=== PATIENT | female | born 1930 | race Caucasian/White ===

== ENCOUNTER 2017-02-20 14:30 | Inpatient (IN) | payer MEDICARE, MEDICAID ==
--- NOTE | 2017-02-12 12:36 | RAD ---
INDICATION: Hypertension COMPARISON: None TECHNIQUE: PA and lateral dual-energy views were obtained. FINDINGS: Bones/Soft Tissues: There are no acute bony findings. There are surgical clips in both axillary regions Cardiomediastinal: The cardiomediastinal silhouette is normal. Lungs: There are no infiltrates. Pleura: There are no pleural effusions. Other: None IMPRESSION: NO ACTIVE DISEASE.
--- NOTE | 2017-02-15 11:00 | HP ---
AMENDED REPORT NOW INCLUDES COSIGNER DESIGNATION - ESIGNED BEFORE ADJUSTMENT HISTORY AND PHYSICAL: DATE OF ADMISSION: DATE OF OFFICE VISIT: 02/12/17 DATE OF SURGERY: 02/20/17 SURGEON: Aleyda Roberson MD * (DICTATED BY TERESA CISNEROS) PROCEDURE: Left total knee arthroplasty. CHIEF COMPLAINT: Left knee pain. HISTORY OF PRESENT ILLNESS: Ms. Joseph is an 86-year-old female with complaints of left knee pain secondary to end-stage osteoarthritis. She has failed conservative management and has elected to proceed with left knee arthroplasty, which is scheduled for 02/20/17. PAST MEDICAL HISTORY: Hypertension, gout, breast cancer. PAST SURGICAL HISTORY: Bilateral mastectomy, bilateral breast reconstructions, spinal stimulator placement, removal of spinal stimulator, cataract removal and tonsillectomy. CURRENT MEDICATIONS: 1. Atenolol/chlorthalidone 50-25 mg daily. 2. Simvastatin 10 mg q.h.s. 3. Allopurinol 100 mg daily. 4. Potassium chloride. 5. Lockwood 7.5 as needed. 6. Furosemide 20 mg daily. ALLERGIES: To LATEX. FAMILY HISTORY: Unknown. SOCIAL HISTORY: She is an 86-year-old female. She lives alone. She does not smoke or use drugs or alcohol. REVIEW OF SYSTEMS: A complete 14-point review of systems is reviewed with the patient, is positive for incontinence. She denies history of DVT, PE, or anesthesia problems. PHYSICAL EXAMINATION GENERAL: She is well developed, well nourished, in no acute distress. VITAL SIGNS: She stands 5 feet 2 inches tall, weighs 200 pounds. Her blood pressure is 168/90. Her heart rate is 110. HEENT: Normocephalic, atraumatic. NECK: Supple. PULMONARY: Lungs are clear to auscultation bilaterally. CARDIO: Regular rate and rhythm. Strong S1 and S2. ABDOMEN: Soft, nontender, nondistended. MUSCULOSKELETAL: Left lower extremity skin is intact. There are no open wounds or abrasions. There is some moderate joint effusion, tenderness over the medial and lateral joint line. No varus or valgus instability. 5 to 120 degrees active motion with a 10 degree valgus deformity, 2+ dorsalis pedis pulses and intact sensation. Her lower extremity muscle group strengths are intact at 5/5. NEUROLOGIC: Alert and oriented x3. Cranial nerves II through XII are intact. ASSESSMENT AND PLAN: Ms. Joseph is an 86-year-old female with complaints of left knee pain secondary to end-stage osteoarthritis. She has failed conservative management and has elected to proceed a left total knee arthroplasty, which is scheduled for 02/20/[address] Roberson discussed the risks and benefits of the surgery at today's visit and all of her questions were answered. Coumadin was sent to her pharmacy for postoperative DVT prophylaxis. Pain medication will be sent at the time of discharge. She will follow up with Dr. Roberson 2 weeks after the surgery. TERESA CISNEROS [id number]/[facility] #: [id number] MTDD
[~2017-02-20 14:30] MED LIST: Buffered Lidocaine 0.9% SYRIN* 5 ML/SYR SYRINGE INTRADERM ONE; Famotidine IV* 10 MG/ML 2 ML (20 mg) IV ONE; Metoclopramide TAB* 10 MG PO ONE
--- NOTE | 2017-03-05 12:33 | HP ---
HISTORY AND PHYSICAL: DATE OF SURGERY: 03/15/17 DATE OF OFFICE VISIT: 03/05/17 SURGEON: Aleyda Roberson MD * (DICTATED BY TERESA CISNEROS) PROCEDURE: Left total knee arthroplasty. CHIEF COMPLAINT: Left knee pain. HISTORY OF PRESENT ILLNESS: Ms. Joseph is an 86-year-old female with complaints of left knee pain secondary to end-stage osteoarthritis. She failed conservative management and elected to proceed with a left total knee arthroplasty, which is scheduled for 03/15/[address] Roberson. PAST MEDICAL HISTORY: Hypertension, gout, and history of breast cancer. PAST SURGICAL HISTORY: Bilateral mastectomies, tonsillectomy, cataract removal , lumbar fusion, spinal stimulator placement and removal of spinal stimulator. CURRENT MEDICATIONS: 1. Furosemide 20 mg daily. 2. Brethren 7.5/325 as needed. 3. Potassium chloride. 4. Allopurinol 100 mg daily. 5. Simvastatin 10 mg at q.h.s. 6. Atenolol/chlorthalidone 50/25 mg daily. ALLERGIES: LATEX. FAMILY HISTORY: Denies. SOCIAL HISTORY: She is an 86-year-old female, she lives alone. She does not smoke, use drugs or alcohol. REVIEW OF SYSTEMS: A complete 14-point review of systems was reviewed with the patient and was all negative or noncontributory. PHYSICAL EXAMINATION GENERAL: Well developed, well nourished, in no acute distress. VITAL SIGNS: She stands 5 feet 2 inches tall, weighs 200 pounds, her blood pressure is 128/72, her heart rate is 80. HEENT: Normocephalic and atraumatic. NECK: Supple. No palpable lymph nodes. PULMONARY: Lungs are clear to auscultation bilaterally. CARDIO: Regular rate and rhythm. Strong S1 and S2. ABDOMEN: Soft, nontender, and nondistended. MUSCULOSKELETAL: Left lower extremity, the skin is intact. There is no open wounds or abrasions. There is a moderate joint effusion. There is a valgus deformity, 2+ dorsalis pedis pulses. Her lower extremity muscle group strengths are intact at 5/5 and she has intact sensation. 5 to 120 degrees of flexion. ASSESSMENT AND PLAN: Ms. Joseph is an 86-year-old female with complaints of left knee pain secondary to end-stage osteoarthritis. She has failed conservative management and elected to proceed with a left total knee arthroplasty. The surgery is scheduled for 03/15/[address] Roberson discussed the risks and benefits of the surgery at today's visit and all of her questions were answered. She will follow with Dr. Roberson 2 weeks after the surgery. TERESA CISNEROS [id number]/[facility] #: [id number] KAREN
[2017-03-14] MEDS ORDERED: Buffered Lidocaine 0.9% SYRIN* 5 ML/SYR SYRINGE INTRADERM ONE (14:11)
[2017-03-15] MEDS ORDERED: Famotidine IV* 10 MG/ML 2 ML (20 mg) IV ONE (06:00)
[2017-03-15] MEDS ORDERED: Metoclopramide TAB* 10 MG PO ONE (06:00)
[2017-03-15] MEDS ORDERED: Metoclopramide TAB* 10 MG ONE (07:04)
[2017-03-15] MEDS ORDERED: ceFAZolin 2 GM PREMIX (*) 2 GM/50 ML BAG IVPB ONE (07:04)
[2017-03-15] MEDS ORDERED: Famotidine IV* 10 MG/ML 2 ML (20 mg) ONE (07:04)
[2017-03-15] MEDS ORDERED: Buffered Lidocaine 0.9% SYRIN* 5 ML/SYR SYRINGE ONE (07:05)
[2017-03-15] MEDS ORDERED: Dexamethasone IV* 4 MG/ML 1 ML (4 MG) ONE (08:05)
[2017-03-15] MEDS ORDERED: Propofol* 10 MG/ML 20 ML BTL IV PUSH ONE (08:05)
[2017-03-15] MEDS ORDERED: Ketorolac INJ* 30 MG/ML 1 ML VIAL ONE (08:05)
[2017-03-15] MEDS ORDERED: fentaNYL* 50 MCG/ML 2 ML VIAL (100 MCG VIAL) ONE ×2 (08:05→13:18)
[2017-03-15] MEDS ORDERED: ROPIVACAINE 5 MG/ML 30 ML BTL (0.5%) ONE (08:05)
[2017-03-15] MEDS ORDERED: Ondansetron INJ* 2 MG/ML VIAL ONE (08:05)
[2017-03-15] MEDS ORDERED: Lidocaine 2% PF * 5 ML VIAL ONE (08:05)
[2017-03-15] MEDS ORDERED: KETAMINE HCL* 50 MG/ML 10 ML VIAL ONE (08:05)
[2017-03-15] MEDS ORDERED: Midazolam* 1 MG/ML 10 ML VIAL (10 MG) ONE (08:06)
[2017-03-15 09:02] LABS: Hematocrit 32 % (35-47); Hemoglobin 10.9 g/dl (12.0-16.0); Mean Corpuscular HGB Conc 34 g/dl (31-36); Mean Corpuscular Hemoglobin 31 pg (27-31); Mean Corpuscular Volume 93 fL (80-97); Mean Platelet Volume 8 um3 (7.4-10.4); Red Blood Count 3.49 10^6/ul (4.0-5.4); Red Cell Distribution Width 15 % (10.5-15); White Blood Count 13.5 10^3/ul (3.5-10.8)
[2017-03-15] MEDS ORDERED: Cisatracurium* 2 MG/ML MDV 5 ML ONE (09:25)
[2017-03-15] MEDS ORDERED: fentaNYL* 50 MCG/ML 5 ML VIAL (250 MCG VIAL) ONE (09:26)
[2017-03-15] MEDS ORDERED: Phenylephrine IV* 40 MCG/ML 10 ML SYRINGE ONE (09:39)
[2017-03-15] MEDS ORDERED: EPHEDrine (Pressors)* 50 MG/ML VIAL ONE (09:41)
[2017-03-15] MEDS ORDERED: Edrophonium Chloride* 10 MG/ML 15 ML VIAL ONE (10:21)
[2017-03-15] MEDS ORDERED: Bupivacaine 0.5% SDV PF* 30 ML VIAL ONE (10:21)
[2017-03-15] MEDS ORDERED: Ondansetron INJ* 2 MG/ML VIAL IV PRN ×2 (11:09→12:10)
[2017-03-15] MEDS ORDERED: fentaNYL* 50 MCG/ML 2 ML VIAL (100 MCG VIAL) IV PRN (11:09)
[2017-03-15] MEDS ORDERED: Morphine INJ* 2 MG/ML 1 ML CARPUJECT IV PRN (12:10)
[2017-03-15] MEDS ORDERED: oxyCODONE/Acetamin 5/325 MG* TAB PO PRN (12:10)
[2017-03-15] MEDS ORDERED: Acetaminophen TAB* 325 MG PO PRN (12:10)
[2017-03-15] MEDS ORDERED: Bisacodyl SUPP* 10 MG SUPP PR PRN (12:10)
[2017-03-15] MEDS ORDERED: diPHENhydraMINE IV* 50 MG/ML 1 ml VIAL (BENADRYL) IV PRN (12:10)
[2017-03-15] MEDS ORDERED: oxyCODONE/Acetamin 5/325 MG* TAB ONE (12:46)
[2017-03-15] MEDS: oxyCODONE/Acetamin 5/325 MG* TAB PO PRN ×2 (12:47→17:14)
[2017-03-15] MEDS ORDERED: Morphine INJ* 4 MG/ML 1 ML CARPUJECT ONE (12:50)
--- NOTE | 2017-03-15 13:01 | RAD ---
INDICATION: Left total knee replacement COMPARISON: January 12, 2017 TECHNIQUE: Portable AP and crosstable lateral were obtained. FINDINGS: There is left knee arthroplasty. Both femoral and tibial components appear well seated. There is a cooling jacket in place. IMPRESSION: POSTOPERATIVE LEFT TOTAL KNEE REPLACEMENT.
[2017-03-15] MEDS ORDERED: Morphine INJ* 2 MG/ML 1 ML SYRINGE (TWO MG - NEW SYRINGE VERSION) IV PRN (14:17)
--- NOTE | 2017-03-15 16:49 | CONS ---
[facility] MEDICINE CONSULTATION REPORT: DATE OF CONSULTATION: 03/15/17 ATTENDING PHYSICIAN: Dr. Roberson. CONSULTING PHYSICIAN: Jenni Trammell MD REASON FOR CONSULT: History of Hypertension. HISTORY OF PRESENT ILLNESS: Ms. Joseph is an 86-year-old female with complaints of left knee pain secondary to end-stage osteoarthritis. She failed outpatient conservative management and elected to proceed with a left total knee arthroplasty with Dr. Roberson. We were asked to consult due to her past medical history of hypertension in the postoperative period. Ms. Joseph is currently complaining of left leg pain and is being medicated as per her orders. She has no other complaints. She denies shortness of breath. She denies any chest pain. She denies dizziness. Denies nausea, vomiting. She is alert and oriented at the time of interview. PAST MEDICAL HISTORY: 1. Hypertension. 2. Gout. 3. Osteoarthritis. 4. Osteoporosis. 5. She has a history of bilateral breast cancer. 6. High cholesterol. PAST SURGICAL HISTORY: Bilateral mastectomy, left was done in 2011, right in 2014. She had a right hip replacement in June 2013. She has had a dorsal column stimulator placed in January 2009. She had back surgery in 2004 and C- section. CURRENT MEDICATIONS: 1. Furosemide 20 mg. 2. Gap 7.5/325 p.r.n. 3. Potassium. 4. Allopurinol 100 mg. 5. Simvastatin 10 mg. 6. Atenolol/chlorthalidone 50/25 mg daily. ALLERGIES: She does have allergy to LATEX. SOCIAL HISTORY: The patient does live alone. She denies smoking. Denies drug use. Denies alcohol use. Surrogate decision maker is Hugo Castro, phone number is . REVIEW OF SYSTEMS: General: She has no fever, no chills, no unintended weight loss. Cardiac: No chest pain. Respiratory: She has no cough or congestion. No shortness of breath. GI: No nausea, no vomiting, no diarrhea, no abdominal pain. : No gross hematuria or dysuria. Neuro: No focal weakness or sensory loss. Eyes: No visual complaints. ENT: No dysphagia. Musculoskeletal: No arthralgias or myalgias. Skin: There are no rashes or lesions. Psych: No depression or anxiety. PHYSICAL EXAMINATION: GENERAL: Ms. Joseph is sitting on the stretcher. She has pain to her left leg and left hip. VITAL SIGNS: As follows: Temperature is 96.6, heart rate is 64, respirations 13 easy and even, oxygen saturation is 99% on 2 L nasal canula, blood pressure 116/45. LUNGS: Sounds are clear to auscultation bilaterally. There is no accessory muscle use. HEART: S1, S2. There are no murmurs, rubs, gallops. She is in a regular rhythm. ABDOMEN: Soft and nontender. Bowel sounds are positive x4. EXTREMITIES: There is no cyanosis. Pedal pulses are +2 bilaterally. NEURO: She is alert and oriented. She does move all extremities. Extraocular eye movements are intact. SKIN: Intact. LABORATORY DATA/DIAGNOSTIC STUDIES: Preoperatively, these labs are from : WBC's are 13.5, RBC's are 3.49, hemoglobin is 10.9, hematocrit is 32, neutrophils are 77.3, lymphocytes are 13.4, platelet count is 305,000. The next set of labs are from 02/12/17; sodium 137, potassium 4.1, chloride 102, bicarb is 27, BUN is 19, creatinine is 0.90, glucose is 96, calcium is 10.8. IMPRESSION AND PLAN: Ms. Joseph is an 86-year-old female with past medical history significant for hypertension, gout, and osteoarthritis who presented to the hospital today for a scheduled left total knee replacement. In the immediate postop period, she has no complaints other than left hip and left leg pain. Hospital Medicine was called to consult regarding her history of hypertension. Our recommendations are as follows: 1. Status post left total knee; management per Ortho. 2. Hypertension. We will discontinue atenolol and chlorthalidone 50/25 mg daily. We will reorder atenolol 50 mg p.o. daily to start in the morning with parameters to hold if heart rate is less than 60. We will hold Lasix. 3. Gout. We will continue allopurinol. 4. History of bilateral breast cancer with bilateral mastectomies, not a current issue. 5. Postop bradycardia. We will obtain a 12-lead EKG. We will order a BNP, mag , and TSH. We will place her on telemetry. 6. Activity; as per Ortho. 7. FEN. We will place her on a regular diet. 8. Code status is a full code. TIME SPENT: Approximately 60 minutes was spent in consultation of this patient , more than half the time was spent at the patient's bedside reviewing medical history with the patient and family and performing physical exam and also reviewing my plan of care. DEBRA MORAN, ASSISTANT COMMISSIONER [id number]/[facility] #: [id number] KAREN
[2017-03-15] MEDS ORDERED: Warfarin TAB(*) 6 MG PO ONE (17:00)
[2017-03-15 18:12] LABS: BUN/Creatinine Ratio 29.1 (8-20); Calcium 8.1 mg/dL (8.6-10.3); EGFR Non-African American 69.2 (>60); Magnesium 1.5 mg/dL (1.9-2.7); Potassium 4.4 mmol/L (3.5-5.0)
[2017-03-15] MEDS: ceFAZolin 1 GM VIAL(*) 1 GM in D5W 50 ML BAG* 50 ML IVPB SCH (18:18)
[2017-03-15] MEDS: oxyCODONE TAB* 5 MG TAB PO PRN (20:23)
[2017-03-15] MEDS: Docusate CAP* 100 MG PO SCH (20:24)
[2017-03-15] MEDS ORDERED: Potassium Chlor TAB* 20 MEQ TAB.ER PO SCH (21:00)
[2017-03-15] MEDS ORDERED: Magnesium Sulfate 2 GM IV* 2 GM/50 ML BAG IVPB ONE (21:28)
[2017-03-16] MEDS: ceFAZolin 1 GM VIAL(*) 1 GM in D5W 50 ML BAG* 50 ML IVPB SCH ×2 (02:05→10:04)
[2017-03-16] MEDS: oxyCODONE TAB* 5 MG TAB PO PRN ×3 (02:08→18:27)
--- NOTE | 2017-03-16 03:11 | OP ---
DATE OF OPERATION: 03/15/17 - ROOM #336 DATE OF : 31. ATTENDING SURGEON: Aleyda Roberson MD. PIG MACHINE OPERATOR HELPER: TERESA Martinez. Mr. Morris did help throughout the procedure with preparation of the leg, wound retraction, manipulation of the knee, and wound closure. ANESTHESIOLOGIST: Dr. Mo. ANESTHESIA: General. PRE-OP DIAGNOSIS: Severe end-stage degenerative osteoarthritis of the left knee joint. POST-OP DIAGNOSIS: Severe end-stage degenerative osteoarthritis of the left knee joint. OPERATIVE PROCEDURE: Left total knee arthroplasty. TOURNIQUET TIME: 42 minutes. COMPLICATIONS: None. SPECIMENS: Bone and cartilage from the left knee joint sent to Pathology. ESTIMATED BLOOD LOSS: 200 cc. HARDWARE USED: This is cemented [employer] total knee hardware. Two packages of Simplex bone cement were used. For the femur, a size 5 left narrow Legion posterior stabilized femoral component, for the tibia size 3 left tibial baseplate Maura II. For the insert, a 9 mm posterior stabilized articular insert, size 3-4 and for the patella a 32-mm 3-peg all poly patella, thickness of 7.5. BRIEF HISTORY/INDICATIONS: Ms. Joseph is an 86-year-old female with years of increasingly severe left knee pain. Radiographs showed [id number] arthritis. She failed conservative treatment with anti-inflammatories, pain medication, and intraarticular injections and physical therapy. She elected to undergo left total knee arthroplasty due to continued pain and decreased quality of life. Informed consent was obtained from the patient. She understood the risks of surgery, included but were not limited to bleeding, infection, damage to nearby structures, continued pain, need for further surgery, intraoperative fracture, nerve palsy, hardware failure or loosening, knee stiffness, loss of motion, stroke, heart attack, blood clot, and . She wished to proceed. INTRAOPERATIVE FINDINGS: Intraoperatively, the patient was noted to have severe end-stage arthritis in a tricompartmental fashion. She had a displaceable lateral meniscus tear, which was essentially a bucket-handle tear. She had significant osteopenia noted. DESCRIPTION OF PROCEDURE: Ms. Joseph was identified in the preanesthesia unit. Her right lower extremity was marked as the correct operative side. Informed consent was signed and placed in the chart. The patient was taken to the operating room and placed under general anesthesia without difficulty. A Gutierrez catheter was placed. Tourniquet was placed on the left thigh. Left lower extremity was prepped and draped in the usual sterile fashion. Preop time-out was made to correctly identify the patient's side and site. Appropriate perioperative antibiotics were given within 1 hour of incision. Tourniquet was inflated. Total tourniquet time for this procedure was 42 minutes. A 12-cm midline incision was made with a 10-blade. A new 10-blade was used to make a standard medial parapatellar arthrotomy. Patella was subluxed laterally. Electrocautery was used to subperiosteally elevate soft tissue off the superomedial tibia. The knee was flexed up. The anterior horn of the lateral meniscus and ACL were sharply released. A drill was used to enter the distal femur. Intra-medullary distal femoral cutting guide was pinned on the distal femur. 9 mm of distal femoral bone was carefully removed with an oscillating saw. External rotation guide was pinned on the distal femur. The distal femur was sized to a size 5. A size 5 multi-cutting jig was pinned on the distal femur. The oscillating saw was used to make the appropriate four chamfer cuts. The PCL was completely released. The tibia was subluxed anteriorly. Extramedullary tibial cutting guide was pinned on the proximal tibia. Oscillating saw was used to make the proximal tibial cut perpendicular to the mechanical axis of the tibia. The knee was brought out into full extension. A spacer block had excellent fit. The knee was in full extension with good medial and lateral ligamentous balancing. Flexion and extension gaps were well balanced. The knee was flexed up. The lamina retail coverage merchandiser lead was placed both medially and laterally. Any remaining meniscus was carefully removed using electrocautery. Curved osteotome was used to remove any posterior osteophytes. Tibial tray and drop pascale once again to confirm the satisfactory tibial cut. A size 5 narrow left femoral trial was chosen and impacted on to the distal femur. The trial had good fit. The box for the posterior stabilized implant was prepared using a reamer and box cut osteotome. Size 3 tibial tray trial and a 9-mm insert trial were placed and the knee was taken through a range of motion. The knee had full extension to 130 degrees of flexion. There was satisfactory patellofemoral tracking. The patella was everted. 7-mm of patellar bone and cartilage was carefully removed using an oscillating saw. The patella was sized to a size 32. Three peg holes were drilled through the size 32 guide. A 32 7.5 thickness patellar trial was chosen and the knee was taken through a range of motion. Patellofemoral tracking was satisfactory. All trials were carefully removed. The tibia was subluxed anteriorly and sized to a size 3. Proximal tibia was prepared using a size 3 keel punch. All bony cut surfaces were copiously irrigated with sterile saline and dried. Final implants were cemented into place starting with the tibia, followed by the femur , and last the patella. A 9-mm insert trial was placed and the knee was taken out into full extension. Tourniquet was turned down at 42 minutes. The cement was allowed to fully cure. The knee was copiously irrigated with sterile saline. Electrocautery was used to obtain meticulous hemostasis. Once the cement had fully cured, the insert trial was carefully removed. Any extra cement was removed from around the hardware and capsule. Final insert chosen was a 9-mm posterior stabilized articular insert size 3-4. This was locked into position on the tibial tray. Stability of the insert was checked and rechecked and noted to be stable. The knee was copiously irrigated with sterile saline. The extensor mechanism was closed using an interrupted #1 Vicryls. The rest of the incision was closed in a layered fashion using 0 and 2-0 Vicryls. Skin was closed using running 3-0 nylon suture. Sterile Xeroform, 4x4s, and Webril were used to cover the incision. Justin wrap and cold pack were placed over this. The patient's anesthesia was reversed without difficulty. She was taken to the PACU in stable condition. Intended weightbearing is weightbearing as tolerated. Intended DVT prophylaxis will be Coumadin with a Lovenox bridge. [id number]/[facility] #: [id number] KAREN
[2017-03-16 06:03] LABS: Hematocrit 25 % (35-47); Hemoglobin 8.3 g/dl (12.0-16.0)
[2017-03-16] MEDS: oxyCODONE/Acetamin 5/325 MG* TAB PO PRN ×3 (06:15→23:35)
[2017-03-16 06:17] LABS: BUN/Creatinine Ratio 26.3 (8-20); Calcium 8.1 mg/dL (8.6-10.3); EGFR African American 71.9 (>60); EGFR Non-African American 55.9 (>60); Potassium 4.4 mmol/L (3.5-5.0)
[2017-03-16] MEDS: Vitamin THERAPEUTIC TAB PO SCH (08:26)
[2017-03-16] MEDS: Allopurinol TAB* 100 MG PO SCH (08:26)
[2017-03-16] MEDS: Magnesium Hydroxide LIQ* 30 ML UDC PO PRN ×2 (08:27→19:47)
[2017-03-16] MEDS: Docusate CAP* 100 MG PO SCH ×2 (08:27→19:47)
[2017-03-16] MEDS: Atorvastatin* 10 MG TAB PO SCH (08:27)
[2017-03-16] MEDS: Enoxaparin(*) 30 MG/0.3 ML SYR SUBCUT SCH (08:28)
[2017-03-16] MEDS ORDERED: ATENOLOL PO SCH (09:00)
[2017-03-16] MEDS ORDERED: Atenolol TAB* 50 MG PO SCH (09:00)
[2017-03-16] MEDS ORDERED: CHLORTHALIDONE PO SCH (09:00)
--- NOTE | 2017-03-16 11:45 | PN ---
Progress Note - Progress Note Date of Service: 03/16/17 SOAP: Subjective: 86 y/o female s/p L TKA by DR. Roberson 03/15/2017. Patient c/o calf, thigh pain. VSS, afebrile overnight. family members bedside. Objective: General- Well appearing, NAD, AO MSK- dressing intact, no drainage noted, no odor. no drain. + DF/PF b/l, PT 2 + b/l, negative homans. Vital Signs Temp 98.0 F 03/16/17 07:34 Pulse 63 03/16/17 07:34 Resp 16 03/16/17 10:48 BP 122/38 03/16/17 07:34 Pulse Ox 99 03/16/17 07:34 Intake & Output 03/15/17 03/16/17 03/16/17 18:59 06:59 18:59 Intake Total 3290 1541 120 Output Total 550 425 50 Balance 2740 1116 70 Weight 90.718 kg Intake: IV Fluids 3050 1091 ABX - CEFAZOLIN 61 LR 3000 980 Magnesium sulfate 50 NS 50ML, Cefazolin 2G 50 Oral 240 450 120 Output: Urine 50 Gutierrez 550 425 Other: Estimated Blood Loss MINIMAL Comment Assessment: 86 y/o female s/p L TKA by DR. Roberson 03/15/2017. Plan: - Continue PT/ OT - added flexeril for muscle spasms, if no resolution, possive DVT study - Coumadin, lovenox for DVT pro- 6mg coumadin tonight, continue lovenox - PMRU consult placed. Active Medications Generic Name Dose Route Start Last Admin Trade Name Freq PRN Reason Stop Dose Admin Acetaminophen 650 mg 03/15/17 12:10 Tylenol Tab* PO Q4H PRN PAIN OR TEMPERATURE Allopurinol 100 mg 03/16/17 09:00 03/16/17 08:26 Zyloprim Tab* PO 100 mg QAM JOSS Administration Atenolol 50 mg 03/16/17 09:00 03/16/17 08:27 Tenormin Tab* PO 50 mg DAILY JOSS Administration Atorvastatin Calcium 5 mg 03/16/17 09:00 03/16/17 08:27 Lipitor* PO 5 mg QAM JOSS Administration Bisacodyl 10 mg 03/15/17 12:10 Dulcolax Supp* KS DAILY PRN constipation Cyclobenzaprine HCl 10 mg 03/16/17 11:43 Flexeril Tab* PO TID PRN muscle spasms Diphenhydramine HCl 25 mg 03/15/17 12:10 Benadryl Iv* IV Q6H PRN itching Docusate Sodium 100 mg 03/15/17 21:00 03/16/17 08:27 Colace Cap* PO 100 mg BID JOSS Administration Enoxaparin Sodium 30 mg 03/16/17 08:00 03/16/17 08:28 Lovenox(*) SUBCUT 30 mg Q24H JOSS Administration Lactated Ringer's 1,000 mls @ 75 mls/hr 03/15/17 13:00 03/16/17 05:03 Lactated Ringers 1000 Ml Bag* IV 75 mls/hr PER RATE JOSS Administration Magnesium Hydroxide 30 ml 03/15/17 12:10 03/16/17 08:27 Milk Of Magnesia Liq* PO 30 ml Q6H PRN Administration constipation Morphine Sulfate 2 mg 03/15/17 14:17 Morphine Inj (Syringe)* IV Q2H PRN PAIN - UNCONTROLLED Multivitamins 1 tab 03/16/17 09:00 03/16/17 08:26 Theragran Tab* PO 1 tab DAILY JOSS Administration Ondansetron HCl 4 mg 03/15/17 12:10 Zofran Inj* IV Q6H PRN nausea Oxycodone HCl 10 mg 03/15/17 12:10 03/16/17 08:27 Roxycodone Tab* PO 10 mg Q4H PRN Administration PAIN - SEVERE Oxycodone/Acetaminophen 1 tab 03/15/17 12:10 Percocet 5/325 Tab* PO Q4H PRN PAIN - MODERATE Oxycodone/Acetaminophen 2 tab 03/15/17 12:10 03/16/17 06:15 Percocet 5/325 Tab* PO 2 tab Q4H PRN Administration PAIN - MODERATE TO SEVERE Warfarin Sodium 6 mg 03/16/17 17:00 Coumadin Tab(*) PO 03/16/17 17:01 ONCE@1700 [facility] Protocol
[2017-03-16] MEDS ORDERED: Magnesium Sulfate 2 GM IV* 2 GM/50 ML BAG IVPB ONE (13:41)
[2017-03-16] MEDS: Cyclobenzaprine TAB* 10 MG PO PRN (14:38)
[2017-03-16] MEDS ORDERED: Warfarin TAB(*) 6 MG PO SCH (17:00)
--- NOTE | 2017-03-16 17:47 | PN ---
Subjective Date of Service: 03/16/17 Interval History: Ms. Joseph is having some muscle spasms at the time of my examination but has just been given flexeril. She denies other complaint. Objective Active Medications: Acetaminophen (Tylenol Tab*) 650 mg PO Q4H PRN Allopurinol (Zyloprim Tab*) 100 mg PO QAM JOSS Atorvastatin Calcium (Lipitor*) 5 mg PO QAM JOSS Bisacodyl (Dulcolax Supp*) 10 mg MN DAILY PRN Cyclobenzaprine HCl (Flexeril Tab*) 10 mg PO TID PRN Diphenhydramine HCl (Benadryl Iv*) 25 mg IV Q6H PRN Docusate Sodium (Colace Cap*) 100 mg PO BID JOSS Enoxaparin Sodium (Lovenox(*)) 30 mg SUBCUT Q24H JOSS Lactated Ringer's (Lactated Ringers 1000 Ml Bag*) 1,000 mls @ 75 mls/hr IV PER RATE JOSS Magnesium Hydroxide (Milk Of Magnesia Liq*) 30 ml PO Q6H PRN Morphine Sulfate (Morphine Inj (Syringe)*) 2 mg IV Q2H PRN Multivitamins (Theragran Tab*) 1 tab PO DAILY JOSS Ondansetron HCl (Zofran Inj*) 4 mg IV Q6H PRN Oxycodone HCl (Roxycodone Tab*) 10 mg PO Q4H PRN Oxycodone/Acetaminophen (Percocet 5/325 Tab*) 1 tab PO Q4H PRN Oxycodone/Acetaminophen (Percocet 5/325 Tab*) 2 tab PO Q4H PRN Vital Signs: Temp Pulse Resp BP Pulse Ox 98.4 F 77 16 139/42 97 03/16/17 15:27 03/16/17 15:27 03/16/17 17:37 03/16/17 15:27 03/16/17 15:27 Oxygen Devices in Use Now: None Appearance: Female sitting up in chair in NAD Eyes: No Scleral Icterus Ears/Nose/Mouth/Throat: Mucous Membranes Moist Neck: Trachea Midline Respiratory: Symmetrical Chest Expansion and Respiratory Effort, Clear to Auscultation Cardiovascular: NL Sounds; No Murmurs; No JVD, No Edema Abdominal: NL Sounds; No Tenderness; No Distention Lymphatic: No Cervical Adenopathy Extremities: No Edema Skin: No Rash or Ulcers Neurological: Alert and Oriented x 3, NL Muscle Strength and Tone Nutrition: Taking PO's Result Diagrams: 03/16/17 05:34 03/16/17 05:34 Assess/Plan/Problems-Billing Assessment: Ms. Joseph is an 86 yo F with a PMH of hypertension who was admitted on 03/15/17 for left total knee arthroplasty. - Patient Problems (1) S/P knee replacement Comment: - Management per ortho. - Pain meds prn. - Hgb 8.2, will transfuse for Hgb < 8 or if she becomes symptomatic. (2) Vasovagal episode Comment: - Patient unresponive for 5-10 seconds during episode of nausea with vomiting. - IV fluid bolus given, atenolol held, anti-emetics provided. (3) Hypertension Comment: - SBP 120-140. - Hold atenolol given vasovagal until patient re-assessed in AM. - Hold chlorthalidone. (4) DVT prophylaxis Comment: - Warfarin with lovenox. (5) Full code status Status and Disposition: Disposition per ortho.
[2017-03-17 05:29] LABS: Hematocrit 22 % (35-47); Hemoglobin 7.4 g/dl (12.0-16.0)
[2017-03-17] MEDS: oxyCODONE/Acetamin 5/325 MG* TAB PO PRN ×3 (07:24→19:52)
[2017-03-17] MEDS: Enoxaparin(*) 30 MG/0.3 ML SYR SUBCUT SCH (08:26)
[2017-03-17] MEDS: Vitamin THERAPEUTIC TAB PO SCH (08:28)
[2017-03-17] MEDS: Atorvastatin* 10 MG TAB PO SCH (08:28)
[2017-03-17] MEDS: Docusate CAP* 100 MG PO SCH ×2 (08:28→19:52)
[2017-03-17] MEDS: Allopurinol TAB* 100 MG PO SCH (08:28)
[2017-03-17] MEDS ORDERED: Furosemide TAB* 20 MG PO SCH (09:00)
--- NOTE | 2017-03-17 09:53 | PN ---
Progress Note - Progress Note Date of Service: 03/17/17 SOAP: Subjective: 86 y/o female s/p L TKA by DR. Roberson 03/15/2017. Patient was seen this am while sitting in chair. Patient c/o of knee pain. VSS, afebrile overnight. Objective: General- Well appearing, NAD, AO MSK- dressing changed today. Incision is c/d/i, no drainage noted from incision. Mild amount of blood on dressing. no odor. + DF/PF b/l, PT 2+ b/l, negative homans. Vital Signs Temp 98.5 F 03/17/17 07:24 Pulse 85 03/17/17 07:24 Resp 20 03/17/17 08:00 BP 133/41 03/17/17 07:24 Pulse Ox 94 03/17/17 08:00 Intake & Output 03/16/17 03/17/17 03/17/17 18:59 06:59 18:59 Intake Total 1362 1514 225 Output Total 300 200 Balance 1062 1314 225 Intake: IV Fluids 637 1341 LR 637 1341 IVPB 55 53 ABX - CEFAZOLIN 55 Magnesium sulfate 53 Oral 670 120 225 Output: Urine 300 200 Other: Estimated Void Medium Large # Bowel Movements 1 Estimated Stool Amount Large # Voids 1 1 Assessment: 86 y/o female s/p L TKA by DR. Roberson 03/15/2017. Plan: - Continue PT/ OT - RBC transfusion ordered for H&H of 7.4 and 22 - Coumadin, lovenox for DVT pro- 6mg coumadin tonight, continue lovenox - Awaiting PMRU consult
--- NOTE | 2017-03-17 14:08 | PN ---
Subjective Date of Service: 03/17/17 Interval History: Ms. Joseph states that she is tired today but denies other complaint including chest pain, SOB, nausea, or abdominal pain. Objective Active Medications: Acetaminophen (Tylenol Tab*) 650 mg PO Q4H PRN Allopurinol (Zyloprim Tab*) 100 mg PO QAM JOSS Atorvastatin Calcium (Lipitor*) 5 mg PO QAM JOSS Bisacodyl (Dulcolax Supp*) 10 mg IA DAILY PRN Cyclobenzaprine HCl (Flexeril Tab*) 10 mg PO TID PRN Diphenhydramine HCl (Benadryl Iv*) 25 mg IV Q6H PRN Docusate Sodium (Colace Cap*) 100 mg PO BID JOSS Enoxaparin Sodium (Lovenox(*)) 30 mg SUBCUT Q24H JOSS Lactated Ringer's (Lactated Ringers 1000 Ml Bag*) 1,000 mls @ 75 mls/hr IV PER RATE JOSS Magnesium Hydroxide (Milk Of Magnesia Liq*) 30 ml PO Q6H PRN Morphine Sulfate (Morphine Inj (Syringe)*) 2 mg IV Q2H PRN Multivitamins (Theragran Tab*) 1 tab PO DAILY JOSS Ondansetron HCl (Zofran Inj*) 4 mg IV Q6H PRN Oxycodone HCl (Roxycodone Tab*) 10 mg PO Q4H PRN Oxycodone/Acetaminophen (Percocet 5/325 Tab*) 1 tab PO Q4H PRN Oxycodone/Acetaminophen (Percocet 5/325 Tab*) 2 tab PO Q4H PRN Vital Signs: Temp Pulse Resp BP Pulse Ox 98.5 F 96 18 155/53 97 03/17/17 13:13 03/17/17 13:13 03/17/17 13:21 03/17/17 13:13 03/17/17 13:13 Oxygen Devices in Use Now: None Appearance: Female sitting up in chair in NAD Eyes: No Scleral Icterus Ears/Nose/Mouth/Throat: Mucous Membranes Moist Neck: Trachea Midline Respiratory: Symmetrical Chest Expansion and Respiratory Effort, Clear to Auscultation Cardiovascular: NL Sounds; No Murmurs; No JVD, - - +1 edema, L > R Abdominal: NL Sounds; No Tenderness; No Distention Lymphatic: No Cervical Adenopathy Skin: No Rash or Ulcers Neurological: Alert and Oriented x 3, NL Muscle Strength and Tone Nutrition: Taking PO's Result Diagrams: 03/17/17 05:11 03/16/17 05:34 Assess/Plan/Problems-Billing Assessment: Ms. Joseph is an 86 yo F with a PMH of hypertension who was admitted on 03/15/17 for left total knee arthroplasty. - Patient Problems (1) S/P knee replacement Comment: - Management per ortho. - Pain meds prn. - Hgb 7.4, ortho has ordered one unit PRBC. (2) Vasovagal episode Comment: - Patient unresponive for 5-10 seconds during episode of nausea with vomiting. - IV fluid bolus given, atenolol held, anti-emetics provided. (3) Hypertension Comment: - SBP 120-140. - Resume atenolol, hold chlorthalidone for now. (4) DVT prophylaxis Comment: - Warfarin with lovenox. (5) Full code status Status and Disposition: Disposition per ortho.
[2017-03-17] MEDS ORDERED: Warfarin TAB(*) 6 MG PO ONE (17:00)
[2017-03-18] MEDS: oxyCODONE/Acetamin 5/325 MG* TAB PO PRN ×2 (00:08→06:09)
[2017-03-18 05:14] LABS: Comments Flag Yes; Hematocrit 22 % (35-47); Hemoglobin 7.9 g/dl (12.0-16.0)
[2017-03-18] MEDS: Cyclobenzaprine TAB* 10 MG PO PRN (06:09)
[2017-03-18] MEDS: Enoxaparin(*) 30 MG/0.3 ML SYR SUBCUT SCH (08:24)
[2017-03-18] MEDS: Docusate CAP* 100 MG PO SCH (08:25)
[2017-03-18] MEDS: Atorvastatin* 10 MG TAB PO SCH (08:25)
[2017-03-18] MEDS: Vitamin THERAPEUTIC TAB PO SCH (08:26)
[2017-03-18] MEDS: Allopurinol TAB* 100 MG PO SCH (08:26)
--- NOTE | 2017-03-18 08:52 | PN ---
Progress Note - Progress Note Date of Service: 03/18/17 SOAP: Subjective: 86 y/o female s/p L TKA by DR. Roberson 03/15/2017. Patient was seen this am while sitting in chair. Patient c/o of knee pain. She states that she is dizzy. VSS, afebrile overnight. Objective: General- Well appearing, NAD, she is falling alseep while I am speaking to her. MSK- dressing is c/d/i. no odor. + DF/PF b/l, PT 2+ b/l, negative homans. Vital Signs Temp 98.1 F 03/18/17 07:17 Pulse 88 03/18/17 07:17 Resp 20 03/18/17 08:24 BP 152/60 03/18/17 07:17 Pulse Ox 99 03/18/17 08:00 Intake & Output 03/17/17 03/18/17 03/18/17 18:59 06:59 18:59 Intake Total 1122 900 360 Output Total 100 150 Balance 1022 750 360 Intake: IV Fluids 447 LR 447 Oral 675 900 360 Output: Urine 100 150 Other: Estimated Void Large Large # Bowel Movements 1 Estimated Stool Amount Large # Voids 1 1 Assessment: 86 y/o female s/p L TKA by DR. Roberson 03/15/2017. Plan: - Continue PT/ OT - RBC transfusion ordered for H&H of 7.9 and 22 - Coumadin, lovenox for DVT pro- 6mg coumadin tonight, continue lovenox - Awaiting PMRU consult, she will be assessed today.
[2017-03-18 13:00] VITALS: BP 157/59
[2017-03-18] MEDS ORDERED: Warfarin TAB(*) 6 MG PO SCH (17:00)
--- NOTE | 2017-03-19 05:23 | DS ---
DISCHARGE SUMMARY: DATE OF ADMISSION: 03/15/17 DATE OF DISCHARGE: 03/18/17 PROVIDER: Dr. Aleyda Roberson * (DICTATED BY TERESA SORIANO) ADMITTING DIAGNOSIS: Left total knee arthroplasty. CONSULTATIONS: PT, OT, and Hospitalist Medicine. HISTORY OF PRESENT ILLNESS: Ms. Joseph is an 86-year-old female with complaints of left knee pain secondary to endstage osteoarthritis. She has failed conservative management and elected to proceed with left knee arthroplasty, which was performed on 03/15/17 HOSPITAL COURSE: The patient was admitted to [facility] on 03/15/17 and underwent a left total knee arthroplasty with no complications. The patient recovered briefly in the postanesthesia care unit and was transferred to the short- stay surgical unit in stable condition. On postop day #1, the patient's H and H was 8.3 and 25. INR was 0.94 after 6 mg of Coumadin the night before. Dressing was clean, dry, and intact, and left lower extremity was neurovascularly intact. She could demonstrate dorsiflexion and plantarflexion with good strength. The patient was able to get out of bed with physical therapy. Pain was controlled with Percocet orally. On postop day 2, the urinary catheter was discontinued and the patient was able to void without difficulty. Incision was found to be benign with minimal drainage. No erythema or warmth. The patient's H and H was 7.4 and 22 which warranted the transfusion of blood for being under 8 for hemoglobin. INR was 1.14 after 6 mg of Coumadin the night before. Pain was controlled with again oral Percocet. The patient was able to ambulate with the use of a rolling walker assistance. On postoperative day #3, the H and H was 7.9 and 22, which again warranted another unit of blood to be transfused for the same reason. INR was 1.44 after 6 mg of Coumadin the night before. The patient's pain was well controlled and she was found to be medically stable, transferred to the [facility]. Throughout the hospital course, vital signs remained stable and the patient was afebrile. DISCHARGE CONDITION: Good. DISCHARGE MEDICATIONS: 1. Percocet. 2. Colace. 3. Warfarin. Home medications: 1. Atenolol/chlorthalidone 50/25 mg daily. 2. Simvastatin 10 mg q.h.s. 3. Allopurinol 100 mg daily. 4. Potassium chloride. 5. Randolph 7.5 mg as needed. 6. Furosemide 20 mg daily. DISCHARGE INSTRUCTIONS: 1. Weightbearing as tolerated. 2. Wound care: Okay to shower. No bathing, swimming, submerging wound. Use gentle soap, pat dry. Cover with gauze, Justin wrap tape. Call orthopedic office for increased drainage, redness, increased pain or fever. Go to ER with shortness of breath or chest pain. 3. Diet: Regular diet. Increase fluids and fiber to prevent constipation. Continue to use stool softeners. Call office if no bowel motion within 48 hours. 4. Continue physical therapy and occupational therapy. Exercise as shown. 5. Pain control with Percocet as needed. 6. Antibiotics required prior to any dental work. 7. Follow up with Dr. Aleyda Roberson in 10 to 14 days. Call for an appointment. TERESA SORIANO [id number]/[facility] #: [id number] KAREN
== END 2017-03-18 13:45 | DRG 470 ==
LOC: AA 03-15 06:59 → SSU 03-15 14:05
PROVIDERS: ADMIT Orthopaedic Surgery Adult Reconstructive Orthopaedic Surgery; ATTEND Orthopaedic Surgery Adult Reconstructive Orthopaedic Surgery
PROC: 0SRD0J9 Replacement of Left Knee Joint with Synthetic Substitute, Cemented, Open Approach (ICD-10-PCS; 2017-03-15)
PROC: 30233N1 Transfusion of Nonautologous Red Blood Cells into Peripheral Vein, Percutaneous Approach (ICD-10-PCS; principal; 2017-03-18)
DX: M17.12 Unilateral primary osteoarthritis, left knee (principal); R00.1 Bradycardia, unspecified; E78.00 Pure hypercholesterolemia, unspecified; I10 Essential (primary) hypertension; M10.9 Gout, unspecified; M62.838 Other muscle spasm; R55 Syncope and collapse; R11.2 Nausea with vomiting, unspecified; M81.0 Age-related osteoporosis without current pathological fracture; Z96.641 Presence of right artificial hip joint; I25.10 Atherosclerotic heart disease of native coronary artery without angina pectoris; F41.9 Anxiety disorder, unspecified; F32.9 Major depressive disorder, single episode, unspecified; M23.201 Derangement of unspecified lateral meniscus due to old tear or injury, left knee; M85.862 Other specified disorders of bone density and structure, left lower leg; Z79.01 Long term (current) use of anticoagulants; Z85.3 Personal history of malignant neoplasm of breast; Z90.13 Acquired absence of bilateral breasts and nipples; Z98.49 Cataract extraction status, unspecified eye; Z98.1 Arthrodesis status; Z91.040 Latex allergy status
CPT/HCPCS: 36415; 71010; 80048; 83735; 84443; 85014; 85018; 85025; 85610; 86850; 86900; 86901; 86922; 93005; 94760; A9270-GY; C1776; J0690; J1100; J1650; J1885; J2250; J2270; J2405; J2704; J2795; J3010; J3475; P9040

== ENCOUNTER 2017-03-18 11:46 | Inpatient (IN) | payer MEDICARE, MEDICAID ==
[2017-03-18] MEDS ORDERED: Senna TAB PO PRN (14:41)
[2017-03-18] MEDS ORDERED: Acetaminophen TAB* 325 MG PO PRN (14:41)
[2017-03-18] MEDS ORDERED: Magnesium Hydroxide LIQ* 30 ML UDC PO PRN (14:41)
[2017-03-18] MEDS ORDERED: Bisacodyl SUPP* 10 MG SUPP PR PRN (14:41)
[2017-03-18] MEDS ORDERED: oxyCODONE/Acetamin 5/325 MG* TAB PO PRN (14:48)
[2017-03-18] MEDS ORDERED: Warfarin TAB(*) 5 MG PO SCH (17:00)
[2017-03-18] MEDS: oxyCODONE/Acetamin 5/325 MG* TAB PO PRN ×2 (17:25→21:24)
[2017-03-18] MEDS: Docusate CAP* 100 MG PO SCH (20:27)
--- NOTE | 2017-03-18 22:15 | HP ---
INPATIENT HISTORY AND PHYSICAL: DATE OF ADMISSION: 03/18/17 REASON FOR ADMISSION: Left total knee replacement. HISTORY OF PRESENT ILLNESS: Andreia Joseph is an 86-year-old female. She has a medical history significant for hypertension as well as bilateral breast cancer. She has had mastectomies on both sides. She had a left mastectomy in 2011 and a right one in 2014. She has also had a right total hip replacement. The patient had ongoing difficulties with left knee pain. She had failed conservative treatment. She had seen Dr. Aleyda Roberson. X-rays were taken, which showed severe end-stage osteoarthritis. She was admitted to [facility] on 03/15/17. She underwent a left total knee replacement on that day. Postoperatively, her course was notable for anemia. She had been transfused 1 unit of packed cells on 03/17/17 and was transfused 2nd unit today. She is felt to have physical therapy and occupational therapy needs. She is now being admitted for inpatient rehab, so she might return to independent living. PAST MEDICAL HISTORY: Significant for the aforementioned breast cancer. In addition, she has had a history of back surgery and has had a spinal cord stimulator placed. She has had as mentioned also the right total hip replacement, has history of high cholesterol, and gout as well as hypertension. CURRENT MEDICATIONS: Include: 1. Allopurinol. 2. Lipitor instead of her usual simvastatin. 3. She is on Percocet for pain control. 4. Coumadin for DVT prophylaxis. 5. She also was on Lovenox as well. ALLERGIES: The patient has allergy to NAPROSYN and TRAMADOL as well as LATEX. SOCIAL HISTORY: She lives in [place] [facility] by herself. She is a nonsmoker, nondrinker. She has 6 children, most of whom live in the area. She has a network of family and friends who will assist her when she goes home. REVIEW OF SYSTEMS: The patient reports no current shortness of breath or chest pain. PHYSICAL EXAMINATION VITAL SIGNS: The patient's temperature is 99.7, blood pressure is 151/44, pulse is 100, and respirations 18. HEENT: Her extraocular movements are intact. Tongue is midline. NECK: Supple with no lymphadenopathy. LUNGS: Sounded clear to auscultation bilaterally. HEART: Sounds are regular, S1 and S2 are audible. ABDOMEN: Soft and nontender. EXTREMITIES: Her left knee has a wound, which is clean and dry. Peripheral pulses are intact. NEUROLOGIC: She is awake, alert, and oriented. Muscle strength in the left lower extremity, which is 3/5 secondary to pain. FUNCTIONAL EXAM: She transfers with minimal amount of assistance. ASSESSMENT: Left total knee replacement. PLAN: Integrate her into a comprehensive and therapeutic rehab program on the following goals: 1. Physical Therapy will work with the patient. They are going to work on functional transfer training, ambulation training with a walker. 2. Occupational Therapy will see the patient, work on her activities of daily living including toileting and toilet transfers. 3. Coumadin for DVT prophylaxis. 4. Adequate analgesia. 5. Her bowels will be regulated. 6. child and family services specialist will be closely involved to make sure that any services and equipment that the patient requires are in place prior to discharge. 7. Advance directives: The patient is a full code. Her son is her healthcare proxy. 8. We are going to restart her blood pressure medications starting with atenolol. 9. Home with appropriate services. ESTIMATED LENGTH OF STAY: Seven days. [id number]/[facility] #: [id number] KAREN
[2017-03-19] MEDS: oxyCODONE/Acetamin 5/325 MG* TAB PO PRN ×4 (03:05→17:11)
[2017-03-19 08:03] LABS: Hematocrit 28 % (35-47); Hemoglobin 9.2 g/dl (12.0-16.0); Mean Corpuscular HGB Conc 33 g/dl (31-36); Mean Corpuscular Hemoglobin 30 pg (27-31); Mean Corpuscular Volume 89 fL (80-97); Mean Platelet Volume 8 um3 (7.4-10.4); Red Blood Count 3.09 10^6/ul (4.0-5.4); Red Cell Distribution Width 16 % (10.5-15); White Blood Count 12.2 10^3/ul (3.5-10.8)
[2017-03-19 08:15] LABS: Albumin 2.8 g/dL (3.2-5.2); Calcium 8.4 mg/dL (8.6-10.3); EGFR African American 102.3 (>60); EGFR Non-African American 79.5 (>60); Globulin 2.9 g/dL (2-4); Total Bilirubin 0.5 mg/dL (0.2-1.0); Total Protein 5.7 g/dL (6.4-8.9)
[2017-03-19 08:22] LABS: Potassium 2.2 mmol/L (3.5-5.0)
[2017-03-19] MEDS: Docusate CAP* 100 MG PO SCH ×2 (08:51→19:48)
[2017-03-19] MEDS: Atorvastatin* 10 MG TAB PO SCH (08:51)
[2017-03-19] MEDS: Allopurinol TAB* 100 MG PO SCH (08:52)
[2017-03-19] MEDS: Atenolol TAB* 25 MG PO SCH (08:52)
[2017-03-19] MEDS: Chlorthalidone TAB* 50 MG PO SCH (08:52)
[2017-03-19] MEDS: Enoxaparin(*) 30 MG/0.3 ML SYR SUBCUT SCH (08:53)
[2017-03-19] MEDS ORDERED: Potassium Chlor TAB* 20 MEQ TAB.ER PO ONE ×2 (11:16→15:00)
[2017-03-19] MEDS ORDERED: Warfarin TAB(*) 7.5 MG PO SCH (17:00)
[2017-03-19 17:51] LABS: BUN/Creatinine Ratio 18.1 (8-20); Calcium 8.7 mg/dL (8.6-10.3); EGFR Non-African American 65.3 (>60); Potassium 3.7 mmol/L (3.5-5.0)
--- NOTE | 2017-03-19 18:09 | PN ---
Progress Note - Progress Note Date of Service: 03/19/17 Note: Andreia visited. Her potassium on routine blood draw was very low this morning. K= 2.2. Stat replacement ordered. Repeat K=3.7 this pm. She was asymptomatic. Therapy notes read and reviewed. INR still subtherapeutic. Will increase coumadin and continue lovenox. Current Medications Acetaminophen (Tylenol Tab*) 650 mg PO Q6H PRN PRN Reason: FEVER/PAIN Allopurinol (Zyloprim Tab*) 100 mg PO DAILY [facility] Last Admin: 03/19/17 08:52 Dose: 100 mg Atenolol (Tenormin Tab*) 25 mg PO DAILY [facility] Last Admin: 03/19/17 08:52 Dose: 25 mg Atorvastatin Calcium (Lipitor*) 5 mg PO DAILY [facility] Last Admin: 03/19/17 08:51 Dose: 5 mg Bisacodyl (Dulcolax Supp*) 10 mg MO DAILY PRN PRN Reason: CONSTIPATION Chlorthalidone (Hygroton Tab*) 25 mg PO DAILY [facility] Last Admin: 03/19/17 08:52 Dose: 25 mg Cyclobenzaprine HCl (Flexeril Tab*) 10 mg PO BID PRN PRN Reason: SPASMS Docusate Sodium (Colace Cap*) 100 mg PO BID [facility] Last Admin: 03/19/17 08:51 Dose: 100 mg Enoxaparin Sodium (Lovenox(*)) 30 mg SUBCUT Q24H [facility] Last Admin: 03/19/17 08:53 Dose: 30 mg Magnesium Hydroxide (Milk Of Magnesia Liq*) 30 ml PO Q6H PRN PRN Reason: CONSTIPATION Oxycodone/Acetaminophen (Percocet 5/325 Tab*) 1 tab PO Q4H PRN PRN Reason: PAIN - MODERATE TO SEVERE Last Admin: 03/19/17 17:11 Dose: 1 tab Oxycodone/Acetaminophen (Percocet 5/325 Tab*) 2 tab PO Q4H PRN PRN Reason: PAIN - SEVERE Potassium Chloride (Klor Con Er Tab*) 20 meq PO DAILY [facility] Senna (Senokot Tab*) 2 tab PO BEDTIME PRN PRN Reason: CONSTIPATION Warfarin Sodium (Coumadin Tab(*)) 7.5 mg PO DAILY@1700 [facility] PRN Reason: Protocol Last Admin: 03/19/17 17:11 Dose: 7.5 mg Laboratory Results - last 24 hr 03/19/17 03/19/17 03/19/17 07:33 07:33 07:33 WBC 12.2 H RBC 3.09 L Hgb 9.2 L Hct 28 L MCV 89 MCH 30 MCHC 33 RDW 16 H Plt Count 258 MPV 8 Neut % (Auto) 72.6 Lymph % (Auto) 14.8 L Dale % (Auto) 11.1 H Eos % (Auto) 1.2 Baso % (Auto) 0.3 Absolute Neuts (auto) 8.9 H Absolute Lymphs (auto) 1.8 Absolute Monos (auto) 1.4 H Absolute Eos (auto) 0.1 Absolute Basos (auto) 0 Absolute Nucleated RBC 0.01 Nucleated RBC % 0 INR (Anticoag Therapy) 1.51 H Sodium 136 Potassium 2.2 L* Chloride 101 Carbon Dioxide 30 Anion Gap 5 BUN 14 Creatinine 0.70 Est GFR ( Amer) 102.3 Est GFR (Non-Af Amer) 79.5 BUN/Creatinine Ratio 20.0 Glucose 111 H Calcium 8.4 L Total Bilirubin 0.50 AST 18 ALT 7 Alkaline Phosphatase 51 Total Protein 5.7 L Albumin 2.8 L Globulin 2.9 Albumin/Globulin Ratio 1.0 03/19/17 17:10 WBC RBC Hgb Hct MCV MCH MCHC RDW Plt Count MPV Neut % (Auto) Lymph % (Auto) Dale % (Auto) Eos % (Auto) Baso % (Auto) Absolute Neuts (auto) Absolute Lymphs (auto) Absolute Monos (auto) Absolute Eos (auto) Absolute Basos (auto) Absolute Nucleated RBC Nucleated RBC % INR (Anticoag Therapy) Sodium 134 Potassium 3.7 D Chloride 97 L Carbon Dioxide 30 Anion Gap 7 BUN 15 Creatinine 0.83 Est GFR ( Amer) 84.0 Est GFR (Non-Af Amer) 65.3 BUN/Creatinine Ratio 18.1 Glucose 95 Calcium 8.7 Total Bilirubin AST ALT Alkaline Phosphatase Total Protein Albumin Globulin Albumin/Globulin Ratio Vital Signs Temp Pulse Resp BP Pulse Ox 98.7 F 83 18 156/67 95 03/19/17 15:42 03/19/17 15:42 03/19/17 17:12 03/19/17 15:42 03/19/17 16:06 EXAM: LUNGS: Clear bilat HEART: reg rhythm ABDOMEN: Soft, +BS EXTREMITIES: LLE wound clean ASSESSMENT/PLAN: 1. Left TKA: PT/OT 2. Hypertension: Atenolol/chlorthalidone. 3. Hypokalemia: Potassium replenishment. Check BMP, Mg++ in am. 4. DVT Prophylaxis: Coumadin. Lovenox. 5. Advanced directives: Full code 6. Constipation: MOM as needed
[2017-03-19] MEDS ORDERED: Potassium Chlor TAB* 20 MEQ TAB.ER PO SCH (21:00)
[2017-03-20] MEDS: oxyCODONE/Acetamin 5/325 MG* TAB PO PRN ×4 (01:58→20:07)
[2017-03-20] MEDS: Chlorthalidone TAB* 50 MG PO SCH (07:56)
[2017-03-20] MEDS: Docusate CAP* 100 MG PO SCH ×2 (07:57→21:13)
[2017-03-20] MEDS: Atorvastatin* 10 MG TAB PO SCH (07:57)
[2017-03-20] MEDS: Atenolol TAB* 25 MG PO SCH (07:57)
[2017-03-20] MEDS: Allopurinol TAB* 100 MG PO SCH (07:58)
[2017-03-20] MEDS ORDERED: Potassium Chlor TAB* 20 MEQ TAB.ER PO SCH (09:00)
[2017-03-20] MEDS: Cyclobenzaprine TAB* 10 MG PO PRN ×2 (09:57→17:25)
[2017-03-20] MEDS: Enoxaparin(*) 30 MG/0.3 ML SYR SUBCUT SCH (09:58)
[2017-03-20 11:22] LABS: Calcium 8.8 mg/dL (8.6-10.3); EGFR African American 94.5 (>60); EGFR Non-African American 73.4 (>60); Magnesium 1.6 mg/dL (1.9-2.7); Potassium 4.3 mmol/L (3.5-5.0)
[2017-03-20] MEDS ORDERED: Warfarin TAB(*) 6 MG PO SCH (12:33)
--- NOTE | 2017-03-20 12:35 | PMRUTEAM ---
PMRU: Goals Current Status: Nursing: Current Status Skin Deviations [Left Knee] Incision Skin Deviations [Bilateral Arm Bruise ] Skin Deviations [Left Thigh] Abrasion Skin Deviations [Right Wrist] Other Skin Deviation Description [ drsg in place Left Knee] Skin Deviation Description [ multiple bruises Bilateral Arm] Skin Deviation Description [ 2 red spots with pin prick in center Left Thigh] Skin Deviation Description [ IV 22 gauge Right Wrist] Bladder Current Status incontinent, staff member changes briefs Bowel Current Status continent, Last BM 03/19/17, taking routine bowel meds Nutrition Current Status poor Medication Current Status supervision, needs reminders Physical Therapy: Current Status Bed Mobility Assistance Supervision,Contact Guard Assist,Min Assist Transfer Moblility Assistance Supervision Transfer/Bed Mobility Rolling Walker Recommended Devices Ambulation Assistance Supervision,Contact Guard Assist Ambulation Assistive Devices Rolling Walker Number of Feet Patient 50 Ambulated Ambulation Comment Modified short step antalgic reciprocal type gait. Needs more clearance Stairs Assistance Not Tested Stairs Recommended Devices Two Rails Number of Stairs 3 Occupational Therapy: Current Status Upper Body Dressing Min Assist Lower Body Dressing Total Assist Bathing Mod Assist Toileting Mod Assist Toilet Transfer Contact Guard Assist Eating Supervision Rec Therapy: Current Status Summary of Assessment and RT assessment complete and pt. is aware of RT Clinical Impression services. Pt. was engaged and cooperative in conversation about her hobbies and interests. Pt. states she enjoys her life and was open to continued leisure visits. Treatment Goals Pt. will engage in leisure activities while on the unit. Treatment Plan Provide RT services and encourage involvement. Social Work: Current Status Discharge Plan return home with home care svs and family support Potential for Family Training pt's son is involved and supportive Anticipated Discharge Home Destination Discharge With VNS and family support Nutrition: Current Status Monitoring po intake had been rather good, although down to only 10-15% for past two meals; regular diet appropriate. She had been somewhat confused and was hypokalemic (2.2), so KCl started daily (serum K now up to 3.7 - 03/19). Had been educated re: Coumadin/vit K interaction while on [facility] (03/16). Last BM 03/19. Initial goals as outlined below. Goals: Physical Therapy: Initial Goals Bed Mobility Assistance Independent Transfer Mobility Assistance Independent Transfer/Bed Mobility Rolling Walker Recommended Devices Ambulation Independent Ambulation Recommended Devices Rolling Walker Ambulation Distance 150 Stairs Assistance Independent Stair Recommended Devices Two Rails Number of Stairs 3 Physical Therapy: Updated Goals Bed Mobility Assistance Independent Transfer Mobility Assistance Independent Transfer/Bed Mobility Rolling Walker Recommended Devices Ambulation Assistance Independent Ambulation Assistive Devices Rolling Walker Ambulation Distance (ft) 150 Stairs Assistance Independent Stairs Recommended Devices Two Rails Number of Stairs 3 Occupational Therapy: Initial Goals Goals to be Completed in (Days 7-10 ) Upper Body Bathing Routine Independent Lower Body Bathing Routine Modified Independent with Upper Body Dressing Routine Independent Lower Body Dressing Routine Modified Independent with Toilet Hygeine and Clothing Modified Independent with Management Routine Toilet Transfer Routine Modified Independent with Step-In Shower Transfer Supervision/Set Up Routine Functional Transfers for ADL Modified Independent with Grooming Routine Independent Feeding Routine Independent Nursing: Goals Bladder Goal adequate output, independent with care Bowel Goal regularity, continent, independent Nutrition Goal 100% of all meals Medication Goal independent Nutrition: Goals Intervention Goals 1. adequate po intake to support post-op healing and maintain lean body mass without add'l wt gain 2. maintenance of electrolytes wnl; K 3. regulation of post-op bowel pattern; no c/o constipation (or diarrhea) 4. any questions re: Coumadin/vit K diet guidelines will be addressed prior to d/c Social Work: Goals Discharge Plan return home with home care svs and family support Potential for Family Training pt's son is involved and supportive Anticipated Discharge Home Destination Discharge With VNS and family support Care Plan: Care Plan ADL's - Improve/Maintain Start: 03/18/17 16:24 Freq: DAILY Status: Active Target: Protocol: Activity Type Activity Date Activity User E-Sign Co-Sign Detail Recorded Client Recorded Date Recorded By Document 03/19/17 15:45 [id number] 03/19/17 15:46 [id number] 03/19/17 15:45 PMRU Outcome: ADL's/ADL Transfers Orders/Interventions Occupational Therapy Evaluation & Treatment Communication Tool in Patient Room Device Yes Address Deficits Secondary To: Left TKA Patient to receive OT 5x/wk for 60-120 Therex min/day Self Care Management Group Therapy UE/LE ADL's with Assist Yes: Álvaro ADL Transfers with Assist Yes: Álvaro Toileting: Transfers,Clothing Management Yes: Álvaro ,Hygeine w/Assist Light Kitchen/Laundry w/Assist light meal prep mod I Progression Toward Outcome/Goals Progressing Outcome/Goals Met Pt participated fair in OT treatment with encouragement/ cues for motivation. Will benefit from skilled OT to maximize independence and safety prior to d/c home with family support. Cardiovascular- Improve/Maintain Start: 03/18/17 16:24 Freq: DAILY Status: Active Target: Protocol: Activity Type Activity Date Activity User E-Sign Co-Sign Detail Recorded Client Recorded Date Recorded By Document 03/20/17 11:28 [id number] 03/20/17 11:28 [id number] 03/20/17 11:28 PMRU Outcome: Cardiovascular Vital Signs q Shift for 48hrs Then BID Yes Daily Weight Ordered No Current Cardiovascular Outcome/Goal Maintain/ Achieve Baseline HR, BP , Perfusion Maintain/ Achieve Hemodynamic Stability Free of Abnormal Cardiac Symptoms Progression Toward Outcome/Goal Progressing Communication-Improve/Maintain Start: 03/18/17 16:24 Freq: DAILY Status: Active Target: Protocol: Activity Type Activity Date Activity User E-Sign Co-Sign Detail Recorded Client Recorded Date Recorded By Document 03/20/17 11:28 [id number] 03/20/17 11:28 [id number] 03/20/17 11:28 PMRU Outcome: Communication/Cognitive Status Outcome/Goals Use Comm Tools/ Devices Makes Needs Known Effectively Progression Toward Outcomes/Goals Progressing Discharge Planning - Improve/Maintain Start: 03/18/17 16:24 Freq: DAILY Status: Active Target: Protocol: Activity Type Activity Date Activity User E-Sign Co-Sign Detail Recorded Client Recorded Date Recorded By Document 03/20/17 11:28 [id number] 03/20/17 11:28 [id number] 03/20/17 11:28 PMRU Outcome: Discharge Planning Identify Patient Needs yes Update Patient Family No Outcome/Goals Demonstrates Understanding of Discharge Plan Progression Toward Outcome/Goals Progressing /GI-Improve/Maintain Start: 03/18/17 16:24 Freq: DAILY Status: Active Target: Protocol: Activity Type Activity Date Activity User E-Sign Co-Sign Detail Recorded Client Recorded Date Recorded By Document 03/20/17 11:28 [id number] 03/20/17 11:28 [id number] 03/20/17 11:28 PMRU Outcome: Genitourinary/ Gastrointestinal Genitourinary- Outcome/Goals Maintain/ Achieve Adequate Urinary Output Remain Free of Hospital- Acquired UTI Gastrointestinal-Outcome/Goals Prevent Constipation Progression Toward Outcome/Goals - Progressing Progression Toward Outcome/Goals - GI Progressing Mobility- Improve/Maintain Start: 03/18/17 16:24 Freq: DAILY Status: Active Target: Protocol: Activity Type Activity Date Activity User E-Sign Co-Sign Detail Recorded Client Recorded Date Recorded By Document 03/19/17 11:52 [id number] 03/19/17 11:52 [id number] 03/19/17 11:52 PMRU Outcome: Mobility Physical Therapy Evaluation and Yes Treatment Activity OOB with Assistance Yes WBAT Yes Device Yes Assistance Yes Patient to be seen 5x/wk for 60-120 min/ Therex day for: Mobility Training Gait Training Balance Other Therapy Comment ROM Outcome/Goals Maintain/ Achieve Baseline Mobility Status Improve Mobility Status Demonstrates Proper Use of Assistive Devices Free from Complications of Immobility Bed Mobility Yes: Independent Transfers Yes: Modified independent with RW Gait x ft Yes: Modified independent 150 ' with RW Up/Down Stairs Yes: Independent 3 steps 2 rails With HEP Yes: Independent Pain/Comfort- Improve/Maintain Start: 03/18/17 16:24 Freq: DAILY Status: Active Target: Protocol: Activity Type Activity Date Activity User E-Sign Co-Sign Detail Recorded Client Recorded Date Recorded By Document 03/20/17 11:28 [id number] 03/20/17 11:28 [id number] 03/20/17 11:28 PMRU Outcome: Pain/Comfort Outcome/Goals Demonstrates Knowledge and Use of Available Comfort Measures Achieves Acceptable Comfort/Pain Level as Determined by Patient/Condit Maintain Comfort Level Allowing Patient to Fully Participate in Rehab Progression Toward Outcome/Goals Progressing Safety- Improve/Maintain Start: 03/18/17 16:24 Freq: DAILY Status: Active Target: Protocol: Activity Type Activity Date Activity User E-Sign Co-Sign Detail Recorded Client Recorded Date Recorded By Document 03/20/17 11:28 [id number] 03/20/17 11:28 [id number] 03/20/17 11:28 PMRU Outcome: Safety Outcome/Goals Remain Free of Injury or Harm Cooperates with Safety Measures for Least Restrictive Environment Prevent Falls/ Injury Progression Toward Outcome/Goals Progressing Outcome/Goals Met Comment PA in place Skin- Improve/Maintain Start: 03/18/17 16:24 Freq: DAILY Status: Active Target: Protocol: Activity Type Activity Date Activity User E-Sign Co-Sign Detail Recorded Client Recorded Date Recorded By Document 03/20/17 11:28 [id number] 03/20/17 11:28 [id number] 03/20/17 11:28 PMRU Outcome: Skin Skin Risk Level Medium Skin Orders Dressing Change Outcome/Goals Maintain/ Improve Skin Intergrity Surgical Incisions Healing Progression Toward Outcome/Goals Progressing Medicine Note: Length of Stay: 9 days Anticipated Discharge Destination: Home Tentative Discharge Date: 03/29/17 Discharged to: home
--- NOTE | 2017-03-20 16:31 | PN ---
Progress Note - Progress Note Date of Service: 03/20/17 Note: Andreia visited. She was discussed in interdisciplinary team rounds. She is doing ok. Her potassium was 2.2 yesterday. By last night it was 3.7 and this morning was 4.4. Will d/c supplements. INR therapeutic. Will d/c Lovenox Current Medications Acetaminophen (Tylenol Tab*) 650 mg PO Q6H PRN PRN Reason: FEVER/PAIN Last Admin: 03/20/17 14:34 Dose: 650 mg Allopurinol (Zyloprim Tab*) 100 mg PO DAILY [facility] Last Admin: 03/20/17 07:58 Dose: 100 mg Atenolol (Tenormin Tab*) 25 mg PO DAILY [facility] Last Admin: 03/20/17 07:57 Dose: 25 mg Atorvastatin Calcium (Lipitor*) 5 mg PO DAILY [facility] Last Admin: 03/20/17 07:57 Dose: 5 mg Bisacodyl (Dulcolax Supp*) 10 mg [place] DAILY PRN PRN Reason: CONSTIPATION Chlorthalidone (Hygroton Tab*) 25 mg PO DAILY [facility] Last Admin: 03/20/17 07:56 Dose: 25 mg Cyclobenzaprine HCl (Flexeril Tab*) 10 mg PO BID PRN PRN Reason: SPASMS Last Admin: 03/20/17 09:57 Dose: 10 mg Docusate Sodium (Colace Cap*) 100 mg PO BID [facility] Last Admin: 03/20/17 07:57 Dose: 100 mg Magnesium Hydroxide (Milk Of Magnesia Liq*) 30 ml PO Q6H PRN PRN Reason: CONSTIPATION Oxycodone/Acetaminophen (Percocet 5/325 Tab*) 1 tab PO Q4H PRN PRN Reason: PAIN - MODERATE TO SEVERE Last Admin: 03/20/17 12:28 Dose: 1 tab Oxycodone/Acetaminophen (Percocet 5/325 Tab*) 2 tab PO Q4H PRN PRN Reason: PAIN - SEVERE Senna (Senokot Tab*) 2 tab PO BEDTIME PRN PRN Reason: CONSTIPATION Warfarin Sodium (Coumadin Tab(*)) 6 mg PO DAILY@1700 [facility] PRN Reason: Protocol Laboratory Results - last 24 hr 03/19/17 03/20/17 03/20/17 17:10 10:55 10:55 INR (Anticoag Therapy) 1.99 H Sodium 134 138 Potassium 3.7 D 4.3 Chloride 97 L 101 Carbon Dioxide 30 28 Anion Gap 7 9 BUN 15 15 Creatinine 0.83 0.75 Est GFR ( Amer) 84.0 94.5 Est GFR (Non-Af Amer) 65.3 73.4 BUN/Creatinine Ratio 18.1 20.0 Glucose 95 100 Calcium 8.7 8.8 Magnesium 1.6 L Vital Signs Temp Pulse Resp BP Pulse Ox 99.3 F 100 18 155/56 94 03/20/17 05:39 03/20/17 05:39 03/20/17 14:35 03/20/17 05:39 03/20/17 08:00 EXAM: LUNGS: Clear bilat HEART: reg rhythm ABDOMEN: Soft, +BS EXTREMITIES: LLE wound clean ASSESSMENT/PLAN: 1. Left TKA: PT/OT 2. Hypertension: Atenolol/chlorthalidone. 3. Hypokalemia: Normalized. 4. DVT Prophylaxis: Coumadin. Lovenox. 5. Advanced directives: Full code 6. Constipation: MOM as needed
[2017-03-21] MEDS: oxyCODONE/Acetamin 5/325 MG* TAB PO PRN ×6 (00:12→23:11)
[2017-03-21] MEDS: Docusate CAP* 100 MG PO SCH ×2 (08:40→19:15)
[2017-03-21] MEDS: Atorvastatin* 10 MG TAB PO SCH (08:42)
[2017-03-21] MEDS: Cyclobenzaprine TAB* 10 MG PO PRN ×2 (08:43→17:12)
[2017-03-21] MEDS: Atenolol TAB* 25 MG PO SCH (08:43)
[2017-03-21] MEDS: Allopurinol TAB* 100 MG PO SCH (08:43)
[2017-03-21] MEDS: Chlorthalidone TAB* 50 MG PO SCH (08:43)
[2017-03-21] MEDS: Warfarin TAB(*) 7.5 MG PO SCH (18:07)
--- NOTE | 2017-03-21 19:09 | PN ---
Progress Note - Progress Note Date of Service: 03/21/17 Note: Andreia visited. Therapy notes read and reviewed. She had trouble with incontinence last night. INR not yet therapeutic. Will increase Coumadin. Current Medications Acetaminophen (Tylenol Tab*) 650 mg PO Q6H PRN PRN Reason: FEVER/PAIN Last Admin: 03/20/17 14:34 Dose: 650 mg Allopurinol (Zyloprim Tab*) 100 mg PO DAILY [facility] Last Admin: 03/21/17 08:43 Dose: 100 mg Atenolol (Tenormin Tab*) 25 mg PO DAILY [facility] Last Admin: 03/21/17 08:43 Dose: 25 mg Atorvastatin Calcium (Lipitor*) 5 mg PO DAILY [facility] Last Admin: 03/21/17 08:42 Dose: 5 mg Bisacodyl (Dulcolax Supp*) 10 mg [place] DAILY PRN PRN Reason: CONSTIPATION Chlorthalidone (Hygroton Tab*) 25 mg PO DAILY [facility] Last Admin: 03/21/17 08:43 Dose: 25 mg Cyclobenzaprine HCl (Flexeril Tab*) 10 mg PO BID PRN PRN Reason: SPASMS Last Admin: 03/21/17 17:12 Dose: 10 mg Docusate Sodium (Colace Cap*) 100 mg PO BID [facility] Last Admin: 03/21/17 08:40 Dose: Not Given Magnesium Hydroxide (Milk Of Magnesia Liq*) 30 ml PO Q6H PRN PRN Reason: CONSTIPATION Oxycodone/Acetaminophen (Percocet 5/325 Tab*) 1 tab PO Q4H PRN PRN Reason: PAIN - MODERATE TO SEVERE Last Admin: 03/21/17 14:19 Dose: 1 tab Oxycodone/Acetaminophen (Percocet 5/325 Tab*) 2 tab PO Q4H PRN PRN Reason: PAIN - SEVERE Senna (Senokot Tab*) 2 tab PO BEDTIME PRN PRN Reason: CONSTIPATION Warfarin Sodium (Coumadin Tab(*)) 7.5 mg PO DAILY@1700 [facility] PRN Reason: Protocol Last Admin: 03/21/17 18:07 Dose: 7.5 mg Laboratory Results - last 24 hr 03/21/17 07:06 INR (Anticoag Therapy) 1.89 H Vital Signs Temp Pulse Resp BP Pulse Ox 99.0 F 102 18 161/56 94 03/21/17 05:55 03/21/17 05:55 03/21/17 17:12 03/21/17 05:55 03/21/17 18:23 EXAM: LUNGS: Clear bilat HEART: reg rhythm ABDOMEN: Soft, +BS EXTREMITIES: LLE wound clean ASSESSMENT/PLAN: 1. Left TKA: PT/OT 2. Hypertension: Atenolol/chlorthalidone. Will resume Lasix 3. Hypokalemia: Normalized. 4. DVT Prophylaxis: Coumadin. Lovenox. 5. Advanced directives: Full code 6. Constipation: MOM as needed
[2017-03-22] MEDS: Cyclobenzaprine TAB* 10 MG PO PRN (01:58)
[2017-03-22] MEDS: oxyCODONE/Acetamin 5/325 MG* TAB PO PRN ×2 (05:04→07:44)
[2017-03-22] MEDS: Docusate CAP* 100 MG PO SCH ×2 (07:43→21:08)
[2017-03-22] MEDS: Atorvastatin* 10 MG TAB PO SCH (07:43)
[2017-03-22] MEDS: Furosemide TAB* 20 MG PO SCH (07:44)
[2017-03-22] MEDS: Allopurinol TAB* 100 MG PO SCH (07:44)
[2017-03-22] MEDS: Atenolol TAB* 25 MG PO SCH (07:44)
[2017-03-22] MEDS: Chlorthalidone TAB* 50 MG PO SCH (07:44)
[2017-03-22] MEDS: HYDROcodone/ACETAMIN 5-325 MG* 1 TAB PO PRN ×2 (10:26→17:14)
[2017-03-22] MEDS: Warfarin TAB(*) 7.5 MG PO SCH (17:11)
--- NOTE | 2017-03-22 19:40 | PN ---
Progress Note - Progress Note Date of Service: 03/22/17 Note: Andreia visited. Therapy notes read and reviewed. She is moving slightly better. Sometimes incontinent of urine which is a old problem. Current Medications Acetaminophen (Tylenol Tab*) 650 mg PO Q6H PRN PRN Reason: FEVER/PAIN Last Admin: 03/20/17 14:34 Dose: 650 mg Hydrocodone Bitart/Acetaminophen ([place] 5-325 Tab*) 2 tab PO Q4H PRN PRN Reason: PAIN - SEVERE Last Admin: 03/22/17 17:14 Dose: 2 tab Hydrocodone Bitart/Acetaminophen ([place] 5-325 Tab*) 1 tab PO Q4H PRN PRN Reason: PAIN - MODERATE TO SEVERE Allopurinol (Zyloprim Tab*) 100 mg PO DAILY [facility] Last Admin: 03/22/17 07:44 Dose: 100 mg Atenolol (Tenormin Tab*) 25 mg PO DAILY [facility] Last Admin: 03/22/17 07:44 Dose: 25 mg Atorvastatin Calcium (Lipitor*) 5 mg PO DAILY [facility] Last Admin: 03/22/17 07:43 Dose: 5 mg Bisacodyl (Dulcolax Supp*) 10 mg [place] DAILY PRN PRN Reason: CONSTIPATION Chlorthalidone (Hygroton Tab*) 25 mg PO DAILY [facility] Last Admin: 03/22/17 07:44 Dose: 25 mg Cyclobenzaprine HCl (Flexeril Tab*) 10 mg PO BID PRN PRN Reason: SPASMS Last Admin: 03/22/17 01:58 Dose: 10 mg Docusate Sodium (Colace Cap*) 100 mg PO BID [facility] Last Admin: 03/22/17 07:43 Dose: 100 mg Furosemide (Lasix Tab*) 20 mg PO Q48H [facility] Last Admin: 03/22/17 07:44 Dose: 20 mg Magnesium Hydroxide (Milk Of Magnesia Liq*) 30 ml PO Q6H PRN PRN Reason: CONSTIPATION Senna (Senokot Tab*) 2 tab PO BEDTIME PRN PRN Reason: CONSTIPATION Warfarin Sodium (Coumadin Tab(*)) 7.5 mg PO DAILY@1700 [facility] PRN Reason: Protocol Last Admin: 03/22/17 17:11 Dose: 7.5 mg Vital Signs Temp Pulse Resp BP Pulse Ox 98.3 F 73 18 139/47 98 03/22/17 15:45 03/22/17 15:45 03/22/17 18:33 03/22/17 15:45 03/22/17 17:14 EXAM: LUNGS: Clear bilat HEART: reg rhythm ABDOMEN: Soft, +BS EXTREMITIES: LLE wound clean ASSESSMENT/PLAN: 1. Left TKA: PT/OT 2. Hypertension: Atenolol/chlorthalidone. Resumed Lasix 3. Hypokalemia: Normalized. 4. DVT Prophylaxis: Coumadin. Lovenox. Check INR in am 5. Advanced directives: Full code 6. Constipation: MOM as needed
[2017-03-23] MEDS: HYDROcodone/ACETAMIN 5-325 MG* 1 TAB PO PRN ×4 (00:07→19:44)
[2017-03-23] MEDS: Docusate CAP* 100 MG PO SCH ×2 (08:14→19:44)
[2017-03-23] MEDS: Chlorthalidone TAB* 50 MG PO SCH (08:14)
[2017-03-23] MEDS: Atenolol TAB* 25 MG PO SCH (08:14)
[2017-03-23] MEDS: Atorvastatin* 10 MG TAB PO SCH (08:14)
[2017-03-23] MEDS: Allopurinol TAB* 100 MG PO SCH (08:14)
--- NOTE | 2017-03-23 16:56 | PN ---
Progress Note - Progress Note Date of Service: 03/23/17 Note: Andreia visited. She is in good spirits. INR again therapeutic. Lowered Coumadin to 6. Therapy notes read and reviewed. Current Medications Acetaminophen (Tylenol Tab*) 650 mg PO Q6H PRN PRN Reason: FEVER/PAIN Last Admin: 03/20/17 14:34 Dose: 650 mg Hydrocodone Bitart/Acetaminophen ([place] 5-325 Tab*) 2 tab PO Q4H PRN PRN Reason: PAIN - SEVERE Last Admin: 03/23/17 00:07 Dose: 2 tab Hydrocodone Bitart/Acetaminophen ([place] 5-325 Tab*) 1 tab PO Q4H PRN PRN Reason: PAIN - MODERATE TO SEVERE Last Admin: 03/23/17 12:40 Dose: 1 tab Allopurinol (Zyloprim Tab*) 100 mg PO DAILY [facility] Last Admin: 03/23/17 08:14 Dose: 100 mg Atenolol (Tenormin Tab*) 25 mg PO DAILY [facility] Last Admin: 03/23/17 08:14 Dose: 25 mg Atorvastatin Calcium (Lipitor*) 5 mg PO DAILY [facility] Last Admin: 03/23/17 08:14 Dose: 5 mg Bisacodyl (Dulcolax Supp*) 10 mg [place] DAILY PRN PRN Reason: CONSTIPATION Chlorthalidone (Hygroton Tab*) 25 mg PO DAILY [facility] Last Admin: 03/23/17 08:14 Dose: 25 mg Cyclobenzaprine HCl (Flexeril Tab*) 10 mg PO BID PRN PRN Reason: SPASMS Last Admin: 03/22/17 01:58 Dose: 10 mg Docusate Sodium (Colace Cap*) 100 mg PO BID [facility] Last Admin: 03/23/17 08:14 Dose: 100 mg Furosemide (Lasix Tab*) 20 mg PO Q48H [facility] Last Admin: 03/22/17 07:44 Dose: 20 mg Magnesium Hydroxide (Milk Of Magnesia Liq*) 30 ml PO Q6H PRN PRN Reason: CONSTIPATION Senna (Senokot Tab*) 2 tab PO BEDTIME PRN PRN Reason: CONSTIPATION Warfarin Sodium (Coumadin Tab(*)) 6 mg PO DAILY@1700 [facility] PRN Reason: Protocol Laboratory Results - last 24 hr 03/23/17 06:41 INR (Anticoag Therapy) 2.69 H Vital Signs Temp Pulse Resp BP Pulse Ox 98.3 F 92 18 147/64 95 03/23/17 06:27 03/23/17 06:27 03/23/17 14:37 03/23/17 06:27 03/23/17 16:18 EXAM: LUNGS: Clear bilat HEART: reg rhythm ABDOMEN: Soft, +BS EXTREMITIES: LLE wound clean ASSESSMENT/PLAN: 1. Left TKA: PT/OT 2. Hypertension: Atenolol/chlorthalidone. Resumed Lasix 3. Hypokalemia: Normalized. 4. DVT Prophylaxis: Coumadin. 5. Advanced directives: Full code 6. Constipation: MOM as needed
[2017-03-23] MEDS: Warfarin TAB(*) 6 MG PO SCH (17:15)
[2017-03-24] MEDS: HYDROcodone/ACETAMIN 5-325 MG* 1 TAB PO PRN ×4 (00:32→22:01)
[2017-03-24] MEDS: Chlorthalidone TAB* 50 MG PO SCH (08:20)
[2017-03-24] MEDS: Furosemide TAB* 20 MG PO SCH (08:21)
[2017-03-24] MEDS: Allopurinol TAB* 100 MG PO SCH (08:21)
[2017-03-24] MEDS: Docusate CAP* 100 MG PO SCH ×2 (08:21→19:32)
[2017-03-24] MEDS: Atorvastatin* 10 MG TAB PO SCH (08:21)
[2017-03-24] MEDS: Atenolol TAB* 25 MG PO SCH (08:21)
--- NOTE | 2017-03-24 14:02 | PN ---
Progress Note - Progress Note Date of Service: 03/24/17 Note: Andreia visited. She will likely go to [place] on Sunday with her granddaughter. Therapy notes reviewed. Current Medications Acetaminophen (Tylenol Tab*) 650 mg PO Q6H PRN PRN Reason: FEVER/PAIN Last Admin: 03/20/17 14:34 Dose: 650 mg Hydrocodone Bitart/Acetaminophen ([place] 5-325 Tab*) 2 tab PO Q4H PRN PRN Reason: PAIN - SEVERE Last Admin: 03/24/17 00:32 Dose: 2 tab Hydrocodone Bitart/Acetaminophen ([place] 5-325 Tab*) 1 tab PO Q4H PRN PRN Reason: PAIN - MODERATE TO SEVERE Last Admin: 03/24/17 08:21 Dose: 1 tab Allopurinol (Zyloprim Tab*) 100 mg PO DAILY [facility] Last Admin: 03/24/17 08:21 Dose: 100 mg Atenolol (Tenormin Tab*) 25 mg PO DAILY [facility] Last Admin: 03/24/17 08:21 Dose: 25 mg Atorvastatin Calcium (Lipitor*) 5 mg PO DAILY [facility] Last Admin: 03/24/17 08:21 Dose: 5 mg Bisacodyl (Dulcolax Supp*) 10 mg [place] DAILY PRN PRN Reason: CONSTIPATION Chlorthalidone (Hygroton Tab*) 25 mg PO DAILY [facility] Last Admin: 03/24/17 08:20 Dose: 25 mg Cyclobenzaprine HCl (Flexeril Tab*) 10 mg PO BID PRN PRN Reason: SPASMS Last Admin: 03/22/17 01:58 Dose: 10 mg Docusate Sodium (Colace Cap*) 100 mg PO BID [facility] Last Admin: 03/24/17 08:21 Dose: 100 mg Furosemide (Lasix Tab*) 20 mg PO Q48H [facility] Last Admin: 03/24/17 08:21 Dose: 20 mg Magnesium Hydroxide (Milk Of Magnesia Liq*) 30 ml PO Q6H PRN PRN Reason: CONSTIPATION Senna (Senokot Tab*) 2 tab PO BEDTIME PRN PRN Reason: CONSTIPATION Last Admin: 03/23/17 19:45 Dose: 2 tab Warfarin Sodium (Coumadin Tab(*)) 6 mg PO DAILY@1700 [facility] PRN Reason: Protocol Last Admin: 12/15/17 17:15 Dose: 6 mg Vital Signs Temp Pulse Resp BP Pulse Ox 98.0 F 72 18 146/53 96 03/24/17 06:39 03/24/17 06:39 03/24/17 10:21 03/24/17 06:39 03/24/17 08:00 EXAM: LUNGS: Clear bilat HEART: reg rhythm ABDOMEN: Soft, +BS EXTREMITIES: LLE wound clean ASSESSMENT/PLAN: 1. Left TKA: PT/OT 2. Hypertension: Atenolol/chlorthalidone. Resumed Lasix 3. Hypokalemia: Normalized. 4. DVT Prophylaxis: Coumadin. 5. Advanced directives: Full code 6. Constipation: MOM as needed
[2017-03-24] MEDS: Warfarin TAB(*) 6 MG PO SCH (17:14)
[2017-03-25] MEDS: HYDROcodone/ACETAMIN 5-325 MG* 1 TAB PO PRN ×5 (01:58→23:04)
[2017-03-25 07:28] LABS: BUN/Creatinine Ratio 24.1 (8-20); Calcium 9.1 mg/dL (8.6-10.3); EGFR Non-African American 69.2 (>60); Potassium 3.3 mmol/L (3.5-5.0)
[2017-03-25] MEDS: Chlorthalidone TAB* 50 MG PO SCH (08:19)
[2017-03-25] MEDS: Atorvastatin* 10 MG TAB PO SCH (08:19)
[2017-03-25] MEDS: Atenolol TAB* 25 MG PO SCH (08:19)
[2017-03-25] MEDS: Allopurinol TAB* 100 MG PO SCH (08:19)
[2017-03-25] MEDS: Docusate CAP* 100 MG PO SCH ×2 (08:20→21:06)
--- NOTE | 2017-03-25 16:36 | PN ---
Progress Note - Progress Note Date of Service: 03/25/17 Note: Andreia visited. She has no complaints. Her pain is well controlled. No bowel incontinence today. Current Medications Acetaminophen (Tylenol Tab*) 650 mg PO Q6H PRN PRN Reason: FEVER/PAIN Last Admin: 03/20/17 14:34 Dose: 650 mg Hydrocodone Bitart/Acetaminophen ([place] 5-325 Tab*) 2 tab PO Q4H PRN PRN Reason: PAIN - SEVERE Last Admin: 03/25/17 12:30 Dose: 2 tab Hydrocodone Bitart/Acetaminophen (Ducor 5-325 Tab*) 1 tab PO Q4H PRN PRN Reason: PAIN - MODERATE TO SEVERE Last Admin: 03/25/17 01:58 Dose: 1 tab Allopurinol (Zyloprim Tab*) 100 mg PO DAILY [facility] Last Admin: 03/25/17 08:19 Dose: 100 mg Atenolol (Tenormin Tab*) 25 mg PO DAILY [facility] Last Admin: 03/25/17 08:19 Dose: 25 mg Atorvastatin Calcium (Lipitor*) 5 mg PO DAILY [facility] Last Admin: 03/25/17 08:19 Dose: 5 mg Bisacodyl (Dulcolax Supp*) 10 mg [place] DAILY PRN PRN Reason: CONSTIPATION Chlorthalidone (Hygroton Tab*) 25 mg PO DAILY [facility] Last Admin: 03/25/17 08:19 Dose: 25 mg Cyclobenzaprine HCl (Flexeril Tab*) 10 mg PO BID PRN PRN Reason: SPASMS Last Admin: 03/22/17 01:58 Dose: 10 mg Docusate Sodium (Colace Cap*) 100 mg PO BID [facility] Last Admin: 03/25/17 08:20 Dose: Not Given Furosemide (Lasix Tab*) 20 mg PO Q48H [facility] Last Admin: 03/24/17 08:21 Dose: 20 mg Magnesium Hydroxide (Milk Of Magnesia Liq*) 30 ml PO Q6H PRN PRN Reason: CONSTIPATION Senna (Senokot Tab*) 2 tab PO BEDTIME PRN PRN Reason: CONSTIPATION Last Admin: 03/23/17 19:45 Dose: 2 tab Warfarin Sodium (Coumadin Tab(*)) 6 mg PO DAILY@1700 JOSS PRN Reason: Protocol Last Admin: 03/24/17 17:14 Dose: 6 mg Laboratory Results - last 24 hr 03/25/17 06:51 Sodium 135 Potassium 3.3 L Chloride 99 L Carbon Dioxide 29 Anion Gap 7 BUN 19 Creatinine 0.79 Est GFR ( Amer) 89.0 Est GFR (Non-Af Amer) 69.2 BUN/Creatinine Ratio 24.1 H Glucose 106 H Calcium 9.1 Vital Signs Temp Pulse Resp BP Pulse Ox 98.4 F 66 16 145/46 100 03/25/17 16:28 03/25/17 16:28 03/25/17 16:28 03/25/17 16:28 03/25/17 16:28 EXAM: LUNGS: Clear bilat HEART: reg rhythm ABDOMEN: Soft, +BS EXTREMITIES: LLE wound clean ASSESSMENT/PLAN: 1. Left TKA: PT/OT 2. Hypertension: Atenolol/chlorthalidone. Resumed Lasix 3. Hypokalemia: Again falling. Will add Potassium. 4. DVT Prophylaxis: Coumadin. Check INR 5. Advanced directives: Full code 6. Constipation: MOM as needed 7. Disposition: Likely to [place] tomorrow
[2017-03-25] MEDS: Warfarin TAB(*) 6 MG PO SCH (16:59)
[2017-03-26] MEDS: HYDROcodone/ACETAMIN 5-325 MG* 1 TAB PO PRN ×3 (03:30→12:52)
[2017-03-26 06:12] LABS: Hematocrit 28 % (35-47); Hemoglobin 9.5 g/dl (12.0-16.0); Mean Corpuscular HGB Conc 34 g/dl (31-36); Mean Corpuscular Hemoglobin 31 pg (27-31); Mean Corpuscular Volume 92 fL (80-97); Mean Platelet Volume 7 um3 (7.4-10.4); Red Blood Count 3.05 10^6/ul (4.0-5.4); Red Cell Distribution Width 15 % (10.5-15)
[2017-03-26 06:29] LABS: BUN/Creatinine Ratio 25.3 (8-20); Calcium 8.7 mg/dL (8.6-10.3); EGFR Non-African American 69.2 (>60); Globulin 3.5 g/dL (2-4); Potassium 3.4 mmol/L (3.5-5.0); Total Bilirubin 0.6 mg/dL (0.2-1.0); Total Protein 6.5 g/dL (6.4-8.9)
[2017-03-26] MEDS: Atorvastatin* 10 MG TAB PO SCH (09:07)
[2017-03-26] MEDS: Allopurinol TAB* 100 MG PO SCH (09:07)
[2017-03-26] MEDS: Docusate CAP* 100 MG PO SCH ×2 (09:07→21:38)
[2017-03-26] MEDS: Atenolol TAB* 25 MG PO SCH (09:07)
[2017-03-26] MEDS: Furosemide TAB* 20 MG PO SCH (09:08)
[2017-03-26] MEDS: Chlorthalidone TAB* 50 MG PO SCH (09:08)
--- NOTE | 2017-03-26 16:35 | PN ---
Progress Note - Progress Note Date of Service: 03/26/17 Note: Andreia visited. Therapy notes read and reviewed. She is slowly making progress. K = 3.4 Will check potassium Sunday Current Medications Acetaminophen (Tylenol Tab*) 650 mg PO Q6H PRN PRN Reason: FEVER/PAIN Last Admin: 03/20/17 14:34 Dose: 650 mg Hydrocodone Bitart/Acetaminophen ([place] 5-325 Tab*) 2 tab PO Q4H PRN PRN Reason: PAIN - SEVERE Last Admin: 03/26/17 12:52 Dose: 2 tab Hydrocodone Bitart/Acetaminophen ([place] 5-325 Tab*) 1 tab PO Q4H PRN PRN Reason: PAIN - MODERATE TO SEVERE Last Admin: 03/25/17 01:58 Dose: 1 tab Allopurinol (Zyloprim Tab*) 100 mg PO DAILY [facility] Last Admin: 03/26/17 09:07 Dose: 100 mg Atenolol (Tenormin Tab*) 25 mg PO DAILY [facility] Last Admin: 03/26/17 09:07 Dose: 25 mg Atorvastatin Calcium (Lipitor*) 5 mg PO DAILY [facility] Last Admin: 03/26/17 09:07 Dose: 5 mg Bisacodyl (Dulcolax Supp*) 10 mg [place] DAILY PRN PRN Reason: CONSTIPATION Chlorthalidone (Hygroton Tab*) 25 mg PO DAILY [facility] Last Admin: 03/26/17 09:08 Dose: 25 mg Cyclobenzaprine HCl (Flexeril Tab*) 10 mg PO BID PRN PRN Reason: SPASMS Last Admin: 03/22/17 01:58 Dose: 10 mg Docusate Sodium (Colace Cap*) 100 mg PO BID [facility] Last Admin: 03/26/17 09:07 Dose: 100 mg Furosemide (Lasix Tab*) 20 mg PO Q48H [facility] Last Admin: 03/26/17 09:08 Dose: 20 mg Magnesium Hydroxide (Milk Of Magnesia Liq*) 30 ml PO Q6H PRN PRN Reason: CONSTIPATION Senna (Senokot Tab*) 2 tab PO BEDTIME PRN PRN Reason: CONSTIPATION Last Admin: 03/23/17 19:45 Dose: 2 tab Laboratory Results - last 24 hr 03/26/17 03/26/17 03/26/17 05:57 05:57 05:57 WBC 10.0 RBC 3.05 L Hgb 9.5 L Hct 28 L MCV 92 MCH 31 MCHC 34 RDW 15 Plt Count 402 MPV 7 L Neut % (Auto) 68.6 Lymph % (Auto) 17.7 L Alfalfa % (Auto) 10.1 H Eos % (Auto) 2.9 Baso % (Auto) 0.7 Absolute Neuts (auto) 6.8 Absolute Lymphs (auto) 1.8 Absolute Monos (auto) 1.0 H Absolute Eos (auto) 0.3 Absolute Basos (auto) 0.1 Absolute Nucleated RBC 0 Nucleated RBC % 0 INR (Anticoag Therapy) 3.90 H Sodium 134 Potassium 3.4 L Chloride 99 L Carbon Dioxide 29 Anion Gap 6 BUN 20 Creatinine 0.79 Est GFR ( Amer) 89.0 Est GFR (Non-Af Amer) 69.2 BUN/Creatinine Ratio 25.3 H Glucose 100 Calcium 8.7 Total Bilirubin 0.60 AST 14 ALT 8 Alkaline Phosphatase 60 Total Protein 6.5 Albumin 3.0 L Globulin 3.5 Albumin/Globulin Ratio 0.9 L Vital Signs Temp Pulse Resp BP Pulse Ox 97.8 F 66 18 123/34 98 03/26/17 16:32 03/26/17 16:32 03/26/17 16:33 03/26/17 16:32 03/26/17 16:32 EXAM: LUNGS: Clear bilat HEART: reg rhythm ABDOMEN: Soft, +BS EXTREMITIES: LLE wound clean ASSESSMENT/PLAN: 1. Left TKA: PT/OT 2. Hypertension: Atenolol/chlorthalidone. Resumed Lasix 3. Hypokalemia: Again low. Will continue Potassium. 4. DVT Prophylaxis: Hold Coumadin tonight. Check INR 5. Advanced directives: Full code 6. Constipation: MOM as needed 7. Disposition: Likely to [place]
[2017-03-27] MEDS: HYDROcodone/ACETAMIN 5-325 MG* 1 TAB PO PRN ×2 (00:16→07:19)
[2017-03-27 05:02] VITALS: BP 143/52
[2017-03-27] MEDS: Atorvastatin* 10 MG TAB PO SCH (10:14)
[2017-03-27] MEDS: Docusate CAP* 100 MG PO SCH (10:14)
[2017-03-27] MEDS: Chlorthalidone TAB* 50 MG PO SCH (10:14)
[2017-03-27] MEDS: Allopurinol TAB* 100 MG PO SCH (10:15)
[2017-03-27] MEDS: Atenolol TAB* 25 MG PO SCH (10:15)
[2017-03-27] MEDS ORDERED: Warfarin TAB(*) 2 MG PO SCH (17:00)
== END 2017-03-27 14:00 | disposition home or self-care (01) | DRG 561 ==
LOC: PMRU 13:45 → UNDOADMIN 13:58
PROVIDERS: ADMIT Physical Medicine & Rehabilitation; ATTEND Physical Medicine & Rehabilitation
PROC: F07Z5ZZ Bed Mobility Treatment (ICD-10-PCS; principal; 2017-03-18)
PROC: F07Z9ZZ Gait Training/Functional Ambulation Treatment (ICD-10-PCS; 2017-03-18)
PROC: F07Z8ZZ Transfer Training Treatment (ICD-10-PCS; 2017-03-18)
PROC: F08Z0ZZ Bathing/Showering Techniques Treatment (ICD-10-PCS; 2017-03-18)
PROC: F08Z1ZZ Dressing Techniques Treatment (ICD-10-PCS; 2017-03-18)
PROC: F08Z3ZZ Feeding/Eating Treatment (ICD-10-PCS; 2017-03-18)
DX: Z47.1 Aftercare following joint replacement surgery (principal); E87.6 Hypokalemia; I10 Essential (primary) hypertension; Z96.652 Presence of left artificial knee joint; Z96.641 Presence of right artificial hip joint; Z90.13 Acquired absence of bilateral breasts and nipples; Z85.3 Personal history of malignant neoplasm of breast; Z79.01 Long term (current) use of anticoagulants; Z79.899 Other long term (current) drug therapy; Z88.8 Allergy status to other drugs, medicaments and biological substances; Z91.040 Latex allergy status; K59.00 Constipation, unspecified
CPT/HCPCS: 36415; 80048; 80053; 83735; 85025; 85610; A9270-GY; J1650

== ENCOUNTER 2017-04-01 15:44 | Emergency (ER) | payer MEDICARE, MEDICAID ==
[2017-04-01] MEDS ORDERED: NS 0.9% 1000 ML* 1,000 ML IV ONE (16:08)
[2017-04-01 16:19] LABS: Hematocrit 30 % (35-47); Hemoglobin 10.1 g/dl (12.0-16.0); Mean Corpuscular HGB Conc 34 g/dl (31-36); Mean Corpuscular Hemoglobin 31 pg (27-31); Mean Corpuscular Volume 92 fL (80-97); Mean Platelet Volume 7 um3 (7.4-10.4); Red Cell Distribution Width 16 % (10.5-15); White Blood Count 9.5 10^3/ul (3.5-10.8)
[2017-04-01 16:30] LABS: Albumin 3.7 g/dL (3.2-5.2); BUN/Creatinine Ratio 38.7 (8-20); Calcium 9.2 mg/dL (8.6-10.3); EGFR African American 60.1 (>60); EGFR Non-African American 46.7 (>60); Globulin 4.2 g/dL (2-4); Potassium 4.9 mmol/L (3.5-5.0); Total Bilirubin 0.5 mg/dL (0.2-1.0); Total Protein 7.9 g/dL (6.4-8.9)
--- OUTSIDE RECORDS SUMMARY | 2017-04-01 16:37 | XMS REPORT ---
:1930 External Reference #:[id number] Author Organization [employer] Address [address] [address] Phone [phone] Care Team Providers Name Role Phone Rosalba Delvalle MD Primary Care Physician Unavailable Payers Type Date Identification Numbers Payment Provider Subscriber Commercial Policy Number: [id number] [employer]/Todays Options Josef Joseph PayID: [id number] [address] [address] Attn: [place] [address] Medigap Part B Effective: 1996 Policy Number: Medicare Josef Joseph [id number] Expires: 2017 PayID: [id number] [address] [place] [address] Medigap Part B Expires: 2017 Policy Number: [id number] Medicaid Josef Joseph PayID: [id number] [address] [place] [address] Problems Date Description Provider Status Onset: 05/01/2013 Electrocardiogram abnormal Jonh Bauer M.D., [facility], Active [facility] Onset: 05/01/2013 Essential hypertension Jonh Bauer M.D., [facility], Active [facility] Onset: 05/08/2013 Preoperative cardiovascular Jonh Bauer M.D., [facility], Active examination [facility] Onset: 03/30/2017 Arthroplasty of knee Aleyda Da, M.D. Active Onset: 01/12/2017 Acquired genu valgum Alyeda Roberson M.D. Active Onset: 03/22/2015 Localized, primary osteoarthritis Aleyda Roberson M.D. Active Family History Date Family Member(s) Problem(s) Comments General Cancer Social History Type Date Description Comments Lives With Alone Occupation Retired ETOH Use Denies alcohol use Smoking Patient has never smoked Exercise Type/Frequency Exercises rarely Allergies, Adverse Reactions, Alerts Date Description Reaction Status Severity Comments 03/28/2013 Latex active Medications Medication Date Status Form Strength Qnty SIG Indications Ordering Provider Warfarin Active Tablets 2mg 90tabs take 1-3 Aleyda Sodium 017 tabs by Da, mouth at M.D. 5pm nightly Atenolol/Chlor Active Tablets 50-25mg 1 po qd Unknown thalidone 000 Simvastatin Active Tablets 10mg 90tabs 1 po qhs Unknown 000 Allopurinol Active Tablets 100mg 30tabs 1 po qd Unknown 000 Potassium Active Unknown Chloride 000 Hydrocodone-Ac Active Tablets 7.5-325mg 60tabs take 1-2 Aleyda etaminophen 000 capsule/ta Da, blet by M.D. mouth twice daily as needed for acute pain Furosemide Active Tablets 20mg 1 by mouth Unknown 000 every day Ampicillin Hx Capsules 500mg 20caps take 1 tab Aleyda 017 - by mouth 4 Da, times a M.D. 017 day for 5 days Bactrim DS Hx Tablets 800-160mg 6tabs take 1 by Aleyda 017 - mouth Da, twice a M.D. 017 day for 3 days Hydrocodone-Ac Hx Tablets 5-325mg 60tabs 1-2 tabs Aleyda etaminophen 015 - by mouth Da, four times M.D. 017 a day as needed pain Bactrim DS Hx Tablets 800-160mg 14tabs 1 po bid Deacon 014 - for 7 days Pillo, M.D. 017 Hydrocodone/Ac Hx Tablets 5-325mg 80tabs one tab po Deacon etaminophen 014 - q6 prn Pillo, M.D. 014 Bactrim DS Hx Tablets 800-160mg 14tabs 1 po bid Deacon 014 - for 7 days Pillo, M.D. 014 Percocet Hx Tablets 5-325mg 90tabs 1-2 tabs Deacon 014 - po q4-6 Pillo, prn pain M.D. 014 Coumadin Hx Tablets 2.5mg 90tabs take 1-3 Deacon 014 - as Pillo, directed M.D. 014 at 5pm daily Hydrocodone/Ac Hx Tablets 5-325mg 80tabs one tab po Deacon etaminophen 013 - q6 prn Pillo, M.D. 014 Sulfamethoxazo Hx bid Unknown le-TMP DS 000 - 017 Vitamin D3 00/0 Hx 1000Iu 1 daily Unknown 000 - 017 Warfarin 0 Hx Tablets 2.5mg 50tabs take 1-3 Deacon Sodium 000 - tablets as Pillo, directed M.DChucky 017 At 5 PM Ibuprofen 0 Hx Tablets 200mg as needed Unknown 000 - 017 Medications Administered in Office Medication Date Status Form Strength Qnty SIG Indications Ordering Provider Depomedrol Administered Injection Aleyda 40MG 015 Teresa Roberson Depomedrol Administered Injection Dirk Tang, 40MG 010 M.DChucky Vital Signs Date Vital Result Comment 03/30/2017 Height 62 inches 5'2" Weight 202.00 lb per pt Heart Rate 90 /min reg BP Systolic Sitting 120 mmHg Lue, lg cuff BP Diastolic Sitting 84 mmHg Lue, lg cuff Respiratory Rate 16 /min Body Temperature 98.9 F tympanic Pain Level 9 left knee BMI (Body Mass Index) 36.9 kg/m2 03/05/2017 Height 62 inches 5'2" Weight 202.00 lb Heart Rate 80 /min BP Systolic 128 mmHg BP Diastolic 72 mmHg Respiratory Rate 18 /min Body Temperature 97.9 F Pain Level 7 BMI (Body Mass Index) 36.9 kg/m2 02/12/2017 Height 62 inches 5'2" Weight 202.00 lb Heart Rate 110 /min BP Systolic 168 mmHg BP Diastolic 90 mmHg BMI (Body Mass Index) 36.9 kg/m2 01/12/2017 Height 62 inches 5'2" Weight 202.00 lb Heart Rate 67 /min BP Systolic 129 mmHg BP Diastolic 64 mmHg BMI (Body Mass Index) 36.9 kg/m2 04/26/2015 Height 64 inches 5'4" Weight 200.00 lb Pain Level 5 BMI (Body Mass Index) 34.3 kg/m2 03/22/2015 Height 64 inches 5'4" Weight 200.00 lb Heart Rate 71 /min BP Systolic 104 mmHg BP Diastolic 62 mmHg BMI (Body Mass Index) 34.3 kg/m2 11/04/2014 Height 64 inches 5'4" Weight 200.00 lb Heart Rate 106 /min BP Systolic 144 mmHg BP Diastolic 88 mmHg Pain Level 5 BMI (Body Mass Index) 34.3 kg/m2 10/05/2014 Height 64 inches 5'4" Weight 200.00 lb Pain Level 5 BMI (Body Mass Index) 34.3 kg/m2 09/07/2014 Height 64 inches 5'4" Weight 200.00 lb Heart Rate 82 /min BP Systolic 117 mmHg BP Diastolic 66 mmHg Pain Level 6 BMI (Body Mass Index) 34.3 kg/m2 08/01/2013 Height 64 inches 5'4" Heart Rate 57 /min BP Systolic 116 mmHg BP Diastolic 54 mmHg 06/11/2013 Height 64 inches 5'4" Weight 217.00 lb Heart Rate 72 /min BP Systolic 117 mmHg BP Diastolic 77 mmHg BMI (Body Mass Index) 37.2 kg/m2 05/08/2013 Height 62.75 inches 5'2.75" Weight 217.00 lb Heart Rate 55344 /min BP Systolic Sitting 114 mmHg right arm, large cuff BP Diastolic Sitting 74 mmHg right arm, large cuff BP Systolic Standing 112 mmHg right arm, large cuff BP Diastolic Standing 76 mmHg right arm, large cuff Respiratory Rate 16 /min BMI (Body Mass Index) 38.7 kg/m2 05/01/2013 Height 62.5 inches 5'2.50" Weight 217.00 lb noshoes Heart Rate 8894 /min BP Systolic Sitting 112 mmHg Ra lg cuff BP Diastolic Sitting 68 mmHg Ra lg cuff BP Systolic Standing 106 mmHg BP Diastolic Standing 68 mmHg Respiratory Rate 18 /min BMI (Body Mass Index) 39.1 kg/m2 03/28/2013 Height 64 inches 5'4" Weight 200.00 lb Heart Rate 65 /min BP Systolic 140 mmHg BP Diastolic 79 mmHg BMI (Body Mass Index) 34.3 kg/m2 Results Test Date Test Result H/L Range Note Urinalysis Profile 03/05/2017 Urine Color Yellow 1 Urine Appearance Cloudy 1 Urine Specific [place] 1.035 High 1.010-1.030 1 Urine pH 5.0 5-9 1 Urine Urobilinogen Negative Negative 1 Urine Ketones Negative Negative 1 Urine Protein Negative Negative 1 Urine Leukocytes 3+ Negative 1 Urine Blood Negative Negative 1 Urine Nitrite Positive Negative 1 Urine Bilirubin Negative Negative 1 Urine Glucose Negative Negative 1 Urine White Blood Cell 3+(>20/hpf) Absent 1 Urine Red Blood Cell 1+(3-5/hpf) Absent 1 Urine Bacteria 3+ Absent 1 Urine Squamous Epithelial Cell Present Absent 1 Type & Screen 03/05/2017 Patient Blood Type O Positive 1 Antibody Screen NEGATIVE 1 Urine Culture And Sensitivities 03/05/2017 Urine Culture SEE RESULT BELOW 1, 2 Urinalysis Profile 02/19/2017 Urine Color Deborah 3 Urine Appearance Cloudy 3 Urine Specific [place] 1.040 High 1.010-1.030 3 Urine pH 5.0 5-9 3 Urine Urobilinogen Negative Negative 3 Urine Ketones Negative Negative 3 Urine Protein Negative Negative 3 Urine Leukocytes 3+ Negative 3 Urine Blood Negative Negative 3 Urine Nitrite Negative Negative 3 Urine Bilirubin Negative Negative 3 Urine Glucose Negative Negative 3 Urine White Blood Cell 3+(>20/hpf) Absent 3 Urine Red Blood Cell Absent Absent 3 Urine Bacteria 2+ Absent 3 Urine Squamous Epithelial Cell Present Absent 3 Urine Culture And 02/19/2017 Urine Culture SEE RESULT BELOW 3, 4 Sensitivities CBC No Diff 02/12/2017 White Blood Count 9.5 10^3/uL 3.5-10.8 Red Blood Count 3.65 10^6/uL Low 4.0-5.4 Hemoglobin 11.4 g/dL Low 12.0-16.0 Hematocrit 35 % 35-47 Mean Corpuscular Volume 94 fL 80-97 Mean Corpuscular Hemoglobin 31 pg 27-31 Mean Corpuscular HGB Conc 33 g/dL 31-36 Red Cell Distribution Width 15 % 10.5-15 Platelet Count 279 10^3/uL 150-450 Mean Platelet Volume 8 um3 7.4-10.4 Comp Metabolic Panel 02/12/2017 Sodium 137 mmol/L 133-145 Potassium 4.1 mmol/L 3.5-5.0 Chloride 102 mmol/L 101-111 Co2 Carbon Dioxide 27 mmol/L 22-32 Anion Gap 8 mmol/L 2-11 Glucose 96 mg/dL 70-100 Blood Urea Nitrogen 19 mg/dL 6-24 Creatinine 0.90 mg/dL 0.51-0.95 BUN/Creatinine Ratio 21.1 High 8-20 Calcium 10.8 mg/dL High 8.6-10.3 Total Protein 6.8 g/dL 6.4-8.9 Albumin 3.6 g/dL 3.2-5.2 Globulin 3.2 g/dL 2-4 Albumin/Globulin Ratio 1.1 1-3 Total Bilirubin 0.50 mg/dL 0.2-1.0 Alkaline Phosphatase 44 U/L 34-104 Alt 8 U/L 7-52 Ast 15 U/L 13-39 Egfr Non- 59.5 >60 Egfr 76.5 >60 5 Inr/Protime 02/12/2017 Inr 0.94 0.89-1.11 Laboratory test finding 02/12/2017 Partial Thrombo Time 30.3 seconds 26.0 -36.3 PTT Type & Screen 02/12/2017 Patient Blood Type O Positive Antibody Screen NEGATIVE Laboratory test finding 07/17/2013 Inr 3.58 High 0.85-1.06 Basic Metabolic Panel 06/11/2013 Sodium 140 mmol/L 133-145 Potassium 3.5 mmol/L Low 3.7-5.6 Chloride 102 mmol/L 101-111 Co2 Carbon Dioxide 30 mmol/L 22-32 Anion Gap 8 mmol/L 2-11 Glucose 101 mg/dL High 70-100 Blood Urea Nitrogen 17 mg/dL 6-24 Creatinine 0.89 mg/dL 0.51-0.95 BUN/Creatinine Ratio 19.1 8-20 Calcium 9.2 mg/dL 8.6-10.3 Egfr Non- 60.9 >60 Egfr 78.3 >60 6 Type & Screen 06/11/2013 Patient Blood Type O Positive Antibody Screen NEGATIVE CBC No Diff 06/11/2013 White Blood Count 10.4 10^3/uL 4.8-10.8 Red Blood Count 4.16 10^6/uL 4.0-5.4 Hemoglobin 12.2 g/dL 12.0-16.0 Hematocrit 37 % 35-47 Mean Corpuscular Volume 88 fL 80-97 Mean Corpuscular Hemoglobin 29 pg 27-31 Mean Corpuscular HGB Conc 33 g/dL 31-36 Red Cell Distribution Width 15 % 10.5-15 Platelet Count 303 10^3/uL 150-450 Mean Platelet Volume 9 um3 7.4-10.4 Urine Culture And 06/11/2013 Urine Culture (SEE NOTE) 7 Sensitivities Urine Microscopic 06/11/2013 Urine WBC 3+ (>30 /hpf) None Seen Urine RBC 1+ (<3 /hpf) None Seen Urine Epithelial Cells 3+ Squamous /hpf None Seen Bacteria Urine 3+ None Seen Crystals Urine Amorphous /lpf None Seen Urinalysis 06/11/2013 Urine Color Yellow Urine Appearance Clear Urine Specific [place] 1.026 1.010-1.030 Urine Esterase 2+ Negative Urine Nitrate Positive Negative Urine Urobilinogen Negative E.U./dL Negative Urine Protein Trace mg/dL Negative Urine pH 6.0 5-9 Urine Blood Negative Negative Urine Ketones Negative mg/dL Negative Urine Bilirubin Negative Negative Urine Glucose Negative mg/dL Negative Urine Culture And 04/15/2013 Urine Culture (SEE NOTE) 8 Sensitivities Urine Microscopic 04/15/2013 Urine WBC 2+ (>10-30 /hpf) None Seen 9 Urine RBC 1+ (<3 /hpf) None Seen Urine Mucus Present /lpf Absent Urine Epithelial Cells 2+ Squamous /hpf None Seen Bacteria Urine 3+ None Seen Urinalysis 04/15/2013 Urine Color Yellow Urine Appearance Clear Urine Specific [place] 1.025 1.010-1.030 Urine Esterase 2+ Negative Urine Nitrate Positive Negative Urine Urobilinogen Negative E.U./dL Negative Urine Protein Trace mg/dL Negative Urine pH 6.0 5-9 Urine Blood Trace Negative Urine Ketones Negative mg/dL Negative Urine Bilirubin Negative Negative Urine Glucose Negative mg/dL Negative Type & Screen 04/15/2013 Patient Blood Type O Positive Antibody Screen NEGATIVE Basic Metabolic Panel 04/15/2013 Sodium 136 mmol/L 133-145 Potassium 3.5 mmol/L 3.5-5.0 Chloride 99 mmol/L Low 101-111 Co2 Carbon Dioxide 27.0 mmol/L 22-32 Anion Gap 10.0 mmol/L 2-11 Glucose 96 mg/dL 70-100 Blood Urea Nitrogen 18 mg/dL 6-24 Creatinine 0.90 mg/dL 0.50-1.40 BUN/Creatinine Ratio 20.0 8-20 Calcium 9.0 mg/dL 8.1-9.9 Egfr Non- 60.1 >60 Egfr 77.3 >60 10 CBC No Diff 04/15/2013 White Blood Count 10.8 10^3/uL 4.8-10.8 Red Blood Count 4.18 10^6/uL 4.0-5.4 Hemoglobin 11.8 g/dL Low 12.0-16.0 Hematocrit 38 % 35-47 Mean Corpuscular Volume 90 fL 80-97 Mean Corpuscular Hemoglobin 28 pg 27-31 Mean Corpuscular HGB Conc 31 g/dL 31-36 Red Cell Distribution Width 14 % 10.5-15 Platelet Count 317 10^3/uL 150-450 Mean Platelet Volume 9 um3 7.4-10.4 1 UNILATERAL PRIMARY OSTEOARTHRITIS, LEFT KNEE, PAIN 2 SEE RESULT BELOW Name: JOSEF JOSEPH : [address]: Aleyda Roberson MD Acct: [id number] Unit: [id number] AGE: 86 Location: PAT Re03/05/17 SEX: F Status: REG REF SPEC: [id number] DESIREE: 03/05/17 [facility] [address]: Aleyda Roberson MD REQ: [id number] RECD: 03/05/17 STATUS: JUVE BARRON DR: Rosalba Delvalle MD _ SOURCE: URINE SPDESC: ORDERED: Urine Culture QUERIES: Urine Source: Random Procedure Result Reported Site Urine Culture Final 03/07/17- 0806 ML Organism 1 ESCHERICHIA COLI [place] Count >100,000 (Many) CFU/ML Organism 2 PSEUDOMONAS AERUGINOSA [place] Count 50-75,000 (Many) CFU/ML 1. ESCHERICHIA COLI [facility].I.C. RX --------- ------ Ampicillin <=2 S Cefazolin <=4 S Cefepime <=1 S Ceftriaxone <=1 S Ciprofloxacin <=0.25 S Gentamicin <=1 S Levofloxacin <=0.12 S Meropenem <=0.25 S Nitrofurantoin <=16 S Tetracycline <=1 S Pipercillin/Tazobactam <=4 S Trimethoprim/Sulfamethoxazole <=20 S Amoxicillin/Clavulanic Acid <=2 S Aztreonam <=1 S CONTINUED ON NEXT PAGE * ML=Testing performed at Main Lab DEPARTMENT OF PATHOLOGY, [address] [place] [address] Dominik Herrera M.D. Director [facility] # [id number] Patient: JOSEF JOSEPH [id number] (Continued) Specimen: [id number] Collected: 03/05/17 Received: 03/05/17 (Continued) Procedure Result Reported Site Urine Culture Final (continued) 03/07/17805 2. PSEUDOMONAS AERUGINOSA M.I.C. RX --------- ------ Ampicillin >=32 R Cefazolin >=64 R Cefepime <=1 S Ceftriaxone R Ciprofloxacin <=0.25 S Gentamicin <=1 S Levofloxacin 0.5 S Meropenem 1 S Nitrofurantoin >=512 R Tetracycline >=16 R Pipercillin/Tazobactam 8 S Trimethoprim/Sulfamethoxazole 80 R Amoxicillin/Clavulanic Acid >=32 R Contact the Microbiology Department for any additional antibiotic reporting. * ML - MAIN LAB ([facility]) . END OF REPORT * ML=Testing performed at Main Lab DEPARTMENT OF PATHOLOGY, [address] [place] [address] Dominik Herrera M.D. Director [facility] # [id number] 3 02/20 4 SEE RESULT BELOW Name: JOSEF JOSEPH : [address]: Aleyda Roberson MD Acct: [id number] Unit: [id number] AGE: 86 Location: LAB Re02/19/17 SEX: F Status: REG REF SPEC: [id number] DESIREE: 02/19/17-13[address] [facility] [address]: Aleyda Roberson MD REQ: [id number] RECD: 02/19/17 STATUS: JUVE BARRON DR: Rosalba Delvalle MD _ SOURCE: URINE SPDESC: ORDERED: Urine Culture COMMENTS: MIRIAN 02/20 QUERIES: Urine Source: Clean Catch Procedure Result Reported Site Urine Culture Final 02/21/17- 0721 ML Organism 1 ESCHERICHIA COLI [place] Count >100,000 (Many) CFU/ML Organism 2 NORMAL TAE [place] Count 10-25,000 (Moderate) CFU/ML 1. ESCHERICHIA COLI [facility].I.C. RX --------- ------ Ampicillin 8 S Cefazolin <=4 S Cefepime <=1 S Ceftriaxone <=1 S Ciprofloxacin <=0.25 S Gentamicin <=1 S Levofloxacin <=0.12 S Meropenem <=0.25 S Nitrofurantoin <=16 S Tetracycline <=1 S Pipercillin/Tazobactam <=4 S Trimethoprim/Sulfamethoxazole <=20 S Amoxicillin/Clavulanic Acid 4 S Aztreonam <=1 S Contact the Microbiology Department for any additional antibiotic reporting. * ML - MAIN LAB ([facility]) . END OF REPORT * ML=Testing performed at Main Lab DEPARTMENT OF PATHOLOGY, [address] [place] [address] Dominik Herrera M.D. Director [facility] # [id number] 5 Because ethnic data is not always readily available, this report includes an eGFR for both -Americans and non- Americans. The National Kidney Disease Education Program (NKDEP) does not endorse the use of the MDRD equation for patients that are not between the ages of 18 and 70, are , have extremes of body size, muscle mass, or nutritional status, or are non- or non-. According to the National Kidney Foundation, irrespective of diagnosis, the stage of the disease is based on the level of kidney function: Stage Description GFR(mL/min/1.73 m(2)) 1 Kidney damage with normal or decreased GFR 90 2 Kidney damage with mild decrease in GFR 60-89 3 Moderate decrease in GFR 30-59 4 Severe decrease in GFR 15-29 5 Kidney failure <15 (or dialysis) 6 Because ethnic data is not always readily available, this report includes an eGFR for both -Americans and non- Americans. The National Kidney Disease Education Program (NKDEP) does not endorse the use of the MDRD equation for patients that are not between the ages of 18 and 70, are , have extremes of body size, muscle mass, or nutritional status, or are non- or non-. According to the National Kidney Foundation, irrespective of diagnosis, the stage of the disease is based on the level of kidney function: Stage Description GFR(mL/min/1.73 m(2)) 1 Kidney damage with normal or decreased GFR 90 2 Kidney damage with mild decrease in GFR 60-89 3 Moderate decrease in GFR 30-59 4 Severe decrease in GFR 15-29 5 Kidney failure <15 (or dialysis) 7 RUN DATE: 06/13/13 [facility] LAB LIVE PAGE 1 RUN TIME: [address] [place], [place] [address] Specimen Inquiry Name: JOSEF JOSEPH : [address]: Deacon Ferro MD Acct: [id number] Unit: [id number] AGE: 82 Location: [facility] Re06/11/13 SEX: F Status: REG REF SPEC: [id number] DESIREE: 06/11/13-1240 [facility] [address]: Deacon Ferro MD REQ: [id number] RECD: 06/11/13-131 STATUS: JUVE BARRON DR: Rosalba Delvalle MD _ SOURCE: URINE SPDESC: ORDERED: Urine Culture Procedure Result Verified Site Urine Culture Final 06/13/13- 1019 ML Organism 1 ESCHERICHIA COLI [place] Count >100,000 (Many) CFU/ML 1. ESCHERICHIA COLI [facility].I[facility] RX --------- ------ Ampicillin 4 S Cefazolin <=4 S Cefepime <=1 S Ceftriaxone <=1 S Ciprofloxacin <=0.25 S Gentamicin <=1 S Imipenem <=0.25 S Levofloxacin <=0.12 S Meropenem <=0.25 S Nitrofurantoin <=16 S Tetracycline <=1 S Pipercillin/Tazobactam <=4 S Trimethoprim/Sulfamethoxazole <=20 S Amoxicillin/Clavulanic Acid <=2 S Aztreonam <=1 S Contact the Microbiology Department for any additional antibiotic reporting. END OF REPORT * ML=Testing performed at Main Lab DEPARTMENT OF PATHOLOGY, [address] [place] [address] Dominik Herrera M.D. Director [facility] Permit #[id number] RUN DATE: 04/17/13 [facility] LAB LIVE PAGE 1 RUN TIME: [address] [place] [address] Specimen Inquiry Name: JOSEF JOSEPH Silvia : [address]: Deacon Ferro MD Acct: [id number] Unit: [id number] AGE: 82 Location: PAT Re04/15/13 SEX: F Status: REG REF SPEC: [id number] DESIREE: 04/15/13-1236 [facility] [address]: Deacon Ferro MD REQ: [id number] RECD: 04/15/13-1249 STATUS: COMP _ SOURCE: URINE SPDESC: ORDERED: Urine Culture Procedure Result Verified Site Urine Culture Final 04/17/13- 0812 ML Organism 1 ESCHERICHIA COLI [place] Count >100,000 (Many) CFU/ML 1. ESCHERICHIA COLI [facility].I.C. RX --------- ------ Ampicillin 8 S Cefazolin <=4 S Cefepime <=1 S Ceftriaxone <=1 S Ciprofloxacin <=0.25 S Gentamicin <=1 S Imipenem <=0.25 S Levofloxacin <=0.12 S Meropenem <=0.25 S Nitrofurantoin <=16 S Tetracycline <=1 S Pipercillin/Tazobactam <=4 S Trimethoprim/Sulfamethoxazole <=20 S Amoxicillin/Clavulanic Acid 4 S Aztreonam <=1 S Contact the Microbiology Department for any additional antibiotic reporting. END OF REPORT * ML=Testing performed at Main Lab DEPARTMENT OF PATHOLOGY, [address] [place] [address] Dominik Herrera M.D. Director [facility] Permit #[id number] 2+ (>10-30 /hpf) 10 Because ethnic data is not always readily available, this report includes an eGFR for both -Americans and non- Americans. The National Kidney Disease Education Program (NKDEP) does not endorse the use of the MDRD equation for patients that are not between the ages of 18 and 70, are , have extremes of body size, muscle mass, or nutritional status, or are non- or non-. According to the National Kidney Foundation, irrespective of diagnosis, the stage of the disease is based on the level of kidney function: Stage Description GFR(mL/min/1.73 m(2)) 1 Kidney damage with normal or decreased GFR 90 2 Kidney damage with mild decrease in GFR 60-89 3 Moderate decrease in GFR 30-59 4 Severe decrease in GFR 15-29 5 Kidney failure <15 (or dialysis) Procedures Date CPT Code Description Status 03/15/2017 24489 TKR Total Knee Replacement Completed 03/15/2017 93848 TKR Total Knee Replacement Completed 03/22/201593559 Inject/Drain Joint/Bursa Major Completed 09/11/2014 Bone Mineral Density Test Completed 04/10/2014 53540 Mastectomy Simple Complete Completed 08/01/2013 42022 Rad Exam; Hip Unilat Completed 08/01/2013 99195 Rad Exam; Hip Unilat Completed 08/01/2013 53053 Rad Exam; Hip Unilat Completed 08/01/2013 70072 Rad Exam; Hip Unilat Completed 08/01/2013 25326 Rad Exam; Hip Unilat Completed 06/26/2013 28868 THR Total Hip Replacement Completed 06/26/2013 61549 THR Total Hip Replacement Completed 05/05/2013 38439 ECHO Transthorasic Realtime 2D W Doppler & Color Completed Flow Hosp 05/05/2013 24509 Treadmill Interp/Report Only Completed 05/05/2013 13483 Stress Test Supervsn W/Out I/R Completed 05/01/2013 88272 EKG Tracing & Interpretation Completed 04/15/2013 15241 EKG, Interpretation Only Completed 04/04/2010 89537 Rad Exam; Hip Unilat Comp Completed 04/04/2010 69966 Rad Exam; Pelvis Completed 04/04/2010 41931 Inject/Drain Joint/Bursa Major Completed Encounters Type Date Location Provider CPT E/M Dx Office Visit 01/12/2017 [facility] M.D. 97766 M17.12 1:30p [facility] M25.562 M25.462 M21.062 Office Visit 04/26/2015 1:45p [facility] M.D. 28510 M17.12 [facility] M25.562 Office Visit 03/22/2015 10:30a [facility] M.D. 45135 M17.12 [facility] M25.562 M25.462 M25.531 Office Visit 11/04/2014 3:45p [facility] M.D. 92229 719.43 [facility] Office Visit 10/05/2014 9:50a [facility] M.D. 08971 719.43 [facility] Office Visit 09/07/2014 8:00a [facility] M.D. 64908 813.42 [facility] 813.42 Office Visit 06/28/2013 2:27p [facility], 25335 780.62 [facility] Teresa V43.64 Office Visit 05/08/2013 2:45p [facility]h Bauer M.D., 13375 V72.81 [facility], FSCAI 401.9 794.31 Office Visit 05/01/2013 11:15a [facility]h Bauer M.D., 93424 794.31 [facility], FSCAI 401.9 Office Visit 03/28/2013 1:00p [facility] Deacon Ferro, 38745 715.98 [facility]ade Moore Office Visit 04/04/2010 2:15p [facility] Clyde Beckwith M.D. 40777 716.95 [facility] 726.5 Plan of Care Future Appointment(s):04/23/2017 3:15 pm - A[facility]da Roberson M.D. at [facility]03/30/2017 - Aleyda Roberson M.D.M25.562 Pain in left kneeNew Therapy:Physical TherapyFollow up:Follow up: 3 swqigL87.1 Aftercare following joint replacement [id number] Presence of left artificial knee joint
--- OUTSIDE RECORDS SUMMARY | 2017-04-01 16:38 | XMS REPORT ---
:1930 External Reference #:[id number] Author Organization [facility] [employer] Address [address] [address] Phone [phone] Care Team Providers Name Role Phone Rosalba Delvalle MD Primary Care Physician Unavailable Payers Type Date Identification Numbers Payment Provider Subscriber Commercial Policy Number: [id number] [employer]/Todays Options Josef Joseph PayID: [id number] [address] [address] Attn: [place] [address] Medigap Part B Effective: 1996 Policy Number: Medicare Josef Joseph [id number] Expires: 2017 PayID: [id number] [address] [place] [address] Medigap Part B Expires: 2017 Policy Number: [id number] Medicaid Josef Joseph PayID: [id number] [address] [place] [address] Problems Date Description Provider Status Onset: 05/01/2013 Electrocardiogram abnormal Jonh Bauer M.D., [facility], Active [facility] Onset: 05/01/2013 Essential hypertension Jonh Bauer M.D., [facility], Active [facility] Onset: 05/08/2013 Preoperative cardiovascular Jonh Bauer M.D., [facility], Active examination [facility] Onset: 01/12/2017 Acquired genu valgum Aleyda Da, M.D. Active Onset: 03/22/2015 Localized, primary osteoarthritis [...] Unknown Chloride 000 Hydrocodone-Ac Active Tablets 7.5-325mg take one Unknown etaminophen 000 capsule/ta blet by mouth twice daily as needed for acute pain Furosemide Active Tablets 20mg 1 by mouth Unknown 000 every day Bactrim DS Hx Tablets 800-160mg 6tabs take [...] - q6 prn Pillo, M.D. 014 Sulfamethoxazo 0 Hx bid Unknown le-TMP DS 000 - 017 Vitamin D3 Hx 1000Iu 1 daily Unknown 000 - 017 Warfarin Hx Tablets 2.5mg 50tabs take 1-3 Deacon Sodium 000 - tablets as Pillo, directed M.D. 017 At 5 PM Ibuprofen 0 Hx Tablets 200mg as needed Unknown 000 - 017 Medications Administered in Office Medication Date Status Form Strength Qnty SIG Indications Ordering Provider Depomedrol Administered Injection Aleyda 40MG 015 Teresa Roberson Depomedrol Administered Injection Dirk Tang, 40MG 010 M.D. Vital Signs Date Vital Result Comment 03/05/2017 Height 62 inches 5'2" Weight 202.00 [...] inches 5'2.75" Weight 217.00 lb Heart Rate 54836 /min BP Systolic Sitting 114 mmHg right [...] Test Result H/L Range Note Urinalysis Profile 02/19/2017 Urine Color Deborah 1 Urine Appearance Cloudy 1 Urine Specific [place] 1.040 High 1.010-1.030 1 Urine pH 5.0 5-9 1 Urine Urobilinogen Negative Negative 1 Urine Ketones Negative Negative 1 Urine Protein Negative Negative 1 Urine Leukocytes 3+ Negative 1 Urine Blood Negative Negative 1 Urine Nitrite Negative Negative 1 Urine Bilirubin Negative Negative 1 Urine Glucose Negative Negative 1 Urine White Blood Cell 3+(>20/hpf) Absent 1 Urine Red Blood Cell Absent Absent 1 Urine Bacteria 2+ Absent 1 Urine Squamous Epithelial Cell Present Absent 1 Urine Culture And 02/19/2017 Urine Culture SEE RESULT BELOW 1, 2 Sensitivities CBC No Diff 02/12/2017 White Blood [...] Egfr Non- 59.5 >60 Egfr 76.5 >60 3 Inr/Protime 02/12/2017 Inr 0.94 0.89-1.11 Laboratory test [...] Egfr Non- 60.9 >60 Egfr 78.3 >60 4 Type & Screen 06/11/2013 Patient Blood Type [...] Culture And 06/11/2013 Urine Culture (SEE NOTE) 5 Sensitivities Urine Microscopic 06/11/2013 Urine WBC 3+ (>30 /hpf) None Seen Urine RBC 1+ (<3 /hpf) None Seen Urine Epithelial Cells 3+ Squamous /hpf None Seen Bacteria Urine 3+ None Seen Crystals Urine Amorphous /lpf None Seen Urinalysis 06/11/2013 Urine Color Yellow Urine Appearance Clear Urine Specific [place] 1.026 1.010-1.030 Urine Esterase 2+ Negative Urine Nitrate Positive Negative Urine Urobilinogen Negative E.U./dL Negative Urine Protein Trace mg/dL Negative Urine pH 6.0 5-9 Urine Blood Negative Negative Urine Ketones Negative mg/dL Negative Urine Bilirubin Negative Negative Urine Glucose Negative mg/dL Negative Urine Culture And 04/15/2013 Urine Culture (SEE NOTE) 6 Sensitivities Urine Microscopic 04/15/2013 Urine WBC 2+ (>10-30 /hpf) None Seen 7 Urine RBC 1+ (<3 /hpf) None Seen Urine Mucus Present /lpf Absent Urine Epithelial Cells 2+ Squamous /hpf None Seen Bacteria Urine 3+ None Seen Urinalysis 04/15/2013 Urine Color Yellow Urine Appearance Clear Urine Specific [place] 1.025 1.010-1.030 Urine Esterase 2+ Negative Urine [...] Egfr Non- 60.1 >60 Egfr 77.3 >60 8 CBC No Diff 04/15/2013 White Blood Count 10.8 10^3/uL 4.8-10.8 Red Blood Count 4.18 10^6/uL 4.0-5.4 Hemoglobin 11.8 g/dL Low 12.0-16.0 Hematocrit 38 % 35-47 Mean Corpuscular Volume 90 fL 80-97 Mean Corpuscular Hemoglobin 28 pg 27-31 Mean Corpuscular HGB Conc 31 g/dL 31-36 Red Cell Distribution Width 14 % 10.5-15 Platelet Count 317 10^3/uL 150-450 Mean Platelet Volume 9 um3 7.4-10.4 1 AA 02/20 2 SEE RESULT BELOW Name: JOSEF JOSEPH : [address]: Aleyda Roberson MD Acct: [id number] Unit: [id number] AGE: 86 Location: LAB Re02/19/17 SEX: F Status: REG REF SPEC: [id number] DESIREE: 02/19/17-[facility] DR: Aleyda Roberson MD REQ: [id number] RECD: 02/19/17 STATUS: JUVE BARRON DR: Rosalba Delvalle MD _ SOURCE: URINE SPDESC: ORDERED: Urine Culture COMMENTS: MIRIAN 02/20 QUERIES: Urine Source: Clean Catch Procedure Result Reported Site Urine Culture Final 02/21/17- 21 ML Organism 1 ESCHERICHIA COLI [place] Count >100,000 (Many) CFU/ML Organism 2 NORMAL TAE [place] Count 10-25,000 (Moderate) CFU/ML 1. ESCHERICHIA COLI [...] antibiotic reporting. * ML - MAIN LAB ([facility]) . END OF REPORT * ML=Testing performed at Main Lab DEPARTMENT OF PATHOLOGY, [address] [place] [address] Dominik Herrera M.D. Director [facility] # [id number] 3 Because ethnic data is not always readily [...] 15-29 5 Kidney failure <15 (or dialysis) 4 Because ethnic data is not always readily [...] 15-29 5 Kidney failure <15 (or dialysis) 5 RUN DATE: 06/13/13 [facility] LAB LIVE PAGE 1 RUN TIME: [address], [place] [address] Specimen Inquiry Name: JOSEF JOSEPH : [address]: Deacon Ferro MD Acct: [id number] Unit: [id number] AGE: 82 Location: [facility] Re06/11/13 SEX: F Status: REG REF SPEC: [id number] DESIREE: 06/11/13-[address] [facility] [address]: Deacon Ferro MD REQ: [id number] RECD: 06/11/13 STATUS: JUVE BARRON DR: Rosalba Delvalle MD _ SOURCE: URINE SPDESC: ORDERED: Urine Culture Procedure Result Verified Site Urine Culture Final 06/13/13- 1019 ML Organism 1 ESCHERICHIA COLI [place] Count >100,000 (Many) CFU/ML 1. ESCHERICHIA COLI [...] performed at Main Lab DEPARTMENT OF PATHOLOGY, [facility] [employer] [place], [place] [address] Dominik Herrera M.D. Director [facility] Permit #[id number] RUN DATE: 04/17/13 [facility] LAB LIVE PAGE 1 RUN TIME: 811 [facility] [employer] [place], [place] [address] Specimen Inquiry Name: JOSEF JOSEPH : [address]: Deacon Ferro MD Acct: [id number] Unit: [id number] AGE: 82 Location: [facility] Re04/15/13 SEX: F Status: REG REF SPEC: [id number] DESIREE: 04/15/13-[address]: Deacon Ferro MD REQ: [id number] RECD: 04/15/130 STATUS: COMP _ SOURCE: URINE SPDESC: ORDERED: Urine Culture Procedure Result Verified Site Urine Culture Final 04/17/13- 811 ML Organism 1 ESCHERICHIA COLI [place] Count >100,000 (Many) CFU/ML 1. ESCHERICHIA COLI [...] performed at Main Lab DEPARTMENT OF PATHOLOGY, [address] [place] [address] Dominik Herrera M.D. Director [facility] Permit #[id number] 7 2+ (>10-30 /hpf) 8 Because ethnic data is not always readily [...] dialysis) Procedures Date CPT Code Description Status 03/22/201589502 Inject/Drain Joint/Bursa Major Completed 09/11/2014 Bone Mineral Density Test Completed 04/10/2014 10699 Mastectomy Simple Complete Completed 08/01/2013 66619 Rad Exam; Hip Unilat Completed 08/01/2013 86514 Rad Exam; Hip Unilat Completed 08/01/2013 32134 Rad Exam; Hip Unilat Completed 08/01/2013 86994 Rad Exam; Hip Unilat Completed 08/01/2013 85542 Rad Exam; Hip Unilat Completed 06/26/2013 12688 THR Total Hip Replacement Completed 06/26/2013 87460 THR Total Hip Replacement Completed 05/05/2013 82086 ECHO Transthorasic Realtime 2D W Doppler & Color Completed Flow Hosp 05/05/2013 74084 Treadmill Interp/Report Only Completed 05/05/2013 79981 Stress Test Supervsn W/Out I/R Completed 05/01/2013 82825 EKG Tracing & Interpretation Completed 04/15/2013 08907 EKG, Interpretation Only Completed 04/04/2010 63832 Rad Exam; Hip Unilat Comp Completed 04/04/2010 09086 Rad Exam; Pelvis Completed 04/04/2010 39866 Inject/Drain Joint/Bursa Major Completed Encounters Type Date Location Provider CPT E/M Dx Office Visit 01/12/2017 [facility] M.D. 13017 M17.12 1:30p [facility] M25.562 M25.462 M21.062 Office Visit 04/26/2015 1:45p [facility] M.D. 29961 M17.12 [facility] M25.562 Office Visit 03/22/2015 10:30a [facility] M.D. 80137 M17.12 [facility] M25.562 M25.462 M25.531 Office Visit 11/04/2014 3:45p [facility] M.D. 96703 719.43 [facility] Office Visit 10/05/2014 9:50a [facility] Roberson M.D. 23550 719.43 [facility] Office Visit 09/07/2014 8:00a [facility]erson M.D. 30331 813.42 [facility] 813.42 Office Visit 06/28/2013 2:27p [facility], [address] 780.62 [facility] Teresa V43.64 Office Visit 05/08/2013 2:45p [facility] Jonh Bauer M.D., 00131 V72.81 [facility], [facility] 401.9 794.31 Office Visit 05/01/2013 11:15a [facility] Jonh Bauer M.D., 17796 794.31 [facility], [facility] 401.9 Office Visit 03/28/2013 1:00p [facility] Deacon Ferro, 69659 715.98 [facility]ucky Moore Office Visit 04/04/2010 2:15p [facility] Clyde Beckwith M.D. 13194 716.95 [facility] 726.5 Plan of Care Future Appointment(s):03/28/2017 11:30 am - Aleyda Roberson M.D. at [facility]03/15/2017 2:30 pm - TERESA Long at [facility].03/15/2017 2:30 pm - TERESA Mi at [facility].03/15/2017 2:30 pm - Aleyda Roberson M.D. at [facility]03/05/2017 - Aleyda Roberson M.D.M25.562 Pain in left kneeFollow up:Follow up: 2 weeks after lnyfoepF64.12 Unilateral primary osteoarthritis, left kneeM25.462 Effusion, left kneeM21.062 Valgus deformity, not elsewhere classified, left knee
[2017-04-01] MEDS ORDERED: Pantoprazole IV* 40 MG IV ONE (18:05)
[2017-04-01] MEDS ORDERED: Phytonadione INJ (Adult)* 10 MG in NS 0.9% 50 ML* 50 ML IV ONE (18:13)
[2017-04-01] MEDS ORDERED: Pantoprazole IV* 80 MG in NS 0.9% 100 ML* 100 ML IVPB SCH (18:30)
[2017-04-01] MEDS ORDERED: HYDROcodone/ACETAMIN 5-325 MG* 1 TAB PO ONE (20:36)
--- NOTE | 2017-04-01 20:40 | ED ---
Sarbjit Fishman Tecjoon, scribed for Russell Briseno MD on 04/01/17 at 1650 . GI/ HPI - HPI Summary HPI Summary: This patient is a 86 year old female BIBA to [facility] with a chief complaint of black, tarry stools since 2 hours ago. Patient states that yesterdays bowel movement was normal, but todays was black, tarry, and like liquid. Symptoms aggravated by nothing. Symptoms alleviated by nothing. Patient additionally reports vomiting. Patient denies abd pain, chest pain, nausea. Pt denies hx of stomach ulcer. Pt additionally c/o of left calf redness and erythema since her knee replacement on 03/22. - History of Current Complaint Chief Complaint: EDGIBleed Time Seen by Provider: 04/01/17 15:45 Stated Complaint: GI BLEED Hx Obtained From: Patient Onset/Duration: Started Hours Ago - 2 Timing: Intermittent - whenever she undergoes a bowel movement Pain Intensity: 0 Associated Signs and Symptoms: Positive: Negative - abd pain, chest pain, nausea , Vomiting, Melena Aggravating Factor(s): Nothing Alleviating Factor(s): Nothing - Allergy/Home Medications Allergies/Adverse Reactions: Allergies Allergy/AdvReac Type Severity Reaction Status Date / Time Latex Allergy Severe Hives Verified 04/01/17 17:05 Naproxen Allergy Severe Hives Verified 04/01/17 17:05 Tramadol Allergy Severe Hives Verified 04/01/17 17:05 tape Allergy Mild SEVERE Uncoded 04/01/17 17:05 HIVES PMH/Surg Hx/FS Hx/Imm Hx Previously Healthy: No Endocrine/Hematology History: Denies: Hx Diabetes, Hx Sickle Cell Disease, Hx Anemia Cardiovascular History: Reports: Hx Hypercholesterolemia, Hx Hypertension, 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 Denies: Hx Congestive Heart Failure Respiratory History: Reports: Other Respiratory Problems/Disorders - SOB with excertion Denies: Hx Asthma GI History: Reports: Other GI Disorders - constipation Denies: Hx Jaundice History: Reports: Other Problems/Disorders - incontinence Musculoskeletal History: Reports: Hx Arthritis - ALL OVER, Hx Back Problems, Other Musculoskeletal History - 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 Denies: Hx Osteoporosis Sensory History: Reports: Hx Cataracts, Hx Contacts or Glasses, Hx Hearing Aid, Hx Hearing Problem Denies: Hx Glaucoma Opthamlomology History: Reports: Hx Cataracts, Hx Contacts or Glasses Denies: Hx Glaucoma Neurological History: Denies: Other Neuro Impairments/Disorders Psychiatric History: Denies: Hx Anxiety - Cancer History Cancer Type, Location and Year: breast bilat Hx Chemotherapy: No Hx Radiation Therapy: No - Surgical History Surgery Procedure, Year, and Place: BLADDER REPAIRbilateral mastectomy3 BACK SURGERIES IN THE S;HYSTERECTOMY;CATARACT QMZMFRSFU36/10/13 removal of dorsal column stimulator leads and generator--[facility]07/27/13 TOTAL RT HIP REPLACEMENT Hx Anesthesia Reactions: No - Immunization History Date of Tetanus Vaccine: PT STATES UNSURE Date of Influenza Vaccine: NONE Infectious Disease History: No Infectious Disease History: Reports: Hx Shingles Denies: Hx Clostridium Difficile, Hx Hepatitis, Hx Human Immunodeficiency Virus (HIV), Hx of Known/Suspected MRSA, Hx Tuberculosis, Hx Known/Suspected VRE , Hx Known/Suspected VRSA, History Other Infectious Disease, Traveled Outside the [place] in Last 30 Days - Family History Known Family History: Negative: Hypertension, Diabetes - Social History Alcohol Use: None Hx Substance Use: No Substance Use Type: Reports: None Hx Tobacco Use: No Smoking Status (MU): Never Smoked Tobacco Have You Smoked in the Last Year: No Review of Systems Negative: Fever Negative: Chest Pain Gastrointestinal: Other - melena Positive: Vomiting, Diarrhea. Negative: Abdominal Pain, Nausea All Other Systems Reviewed And Are Negative: Yes Physical Exam - Summary Physical Exam Summary: General: well-appearing, no pain distress Skin: warm, color reflects adequate perfusion, dry Head: normal Eyes: EOMI, [place] ENT: normal Neck: supple, nontender Respiratory: CTA, breath sounds present Cardiovascular: RRR Abdomen: soft, nontender Bowel: present Rectal: shows dark stools Musculoskeletal: normal, strength/ROM intact Neurological: normal, sensory/motor intact, A&O x3 Psychological: affect/mood appropriate Vital Signs On Initial Exam: Initial Vitals Temp Pulse Resp BP Pulse Ox 98.3 F 66 16 147/55 97 04/01/17 15:45 04/01/17 15:45 04/01/17 15:45 04/01/17 15:45 04/01/17 15:45 - [place] Coma Scale Coma Scale Total: 15 Diagnostics - Vital Signs Vital Signs Temp Pulse Resp BP Pulse Ox 04/01/17 15:45 98.3 F 66 16 147/55 97 - Laboratory Lab Results: Lab Results 04/01/17 Range/Units 15:58 WBC 9.5 (3.5-10.8) 10^3/ul RBC 3.30 L (4.0-5.4) 10^6/ul Hgb 10.1 L (12.0-16.0) g/dl Hct 30 L (35-47) % MCV 92 (80-97) fL MCH 31 (27-31) pg MCHC 34 (31-36) g/dl RDW 16 H (10.5-15) % Plt Count 513 H D (150-450) 10^3/ul MPV 7 L (7.4-10.4) um3 Neut % (Auto) 73.2 (38-83) % Lymph % (Auto) 15.7 L (25-47) % [place] % (Auto) 9.6 H (1-9) % Eos % (Auto) 0.6 (0-6) % Baso % (Auto) 0.9 (0-2) % Absolute Neuts (auto) 7.0 (1.5-7.7) 10^3/ul Absolute Lymphs (auto) 1.5 (1.0-4.8) 10^3/ul Absolute Monos (auto) 0.9 H (0-0.8) 10^3/ul Absolute Eos (auto) 0.1 (0-0.6) 10^3/ul Absolute Basos (auto) 0.1 (0-0.2) 10^3/ul Absolute Nucleated RBC 0 10^3/ul Nucleated RBC % 0 Result Diagrams: 04/01/17 15:58 04/01/17 15:58 Lab Statement: Any lab studies that have been ordered have been reviewed, and results considered in the medical decision making process. - EKG 162 Cardiac Rate: NL EKG Rhythm: Sinus Rhythm - [address] Segment: Normal Ectopy: None EKG Interpretation: Prolonged ME Interval (249) GIGU Course/Dx - Course Course Of Treatment: This patient is a 86 year old female BIBA to [facility] with a chief complaint of black, tarry stools since 2 hours ago. Patient states that yesterdays bowel movement was normal, but todays was black, tarry, and like liquid. An EKG, taken 1624, reveals NSR (62 BPM), Normal ST, No Ectopy. Prolonged ME Interval of 249. Bloodwork Obtained. Urinalysis Obtained. Medication reviewed. Allergies noted,. In the ED course the patient was given Protonix, Vitamin K1 (IV) AND FFP. THERE IS NO GI COVERAGE AT [facility]. FAMILY WISHES PATIENT TO GO TO [facility]. ACCEPTED IN TRANSFER BY [facility], DR EMANUEL ECHOLS. STABLE AT TRANSFER. - Diagnoses Provider Diagnoses: GI bleed, Elevated INR - Critical Care Time Critical Care Time: 30-74 min Discharge - Discharge Plan Condition: Stable Disposition: TRANS HIGHER LVL OF CARE FAC Referrals: Rosalba Delvalle MD [Primary Care Provider] - The documentation as recorded by the Sarbjit garner Tecjoon accurately reflects the service I personally performed and the decisions made by me, Russell Briseno MD.
[2017-04-01 21:24] VITALS: BP 160/53
== END 2017-04-01 21:15 | disposition short-term general hospital (02) ==
LOC: ED 15:44
DX: K92.2 Gastrointestinal hemorrhage, unspecified (principal); R79.1 Abnormal coagulation profile; Z88.6 Allergy status to analgesic agent; Z88.5 Allergy status to narcotic agent
CPT/HCPCS: 36415; 80053; 82270; 85025; 85610; 85730; 86850; 86900; 86901; 86927; 93005; 96361; 96374; 99284; J3430; P9017

== ENCOUNTER 2017-11-29 12:55 | Emergency (ER) | payer MEDICARE, MEDICAID ==
--- NOTE | 2017-11-29 13:24 | ED ---
Abdominal Pain/Female - HPI Summary HPI Summary: This patient is an 87 year old F presenting to [facility] accompanied by her daughter , granddaughter, and great-grandchildren with a chief complaint of N/V/D since . She endorses pallor, melena, tenting, lethargy, fatigue, anorexia, insomnia (secondary to leg pain), rhinorrhea, and 5/10 bilateral lower leg pain. She denies having diarrhea for the past two days, and any emesis today, and states her pallor has gone, but she is still nauseous. PMHx internal bleeding of stomach wall 04/01/18, . She reports that her first sx was diarrhea, then dry heaving and vomiting ensued. Pt denies current abd pain, cough, and urinary sx. PMHx HTN, breast CA, UTI. She denies PMHx cholecystectomy , CHF. Pt endorses feeling better today than yesterday. - History of Current Complaint Chief Complaint: EDNauseaVomitDiarrh Stated Complaint: VOMITING/DIARRHEA/NAUSEA Time Seen by Provider: 11/29/17 13:13 Hx Obtained From: Patient, Family/Structures Mechanic Onset/Duration: Gradual Onset, Lasting Days, Still Present Timing: Constant Severity Initially: Moderate Severity Currently: Moderate Pain Intensity: 5 Pain Scale Used: 0-10 Numeric Radiates: No Aggravating Factor(s): Nothing Alleviating Factor(s): Nothing Associated Signs and Symptoms: Positive: Blood in Stool - melena, Decreased Appetite, Nausea, Vomiting, Diarrhea. Negative: Fever, Cough, Urinary Symptoms Allergies/Adverse Reactions: Allergies Allergy/AdvReac Type Severity Reaction Status Date / Time latex Allergy Severe Hives Verified 11/29/17 14:39 naproxen Allergy Severe Hives Verified 11/29/17 14:39 tramadol Allergy Severe Hives Verified 11/29/17 14:39 tape Allergy Mild SEVERE Uncoded 11/29/17 13:20 HIVES Home Medications: Home Medications Cholecalciferol TAB* [Vitamin D TAB*] 2,000 units PO DAILY 11/29/17 [History Confirmed 11/29/17] Cyanocobalamin INJ * [Vitamin B12 INJ *] 1,000 mcg IM MONTHLY 11/29/17 [History Confirmed 11/29/17] Hydrocodone/Acetaminophen [[place] 7.5-325 Tablet] 1 tab PO Q8HR PRN 11/29/17 [ History Confirmed 11/29/17] Melatonin (NF) 1 tab PO BEDTIME 11/29/17 [History Confirmed 11/29/17] Simvastatin TAB(NF) [Zocor(NF)] 10 mg PO DAILY 11/29/17 [History Confirmed 11/29] PMH/Surg Hx/FS Hx/Imm Hx Endocrine/Hematology History: Denies: Hx Diabetes, Hx Sickle Cell Disease, Hx Anemia Cardiovascular History: Reports: Hx Hypercholesterolemia, Hx Hypertension, 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 Denies: Hx Congestive Heart Failure Respiratory History: Reports: Other Respiratory Problems/Disorders - SOB with excertion Denies: Hx Asthma GI History: Reports: Other GI Disorders - constipation Denies: Hx Jaundice History: Reports: Other Problems/Disorders - incontinence Musculoskeletal History: Reports: Hx Arthritis - ALL OVER, Hx Back Problems, Other Musculoskeletal History - 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 Denies: Hx Osteoporosis Sensory History: Reports: Hx Cataracts, Hx Contacts or Glasses, Hx Hearing Aid, Hx Hearing Problem Denies: Hx Glaucoma Opthamlomology History: Reports: Hx Cataracts, Hx Contacts or Glasses Denies: Hx Glaucoma Neurological History: Denies: Other Neuro Impairments/Disorders Psychiatric History: Denies: Hx Anxiety, Hx Schizophrenia - Cancer History Cancer Type, Location and Year: breast bilat Hx Chemotherapy: No Hx Radiation Therapy: No - Surgical History Surgery Procedure, Year, and Place: BLADDER REPAIRbilateral mastectomy3 BACK SURGERIES IN THE S;HYSTERECTOMY;CATARACT [id number]/10/13 removal of dorsal column stimulator leads and generator--[facility]07/27/13 TOTAL RT HIP REPLACEMENT Hx Anesthesia Reactions: No - Immunization History Date of Tetanus Vaccine: PT STATES UNSURE Date of Influenza Vaccine: NONE Infectious Disease History: No Infectious Disease History: Reports: Hx Shingles Denies: Hx Clostridium Difficile, Hx Hepatitis, Hx Human Immunodeficiency Virus (HIV), Hx of Known/Suspected MRSA, Hx Tuberculosis, Hx Known/Suspected VRE , Hx Known/Suspected VRSA, History Other Infectious Disease, Traveled Outside the [place] in Last 30 Days - Family History Known Family History: Negative: Hypertension, Diabetes - Social History Occupation: Retired Alcohol Use: None Hx Substance Use: No Substance Use Type: Reports: None Hx Tobacco Use: No Smoking Status (MU): Never Smoked Tobacco Have You Smoked in the Last Year: No Review of Systems Positive: Fatigue. Negative: Fever Positive: Nasal Discharge - rhinorrhea Negative: Cough Positive: Abdominal Pain - resolved, Vomiting - resolved, Diarrhea - resolved, Nausea Positive: no symptoms reported Positive: Myalgia - bilateral lower legs Positive: Weakness All Other Systems Reviewed And Are Negative: Yes Physical Exam - Summary Physical Exam Summary: General: well-appearing, no pain distress Skin: warm, color reflects adequate perfusion, dry Head: normal Eyes: EOMI, [place] ENT: normal Neck: supple, non-tender Respiratory: CTA, breath sounds present Cardiovascular: RRR Abdomen: soft, mild mid-abd TTP Musculoskeletal: normal, strength/ROM intact Neurological: sensory/motor intact, A&O x3 Psychological: affect/mood appropriate Triage Information Reviewed: Yes Vital Signs On Initial Exam: Initial Vitals Temp Pulse Resp BP Pulse Ox 98.9 F 60 96 133/61 97 11/29/17 13:15 11/29/17 13:15 11/29/17 13:15 11/29/17 13:15 11/29/17 13:15 Vital Signs Reviewed: Yes Diagnostics - Vital Signs Vital Signs Temp Pulse Resp BP Pulse Ox 11/29/17 13:15 98.9 F 60 96 133/61 97 - Laboratory Result Diagrams: 11/29/17 13:53 11/29/17 13:53 Lab Statement: Any lab studies that have been ordered have been reviewed, and results considered in the medical decision making process. - CT A/P CT Interpretation: Positive (See Comments) CT Interpretation Completed By: Radiologist - 1. Diverticulosis with questionable findings associated with diverticulitis at the rectosigmoid colon. There is no definite wall thickening or pericolonic abscess formation. 2. Advanced calcified atherosclerosis involving the aorta and branch vessels including completely characterize without IV contrast. 3. Chronic, degenerative and postsurgical changes as described above. Dr. Briseno has reviewed this report. Re-Evaluation - Re-Evaluation First Eval Re-Evaluation Time: 15:32 Change: Unchanged Comment: Discussing CT results. Abdominal Pain Fem Course/Dx - Course Course Of Treatment: DISCUSSED RESULTS WITH THE PATIENT AND FAMILY. NO STOOL HEMOCCULT OR UA DONE; HGB STABLE, NO DYSURIA, NO STOOLS FOR 2 DAYS. PATIENT AND FAMILY FEEL COMFORTABLE WITH TREATMENT AT HOME. F/U PMD; RETURN TO ED IF WORSE. - Diagnoses Provider Diagnoses: Diverticulitis, Abdominal pain Discharge - Sign-Out/Discharge Documenting (check all that apply): Patient Departure - discharge - Discharge Plan Condition: Stable Disposition: HOME Prescriptions: Ciprofloxacin TAB* [Cipro 500 MG TAB*] 500 mg PO BID #13 tab metroNIDAZOLE [Flagyl 500 MG TAB] 500 mg PO TID #20 tab Patient Education Materials: Diverticulitis (ED), Abdominal Pain (ED) Referrals: Rosalba Delvalle MD [Primary Care Provider] - Additional Instructions: FOLLOW UP WITH YOUR DOCTOR. RETURN TO THE EMERGENCY DEPARTMENT FOR ANY WORSENING OF YOUR CONDITION; PAIN, FEVER, YOU FEEL ILL OR QUESTIONS OR CONCERNS. - Billing Disposition and Condition Condition: STABLE Disposition: Home - Attestation Statements Document Initiated by Koby: Yes Documenting Scribe: Harrison Lama Provider For Whom Koby is Documenting (Include Credential): Dr. Russell Briseno MD Scribe Attestation: Harrison Fishman scribed for Dr. Russell Briseno MD on 11/29/17 at 1803. Scribe Documentation Reviewed: Yes Provider Attestation: The documentation as recorded by the Harrison garner accurately reflects the service I personally performed and the decisions made by me, Dr. Russell Briseno MD
[2017-11-29 14:00] LABS: ABS Basophils 0 10^3/ul (0-0.2); ABS Eosinophils 0.1 10^3/ul (0-0.6); ABS Lymphocytes 1.6 10^3/ul (1.0-4.8); ABS Neutrophils 6.2 10^3/ul (1.5-7.7); ABS Nucleated RBC 0 10^3/ul; Eosinophil % 0.7 % (0-6); Hematocrit 34 % (35-47); Hemoglobin 11.5 g/dl (12.0-16.0); Mean Corpuscular HGB Conc 34 g/dl (31-36); Mean Corpuscular Hemoglobin 31 pg (27-31); Mean Corpuscular Volume 91 fL (80-97); Mean Platelet Volume 7.8 um3 (7.4-10.4); Nucleated Red Blood Cells % 0; Platelet Count 239 10^3/ul (150-450); Red Blood Count 3.77 10^6/ul (4.00-5.40); Red Cell Distribution Width 14 % (10.5-15); White Blood Count 8.9 10^3/ul (3.5-10.8)
[2017-11-29] MEDS ORDERED: NS 0.9% 1000 ML* 1,000 ML IV SCH (14:00)
[2017-11-29 14:11] LABS: INR 0.94 (0.77-1.02)
[2017-11-29] MEDS ORDERED: Ondansetron INJ* 2 MG/ML VIAL IV ONE (14:32)
[2017-11-29] MEDS ORDERED: Ondansetron INJ* 2 MG/ML VIAL ONE (14:34)
--- NOTE | 2017-11-29 15:27 | RAD ---
CLINICAL HISTORY: Diffuse abdominal pain. Relevant medical history includes "bladder repair", "back surgeries in the 90s", hysterectomy and right total hip placement. COMPARISON: Similar examination acquired August 05, 2013 TECHNIQUE: Noncontrast CT examination of the abdomen and pelvis from the lung bases through the initial tuberosities. FINDINGS: Unless otherwise specified comparisons below reference the August 05, 2013 CT examination. VISUALIZED LUNG BASES: The visualized lung bases are grossly clear. There is no pleural effusion. ABDOMEN AND PELVIS: Evaluation of the solid organs and vasculature is limited without intravenous contrast. In the right lobe of the liver there is a subcentimeter hypoattenuating focus that is too small to characterize further but appears to be stable when compared to the previous CT examination. The spleen, pancreas and adrenal glands are grossly normal in appearance. There is a mildly hyperattenuating stone measuring 1.7 cm in the dependent portion of the gallbladder. The kidneys are normal in appearance without focal mass, calcification or signs of hydronephrosis. Evaluation of the gastrointestinal tract is limited without oral contrast. The small and large bowel are not distended.The patient's normal appendix is identified in the right lower quadrant with gas and stool in the lumen measuring 6 mm in diameter (axial image 55). There are scattered colonic diverticula that become more concentrated at the rectosigmoid colon. There is trace pericolonic infiltration of the fat (for example axial image 70). There is no gross retroperitoneal or mesenteric lymphadenopathy. The pelvic viscera is normal in appearance. There is coarse atherosclerotic calcification of the infrarenal abdominal aorta without aneurysmal dilatation. There is coarse calcification at the origins of the celiac trunk and superior mesenteric artery and also the bilateral renal arteries. Postsurgical changes of the lower lumbar spine includes posterior transpedicular fixation from L1 to L5 status post same level laminectomy. Extending from the L2 vertebral body there are linear hyperattenuating foci that extend anteriorly abutting the left renal vein the left and the IVC on the right. It is unclear whether this is surgical material or calcification related to degenerative change. Either way it is unchanged from the previous CT examination. IMPRESSION: 1. Diverticulosis with questionable findings associated with diverticulitis at the rectosigmoid colon. There is no definite wall thickening or pericolonic abscess formation. 2. Advanced calcified atherosclerosis involving the aorta and branch vessels including completely characterize without IV contrast. 3. Chronic, degenerative and postsurgical changes as described above.
[2017-11-29] MEDS ORDERED: metroNIDAZOLE TAB* 250 MG PO ONE (15:44)
[2017-11-29] MEDS ORDERED: Ciprofloxacin TAB* 500 MG PO ONE (15:44)
[2017-11-29 16:20] VITALS: BP 133/74
== END 2017-11-29 16:18 | disposition home or self-care (01) ==
LOC: ED 12:55
DX: K57.32 Diverticulitis of large intestine without perforation or abscess without bleeding (principal); I70.0 Atherosclerosis of aorta; I10 Essential (primary) hypertension; Z85.3 Personal history of malignant neoplasm of breast; Z87.440 Personal history of urinary (tract) infections; Z88.5 Allergy status to narcotic agent; Z88.6 Allergy status to analgesic agent
CPT/HCPCS: 36415; 74176; 80053; 83605; 83690; 85025; 85610; 85730; 86140; 96374; 99283; A9270-GY; J2405

== ENCOUNTER 2018-03-29 17:38 | Observation (INO) | payer MEDICARE, MEDICAID ==
[2018-03-29 19:11] LABS: ABS Basophils 0 10^3/ul (0-0.2); ABS Eosinophils 0 10^3/ul (0-0.6); ABS Lymphocytes 0.8 10^3/ul (1.0-4.8); ABS Monocytes 0.7 10^3/ul (0-0.8); ABS Nucleated RBC 0 10^3/ul; Eosinophil % 0.6 %; Hematocrit 35 % (35-47); Mean Corpuscular HGB Conc 34 g/dl (31-36); Mean Corpuscular Hemoglobin 31 pg (27-31); Mean Corpuscular Volume 90 fL (80-97); Mean Platelet Volume 7.4 fL (7.4-10.4); Nucleated Red Blood Cells % 0; Platelet Count 262 10^3/ul (150-450); Red Blood Count 3.91 10^6/ul (4.00-5.40); Red Cell Distribution Width 14 % (10.5-15); White Blood Count 7.6 10^3/ul (3.5-10.8)
[2018-03-29 19:17] LABS: Activated Partial Thrombo Time 28.4 seconds (26.0-36.3); INR 0.99 (0.77-1.02)
[2018-03-29 19:26] LABS: Albumin 3.9 g/dL (3.2-5.2); Albumin/Globulin Ratio 1.1 (1-3); BUN/Creatinine Ratio 18.8 (8-20); C Reactive Protein 66.04 mg/L (<8.01); Calcium 8.9 mg/dL (8.6-10.3); Globulin 3.4 g/dL (2-4); Potassium 3.5 mmol/L (3.5-5.0); Total Bilirubin 0.4 mg/dL (0.2-1.0); Total Protein 7.3 g/dL (6.4-8.9)
[2018-03-29] MEDS ORDERED: methylPREDNISolone 125 MG* 2 ML VIAL IV ONE (20:07)
[2018-03-29] MEDS ORDERED: Albuterol/Ipratropium NEB.SOL* Albuterol 2.5 MG/Ipratropium 0.5 MG 3 ML INH ONE (20:07)
--- NOTE | 2018-03-29 20:12 | ED ---
Neurological HPI - HPI Summary HPI Summary: An 87 y/o female presents to [facility] with a chief complaint of weakness on . She rates her pain as a 9/10. Per daughter, the patient is usually walking around with a walker and playing Bingo but today she did not want to do any activities or move. The daughter reports that the patient has had a runny nose in the morning, some swelling of her legs, N/V at 16:00, fatigue and a severe RICHEY. The patient also reports high BP for one week. Per daughter the patient has been acting like her normal self before 03/29/18, except for having a cough on 03/28/18.The patient denies abd pain, sore-throat or a Hx of asthma. The patient takes hydrocodone. Her PCP is Dr. Rosalba Delvalle. - History of Current Complaint Chief Complaint: EDGeneral Stated Complaint: HIGH BLOOD PRESSURE/HEADACHE Time Seen by Provider: 03/29/18 19:57 Hx Obtained From: Patient Onset/Duration: Sudden Onset, Started hours ago, Still Present Timing: Constant Onset Severity: Severe Current Severity: Severe Pain Intensity: 9 Pain Scale Used: 0-10 Numeric Character: Weak, Other: - fatigue Aggravating: Nothing Alleviating: Nothing Associated Signs and Symptoms: Positive: Headache, Nausea/Vomiting - Allergy/Home Medications Allergies/Adverse Reactions: Allergies Allergy/AdvReac Type Severity Reaction Status Date / Time latex Allergy Severe Hives Verified 01/23/18 11:30 naproxen Allergy Severe Hives Verified 01/23/18 11:30 tramadol Allergy Severe Hives Verified 01/23/18 11:30 tape Allergy Mild SEVERE Uncoded 01/23/18 11:30 HIVES Home Medications: Home Medications Simvastatin TAB(NF) [Zocor 10 MG (NF)] 10 mg PO DAILY 03/29/18 [History Confirmed 03/29/18] PMH/Surg Hx/FS Hx/Imm Hx Endocrine/Hematology History: Denies: Hx Diabetes, Hx Sickle Cell Disease, Hx Anemia Cardiovascular History: Reports: Hx Hypercholesterolemia, Hx Hypertension, 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 Denies: Hx Congestive Heart Failure Respiratory History: Reports: Other Respiratory Problems/Disorders - SOB with excertion Denies: Hx Asthma GI History: Reports: Other GI Disorders - constipation Denies: Hx Jaundice History: Reports: Other Problems/Disorders - incontinence Musculoskeletal History: Reports: Hx Arthritis - ALL OVER, Hx Back Problems, Other Musculoskeletal History - 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 Denies: Hx Osteoporosis Sensory History: Reports: Hx Cataracts, Hx Contacts or Glasses, Hx Hearing Aid, Hx Hearing Problem Denies: Hx Glaucoma, Hx Deafness Opthamlomology History: Reports: Hx Cataracts, Hx Contacts or Glasses Denies: Hx Glaucoma Neurological History: Denies: Other Neuro Impairments/Disorders Psychiatric History: Denies: Hx Anxiety, Hx Schizophrenia - Cancer History Cancer Type, Location and Year: breast bilat Hx Chemotherapy: No Hx Radiation Therapy: No - Surgical History Surgery Procedure, Year, and Place: BLADDER REPAIRbilateral mastectomy3 BACK SURGERIES IN THE ;HYSTERECTOMY;CATARACT [id number]/10/13 removal of dorsal column stimulator leads and generator--[facility]07/27/13 TOTAL RT HIP REPLACEMENT Hx Anesthesia Reactions: No - Immunization History Date of Tetanus Vaccine: PT STATES UNSURE Date of Influenza Vaccine: NONE Infectious Disease History: No Infectious Disease History: Reports: Hx Shingles Denies: Hx Clostridium Difficile, Hx Hepatitis, Hx Human Immunodeficiency Virus (HIV), Hx of Known/Suspected MRSA, Hx Tuberculosis, Hx Known/Suspected VRE , Hx Known/Suspected VRSA, History Other Infectious Disease, Traveled Outside the [place] in Last 30 Days - Family History Known Family History: Negative: Hypertension, Diabetes - Social History Alcohol Use: None Hx Substance Use: No Substance Use Type: Reports: None Hx Tobacco Use: No Smoking Status (MU): Never Smoked Tobacco Have You Smoked in the Last Year: No Review of Systems Positive: Fatigue. Negative: Fever Positive: Nasal Discharge. Negative: Sore Throat Positive: Cough Positive: Vomiting, Nausea. Negative: Abdominal Pain Positive: Edema - legs Positive: Headache, Weakness All Other Systems Reviewed And Are Negative: Yes Physical Exam - Summary Physical Exam Summary: Appearance: Well appearing, no pain distress Skin: warm, dry, reflects adequate perfusion Head/face: normal Eyes: EOMI, [place] ENT: normal Neck: supple, non-tender Respiratory: Bilateral wheezing Cardiovascular: RRR, pulses symmetrical Abdomen: non-tender, soft Musculoskeletal: normal, strength/ROM intact Neuro: normal, sensory motor intact, A&Ox3 GCS:15 Triage Information Reviewed: Yes Vital Signs On Initial Exam: Initial Vitals Temp Pulse Resp BP Pulse Ox 99.5 F 98 18 170/88 93 03/29/18 17:44 03/29/18 17:44 03/29/18 17:44 03/29/18 17:44 03/29/18 17:44 Vital Signs Reviewed: Yes Diagnostics - Vital Signs Vital Signs Temp Pulse Resp BP Pulse Ox 03/29/18 19:57 115 95 03/29/18 17:44 99.5 F 98 18 170/88 93 - Laboratory Lab Results: Lab Results 03/29/18 03/29/18 03/29/18 Range/Units 18:58 18:58 18:58 WBC 7.6 (3.5-10.8) 10^3/ul RBC 3.91 L (4.00-5.40) 10^6/ul Hgb 12.0 (12.0-16.0) g/dl Hct 35 (35-47) % MCV 90 (80-97) fL MCH 31 (27-31) pg MCHC 34 (31-36) g/dl RDW 14 (10.5-15) % Plt Count 262 (150-450) 10^3/ul MPV 7.4 (7.4-10.4) fL Neut % (Auto) 79.2 % Lymph % (Auto) 10.0 % [place] % (Auto) 9.9 % Eos % (Auto) 0.6 % Baso % (Auto) 0.3 % Absolute Neuts (auto) 6.0 (1.5-7.7) 10^3/ul Absolute Lymphs (auto) 0.8 L (1.0-4.8) 10^3/ul Absolute Monos (auto) 0.7 (0-0.8) 10^3/ul Absolute Eos (auto) 0 (0-0.6) 10^3/ul Absolute Basos (auto) 0 (0-0.2) 10^3/ul Absolute Nucleated RBC 0 10^3/ul Nucleated RBC % 0 INR (Anticoag Therapy) 0.99 (0.77-1.02) APTT 28.4 (26.0-36.3) seconds Sodium 136 (135-145) mmol/L Potassium 3.5 (3.5-5.0) mmol/L Chloride 102 (101-111) mmol/L Carbon Dioxide 25 (22-32) mmol/L Anion Gap 9 (2-11) mmol/L BUN 15 (6-24) mg/dL Creatinine 0.80 (0.51-0.95) mg/dL Est GFR ( Amer) 82.3 (>60) Est GFR (Non-Af Amer) 68.0 (>60) BUN/Creatinine Ratio 18.8 (8-20) Glucose 109 H (70-100) mg/dL Lactic Acid (0.5-2.0) mmol/L Calcium 8.9 (8.6-10.3) mg/dL Total Bilirubin 0.40 (0.2-1.0) mg/dL AST 16 (13-39) U/L ALT 7 (7-52) U/L Alkaline Phosphatase 57 (34-104) U/L C-Reactive Protein 66.04 H (<8.01) mg/L Total Protein 7.3 (6.4-8.9) g/dL Albumin 3.9 (3.2-5.2) g/dL Globulin 3.4 (2-4) g/dL Albumin/Globulin Ratio 1.1 (1-3) 03/29/18 Range/Units 18:58 WBC (3.5-10.8) 10^3/ul RBC (4.00-5.40) 10^6/ul Hgb (12.0-16.0) g/dl Hct (35-47) % MCV (80-97) fL MCH (27-31) pg MCHC (31-36) g/dl RDW (10.5-15) % Plt Count (150-450) 10^3/ul MPV (7.4-10.4) fL Neut % (Auto) % Lymph % (Auto) % [place] % (Auto) % Eos % (Auto) % Baso % (Auto) % Absolute Neuts (auto) (1.5-7.7) 10^3/ul Absolute Lymphs (auto) (1.0-4.8) 10^3/ul Absolute Monos (auto) (0-0.8) 10^3/ul Absolute Eos (auto) (0-0.6) 10^3/ul Absolute Basos (auto) (0-0.2) 10^3/ul Absolute Nucleated RBC 10^3/ul Nucleated RBC % INR (Anticoag Therapy) (0.77-1.02) APTT (26.0-36.3) seconds Sodium (135-145) mmol/L Potassium (3.5-5.0) mmol/L Chloride (101-111) mmol/L Carbon Dioxide (22-32) mmol/L Anion Gap (2-11) mmol/L BUN (6-24) mg/dL Creatinine (0.51-0.95) mg/dL Est GFR ( Amer) (>60) Est GFR (Non-Af Amer) (>60) BUN/Creatinine Ratio (8-20) Glucose (70-100) mg/dL Lactic Acid 0.7 (0.5-2.0) mmol/L Calcium (8.6-10.3) mg/dL Total Bilirubin (0.2-1.0) mg/dL AST (13-39) U/L ALT (7-52) U/L Alkaline Phosphatase (34-104) U/L C-Reactive Protein (<8.01) mg/L Total Protein (6.4-8.9) g/dL Albumin (3.2-5.2) g/dL Globulin (2-4) g/dL Albumin/Globulin Ratio (1-3) Result Diagrams: 03/29/18 18:58 03/29/18 18:58 Lab Statement: Any lab studies that have been ordered have been reviewed, and results considered in the medical decision making process. - Radiology CXR Radiology Interpretation Completed By: ED Physician Summary of Radiographic Findings: No acute infiltrate. Pending official radiology report. - CT Brain CT Interpretation Completed By: Radiologist Summary of CT Findings: 1. There is slight worsening of age-related diffuse cerebral volume loss and. chronic microvascular ischemic disease. 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 2. No acute intracranial pathology. ED physician has reviewed this imaging report. - EKG 20:28 Cardiac Rate: Tachycardia - 104 bpm EKG Rhythm: Sinus Tachycardia Summary of EKG Findings: Sinus tachycardia at 104 bpm. No acute changes. Re-Evaluation - Re-Evaluation First Eval Re-Evaluation Time: 21:55 Change: Unchanged Comment: Patient still feels the same Course/Dx - Course Course Of Treatment: An 87 y/o female presents to [facility] with a chief complaint of weakness on 12/21/18. She rates her pain as a 9/10. Per daughter, the patient is usually walking around with a walker and playing Bingo but today she did not want to do any activities or move. The patient denies a Hx of asthma. The physical exam revealed bilateral wheezing. In the ED course the patient was given albuterol and Solu-medrol IV. Lab results were obtained. Her EKG revealed sinus tachycardia at 104 bpm. CXR impression: No acute infiltrate. Brain CT impression: 1. There is slight worsening of age-related diffuse cerebral volume loss and. chronic microvascular ischemic disease. 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 2. No acute intracranial pathology. After seeing the patient in the ED, Dr. Trammell, hospitalist, will accept the patient for admission. The patient is agreeable with this plan. Dx: dizziness, headache, UTI. - Differential Dx Differential Diagnoses Neuro: Positive: Headache, Intracranial Bleed, Viral Syndrome, Other - uti - Diagnoses Provider Diagnoses: Dizziness, Headache, UTI (urinary tract infection) - Physician Notifications Discussed Care Of Patient With: Jenni Trammell Time Discussed With Above Provider: 22:15 Instructed by Provider To: MD Will See In ED - At 22:50- Dr. Trammell, hospitalist, will accept the patient for admission. Discharge - Sign-Out/Discharge Documenting (check all that apply): Patient Departure - admit - Discharge Plan Condition: Fair Disposition: ADMITTED TO [facility] Referrals: Rosalba Delvalle MD [Primary Care Provider] - - Billing Disposition and Condition Condition: FAIR Disposition: Admitted to [facility] - Attestation Statements Document Initiated by Koby: Yes Documenting Scribe: Jonh Calvert Provider For Whom Koby is Documenting (Include Credential): Meek Temple MD Scribe Attestation: Jonh Fishman, scribed for Meek Temple MD on 03/29/18 at 3966. Scribe Documentation Reviewed: Yes Provider Attestation: The documentation as recorded by the Jonh garner accurately reflects the service I personally performed and the decisions made by me, Meek Temple MD Status of Scribe Document: Viewed
[2018-03-29] MEDS ORDERED: Albuterol/Ipratropium NEB.SOL* Albuterol 2.5 MG/Ipratropium 0.5 MG 3 ML ONE (20:41)
[2018-03-29] MEDS ORDERED: Acetaminophen TAB* 325 MG PO ONE (21:07)
[2018-03-29] MEDS ORDERED: cloNIDine TAB* 0.1 MG PO ONE (21:59)
[2018-03-29] MEDS ORDERED: Metoprolol Tartrate IV* 1 MG/ML 5 ML VIAL IV ONE (22:01)
[2018-03-29 22:27] LABS: Urine Appearance Cloudy; Urine Bacteria 1+ (Absent); Urine Bilirubin Negative (Negative); Urine Blood Negative (Negative); Urine Color Yellow; Urine Glucose Negative (Negative); Urine Ketones 1+ (Negative); Urine Nitrite Positive (Negative); Urine Protein 2+(100 mg/dL) (Negative); Urine Red Blood Cell Trace(0-2/hpf) (Absent); Urine Specific Gravity 1.023 (1.010-1.030); Urine Urobilinogen Negative (Negative); Urine White Blood Cell 3+(>20/hpf) (Absent)
[2018-03-29] MEDS ORDERED: Acetaminophen TAB* 325 MG PO PRN (22:38)
[2018-03-29] MEDS ORDERED: Atenolol TAB* 25 MG PO ONE (22:39)
[2018-03-29] MEDS ORDERED: hydrALAZINE IV* 20 MG/ML VIAL IV SLOW PU PRN (22:40)
[2018-03-29] MEDS ORDERED: PROCHLORPERAZINE INJ 5 MG/ML 2 ML VIAL IV PRN (22:41)
[2018-03-29] MEDS ORDERED: NS 0.9% 1000 ML* 1,000 ML IV SCH (22:45)
[2018-03-29] MEDS ORDERED: Levofloxacin 500 MG IVPREMIX(* 500 MG/100 ML BAG IVPB ONE (22:56)
--- NOTE | 2018-03-30 02:35 | HP ---
CC: Dr. Delvalle; Dr. Smallwood * HISTORY AND PHYSICAL: DATE OF ADMISSION: 03/29/18 PRIMARY CARE PROVIDER: Dr. Delvalle. CHIEF COMPLAINT: Feeling poorly, headache, high blood pressure. HISTORY OF PRESENT ILLNESS: Andreia Joseph is an 87-year-old female with history of hypertension; on no medications currently, as well as gout osteoarthritis, bilateral breast cancer, and chronic back pain who presented to the hospital after she felt very poorly at home. The patient complains of generalized pain, muscle aches, and frontal headache. She stated that she had been coughing today , but the cough had been nonproductive. She denies any fevers. She vomited once. Denies abdominal pain and denies current nausea. The patient lives in [facility], ambulates with a walker, and receives food from [employer]. The patient's daughter lives nearby and takes care of the patient during the daytime. Today, the patient complained of feeling very poorly. Apparently, a week ago, the patient was seen by Dr. Delvalle and it was noted that her systolic pressures were in the 170s. They were advised to continue to check the patient's blood pressure frequently and the patient's daughter stated that her blood pressure had been in the 170s and 180s for the past week. The patient was placed on observation with a diagnosis of hypertension, body aches. PAST MEDICAL HISTORY: 1. Hypertension. 2. Gout. 3. Osteoarthritis, status post right hip replacement. 4. History of dorsal column stimulator placement. 5. Hysterectomy. 6. Bladder repair. 7. Bilateral mastectomy in 2011. 8. History of remotely. MEDICATIONS: Current medications include: 1. [place] 7.5 mg/325 mg tablet 1 tablet b.i.d. p.r.n. 2. Simvastatin 10 mg daily. ALLERGIES: LATEX, NAPROXEN, and TRAMADOL; the patient is lethargic from TRAMADOL. FAMILY HISTORY: Reviewed and noncontributory. SOCIAL HISTORY: As mentioned above, the patient lives in [facility]. She ambulates with a rolling walker. She receives food from [employer]. Her granddaughter is named as the surrogate, Ivory Parks. The patient denies any tobacco, alcohol, or drug use. REVIEW OF SYSTEMS: Please see history of present illness. All the remaining 12 systems were reviewed with the patient and were, otherwise, negative. PHYSICAL EXAMINATION GENERAL: The patient is a pleasant 87-year-old female who appears tired, but in no acute distress. Alert, awake, and oriented x3. The patient is hard of hearing. VITAL SIGNS: Blood pressure of 176/123, heart rate of 105 and regular, respiratory rate 20, oxygen saturation 95% on room air, temperature of 99.5. HEENT: Head: Atraumatic, normocephalic. Eyes: Pupils equal and reactive to light and accommodation. Oropharynx clear. Mucosa moist. NECK: Supple. No JVD. No bruits bilaterally. RESPIRATORY: Clear to auscultation bilaterally. CARDIOVASCULAR: Regular rate and rhythm. Tachycardia. No murmur. ABDOMEN: Soft, nontender. Bowel sounds present in 4 quadrants. EXTREMITIES: There is +1 nonpitting pedal edema bilaterally. There is no clubbing or cyanosis. Pulses are +2 bilaterally. NEUROLOGIC: There is no neck stiffness noted. Motor strength is 5/5 bilaterally. Sensation is grossly intact. Cranial nerves II through XII grossly intact. Speech clear. SKIN: On evaluation of the skin, no ecchymotic areas or rashes noted. DIAGNOSTIC STUDIES/LABORATORY DATA: White blood cell count of 7.6, hemoglobin of 12, hematocrit of 35, and platelets of 262. Sodium of 136, potassium 3.5, chloride 102, carbon dioxide 25, BUN 15, creatinine 0.8. Liver function tests were unremarkable. Lactic acid of 0.7. C-reactive protein of 66.04. Urinalysis is pending at the time of dictation. The patient's EKG shows sinus tachycardia with prolonged MI interval, heart rate of 104 beats per minute. The patient's portable chest x-ray reviewed by myself prior to the radiologist' s report was grossly unremarkable. Brain CT, impression: "There is slight worsening of age-related diffuse cerebral volume loss and chronic microvascular ischemic disease. Stable chronic lacunar infarcts of the right basal ganglia and the caudate nucleus. No acute intracranial pathology." ASSESSMENT AND PLAN: 1. The patient is tachycardic and hypertensive. She vomited once and she also complains of body aches. I suspect that the patient may be trying to conquer a viral infection. Her flu was negative. At this point, the patient is going to be treated supportively with intravenous fluids. It is also possible that the patient has urinary tract infection; a urinalysis is currently pending at the time of dictation. Once again, the patient is going to be treated supportively with intravenous fluids. Please note that the patient apparently was wheezing in the emergency department and got a dose of Solu-Medrol. Currently, she does not have any respiratory symptoms and negative lung exam. 2. In regards to the patient's hypertension, the patient used to be on atenolol /hydrochlorothiazide, but she discontinued this medications sometime at the beginning of 2018. At this point, the patient is going to be placed on p.r.n. hydralazine and I will start her on a small dose of atenolol. 3. For DVT prophylaxis, the patient is going to be placed on heparin subcutaneously. 4. The patient's code status is full and her surrogate is her daughter and granddaughter. TIME SPENT: Approximately 62 minutes were spent on admission of this patient, more than half that time was spent [id number] with the patient during the interview and physical exam. [id number]/[facility] #: [id number] KAREN
[2018-03-30] MEDS ORDERED: cefTRIAXone(*) 1 GM in NS 0.9% 50 ML* 50 ML IVPB SCH (03:00)
[2018-03-30] MEDS: Heparin VIAL(*) 5000 UNITS/ML VIAL (FIVE THOUSAND) SUBCUT SCH ×2 (05:47→13:58)
[2018-03-30 07:07] LABS: ABS Basophils 0 10^3/ul (0-0.2); ABS Eosinophils 0 10^3/ul (0-0.6); ABS Lymphocytes 0.7 10^3/ul (1.0-4.8); ABS Monocytes 0.1 10^3/ul (0-0.8); ABS Neutrophils 4.5 10^3/ul (1.5-7.7); ABS Nucleated RBC 0 10^3/ul; Eosinophil % 0 %; Hematocrit 32 % (35-47); Hemoglobin 10.7 g/dl (12.0-16.0); Lymphocyte % 12.6 %; Mean Corpuscular HGB Conc 33 g/dl (31-36); Mean Corpuscular Hemoglobin 30 pg (27-31); Mean Corpuscular Volume 90 fL (80-97); Mean Platelet Volume 7.4 fL (7.4-10.4); Nucleated Red Blood Cells % 0.1; Platelet Count 253 10^3/ul (150-450); Red Blood Count 3.55 10^6/ul (4.00-5.40); Red Cell Distribution Width 13 % (10.5-15); White Blood Count 5.2 10^3/ul (3.5-10.8)
[2018-03-30 07:23] LABS: BUN/Creatinine Ratio 21.8 (8-20); Calcium 8.5 mg/dL (8.6-10.3); Potassium 3.6 mmol/L (3.5-5.0)
[2018-03-30] MEDS ORDERED: Atenolol TAB* 25 MG PO SCH (09:00)
--- NOTE | 2018-03-30 11:55 | PN ---
Subjective Date of Service: 03/30/18 Interval History: Patient seen and examined at bedside. Denies fever, chills, shortness of breath , chest discomfort, N/V/D, urinary symptoms (dysuria, urinary frequency or urgency). She has not been up and ambulating, and states that she still doesn't feel well. She states that she wants to go home today. She has tolerated a clear liquid diet for breakfast. Family History: Unchanged from Admission Social History: Unchanged from Admission Past Medical History: Unchanged from Admission Objective Active Medications: Acetaminophen (Tylenol Tab*) 650 mg PO Q4H PRN Reason: FEVER/PAIN Atenolol (Tenormin Tab*) 25 mg PO DAILY JOSS Heparin Sodium (Porcine) (Heparin Vial(*)) 5,000 units SUBCUT Q8HR JOSS Hydralazine HCl (Apresoline Iv*) 5 mg IV SLOW PU Q6H PRN Reason: BLOOD PRESSURE Sodium Chloride (Ns 0.9% 1000 Ml*) 1,000 mls @ 75 mls/hr IV PER RATE JOSS Ceftriaxone Sodium 1 gm/ (Sodium Chloride) 50 mls @ 200 mls/hr IVPB Q24H JOSS Prochlorperazine Edisylate (Compazine Inj*) 5 mg IV Q6H PRN Reason: NAUSEA/ VOMITING Vital Signs - 8 hr 03/30/18 03/30/18 08:00 08:26 Temperature 98.1 F Pulse Rate 73 Respiratory 18 18 Rate Blood Pressure 136/74 (mmHg) O2 Sat by Pulse 96 Oximetry Oxygen Devices in Use Now: None Appearance: NAD, laying in bed Ears/Nose/Mouth/Throat: Mucous Membranes Moist Respiratory: Symmetrical Chest Expansion and Respiratory Effort, Clear to Auscultation Cardiovascular: NL Sounds; No Murmurs; No JVD, RRR Abdominal: NL Sounds; No Tenderness; No Distention Extremities: - - Mild bilateral LE edema Skin: No Rash or Ulcers Neurological: Alert and Oriented x 3, NL Muscle Strength and Tone Lines/Tubes/Other Access: Clean, Dry and Intact Peripheral IV - site benign Nutrition: Taking PO's Result Diagrams: 03/30/18 06:56 03/30/18 06:56 Additional Lab and Data: . Microbiology and Other Data: Microbiology 03/29/18 19:59 Influenza Types A,B Antigen - Final Nasal Specimen received for Influenza A/B Molecular testing Assess/Plan/Problems-Billing Assessment: Ms. Joseph is an 87 yo female with PMH significant for HTN, gout, osteoarthritis who presented to the emergency room with complaints of muscle aches and a frontal headache. - Patient Problems (1) Viral syndrome Comment: - Afebrile, no leukocytosis, tachycardia has resolved - Influenza negative - Continue supportive care (2) Headache Code(s): R51 - HEADACHE SNOMED Code(s): 78283747 Comment: - Resolved (3) Hypertension Code(s): I10 - ESSENTIAL (PRIMARY) HYPERTENSION SNOMED Code(s): 49838317 Comment: - SBP 130-150's - Continue atenolol (4) Hyperlipidemia Code(s): E78.5 - HYPERLIPIDEMIA, UNSPECIFIED SNOMED Code(s): 92607914 Comment: - Continue statin (5) DVT prophylaxis Code(s): WYK6203 - SNOMED Code(s): 690093556 Comment: - SQ heparin (6) Full code status Code(s): Z78.9 - OTHER SPECIFIED HEALTH STATUS SNOMED Code(s): 857391643 Status and Disposition: OBV. Discharge to home when medically stable.
[2018-03-30 15:49] VITALS: BP 136/48
--- NOTE | 2018-03-31 22:22 | DS ---
CC: Dr. Rosalba Delvalle; Dr. Ivory Smallwood * DISCHARGE SUMMARY: DATE OF ADMISSION: 03/29/18 DATE OF DISCHARGE: 03/30/18 ATTENDING PHYSICIAN: Dr. Fer Kothari * (dictated by Luz Alexander NP) PRIMARY CARE PROVIDER: Dr. Rosalba Delvalle. PRIMARY DIAGNOSES: 1. Viral illness. 2. Possible urinary tract infection. 3. Hypertension. STUDIES WHILE IN THE HOSPITAL: 1. Chest x-ray on 03/29/18. Radiologist's impression: No active cardiopulmonary disease is noted. 2. Brain CT on 03/29/18. Radiologist's impression: There is slight worsening of age-related diffuse cerebral volume loss and chronic microvascular ischemic disease. Stable chronic lacunar infarcts of the right basal ganglia and caudate nucleus. No acute intracranial pathology noted. DISCHARGE MEDICATIONS: New medications: 1. Acetaminophen 650 mg oral every 4 hours as needed for fever or pain. 2. Atenolol 25 mg oral daily. Continued home medications: 1. [place] 7.5/325 mg 1 tablet oral twice daily. 2. Simvastatin 10 mg oral daily. HISTORY OF PRESENT ILLNESS/HOSPITAL COURSE: Ms. Joseph is an 87-year-old female with past medical history significant for hypertension not currently on medication, gout, osteoarthritis, bilateral breast cancer, chronic back pain, who presented to the hospital after feeling poorly at home. She complained of generalized pain, muscle aches, frontal headache, and she had been coughing throughout the day with a nonproductive cough. She denied any fever, had emesis once. Denied abdominal pain, urinary symptoms such as urgency, frequency, or dysuria. Due to her symptoms, she presented to the emergency room for further evaluation. While in the emergency room, she was noted to be hypertensive. Additionally, she had labs showing unremarkable liver function tests, lactic acid of 0.7, CRP of 66.04, white blood cell count 7.6. Chest x-ray showing no pneumonia. Brain CT showing a slight worsening of age- related diffuse cerebral volume loss and chronic microvascular ischemic disease and stable chronic lacunar infarcts of the right basal ganglia and caudate nucleus. The hospitalists were asked to evaluate the patient for admission. While in the hospital, her tachycardia resolved. Her blood pressures improved after being started on atenolol. She remained afebrile, continued to have no suprapubic tenderness, fevers, chills. She had no leukocytosis. After some IV hydration, she was feeling better, able to tolerate a sandwich. She is able to ambulate in the hallway. She was anxious for discharge home. Ms. Joseph is stable for discharge to home. Her vital signs are as follows: Temperature 97.9, heart rate 73, respiratory rate 16, O2 sat 97% on room air, blood pressure 156/48. DISCHARGE PLAN: She will be discharged to home. Activity as tolerated. She should be on a heart-healthy diet. In regards to her feeling unwell, this is suspected to be a viral illness. She has no leukocytosis, is afebrile. In terms of her hypertension, she has been started on atenolol 25 mg oral daily. She had a urinalysis that appeared to be dirty urine. At the time of discharge , her urine culture is pending. She has been asked to keep her appointment with Dr. Delvalle on 04/08/18, additionally drink plenty of fluids and stay hydrated. She has been asked to call Dr. Delvalle's office if she develops any urinary symptoms such as urgency, dysuria, or increased frequency. She has been resumed on her other usual home medications. She has been asked to return to the emergency room for any chest pain, shortness of breath. This is a summarized report of a complex medical history and hospital stay. For further details, please see the entire medical record. TIME SPENT: Time for this discharge was approximately 50 minutes, greater than half of that was spent with the patient discussing discharge plans and instructions. CONDITION ON DISCHARGE: Stable. ADDENDUM: The patient is noted on 03/31/18 to have her urine culture returned with E. Coli greater than 100,000 with sensitivities pending. It appears that she has had E. Coli UTIs many times. She has blood cultures with no growth. At this point, it is suspected that she is likely colonized with E. Coli. She is asymptomatic. She has asymptomatic bacteriuria and we will not treat her with antibiotics at this time. I recommend following up with the patient at her followup visit to ensure that she is not having urinary symptoms, at which point would consider antibiotics. Again, she was afebrile, had no leukocytosis , had no suprapubic tenderness or CVA tenderness or complaints of urinary symptoms at the time of discharge yesterday. LUZ BARRON, SCREW MACHINE SET UP OPERATOR [id number]/[facility] #: [id number] [facility] NURSING FACILITYFestus
== END 2018-03-30 17:05 | disposition home or self-care (01) ==
LOC: ED 17:38 → MED 23:53
PROVIDERS: ADMIT Internal Medicine; ATTEND Student in an Organized Health Care Education/Training Program
DX: B34.9 Viral infection, unspecified (principal); I10 Essential (primary) hypertension; M10.9 Gout, unspecified; M19.90 Unspecified osteoarthritis, unspecified site; Z96.641 Presence of right artificial hip joint; Z79.899 Other long term (current) drug therapy; Z91.040 Latex allergy status; Z91.09 Other allergy status, other than to drugs and biological substances
CPT/HCPCS: 36415; 70450; 71045; 80048; 80053; 81003; 81015; 83605; 85025; 85610; 85730; 86140; 87040; 87077; 87086; 87186; 93005; 96365; 96372; 96375; 99284; A9270-GY; G0378; J0696; J1644; J1956; J2930; J3490

== ENCOUNTER 2018-12-29 12:30 | Inpatient (IN) | payer MEDICARE, MEDICAID ==
[2018-12-29] MEDS ORDERED: HYDROcodone/ACETAMIN 5-325 MG* 1 TAB PO ONE (13:02)
[2018-12-29 13:15] LABS: ABS Lymphocytes 0.8 10^3/ul (1.0-4.8); ABS Monocytes 1.1 10^3/ul (0-0.8); Hematocrit 35 % (35-47); Hemoglobin 11.7 g/dL (12.0-16.0); Lymphocyte % 4.9 %; Mean Corpuscular HGB Conc 33 g/dL (31-36); Mean Corpuscular Hemoglobin 30 pg (27-31); Mean Corpuscular Volume 89 fL (80-97); Mean Platelet Volume 7.9 fL (7.4-10.4); Platelet Count 275 10^3/uL (150-450); Red Blood Count 3.96 10^6 /uL (3.70-4.87); Red Cell Distribution Width 14 % (10-15); White Blood Count 15.9 10^3/uL (3.5-10.8)
[2018-12-29 13:33] LABS: Albumin 3.9 g/dL (3.2-5.2); Albumin/Globulin Ratio 1.3 (1-3); BUN/Creatinine Ratio 20.9 (8-20); Calcium 9.4 mg/dL (8.6-10.3); EGFR African American 70.8 (>60); EGFR Non-African American 58.5 (>60); Globulin 3.1 g/dL (2-4); Magnesium 1.3 mg/dL (1.9-2.7); Potassium 3.8 mmol/L (3.5-5.0); Total Bilirubin 0.5 mg/dL (0.2-1.0)
[2018-12-29] MEDS ORDERED: Magnesium Sulfate 1 GM IV* 1 GM/100 ML BAG IV ONE (14:12)
--- NOTE | 2018-12-29 14:16 | ED ---
Syncope/Near Syncope - HPI Summary HPI Summary: This patient is a 88 year old M arriving via ambulance to [facility] with a chief complaint of weakness since 123. patient states that she went to the bathroom after she felt weak. Patient states that she then sat down on the bathroom floor and could not get up. The patient rates the pain 0/10 in severity. Symptoms aggravated by movement. Symptoms alleviated by nothing. Patient reports back pain. Patient denies head injury, syncope, abdominal pain. - History Of Current Complaint Chief Complaint: EDWeakness Time Seen by Provider: 12/29/18 12:46 Hx Obtained From: Patient, Other: - RN Onset/Duration: Sudden Onset, Still Present Timing: Constant Activity At Onset: Exertion Associated Head Trauma: No Aggravating Factor(s): Nothing Alleviating Factor(s): Nothing - Allergies/Home Medications Allergies/Adverse Reactions: Allergies Allergy/AdvReac Type Severity Reaction Status Date / Time latex Allergy Severe Hives Verified 12/03/18 13:53 naproxen Allergy Severe Hives Verified 12/03/18 13:53 tramadol Allergy Severe Hives Verified 12/03/18 13:53 tape Allergy Mild SEVERE Uncoded 12/03/18 13:53 HIVES PMH/Surg Hx/FS Hx/Imm Hx Endocrine/Hematology History: Denies: Hx Diabetes, Hx Sickle Cell Disease, Hx Anemia Cardiovascular History: Reports: Hx Hypercholesterolemia, Hx Hypertension, 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 Denies: Hx Congestive Heart Failure Respiratory History: Reports: Other Respiratory Problems/Disorders - SOB with excertion Denies: Hx Asthma, Hx Chronic Obstructive Pulmonary Disease (COPD) GI History: Reports: Other GI Disorders - constipation Denies: Hx Jaundice History: Reports: Other Problems/Disorders - incontinence Musculoskeletal History: Reports: Hx Arthritis - ALL OVER, Hx Back Problems, Other Musculoskeletal History - 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 Denies: Hx Osteoporosis Sensory History: Reports: Hx Cataracts, Hx Contacts or Glasses, Hx Hearing Problem - [place], but not using her hearing aides Denies: Hx Glaucoma, Hx Deafness, Hx Hearing Aid Opthamlomology History: Reports: Hx Cataracts, Hx Contacts or Glasses Denies: Hx Glaucoma Neurological History: Denies: Other Neuro Impairments/Disorders Psychiatric History: Denies: Hx Anxiety, Hx Schizophrenia - Cancer History Cancer Type, Location and Year: breast bilat Hx Chemotherapy: No Hx Radiation Therapy: No - Surgical History Surgery Procedure, Year, and Place: BLADDER REPAIR, bilateral mastectomy3 BACK SURGERIES IN THE ;HYSTERECTOMY;CATARACT [id number]/10/13 removal of dorsal column stimulator leads and generator--[facility]07/27/13 TOTAL RT HIP REPLACEMENT Hx Anesthesia Reactions: No - Immunization History Date of Tetanus Vaccine: PT STATES UNSURE Date of Influenza Vaccine: NONE Infectious Disease History: No Infectious Disease History: Reports: Hx Shingles Denies: Hx Clostridium Difficile, Hx Hepatitis, Hx Human Immunodeficiency Virus (HIV), Hx of Known/Suspected MRSA, Hx Tuberculosis, Hx Known/Suspected VRE , Hx Known/Suspected VRSA, History Other Infectious Disease, Traveled Outside the [place] in Last 30 Days - Family History Known Family History: Negative: Hypertension, Diabetes - Social History Alcohol Use: None Hx Substance Use: No Substance Use Type: Reports: None Hx Tobacco Use: No Smoking Status (MU): Never Smoked Tobacco Have You Smoked in the Last Year: No Review of Systems Negative: Fever Negative: Abdominal Pain Positive: Other - Back pain Positive: Weakness. Negative: Syncope All Other Systems Reviewed And Are Negative: Yes Physical Exam - Summary Physical Exam Summary: VITAL SIGNS: Reviewed. GENERAL: Patient is a well-developed and nourished FEMALE who is lying comfortable in the stretcher. Patient is not in any acute respiratory distress. HEAD AND FACE: No signs of trauma. No ecchymosis, hematomas or skull depressions. No sinus tenderness. EYES: PERRLA, EOMI x 2, No injected conjunctiva, no nystagmus. EARS: Hearing grossly intact. Ear canals and tympanic membranes are within normal limits. MOUTH: Oropharynx within normal limits. NECK: Supple, trachea is midline, no adenopathy, no JVD, no carotid bruit, no c- spine tenderness, neck with full ROM. CHEST: Symmetric, no tenderness at palpation. LUNGS: Clear to auscultation bilaterally. No wheezing or crackles. CVS: Regular rate and rhythm, S1 and S2 present, no murmurs or gallops appreciated. ABDOMEN: Soft, non-tender. No signs of distention. No rebound, no guarding, and no masses palpated. Bowel sounds are normal. EXTREMITIES: FROM in all major joints, no edema, no cyanosis or clubbing. NEURO: Alert and oriented x 3. No acute neurological deficits. Speech is normal and follows commands. SKIN: Dry and warm. Old bilateral bruising on arms. Triage Information Reviewed: Yes Vital Signs On Initial Exam: Initial Vitals Temp Pulse Resp BP Pulse Ox 98.1 F 91 16 147/64 95 12/29/18 12:32 12/29/18 12:32 12/29/18 12:32 12/29/18 12:32 12/29/18 12:32 Vital Signs Reviewed: Yes Diagnostics - Vital Signs Vital Signs Temp Pulse Resp BP Pulse Ox 12/29/18 14:02 103 10 97 12/29/18 13:00 95 13 96 12/29/18 12:47 94 21 97 12/29/18 12:45 96 12 172/89 97 12/29/18 12:32 98.1 F 91 16 147/64 95 - Laboratory Lab Results: Lab Results 12/29/18 12/29/18 Range/Units 13:04 13:04 WBC 15.9 H (3.5-10.8) 10^3/uL RBC 3.96 (3.70-4.87) 10^6 /uL Hgb 11.7 L (12.0-16.0) g/dL Hct 35 (35-47) % MCV 89 (80-97) fL MCH 30 (27-31) pg MCHC 33 (31-36) g/dL RDW 14 (10-15) % Plt Count 275 (150-450) 10^3/uL MPV 7.9 (7.4-10.4) fL Neut % (Auto) 88.0 % Lymph % (Auto) 4.9 % Cowley % (Auto) 7.0 % Eos % (Auto) 0.0 % Baso % (Auto) 0.1 % Absolute Neuts (auto) 14.0 H (1.5-7.7) 10^3/ul Absolute Lymphs (auto) 0.8 L (1.0-4.8) 10^3/ul Absolute Monos (auto) 1.1 H (0-0.8) 10^3/ul Absolute Eos (auto) 0.0 (0-0.6) 10^3/ul Absolute Basos (auto) 0.0 (0-0.2) 10^3/ul Absolute Nucleated RBC 0.0 10^3/ul Nucleated RBC % 0.0 Sodium 140 (135-145) mmol/L Potassium 3.8 (3.5-5.0) mmol/L Chloride 105 (101-111) mmol/L Carbon Dioxide 25 (22-32) mmol/L Anion Gap 10 (2-11) mmol/L BUN 19 (6-24) mg/dL Creatinine 0.91 (0.51-0.95) mg/dL Est GFR ( Amer) 70.8 (>60) Est GFR (Non-Af Amer) 58.5 (>60) BUN/Creatinine Ratio 20.9 H (8-20) Glucose 135 H (70-100) mg/dL Calcium 9.4 (8.6-10.3) mg/dL Magnesium 1.3 L (1.9-2.7) mg/dL Total Bilirubin 0.50 (0.2-1.0) mg/dL AST 26 (13-39) U/L ALT 11 (7-52) U/L Alkaline Phosphatase 56 (34-104) U/L Total Protein 7.0 (6.4-8.9) g/dL Albumin 3.9 (3.2-5.2) g/dL Globulin 3.1 (2-4) g/dL Albumin/Globulin Ratio 1.3 (1-3) Result Diagrams: 12/29/18 13:04 12/29/18 13:04 Lab Statement: Any lab studies that have been ordered have been reviewed, and results considered in the medical decision making process. - Radiology Lumbar Spine Xray Radiology Interpretation Completed By: Radiologist Summary of Radiographic Findings: Lumbar Spine Xray reveals, per radiologist, IMPRESSION: 1. General as osteopenia with no displaced fracture by radiograph. 2. Lumbar fusion. 3. Dense curvilinear surgical material seen adjacent to the L2 vertebral body is unchanged from 2014. It could be related to prior kyphoplasty. ED Physician has reviewed this report. - CT Brain CT CT Interpretation Completed By: Radiologist Summary of CT Findings: Brain CT Scan reveals, per radiologist, IMPRESSION:1. No acute intracranial abnormality. 2. 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 3. Mild chronic small vessel ischemic disease is likely. ED Physician has reviewed this report. Cervical Spine CT CT Interpretation Completed By: Radiologist Summary of CT Findings: Cervical Spine CT Scan reveals, per radiologist, IMPRESSION: 1. No fracture or traumatic malalignment of the osteopenic cervical spine. 2. Varying degrees of multilevel spondylosis results in at least mild spinal canal stenosis at C6-C7. There is no severe osseous encroachment on the neural foramina. 3. 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 If clinically concern, this could be evaluated by ultrasound on an elective basis. ED Physician has reviewed this report. - EKG 1255 Cardiac Rate: NL - 95 bpm EKG Rhythm: Sinus Rhythm EKG Comparison: No Significant Change - 12/03/18 Summary of EKG Findings: EKG reveals a sinus rhythm of [address] elevations. No prior changes compared to 12/03/18. Course/Dx Assessment/Plan: Patient is a 88-year-old female who presents to the emergency department with a chief complaint of having an accidental fall when she was going to the bathroom. Family members report that the patient is having this falls were further complaints in the usual and memory loss. Patient reports that she is being worked up as an outpatient. She has only complaint of back pain which is chronic for her. Blood work without any significant abnormality except for WBCs of 15.9, glucose 132, magnesium 1.3. For which the patient was given magnesium IV. Head CT impression: No acute intracranial abnormality. 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 Mild chronic small vessel ischemic disease. Urinalysis positive for UTI. In the ED course the patient was given Rocephin for the UTI. CT of the C-spine impression: No fracture or traumatic malalignment of the osteopenic cervical spine. Varying degrees of multilevel spondylosis results in at least mild spinal canal stenosis at C6-C7. There is no severe osseous encroachment on the neural foramina. 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 If clinically concern, this could be evaluated by ultrasound on an elective basis. X-ray of the lumbar spine impression: Generally osteopenia with nondisplaced fracture. I discussed my physical exam and findings with the patient and the patients granddaughter who reports that the patient can be taken care at home and she also reports that she will stay with her for 2 weeks at home. Therefore the patient will be discharged home with follow-up with PCP. Patient is hemodynamically stable alert oriented 3. Last urine culture was sensitive to Bactrim. Therefore the patient will be discharged home with a position for Bactrim. Before the patient was discharged home the granddaughter reported that she is unable to care for the patient at this time. Therefore, I discuss my physical exam and findings with Dr. Mayes will be admitted the patient to his services for further workup and management. - Diagnoses Provider Diagnoses: UTI (urinary tract infection) - Physician Notifications Discussed Care of Patient With: Kenzie Mayes - Hospitalist Time Discussed With Above Provider: 18:02 Instructed by Provider To: Other - Dr. Mayes accepts patient for admission. Discharge ED - Sign-Out/Discharge Documenting (check all that apply): Patient Departure - Admitted - Discharge Plan Condition: Stable Disposition: ADMITTED TO [facility] Prescriptions: Sulfamethox/Trimethoprim DS* [Bactrim DS 800/160 TAB*] 1 tab PO BID #20 tab Patient Education Materials: Urinary Tract Infection in Women (ED) Referrals: Sara Sadler DO [Primary Care Provider] - 3 Days Additional Instructions: FOLLOW UP WITH YOUR PRIMARY CARE PROVIDER WITHIN 3 DAYS FOR UNOTED TODAY. RETURN TO THE ED FOR ANY WORSENING OR NEW SYMPTOMS. - Attestation Statements Document Initiated by Scribe: Yes Documenting Scribe: Rossy Concepcion Provider For Whom Scribe is Documenting (Include Credential): Dr. Mehran Dexter MD Scribe Attestation: IRossy, scribed for Dr. Mehran Dexter MD on 12/29/18 at 1802. Status of Scribe Document: Ready
[2018-12-29 14:39] LABS: Urine Appearance Cloudy; Urine Bacteria 1+ (Absent); Urine Bilirubin Negative (Negative); Urine Blood 3+ (Negative); Urine Color Yellow; Urine Glucose Negative (Negative); Urine Ketones 1+ (Negative); Urine Nitrite Positive (Negative); Urine Protein 2+(100 mg/dL) (Negative); Urine Red Blood Cell 2+(6-10/hpf) (Absent); Urine Squamous Epithelial Cell Present (Absent); Urine Urobilinogen Negative (Negative); Urine White Blood Cell 2+(11-20/hpf) (Absent)
[2018-12-29] MEDS ORDERED: cefTRIAXone(*) 1 GM in NS 0.9% 50 ML* 50 ML IVPB ONE (14:59)
[2018-12-29] MEDS ORDERED: Ondansetron INJ* 2 MG/ML VIAL IV PRN (18:35)
[2018-12-29] MEDS ORDERED: Magnesium Sulf 4 GM/100 ML IV* 4,000 MG/100 ML BAG IVPB ONE (18:50)
[2018-12-29] MEDS ORDERED: Lactated Ringers 1000 ML Bag* 1,000 ML IV SCH (19:00)
[2018-12-29] MEDS: HYDROcodone/ACET. 7.5/325 LIQ* 15 ML UDC PO SCH (21:30)
[2018-12-29] MEDS: Carvedilol TAB* 6.25 MG PO SCH (22:25)
[2018-12-29] MEDS: Enoxaparin(*) 40 MG/0.4 ML SYR SUBCUT SCH (22:25)
--- NOTE | 2018-12-30 01:24 | HP ---
CC: Rosalba Delvalle MD * HISTORY AND PHYSICAL: DATE OF ADMISSION: 12/29/18 PRIMARY CARE DOCTOR: Rosalba Delvalle MD. MY ATTENDING PHYSICIAN WHILE IN HOSPITAL: Kenzie Mayes MD * (DICTATED BY TERESA RHODES) CHIEF COMPLAINT: Confusion, fall x1 day. HISTORY OF PRESENT ILLNESS: Ms. Joseph is an 88-year-old female with past medical history significant for mild cognitive impairment, hypertension, hyperlipidemia, and frequent urinary tract infections who presents to the emergency department after last night. She was sent down to [facility] by her daughter and granddaughter, who visit her frequently, and then when she came back up, she said she was going to bed and then when they came back in the morning, she was found on the floor in the bathroom having had diarrhea and possibly hit her head on the chair in her shower. The patient did not know where she was. The patient thought she was sleeping in her bed. The patient has been treated for 2 UTIs in the last 2 months. Since the last one, the patient got very weak and has not quite returned to her normal functional state. The patient was scheduled to start physical therapy in the next several weeks. The patient has been complaining of urinary frequency, but does not complain of any pain, if not in her back ever, according to her daughter. The patient in the emergency department was given antibiotics, magnesium, and pain control and was feeling somewhat better, but when she attempted to get to the commode, she needed 2 assists and then she had an episode of flushing after flushing and worsening disorientation after eating. The patient has had numerous UTIs over the past several years. The patient was treated initially with Bactrim in October and then nitrofurantoin in November for her urinary tract infection. It is unclear if the patient has had any recent imaging of her urinary tract. The patient has a history of ESBL E. coli in her urine as well as pseudomonas. The patient at this time denies fevers, chills, chest pain, or shortness of breath, but is very disoriented. Does not know why she is here and wants to go home and has no ideas about her medical care. The patient has not had any recent weight loss. The patient has not had any other recent changes in her medications or illnesses. Due to concern for altered mental status, inability to care for herself, and urinary tract infection, we were asked to evaluate the patient for admission to the hospital. PAST MEDICAL HISTORY: Hypertension, gout, osteoarthritis, hyperlipidemia, chronic back pain, B12 deficiency, and breast cancer x2; in remission. PAST SURGICAL HISTORY: Dorsal column stimulator implant, hysterectomy, bladder repair, hip replacement, knee replacement, C-sections, nephrectomy x2. MEDICATIONS: Per most recent discharge summary: 1. Vitamin D 500 units p.o. daily. 2. Atenolol 25 mg p.o. daily. 3. Simvastatin 10 mg p.o. daily. 4. Curtice 7.5/325 one tab p.o. b.i.d. 5. B12 injections monthly. ALLERGIES: LATEX, NAPROXEN, TRAMADOL, ADHESIVE TAPE. FAMILY HISTORY: The patient's mother of cancer and was very elderly. The patient's father of pneumonia; he was also very elderly. SOCIAL HISTORY: The patient has never smoked, drank, or used illicit drugs. The patient used to work as a seamstress. The patient was previously and has 5 children. The patient's surrogate decision maker will be her granddaughter, Ivory Parks. REVIEW OF SYSTEMS: A 10-point review of systems was reviewed with the patient and her family and is negative, except as above in the HPI. PHYSICAL EXAMINATION GENERAL: The patient is an 88-year-old female who appears stated age and is sitting comfortably in bed, in no acute distress. VITAL SIGNS: At the time of evaluation, temperature 98.1, pulse rate 98, respiratory rate 20, oxygen saturation 95% on room air, blood pressure 130/60. HEENT: Head: Normocephalic, atraumatic. Sclerae anicteric. No conjunctival injection. Nasal mucosa moist. Oral mucosa moist. No pharyngeal erythema, discharge, or exudate. NECK: Supple, nontender. No lymphadenopathy. No carotid bruit auscultated. No JVD. RESPIRATORY: Clear to auscultation bilaterally. No wheezes, rales, or rhonchi. Good air exchange bilaterally. CARDIAC: Regular rate and rhythm. No clicks, murmurs, gallops, or rubs. Pulses 2+ in the dorsalis pedis, posterior tibialis and radial areas. ABDOMEN: Soft, nontender, nondistended. Bowel sounds are present and normoactive in all 4 quadrants. No hepatosplenomegaly. No abdominal bruits auscultated. No hepatojugular reflex. GENITOURINARY: Bladder is palpable. Slight left-sided CVA tenderness. SKIN: Clean, dry, intact. No rashes. NEURO: Cranial nerves II through XII are intact. No focal deficits. Alert and oriented to self. DIAGNOSTIC STUDIES/LAB DATA: Laboratory Data: White blood cell count 15.9, hemoglobin 11.7, platelet count 275. Sodium 140, potassium 3.8, chloride 105, carbon dioxide 25, anion gap 10, BUN 19, creatinine 0.91, glucose 135, calcium 9.4, magnesium 1.3. Bilirubin 0.5, AST 26, ALT 11, alkaline phosphatase 56. Protein 7.0, albumin 3.9, globulin 3.1. Urine yellow, cloudy, 2+ protein, 1+ ketone, 3+ blood. Urine nitrites and leukocyte esterase positive, 2+ white blood cells, 2+ red blood cells, squamous epithelial cells and bacteria present. Studies: Electrocardiogram shows normal sinus rhythm, no ST-segment elevation or depression, type 1 AV block. No hypertrophy or enlargement. QTc of 542, rate of 95. Lumbar spine x-ray read as generalized osteopenia with no displaced fracture on radiograph. Lumbar fusion with dense curvilinear calcification from surgical procedure of stabilization at L2 to L5, unchanged from 2014, similar to previous kyphoplasty. Brain CT read as no acute intracranial abnormalities. 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 Mild small-vessel ischemic changes likely. Cervical spine CT read as no fracture or trauma. Malalignment of diffuse osteopenic cervical spine in varying degrees. Multilevel spondyloses result in at least mild spinal canal stenosis at C6-C7 and no severe osseous encroachment of the neural foramina. Enlarged goitrous thyroid calcifications partially imaged. If clinical concern, to be evaluated by ultrasound. ASSESSMENT AND PLAN: Impression: Mrs. Joseph is an 88-year-old female with past medical history significant for mild cognitive impairment, hypertension, B12 deficiency, and recurrent urinary tract infections who presents to the emergency department with a fall, altered mental status, and what appears to be another urinary tract infection. The patient will be admitted to the hospital for antibiotics, physical therapy, and supportive care. 1. Altered mental status, weakness, and urinary tract infection. The patient' s altered mental status and weakness is very likely due to her urinary tract infection; however, the patient appears to have hit her head and has very little recollection of her night. She could have some sort of concussion syndrome. The patient has no focal deficits, but is very weak. This has been an ongoing problem for her and was scheduled to get outpatient PT. The patient will get antibiotic consistent with ceftriaxone. The patient will have ceftriaxone because her most recent E. coli urinary tract infection was susceptible to this; however, the patient does have history of extended spectrum beta-lactamases urinary tract infection and pseudomonas in her urine. If she does not improve initially, the patient may be considered for broadening of her antibiotic coverage. The patient will work with physical therapy and occupational therapy inpatient. The patient lied on the floor all night. There is a concern for possible rhabdomyolysis. CK is currently pending and we will repeat it in the morning. The patient will have lactated Ringer's at 125 mL an hour x1 bag and her volume status will be reevaluated after that. The patient's blood pressure medications will be continued. The patient will have an ultrasound of her GI tract looking for abscess or possible infected stone leading to her third urinary tract infection in 3 months. 2. Hypertension. Continue the patient's atenolol. 3. Mild cognitive impairment. Supportive care. 4. Chronic back pain. Continue the patient's Curtice. 5. FEN. The patient will have a heart-healthy diet without caffeine and fluids as above. 6. Disposition. The patient will be admitted to the hospital for observation. 7. DVT prophylaxis. The patient will have Lovenox subcu. TIME SPENT: Approximately 60 minutes were spent on the admission of this patient, 30 of which were spent [id number] with the patient obtaining history and physical and discussing treatment plan. This plan was discussed with my attending, Dr. Kenzie Mayes, and she is in agreement. TERESA RHODES [id number]/CPS #: [id number]
[2018-12-30] MEDS: Acetaminophen TAB* 325 MG PO PRN (02:53)
[2018-12-30] MEDS: Atorvastatin* 10 MG TAB PO SCH (08:31)
[2018-12-30] MEDS: Carvedilol TAB* 6.25 MG PO SCH ×2 (08:31→21:54)
[2018-12-30] MEDS: Cholecalciferol TAB* 400 UNIT PO SCH (08:31)
[2018-12-30] MEDS: Atenolol TAB* 25 MG PO SCH (08:31)
[2018-12-30] MEDS: HYDROcodone/ACET. 7.5/325 LIQ* 15 ML UDC PO SCH ×2 (08:32→21:52)
--- NOTE | 2018-12-30 08:54 | PN ---
Subjective Date of Service: 12/30/18 Interval History: Pt chocked when drinking her liquid Lortab this AM, no coughing a lot, but denies SOB or pain. she remembers that he lives in [place], does not remember falling Denies previous problems with "choking" and was able to swallow water and apple sauce without problems during today's visit Objective Active Medications: Acetaminophen (Tylenol Tab*) 650 mg PO Q6H PRN PRN Reason: MILD PAIN or TEMP > 100.4 Last Admin: 12/30/18 02:53 Dose: 650 mg Hydrocodone Bitart/Acetaminophen (Nortab 7.5/325 Liq*) 15 ml PO BID [facility] Last Admin: 12/30/18 08:32 Dose: 15 ml Atenolol (Tenormin Tab*) 25 mg PO DAILY [facility] Last Admin: 12/30/18 08:31 Dose: 25 mg Atorvastatin Calcium (Lipitor*) 5 mg PO DAILY [facility] Last Admin: 12/30/18 08:31 Dose: 5 mg Carvedilol (Coreg Tab*) 6.25 mg PO BID [facility] Last Admin: 12/30/18 08:31 Dose: 6.25 mg Cholecalciferol (Vitamin D Tab*) 400 unit PO DAILY [facility] Last Admin: 12/30/18 08:31 Dose: 400 unit Enoxaparin Sodium (Lovenox(*)) 40 mg SUBCUT Q24H [facility] Last Admin: 12/29/18 22:25 Dose: 40 mg Ceftriaxone Sodium 1 gm/ (Sodium Chloride) 50 mls @ 100 mls/hr IVPB Q24H [facility] Ondansetron HCl (Zofran Inj*) 4 mg IV Q6H PRN PRN Reason: NAUSEA Pneumococcal Polyvalent Vaccine (Pneumococcal Vac 23-Polyvalent*) 0.5 ml IM .ONCE ONE Stop: 12/30/18 09:01 Vital Signs - 8 hr 12/30/18 12/30/18 12/30/18 03:15 07:15 08:32 Temperature 98.5 F 97.7 F Pulse Rate 98 86 Respiratory 20 16 18 Rate Blood Pressure 151/55 149/60 (mmHg) O2 Sat by Pulse 95 93 Oximetry Oxygen Devices in Use Now: None Appearance: 88 yo F in nAD, aAOx2 Eyes: No Scleral Icterus, PERRLA Ears/Nose/Mouth/Throat: NL Teeth, Lips, Gums, Mucous Membranes Moist Neck: NL Appearance and Movements; NL JVP, Trachea Midline Respiratory: Symmetrical Chest Expansion and Respiratory Effort, Clear to Auscultation Cardiovascular: NL Sounds; No Murmurs; No JVD, RRR, - - tachy Lymphatic: No Cervical Adenopathy Extremities: No Clubbing, Cyanosis, - - trace ankle edema b/l Skin: No Rash or Ulcers, No Nodules or Sclerosis Neurological: NL Muscle Strength and Tone Result Diagrams: 12/29/18 13:04 12/29/18 13:04 Additional Lab and Data: Lab Results 12/29/18 12/29/18 Range/Units 13:04 13:04 WBC 15.9 H (3.5-10.8) 10^3/uL RBC 3.96 (3.70-4.87) 10^6 /uL Hgb 11.7 L (12.0-16.0) g/dL Hct 35 (35-47) % MCV 89 (80-97) fL MCH 30 (27-31) pg MCHC 33 (31-36) g/dL RDW 14 (10-15) % Plt Count 275 (150-450) 10^3/uL MPV 7.9 (7.4-10.4) fL Neut % (Auto) 88.0 % Lymph % (Auto) 4.9 % [place] % (Auto) 7.0 % Eos % (Auto) 0.0 % Baso % (Auto) 0.1 % Absolute Neuts (auto) 14.0 H (1.5-7.7) 10^3/ul Absolute Lymphs (auto) 0.8 L (1.0-4.8) 10^3/ul Absolute Monos (auto) 1.1 H (0-0.8) 10^3/ul Absolute Eos (auto) 0.0 (0-0.6) 10^3/ul Absolute Basos (auto) 0.0 (0-0.2) 10^3/ul Absolute Nucleated RBC 0.0 10^3/ul Nucleated RBC % 0.0 Sodium 140 (135-145) mmol/L Potassium 3.8 (3.5-5.0) mmol/L Chloride 105 (101-111) mmol/L Carbon Dioxide 25 (22-32) mmol/L Anion Gap 10 (2-11) mmol/L BUN 19 (6-24) mg/dL Creatinine 0.91 (0.51-0.95) mg/dL Est GFR ( Amer) 70.8 (>60) Est GFR (Non-Af Amer) 58.5 (>60) BUN/Creatinine Ratio 20.9 H (8-20) Glucose 135 H (70-100) mg/dL Calcium 9.4 (8.6-10.3) mg/dL Magnesium 1.3 L (1.9-2.7) mg/dL Total Bilirubin 0.50 (0.2-1.0) mg/dL AST 26 (13-39) U/L ALT 11 (7-52) U/L Alkaline Phosphatase 56 (34-104) U/L Total Protein 7.0 (6.4-8.9) g/dL Albumin 3.9 (3.2-5.2) g/dL Globulin 3.1 (2-4) g/dL Albumin/Globulin Ratio 1.3 (1-3) Assess/Plan/Problems-Billing Assessment: Ms. Joseph is an 88 yo female with PMH significant for HTN, gout, osteoarthritis who presented to the emergency room with complaints of forgetfulness, weakness, fall at home - Patient Problems (1) UTI (urinary tract infection) Comment: cont Ceftriaxone, awaiting cx (2) Hypertension Comment: - Continue atenolol (3) Physical deconditioning Comment: awaiting PT/OT eval (4) Hypomagnesemia Comment: replaced IV, awaiting labs from today (5) DVT prophylaxis Comment: - lovenox Status and Disposition: OBV
[2018-12-30] MEDS ORDERED: Pneumococcal *Vac Polyvalent 0.5 ML VIAL IM ONE (09:00)
[2018-12-30 09:25] LABS: ABS Lymphocytes 1.8 10^3/ul (1.0-4.8); ABS Monocytes 0.9 10^3/ul (0-0.8); Eosinophil % 0.5 %; Hematocrit 33 % (35-47); Hemoglobin 11.2 g/dL (12.0-16.0); Lymphocyte % 18.2 %; Mean Corpuscular HGB Conc 34 g/dL (31-36); Mean Corpuscular Hemoglobin 30 pg (27-31); Mean Corpuscular Volume 89 fL (80-97); Platelet Count 257 10^3/uL (150-450); Red Blood Count 3.73 10^6 /uL (3.70-4.87); Red Cell Distribution Width 14 % (10-15); White Blood Count 9.7 10^3/uL (3.5-10.8)
[2018-12-30 09:39] LABS: Magnesium 2.5 mg/dL (1.9-2.7); Potassium 3.3 mmol/L (3.5-5.0)
[2018-12-30 09:44] LABS: BUN/Creatinine Ratio 19.3 (8-20); EGFR African American 73.5 (>60); EGFR Non-African American 60.8 (>60)
[2018-12-30] MEDS ORDERED: cefTRIAXone(*) 1 GM in NS 0.9% 50 ML* 50 ML IVPB SCH (15:00)
[2018-12-30] MEDS: Enoxaparin(*) 40 MG/0.4 ML SYR SUBCUT SCH (17:26)
[2018-12-30] MEDS: KCL 20 MEQ/100 ML IVPREMIX* 20 MEQ/100 ML BAG IV SCH (17:26)
[2018-12-31] MEDS: KCL 20 MEQ/100 ML IVPREMIX* 20 MEQ/100 ML BAG IV SCH (01:57)
[2018-12-31] MEDS ORDERED: KCL 20 MEQ/100 ML IVPREMIX* 20 MEQ/100 ML BAG IV ONE (02:00)
[2018-12-31] MEDS: Acetaminophen TAB* 325 MG PO PRN ×2 (04:26→17:02)
--- NOTE | 2018-12-31 09:51 | PN ---
Subjective Date of Service: 12/31/18 Interval History: Pt feels well. C/o pleuritic CP that is localized in anterior chest and started after the chocking episode yesterday. Indicates that her anterior chest is tender to palpation Objective Active Medications: Acetaminophen (Tylenol Tab*) 650 mg PO Q6H PRN PRN Reason: MILD PAIN or TEMP > 100.4 Last Admin: 12/31/18 04:26 Dose: 650 mg Hydrocodone Bitart/Acetaminophen (Nortab 7.5/325 Liq*) 15 ml PO BID [facility] Last Admin: 12/30/18 21:52 Dose: 15 ml Atenolol (Tenormin Tab*) 25 mg PO DAILY [facility] Last Admin: 12/30/18 08:31 Dose: 25 mg Atorvastatin Calcium (Lipitor*) 5 mg PO DAILY [facility] Last Admin: 12/30/18 08:31 Dose: 5 mg Carvedilol (Coreg Tab*) 6.25 mg PO BID [facility] Last Admin: 12/30/18 21:54 Dose: 6.25 mg Cholecalciferol (Vitamin D Tab*) 400 unit PO DAILY [facility] Last Admin: 12/30/18 08:31 Dose: 400 unit Enoxaparin Sodium (Lovenox(*)) 40 mg SUBCUT Q24H [facility] Last Admin: 12/30/18 17:26 Dose: 40 mg Ceftriaxone Sodium 1 gm/ (Sodium Chloride) 50 mls @ 100 mls/hr IVPB Q24H [facility] Last Admin: 12/30/18 16:12 Dose: 100 mls/hr Ondansetron HCl (Zofran Inj*) 4 mg IV Q6H PRN PRN Reason: NAUSEA Vital Signs - 8 hr 12/31/18 12/31/18 12/31/18 02:06 04:25 07:15 Temperature 98.0 F 97.4 F Pulse Rate 64 72 Respiratory 16 18 14 Rate Blood Pressure 142/42 172/75 (mmHg) O2 Sat by Pulse 96 96 Oximetry Oxygen Devices in Use Now: None Appearance: 88 yo F in nAD, aAOx2, forgetful Eyes: No Scleral Icterus, PERRLA Ears/Nose/Mouth/Throat: NL Teeth, Lips, Gums, Mucous Membranes Moist Neck: NL Appearance and Movements; NL JVP, Trachea Midline Respiratory: Symmetrical Chest Expansion and Respiratory Effort, - - anterior chesst tender to palpation Cardiovascular: NL Sounds; No Murmurs; No JVD, RRR Abdominal: NL Sounds; No Tenderness; No Distention Lymphatic: No Cervical Adenopathy Extremities: - - trace pedal edema b/l Skin: No Nodules or Sclerosis Neurological: NL Muscle Strength and Tone Result Diagrams: 12/30/18 09:09 12/30/18 09:09 Additional Lab and Data: Lab Results 12/29/18 12/29/18 Range/Units 13:04 13:04 WBC 15.9 H (3.5-10.8) 10^3/uL RBC 3.96 (3.70-4.87) 10^6 /uL Hgb 11.7 L (12.0-16.0) g/dL Hct 35 (35-47) % MCV 89 (80-97) fL MCH 30 (27-31) pg MCHC 33 (31-36) g/dL RDW 14 (10-15) % Plt Count 275 (150-450) 10^3/uL MPV 7.9 (7.4-10.4) fL Neut % (Auto) 88.0 % Lymph % (Auto) 4.9 % [place] % (Auto) 7.0 % Eos % (Auto) 0.0 % Baso % (Auto) 0.1 % Absolute Neuts (auto) 14.0 H (1.5-7.7) 10^3/ul Absolute Lymphs (auto) 0.8 L (1.0-4.8) 10^3/ul Absolute Monos (auto) 1.1 H (0-0.8) 10^3/ul Absolute Eos (auto) 0.0 (0-0.6) 10^3/ul Absolute Basos (auto) 0.0 (0-0.2) 10^3/ul Absolute Nucleated RBC 0.0 10^3/ul Nucleated RBC % 0.0 Sodium 140 (135-145) mmol/L Potassium 3.8 (3.5-5.0) mmol/L Chloride 105 (101-111) mmol/L Carbon Dioxide 25 (22-32) mmol/L Anion Gap 10 (2-11) mmol/L BUN 19 (6-24) mg/dL Creatinine 0.91 (0.51-0.95) mg/dL Est GFR ( Amer) 70.8 (>60) Est GFR (Non-Af Amer) 58.5 (>60) BUN/Creatinine Ratio 20.9 H (8-20) Glucose 135 H (70-100) mg/dL Calcium 9.4 (8.6-10.3) mg/dL Magnesium 1.3 L (1.9-2.7) mg/dL Total Bilirubin 0.50 (0.2-1.0) mg/dL AST 26 (13-39) U/L ALT 11 (7-52) U/L Alkaline Phosphatase 56 (34-104) U/L Total Protein 7.0 (6.4-8.9) g/dL Albumin 3.9 (3.2-5.2) g/dL Globulin 3.1 (2-4) g/dL Albumin/Globulin Ratio 1.3 (1-3) Microbiology and Other Data: Microbiology 12/30/18 09:09 Aerobic Blood Culture - Preliminary Blood Venous No Growth Day 1 Anaerobic Blood Culture - Preliminary No Growth Day 1 12/29/18 14:05 Urine Culture - Preliminary Urine Escherichia Coli Assess/Plan/Problems-Billing Assessment: Ms. Joseph is an 88 yo female with PMH significant for HTN, gout, osteoarthritis who presented to the emergency room with complaints of forgetfulness, weakness, fall at home - Patient Problems (1) UTI (urinary tract infection) Comment: cont Ceftriaxone, awaiting senistivities (2) Hypertension Comment: - Continue atenolol (3) Physical deconditioning Comment: PT/OT recommending STR (4) Hypomagnesemia Comment: replaced IV (5) Chest pain Comment: musculoskeletal after coughing (6) Dysphagia Comment: eating with no problems, but due to chocking on 12/30 swallow eval pending (7) DVT prophylaxis Comment: - lovenox Status and Disposition: inpatient
[2018-12-31] MEDS: HYDROcodone/ACET. 7.5/325 LIQ* 15 ML UDC PO SCH ×2 (10:38→22:42)
[2018-12-31] MEDS: Carvedilol TAB* 6.25 MG PO SCH ×2 (10:39→22:41)
[2018-12-31] MEDS: Atorvastatin* 10 MG TAB PO SCH (10:39)
[2018-12-31] MEDS: Cholecalciferol TAB* 400 UNIT PO SCH (10:39)
[2018-12-31] MEDS: Atenolol TAB* 25 MG PO SCH (10:40)
--- NOTE | 2018-12-31 15:35 | DS ---
ADDENDUM NOW INCLUDED ON THIS REPORT CC: Dr. Rosalba Delvalle * DISCHARGE SUMMARY: DATE OF ADMISSION: 12/29/18 DATE OF ANTICIPATED DISCHARGE: 12/31/18 PRIMARY CARE PROVIDER: Dr. Rosalba Delvalle. CONDITION ON DISCHARGE: Stable. DISPOSITION AT DISCHARGE: The patient is going to be discharged to short-term rehabilitation facility at [facility] in [place], [place]. DISCHARGE DIAGNOSES: 1. Encephalopathy, likely related to urinary tract infection that resolved. 2. Recurrent falls and muscle deconditioning. 3. Hypomagnesemia, replaced. SECONDARY DIAGNOSES: 1. History of hypertension. 2. Gout. 3. Osteoarthritis. 4. Hyperlipidemia. 5. Chronic back pain. 6. Vitamin B12 deficiency. 7. History of breast cancer, in remission. MEDICATIONS AT DISCHARGE: Include: 1. Vitamin D 500 units daily. 2. Atenolol 25 mg daily. 3. Simvastatin 10 mg daily. 4. [place] 7.5/325 one tablet b.i.d. 5. B12 injections monthly. 6. Cefdinir 300 mg twice a day for a total of 2 days, then stop. LABORATORY DATA PERFORMED DURING THE HOSPITAL STAY: Included on 12/30/18, sodium of 136, potassium of 3.3, chloride 102, carbon dioxide 24, BUN 17, creatinine 0.88. Liver function tests were unremarkable at the time of admission. Magnesium was very low at admission at 1.3 and was replaced. CPK obtained on 12/30/18 was 932. Microbiology study shows E. coli and Aerococcus urinae positive blood cultures. The E. coli was sensitive to ceftriaxone, resistant to fluoroquinolones, sensitive to Bactrim, nitrofurantoin, and Zosyn. Blood cultures were negative to date. Renal ultrasound obtained on 12/30/18, impression: "Moderate cortical atrophy with increased cortical echogenicity suggested medical renal disease. Negative for obstructive uropathy." Cervical spine CT on 12/29/18, impression: "No fracture or traumatic malalignment of the osteopenic cervical spine. Varying degrees of multilevel spondylosis resolved and at least mild spinal canal stenosis at C6-C7. There is no severe osseous encroachment on the neural foramina. 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 If clinically there is a concern, it could be evaluated by ultrasound of the thyroid." Brain CT, impression: "No acute intracranial abnormality. 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 Mild chronic small vessel ischemic disease is likely. Lumbar x-ray, impression: "General osteopenia with no displaced fracture by radiograph. Lumbar fusion. Diffuse curvilinear surgical material was seen adjacent to the L2 vertebral body is unchanged from 2014, it could be related to prior kyphoplasty." HOSPITALIZATION COURSE: Andreia Joseph is an 88-year-old female who lives at [facility] with the assistance of daily help by her family members who presented to the hospital after confusion and fall. She was noted to have UTI that was E. coli and Aerococcus positive. She was treated with ceftriaxone with good results. She did physical therapy but was noted to need assistance and was recommended short-term rehabilitation. The patient has accepted a bed at [facility] and she would likely be discharged today to [facility]. For physical exam at the time of discharge, please see daily progress notes. Please note that this is a short summary of the patient's hospitalization. Please refer to further medical records for details. TIME SPENT: Approximately 40 minutes was spent on the patient's discharge. ADDENDUM: The patient was waiting for discharge overnight due to family having problems with providing transportation yesterday in the afternoon to [facility]. Overnight, the patient had another episode of chest pain. She stated that the chest is "sore." It occurred ever since her episode of choking on liquid medication provided two days ago. Subsequently, an EKG was obtained which was unremarkable. The troponin that was obtained was 0.02. The patient has tenderness on palpation of her anterior chest that is likely to pull the muscle after an episode of coughing for approximately close to half an hour after chocking 2 days ago. I discussed this with both the patient's daughter Kylie present in the room and the patient's granddaughter Ivory on the phone. We also had a discussion about whether the patient is going to benefit from rehabilitation versus going home. The patient's granddaughter and daughter were willing to provide care at home 24x7. I did state that all that recommendation by physical therapy is for the patient to go to rehab. They are welcome to try it at home first as that would be more feasible for them. At that point, they eventually decided to take the patient to [facility] for rehabilitation. Overnight, the patient was woken up a couple of times and today she feels tired. Otherwise, she has no other complaints at this point. Her physical exam at discharge is unchanged from before. [id number]/CPS #: [id number] A- [id number]/CPS #: [id number] KAREN
[2018-12-31] MEDS: Enoxaparin(*) 40 MG/0.4 ML SYR SUBCUT SCH (18:30)
[2018-12-31] MEDS: Cefdinir cap* 300 MG CAP PO SCH (22:41)
[2018-12-31] MEDS ORDERED: Melatonin 3 MG TAB PO PRN (22:53)
[2019-01-01] MEDS: Acetaminophen TAB* 325 MG PO PRN (05:00)
[2019-01-01] MEDS ORDERED: Magnesium Hydroxide LIQ* 30 ML UDC PO PRN (08:23)
[2019-01-01] MEDS ORDERED: Senna TAB 8.6 mg* TAB PO PRN (08:23)
[2019-01-01] MEDS ORDERED: Polyethylene Glycol 3350* 17 GM PACKET PO PRN (08:23)
[2019-01-01] MEDS ORDERED: Magnesium Hydroxide LIQ* 30 ML UDC PO SCH (09:00)
[2019-01-01] MEDS: HYDROcodone/ACET. 7.5/325 LIQ* 15 ML UDC PO SCH (09:00)
[2019-01-01] MEDS ORDERED: Docusate CAP* 100 MG PO SCH (09:00)
[2019-01-01] MEDS: Carvedilol TAB* 6.25 MG PO SCH (09:06)
[2019-01-01] MEDS: Cefdinir cap* 300 MG CAP PO SCH (09:07)
[2019-01-01] MEDS: Cholecalciferol TAB* 400 UNIT PO SCH (09:08)
[2019-01-01] MEDS: Atorvastatin* 10 MG TAB PO SCH (09:11)
[2019-01-01] MEDS: Atenolol TAB* 25 MG PO SCH (09:12)
[2019-01-01 11:22] VITALS: BP 114/45
--- NOTE | 2019-01-01 11:34 | DS ---
DISCHARGE SUMMARY: ADDENDUM: The patient was waiting for discharge overnight due to family having problems with providing transportation yesterday in the afternoon to [facility]. Overnight, the patient had another episode of chest pain. She stated that the chest pain is "sore." It occurred ever since her episode of chocking on liquid medication provided 2 days ago. Subsequently, an EKG was obtained which was unremarkable. The troponin that was obtained was 0.02. The patient has tenderness on palpation of her anterior chest that is likely to pull the muscle after an episode of coughing for approximately close to half an hour after chocking 2 days ago. I discussed this with both the patient's daughter Kylie present in the room and the patient's granddaughter Ivory on the phone. We also had a discussion about whether the patient is going to benefit from rehabilitation versus going home. The patient's granddaughter and daughter were willing to provide care at home 24x7. I did state that all that recommendation by physical therapy is for the patient to go to rehab. They are welcome to try it at home first as that would be more feasible for them. At that point, they eventually decided to take the patient to [facility] for rehabilitation. Overnight, the patient was woken up a couple of times and today she feels tired. Otherwise, she has no other complaints at this point. Her physical exam at discharge is unchanged from before. [id number]/[facility] #: [id number] KAREN
[2019-01-01] MEDS ORDERED: PEG 3000 GI LAVAGE* 1 GALLON PO ONE (14:00)
== END 2019-01-01 13:50 | DRG 690 ==
LOC: ED 12:30 → MED 18:35 → OBSVTOIN 18:40
PROVIDERS: ADMIT Hospitalist; ATTEND Internal Medicine
DX: N39.0 Urinary tract infection, site not specified (principal); G93.49 Other encephalopathy; M62.82 Rhabdomyolysis; E83.42 Hypomagnesemia; M48.02 Spinal stenosis, cervical region; I44.1 Atrioventricular block, second degree; G31.84 Mild cognitive impairment of uncertain or unknown etiology; I10 Essential (primary) hypertension; E78.5 Hyperlipidemia, unspecified; M10.9 Gout, unspecified; M19.90 Unspecified osteoarthritis, unspecified site; M54.9 Dorsalgia, unspecified; E53.8 Deficiency of other specified B group vitamins; B96.20 Unspecified Escherichia coli [E. coli] as the cause of diseases classified elsewhere; Z16.23 Resistance to quinolones and fluoroquinolones; M85.88 Other specified disorders of bone density and structure, other site; R07.9 Chest pain, unspecified; Z96.649 Presence of unspecified artificial hip joint; Z96.659 Presence of unspecified artificial knee joint; Z85.3 Personal history of malignant neoplasm of breast; Z79.899 Other long term (current) drug therapy; Z80.9 Family history of malignant neoplasm, unspecified; Z91.040 Latex allergy status; Z88.8 Allergy status to other drugs, medicaments and biological substances; Z91.048 Other nonmedicinal substance allergy status; Z86.73 Personal history of transient ischemic attack (TIA), and cerebral infarction without residual deficits
CPT/HCPCS: 36415; 70450; 72100; 72125; 76775; 80048; 80053; 81003; 81015; 82550; 83735; 84484; 85025; 87040; 87077; 87086; 87186; 90732; 93005; 99284; A9270-GY; G8978-GP-CK; G8979-GP-CI; G8988-GO-CK; J0696; J1650; J3475; J3480

== ENCOUNTER 2019-03-22 10:19 | Emergency (ER) | payer MEDICARE, MEDICAID ==
--- NOTE | 2019-03-22 10:33 | ED ---
Dizziness - HPI Summary HPI Summary: This patient is an 88 year old female brought in by EMS presenting to [facility] with a chief complaint of dizziness. She states she has had an illness for several days. She states she has had a cough, fever, and SOB. She does not know if she has a Hx of asthma/COPD, and her medical records do not state she does. - History Of Current Complaint Stated Complaint: DIZZINESS PER EMS Time Seen by Provider: 03/22/19 10:27 Hx Obtained From: Patient, Medical Records Timing: Days Associated Signs And Symptoms: Positive: Fever - Allergies/Home Medications Allergies/Adverse Reactions: Allergies Allergy/AdvReac Type Severity Reaction Status Date / Time latex Allergy Severe Hives Verified 12/03/18 13:53 naproxen Allergy Severe Hives Verified 12/03/18 13:53 tramadol Allergy Severe Hives Verified 12/03/18 13:53 tape Allergy Mild SEVERE Uncoded 12/03/18 13:53 HIVES Home Medications: Home Medications Atenolol TAB* [Tenormin TAB* 25 MG] 50 mg PO DAILY 03/22/19 [History Confirmed 03/22/19] PMH/Surg Hx/FS Hx/Imm Hx Endocrine/Hematology History: Denies: Hx Diabetes, Hx Sickle Cell Disease, Hx Anemia Cardiovascular History: Reports: Hx Hypercholesterolemia, Hx Hypertension, 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 Denies: Hx Congestive Heart Failure Respiratory History: Reports: Other Respiratory Problems/Disorders - SOB with excertion Denies: Hx Asthma, Hx Chronic Obstructive Pulmonary Disease (COPD) GI History: Reports: Other GI Disorders - constipation Denies: Hx Jaundice History: Reports: Other Problems/Disorders - incontinence Musculoskeletal History: Reports: Hx Arthritis - ALL OVER, Hx Back Problems, Other Musculoskeletal History - 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 Denies: Hx Osteoporosis Sensory History: Reports: Hx Cataracts, Hx Contacts or Glasses, Hx Hearing Aid - with patient, not currently in use, Hx Hearing Problem - [place], but not using her hearing aides Denies: Hx Glaucoma, Hx Deafness Opthamlomology History: Reports: Hx Cataracts, Hx Contacts or Glasses Denies: Hx Glaucoma Neurological History: Denies: Other Neuro Impairments/Disorders Psychiatric History: Denies: Hx Anxiety, Hx Schizophrenia - Cancer History Cancer Type, Location and Year: breast bilat Hx Chemotherapy: No Hx Radiation Therapy: No - Surgical History Surgery Procedure, Year, and Place: BLADDER REPAIR, bilateral mastectomy3 BACK SURGERIES IN THE ;HYSTERECTOMY;[facility]91/10/13 [place] of [place] column [place]ator [place] [place] TOTAL RT HIP REPLACEMENT Hx Anesthesia Reactions: No - Immunization History Date of Tetanus Vaccine: PT STATES UNSURE Date of Influenza Vaccine: NONE Infectious Disease History: Reports: Hx Shingles Denies: Hx Clostridium Difficile, Hx Hepatitis, Hx Human Immunodeficiency Virus (HIV), Hx of Known/Suspected MRSA, Hx Tuberculosis, Hx Known/Suspected VRE , Hx Known/Suspected VRSA, History Other Infectious Disease - Family History Known Family History: Negative: Hypertension, Diabetes - Social History Alcohol Use: None Hx Substance Use: No Substance Use Type: Reports: None Hx Tobacco Use: No Smoking Status (MU): Never Smoked Tobacco Have You Smoked in the Last Year: No Review of Systems Positive: Fever Positive: Shortness Of Breath, Cough Neurological: Other - Dizziness All Other Systems Reviewed And Are Negative: Yes Physical Exam - Summary Physical Exam Summary: VITAL SIGNS: Reviewed. GENERAL: Patient is a well-developed and nourished FEMALE who is lying comfortable in the stretcher. Patient is not in any acute respiratory distress. HEAD AND FACE: No signs of trauma. No ecchymosis, hematomas or skull depressions. No sinus tenderness. EYES: PERRLA, EOMI x 2, No injected conjunctiva, no nystagmus. EARS: Hearing grossly intact. Ear canals and tympanic membranes are within normal limits. MOUTH: No pharangeal edema, has rhinorrhea. NECK: Supple, trachea is midline, no adenopathy, no JVD, no carotid bruit, no c- spine tenderness, neck with full ROM. CHEST: Symmetric, no tenderness at palpation. LUNGS: Clear to auscultation bilaterally. Ronchi, mild wheezing in the lungs. CVS: Regular rate and rhythm, S1 and S2 present, no murmurs or gallops appreciated. ABDOMEN: Soft, non-tender. No signs of distention. No rebound, no guarding, and no masses palpated. Bowel sounds are normal. EXTREMITIES: FROM in all major joints, no edema, no cyanosis or clubbing. NEURO: Alert and oriented x 3. No acute neurological deficits. Speech is normal and follows commands. SKIN: Dry and warm. Triage Information Reviewed: Yes Vital Signs Reviewed: Yes Procedures - Sedation Patient Received Moderate/Deep Sedation with Procedure: No Diagnostics - Laboratory Result Diagrams: 03/22/19 10:50 03/22/19 10:50 Lab Statement: Any lab studies that have been ordered have been reviewed, and results considered in the medical decision making process. - Radiology CXR Radiology Interpretation Completed By: Radiologist Summary of Radiographic Findings: No radiographic evidence of acute cardiopulmonary disease. ED Provider has reviewed this report. - EKG 1113 Cardiac Rate: NL - 81 BPM EKG Rhythm: Sinus Rhythm EKG Comparison: No Significant Change Summary of EKG Findings: No ST elevations. ED Physician has reviewed this report. Dizzy Course/Dx - Course Assessment/Plan: This patient is an 88 year old female brought in by EMS presenting to [facility] with a chief complaint of dizziness. She states she has had an illness for several days. She states she has had a cough, fever, and SOB. She does not know if she has a Hx of asthma/COPD, and her medical records do not state she does. Blood work without any significant abnormality except for slight anemia, glucose of 103, CRP is 19.5, BNP 189. The chest x-ray impression : No acute pathology. In the ED course the patient was given DuoNeb and supplemental patient admitted the patient has bronchitis likely secondary to viral infection. At this point the patient will be discharged home with follow- up with primary care physician. I discussed all the findings and test results with the patient. Patient was instructed to return to the emergency room immediately if any of the symptoms return or worsen . Plan of care was discussed with the patient and she understands and agrees. All questions were answered at patient satisfaction. There were no further complaints or concerns. Lung exam before discharge: CTA B/L. Good air exchange. No wheezing or crackles heard. CVS: S1 and S2 present. No murmurs appreciated. Patient is alert and oriented x 3. Patient is hemodynamically stable. Patient will be discharged home with follow up mosaic layer in the next 2-3 days - Diagnoses Provider Diagnoses: Bronchitis Discharge ED - Sign-Out/Discharge Documenting (check all that apply): Patient Departure - Discharge - Discharge Plan Condition: Stable Disposition: HOME Prescriptions: predniSONE TAB* [Deltasone 20 MG TAB*] 40 mg PO DAILY #8 tab Patient Education Materials: Acute Bronchitis (ED) Referrals: Sara Sadler DO [Primary Care Provider] - Additional Instructions: Return to ED with new or worsening symptoms. - Billing Disposition and Condition Condition: STABLE Disposition: Home - Attestation Statements Document Initiated by Koby: Yes Documenting Scribe: Matt Lai Provider For Whom Koby is Documenting (Include Credential): Mehran Dexter MD Scribe Attestation: Matt Fishman, scribed for Mehran Dexter MD on 03/22/19 at 1829. Scribe Documentation Reviewed: Yes Provider Attestation: The documentation as recorded by the Matt garner accurately reflects the service I personally performed and the decisions made by , Mehran Dexter MD Status of Scribe Document: Viewed
[2019-03-22] MEDS ORDERED: Acetaminophen TAB* 325 MG PO ONE (11:12)
[2019-03-22 11:20] LABS: ABS Eosinophils 0.2 10^3/ul (0-0.6); ABS Lymphocytes 1.4 10^3/ul (1.0-4.8); ABS Monocytes 0.7 10^3/ul (0-0.8); ABS Neutrophils 3.6 10^3/ul (1.5-7.7); Eosinophil % 2.8 %; Hematocrit 34 % (35-47); Hemoglobin 11.4 g/dL (12.0-16.0); Lymphocyte % 23.8 %; Mean Corpuscular HGB Conc 33 g/dL (31-36); Mean Corpuscular Hemoglobin 30 pg (27-31); Mean Corpuscular Volume 90 fL (80-97); Mean Platelet Volume 7.7 fL (7.4-10.4); Platelet Count 246 10^3/uL (150-450); Red Blood Count 3.81 10^6 /uL (3.70-4.87); Red Cell Distribution Width 14 % (10-15); White Blood Count 5.9 10^3/uL (3.5-10.8)
[2019-03-22 11:26] LABS: Albumin 3.6 g/dL (3.2-5.2); Albumin/Globulin Ratio 1.2 (1-3); BUN/Creatinine Ratio 18.5 (8-20); C Reactive Protein 19.57 mg/L (<8.01); Calcium 8.9 mg/dL (8.6-10.3); EGFR African American 80.9 (>60); EGFR Non-African American 66.9 (>60); Potassium 3.6 mmol/L (3.5-5.0); Total Bilirubin 0.4 mg/dL (0.2-1.0); Total Protein 6.6 g/dL (6.4-8.9)
[2019-03-22 11:28] LABS: Troponin I 0.01 ng/mL (<0.03)
--- OUTSIDE RECORDS SUMMARY | 2019-03-22 11:33 | XMS REPORT ---
:1930 Author Organization [facility] Care Team Providers Name Role Phone Unavailable Unavailable Unavailable Problems Condition Condition Condition Status Onset Resolution Last Treating Comments Name Details Category Date Date Treatment Clinician Date Pain frequent Pain Mgmt Resolve 2018-042019-01-30 Emi pain d 0-22 12:15:00 [place] 09:10: [id number] 00 Respiratory dyspnea Respirator Resolve 2018-042019-01-30 Emi present y d 0-22 12:15:00 Radhika 09:10: [id number] 00 Sensory impaired Sensory Resolve 2018-042019-01-30 Emi hearing d 0-22 12:15:00 [place] 09:10: [id number] 00 Integument skin Integument Resolve 2018-042019-01-30 Emi integrity d 0-22 12:15:00 [place] risk 09:10: [id number] 00 Nutrition nutritional Nutrition Resolve 2018-042019-01-30 Emi restriction d 0-22 12:15:00 Radhika s 09:10: [id number] 00 Elimination urinary Eliminatio Resolve 2018-042019-01-30 Emi incontinenc n d 0-22 12:15:00 Radhika e 09:10: [id number] 00 Elimination urinary Eliminatio Resolve 2018-042019-01-30 Emi frequency n d 0-22 12:15:00 Radhika 09:10: [id number] 00 Elimination recurring Eliminatio Resolve 2018-042019-01-30 Emi UTI n d 0-22 12:15:00 [place] 09:10: [id number] 00 Neuro confusion Neuro/Emot Resolve 2018-042019-01-30 Emi present ion d 0-22 12:15:00 [place] 09:10: [id number] 00 Neuro impaired Neuro/Emot Resolve 2018-042019-01-30 Emi decision-ma ion d 0-22 12:15:00 [place] gama 09:10: [id number] 00 Neuro memory Neuro/Emot Resolve 2018-042019-01-30 Emi deficit ion d 0-22 12:15:00 [place] needing 09:10: [id number] supervision 00 Activity ADL Activity Resolve 2018-042019-01-30 Emi assistance d 0-22 12:15:00 [place] required 09:10: [id number] 00 Activity self-care Activity Resolve 2018-042019-01-30 Emi deficit d 0-22 12:15:00 [place] 09:10: [id number] 00 Safety fall risk Safety Resolve 2018-042019-01-30 Emi factor d 0-22 12:15:00 [place] present 09:10: [id number] 00 Safety risk for Safety Resolve 2018-042019-01-30 Emi hospitaliza d 0-22 12:15:00 [place] tion 09:10: [id number] 00 Safety can be left Safety Resolve 2018-042019-01-30 Emi alone for d 0-22 12:15:00 [place] only short 09:10: [id number] periods 00 Medication oral med Meds Resolve 2018-042019-01-30 Emi assistance d 0-22 12:15:00 [place] required 09:10: [id number] 00 Medication injectable Meds Resolve 2018-042019-01-30 Emi med d 0-22 12:15:00 [place] assistance 09:10: [id number] required 00 Medication knowledge/s Meds Resolve 2018-042019-01-30 Emi kill d 0-22 12:15:00 [place] deficit: pt 09:10: [id number] 00 Musculoskel transfer Musculoske Resolve 2018-042019-01-30 Emi etal assistance letal d 0-22 12:15:00 Radhika required 09:10: [id number] 00 Musculoskel requires Musculoske Resolve 2018-042019-01-30 Emi etal human letal d 0-22 12:15:00 Radhiak assist to 09:10: [id number] leave home 00 Elimination diarrhea Eliminatio Resolve 2018-042019-01-30 Lise mauricio d 0-24 12:15:00 [place] 12:15: 00 Safety fall risk Safety Active 2018-04 Lilian Chávez factor 0-29 present 15:34: 06 Safety risk for Safety Active 2018-04 Lilian Chávez hospitaliza 0-29 tion 15:34: 06 Bed mobility/tr PT/OT: Bed Resolve 2018-042019-02-21 Yesenia Mobility/Tr ansfer Mobility/T d 04-09 13:27:00 Ward ansfer device ransfer 14:25: [id number] present 00 Bed transfer PT/OT: Bed Resolve 2018-042019-02-21 Yesenia Mobility/Tr deficit: Mobility/T d 04-09 13:27:00 Ward ansfer toilet/comm ransfer 14:25: [id number] ode 00 Bed transfer PT/OT: Bed Resolve 2018-042019-02-21 Yesenia Mobility/Tr deficit: Mobility/T d 04-09 13:27:00 Ward ansfer shower/tub ransfer 14:25: [id number] 00 Bed knowledge/s PT/OT: Bed Resolve 2018-042019-02-21 Yesenia Mobility/Tr kill Mobility/T d 04-09 13:27:00 Ward ansfer deficit: pt ransfer 14:25: [id number] 00 Bed bed PT/OT: Bed Resolve 2018-042019-02-21 Yesenia Mobility/Tr mobility Mobility/T d 04-09 13:27:00 Ward ansfer deficit ransfer 14:25: [id number] 00 Balance/End balance/incident coordinator PT/OT: Active 2018-04 Yesenia seemaance rdination Balance/En 04-09 Ward deficit durance 14:25: [id number] 00 Balance/End endurance PT/OT: Active 2018-04 Yesenia urance deficit Balance/En 04-09 Ward durance 14:25: [id number] 00 Balance/End knowledge/s PT/OT: Active 2018-04 Yesenia urance kill Balance/En 04-09 Ward deficit: pt durance 14:25: [id number] 00 Gait/Locomo gait PT/OT: Resolve 2018-042019-02-21 Yesenia tion assistive Gait/Locom d 04-09 13:27:00 Ward problems device otion 14:25: [id number] present 00 Gait/Locomo gait PT/OT: Resolve 2018-042019-02-21 Yesenia tion deficit Gait/Locom d 04-09 13:27:00 Ward problems otion 14:25: [id number] 00 Gait/Locomo knowledge/s PT/OT: Resolve 2018-042019-02-21 Yesenia tion kill Gait/Locom d 04-09 13:27:00 Ward problems deficit: pt otion 14:25: [id number] 00 Allergies, Adverse Reactions, Alerts Allergy Allergy Type Status Severity Reaction(s) Onset Inactive Treating Comments Name Date Date Clinician tramadol Base Active Moderate Nausea and 2017- Marie Ingredient vomiting, 04-20 Zuñiga Nausea, [id number] vomiting, diarrhea, rash, hives naproxen Base Active Unknown Reaction Marie Ingredient Unknown 04-20 Zuñiga [id number] latex Base Active Unknown Reaction 2017-04 Lilian White Ingredient Unknown Medications Ordered Filled Start Stop Current Ordering Indication Dosage Frequency Signature Comments Components Medication Medication Date Date Medication? Clinician (SIG) Name Name pantoprazol pantoprazol No 1 tab Unknown e 40 mg e 40 mg Rosalba GRANADOS tablet,pamela tablet,pamela yed release yed release multivitami multivitami No 1 tab Unknown n with n with Rosalba GRANADOS minerals minerals tablet tablet cholecalcif cholecalcif No 1 tab Unknown malinda Rosalba petty MD (vitamin (vitamin D3) 1,000 D3) 1,000 unit (25 unit (25 mcg) tablet mcg) tablet atenolol 50 atenolol 50 No son 1 tab Unknown mg-chlortha mg-chlortha Rosalba GRANADOS lidone 25 lidone 25 mg tablet mg tablet HYDROcodone HYDROcodone No son 1-2 Unknown 5 5 Rosalba GRANADOS tabs mg-acetamin mg-acetamin ophen 325 ophen 325 mg tablet mg tablet magnesium magnesium No Unknown Unknown 500 mg 500 mg Rosalba GRANADOS tablet tablet atenolol 50 atenolol 50 No son Unknown Unknown mg tablet mg tablet Rosalba GRANADOS acetaminoph acetaminoph No Unknown Unknown en 325 mg en 325 mg Rosalba GRANADOS capsule capsule HYDROcodone HYDROcodone No son Unknown Unknown 7.5 7.5 Rosalba GRANADOS mg-acetamin mg-acetamin ophen 325 ophen 325 mg tablet mg tablet simvastatin simvastatin No [place] Unknown Unknown 10 mg 10 mg MD,Rosalba tablet tablet acetaminoph acetaminoph 2018-04 Yes [place] Unknown Unknown en 500 mg en 500 mg 0-22 MD,Matt tablet tablet ra Vitamin D3 Vitamin D3 2018-04 Yes [place] Unknown Unknown 1,000 unit 1,000 unit 0-22 Matt GRANADOS capsule capsule ra atenolol 50 atenolol 50 2018-04 Yes [place] Unknown Unknown mg tablet mg tablet 0-22 Matt GRANADOS ra Natural Natural 2018-04 Yes [place] Unknown Unknown Balance Balance 0-22 MD,Matt Tears 0.1 Tears 0.1 ra %-0.3 % eye %-0.3 % eye drops drops HYDROcodone HYDROcodone 2018-04 Yes [place] Unknown Unknown 7.5 7.5 0-22 Matt GRANADOS mg-acetamin mg-acetamin ra ophen 325 ophen 325 mg tablet mg tablet simvastatin simvastatin 2018-04 Yes [place] Unknown Unknown 10 mg 10 mg 0-22 MD,Matt tablet tablet ra melatonin 2 melatonin 2 2018-04 Yes [place] Unknown Unknown mg tablet mg tablet 0-22 MD,Matt ra Vital Signs Vital Name Observation Time Observation Value Comments SYSTOLIC mm[Hg] 2019-02-26 18:08:57 175 mm[Hg] mm[Hg] Method: Sit SYSTOLIC mm[Hg] 2019-01-28 18:08:28 146 mm[Hg] mm[Hg] Method: Stand DIASTOLIC mm[Hg] 2019-02-26 18:08:57 70 mm[Hg] mm[Hg] Method: Sit DIASTOLIC mm[Hg] 2019-01-28 18:08:28 70 mm[Hg] mm[Hg] Method: Stand PULSE 2019-02-26 18:08:57 64 /min /min RESP RATE 2019-01-30 18:08:30 18 /min /min TEMP 2019-02-26 18:08:57 98.3 [degF] Procedures This patient has no known procedures. Results This patient has no known results.
--- OUTSIDE RECORDS SUMMARY | 2019-03-22 11:33 | XMS REPORT ---
:1930 Author Organization [facility] Care Team Providers Name Role Phone Unavailable Unavailable Unavailable Problems Condition Condition Condition Status Onset Resolution Last Treating Comments Name Details Category Date Date Treatment Clinician Date Pain frequent Pain Mgmt Resolve 2018-042019-01-30 Emi pain d 0-22 12:15:00 [place] 09:10: [id number] 00 Respiratory dyspnea Respirator Resolve 2018-042019-01-30 Emi present y d 0-22 12:15:00 Radhika 09:10: [id number] 00 Sensory impaired Sensory Resolve 2018-042019-01-30 Emi hearing d 0-22 12:15:00 [place] 09:10: [id number] 00 Integument skin Integument Resolve 2018-042019-01-30 Emi integrity d 0-22 12:15:00 [place] risk 09:10: [id number] 00 Nutrition nutritional Nutrition Resolve 2018-042019-01-30 Emi restriction d 0-22 12:15:00 Radhika s 09:10: [id number] 00 Elimination urinary Eliminatio Resolve 2018-042019-01-30 Emi incontinenc n d 0-22 12:15:00 Radhika e 09:10: [id number] 00 Elimination urinary Eliminatio Resolve 2018-042019-01-30 Emi frequency n d 0-22 12:15:00 Radhika 09:10: [id number] 00 Elimination recurring Eliminatio Resolve 2018-042019-01-30 Emi UTI n d 0-22 12:15:00 [place] 09:10: [id number] 00 Neuro confusion Neuro/Emot Resolve 2018-042019-01-30 Emi present ion d 0-22 12:15:00 [place] 09:10: [id number] 00 Neuro impaired Neuro/Emot Resolve 2018-042019-01-30 Emi decision-ma ion d 0-22 12:15:00 [place] gama 09:10: [id number] 00 Neuro memory Neuro/Emot Resolve 2018-042019-01-30 Emi deficit ion d 0-22 12:15:00 [place] needing 09:10: [id number] supervision 00 Activity ADL Activity Resolve 2018-042019-01-30 Emi assistance d 0-22 12:15:00 [place] required 09:10: [id number] 00 Activity self-care Activity Resolve 2018-042019-01-30 Emi deficit d 0-22 12:15:00 [place] 09:10: [id number] 00 Safety fall risk Safety Resolve 2018-042019-01-30 Emi factor d 0-22 12:15:00 [place] present 09:10: [id number] 00 Safety risk for Safety Resolve 2018-042019-01-30 Emi hospitaliza d 0-22 12:15:00 [place] tion 09:10: [id number] 00 Safety can be left Safety Resolve 2018-042019-01-30 Emi alone for d 0-22 12:15:00 [facility] short 09:10: [id number] periods 00 Medication oral med Meds Resolve 2018-042019-01-30 Emi assistance d 0-22 12:15:00 [place] required 09:10: [id number] 00 Medication injectable Meds Resolve 2018-042019-01-30 Emi med d 0-22 12:15:00 [place] assistance 09:10: [id number] required 00 Medication knowledge/s Meds Resolve 2018-042019-01-30 Emi kill d 0-22 12:15:00 [place] deficit: pt 09:10: [id number] 00 Musculoskel transfer Musculoske Resolve 2018-042019-01-30 Emi etal assistance letal d 0-22 12:15:00 Radhika required 09:10: [id number] 00 Musculoskel requires Musculoske Resolve 2018-042019-01-30 Emi etal human letal d 0-22 12:15:00 Radhika assist to 09:10: [id number] leave home 00 Elimination diarrhea Eliminatio Resolve 2018-042019-01-30 Lise mauricio d 0-24 12:15:00 [place] 12:15: 00 Safety fall risk Safety Resolve 2018-042019-02-28 Lilian Chávez factor d 0-29 12:50:00 present 15:34: 06 Safety risk for Safety Resolve 2018-042019-02-28 Lilian Chávez hospitaliza d 0-29 12:50:00 tion 15:34: 06 Bed mobility/tr PT/OT: Bed Resolve 2018-042019-02-21 Yesenia Mobility/Tr ansfer Mobility/T d 04-09 13:27:00 Ward ansfer device ransfer 14:25: [id number] present 00 Bed transfer PT/OT: Bed Resolve 2018-042019-02-21 Yes[place] Mobility/Tr deficit: Mobility/T d 04-09 13:27:00 Ward ansfer toilet/comm ransfer 14:25: [id number] ode 00 Bed transfer PT/OT: Bed Resolve 2018-042019-02-21 Yes[place] Mobility/Tr deficit: Mobility/T d 04-09 13:27:00 Ward ansfer shower/tub ransfer 14:25: [id number] 00 Bed knowledge/s PT/OT: Bed Resolve 2018-042019-02-21 Yesenia Mobility/Tr kill Mobility/T d 04-09 13:27:00 Ward ansfer deficit: pt ransfer 14:25: [id number] 00 Bed bed PT/OT: Bed Resolve 2018-042019-02-21 Yesenia Mobility/Tr mobility Mobility/T d 04-09 13:27:00 Ward ansfer deficit ransfer 14:25: [id number] 00 Balance/End balance/major donor coordinator PT/OT: Resolve 2018-042019-02-28 Yesenia agatha rdination Balance/En d 04-09 12:50:00 Ward deficit durance 14:25: [id number] 00 Balance/End endurance PT/OT: Resolve 2018-042019-02-28 Yesenia seemaance deficit Balance/En d 04-09 12:50:00 Ward durance 14:25: [id number] 00 Balance/End knowledge/s PT/OT: Resolve 2018-042019-02-28 Yesenia agatha kill Balance/En d 04-09 12:50:00 Ward deficit: pt durance 14:25: [id number] 00 Gait/Locomo gait PT/OT: Resolve 2018-042019-02-21 Yesenia tion assistive Gait/Locom d 04-09 13:27:00 Ward problems device otion 14:25: [id number] present 00 Gait/Locomo gait PT/OT: Resolve 2018-042019-02-21 Yesenia tion deficit Gait/Locom d 04-09 13:27:00 Ward problems otion 14:25: [id number] 00 Gait/Locomo knowledge/s PT/OT: Resolve 2018-042019-02-21 Yesenia tion kill Gait/Locom d 04-09 13:27:00 Ward problems deficit: pt otion 14:25: [id number] 00 Allergies, Adverse Reactions, Alerts Allergy Allergy Type Status Severity Reaction(s) Onset Inactive Treating Comments Name Date Date Clinician tramadol Base Active Moderate Nausea and Marie Ingredient vomiting, 04-20 Zuñiga Nausea, [id number] vomiting, diarrhea, rash, hives naproxen Base Active Unknown Reaction Marie Ingredient Unknown 04-20 Zuñiga [id number] latex Base Active Unknown Reaction 2017-04 Lilian White Ingredient Unknown Medications Ordered Filled Start Stop Current Ordering Indication Dosage Frequency Signature Comments Components Medication Medication Date Date Medication? Clinician (SIG) Name Name pantoprazol pantoprazol 1 tab Unknown e 40 mg e 40 mg 02-28 Rosalba GRANADOS tablet,pamela tablet,pamela yed release yed release multivitami multivitami Howson 1 tab Unknown n with n with 02-28 Rosalba GRANADOS minerals minerals tablet tablet cholecalcif cholecalcif son 1 tab Unknown malinda malinda 02-28 Rosalba GRANADOS (vitamin (vitamin D3) 1,000 D3) 1,000 unit (25 unit (25 mcg) tablet mcg) tablet atenolol 50 atenolol 50 [place] 1 tab Unknown mg-chlortha mg-chlortha 02-28 Rosalba GRANADOS lidone 25 lidone 25 mg tablet mg tablet HYDROcodone HYDROcodone Howshanelle 1-2 Unknown 5 5 02-28 Rosalba GRANADOS tabs mg-acetamin mg-acetamin ophen 325 ophen 325 mg tablet mg tablet magnesium magnesium Mook Unknown Unknown 500 mg 500 mg 02-28 MDRosalba tablet tablet atenolol 50 atenolol 50 Howson Unknown Unknown mg tablet mg tablet 02-28 MDRosalba acetaminoph acetaminoph 2018- Howson Unknown Unknown en 325 mg en 325 mg 02-28 MDRosalba capsule capsule HYDROcodone HYDROcodone No Howson Unknown Unknown 7.5 7.5 02-28 MDRosalba mg-acetamin mg-acetamin ophen 325 ophen 325 mg tablet mg tablet simvastatin simvastatin 2018- [place] Unknown Unknown 10 mg 10 mg 02-28 MDRosalba tablet tablet acetaminoph acetaminoph 2018-04- Yes Karnow Unknown Unknown en 500 mg en 500 mg 02-28 Matt GRANADOS tablet tablet ra Vitamin D3 Vitamin D3 2018-04- Yes Karnow Unknown Unknown 1,000 unit 1,000 unit 02-28 Matt GRANADOS capsule capsule ra atenolol 50 atenolol 50 2018-04- Yes Karnow Unknown Unknown mg tablet mg tablet 02-28 Matt GRANADOS ra Natural Natural 2018-04- Yes Karnow Unknown Unknown Balance Balance 02-28 Matt GRANADOS Tears 0.1 Tears 0.1 ra %-0.3 % eye %-0.3 % eye drops drops HYDROcodone HYDROcodone 2018-04- Yes Karnow Unknown Unknown 7.5 7.5 02-28 Matt GRANADOS mg-acetamin mg-acetamin ra ophen 325 ophen 325 mg tablet mg tablet simvastatin simvastatin 2018-04- Yes Karnow Unknown Unknown 10 mg 10 mg 02-28 Matt GRANADOS tablet tablet ra melatonin 2 melatonin 2 2018-04- Yes Karnow Unknown Unknown mg tablet mg tablet 02-28 Matt GRANADOS ra Vital Signs Vital Name Observation Time Observation Value Comments SYSTOLIC mm[Hg] 2019-02-28 18:08:59 160 mm[Hg] mm[Hg] Method: Sit SYSTOLIC mm[Hg] 2019-01-28 18:08:28 146 mm[Hg] mm[Hg] Method: Stand DIASTOLIC mm[Hg] 2019-02-28 18:08:59 80 mm[Hg] mm[Hg] Method: Sit DIASTOLIC mm[Hg] 2019-01-28 18:08:28 70 mm[Hg] mm[Hg] Method: Stand PULSE 2019-02-28 18:08:59 60 /min /min TEMP 2019-02-28 18:08:59 98.1 [degF] Procedures This patient has no known procedures. Results This patient has no known results.
--- OUTSIDE RECORDS SUMMARY | 2019-03-22 11:33 | XMS REPORT ---
:1930 Author Organization [facility] Care Team Providers Name Role Phone Unavailable Unavailable Unavailable Problems Condition Condition Condition Status Onset Resolution Last Treating Comments Name Details Category Date Date Treatment Clinician Date Pain frequent Pain Mgmt Resolve 2018-042019-01-30 Emi pain d 0-22 12:15:00 [place] 09:10: [id number] 00 Respiratory dyspnea Respirator Resolve 2018-042019-01-30 Emi present y d 0-22 12:15:00 Radhika 09:10: [id number] 00 Sensory impaired Sensory Resolve 2018-042019-01-30 Emi hearing d 0-22 12:15:00 [place] 09:10: [id number] 00 Integument skin Integument Resolve 2018-042019-01-30 Emi integrity d 0-22 12:15:00 [place] risk 09:10: [id number] 00 Nutrition nutritional Nutrition Resolve 2018-042019-01-30 Emi restriction d 0-22 12:15:00 Radhika s 09:10: [id number] 00 Elimination urinary Eliminatio Resolve 2018-042019-01-30 Emi incontinenc n d 0-22 12:15:00 Radhika e 09:10: [id number] 00 Elimination urinary Eliminatio Resolve 2018-042019-01-30 Emi frequency n d 0-22 12:15:00 Radhika 09:10: [id number] 00 Elimination recurring Eliminatio Resolve 2018-042019-01-30 Emi UTI n d 0-22 12:15:00 [place] 09:10: [id number] 00 Neuro confusion Neuro/Emot Resolve 2018-042019-01-30 Emi present ion d 0-22 12:15:00 [place] 09:10: [id number] 00 Neuro impaired Neuro/Emot Resolve 2018-042019-01-30 Emi decision-ma ion d 0-22 12:15:00 [place] gama 09:10: [id number] 00 Neuro memory Neuro/Emot Resolve 2018-042019-01-30 Emi deficit ion d 0-22 12:15:00 [place] needing 09:10: [id number] supervision 00 Activity ADL Activity Resolve 2018-042019-01-30 Emi assistance d 0-22 12:15:00 [place] required 09:10: [id number] 00 Activity self-care Activity Resolve 2018-042019-01-30 Emi deficit d 0-22 12:15:00 [place] 09:10: [id number] 00 Safety fall risk Safety Resolve 2018-042019-01-30 Emi factor d 0-22 12:15:00 [place] present 09:10: [id number] 00 Safety risk for Safety Resolve 2018-042019-01-30 Emi hospitaliza d 0-22 12:15:00 [place] tion 09:10: [id number] 00 Safety can be left Safety Resolve 2018-042019-01-30 Emi alone for d 0-22 12:15:00 [facility] short 09:10: [id number] periods 00 Medication oral med Meds Resolve 2018-042019-01-30 Emi assistance d 0-22 12:15:00 [place] required 09:10: [id number] 00 Medication injectable Meds Resolve 2018-042019-01-30 Emi med d 0-22 12:15:00 [place] assistance 09:10: [id number] required 00 Medication knowledge/s Meds Resolve 2018-042019-01-30 Emi kill d 0-22 12:15:00 [place] deficit: pt 09:10: [id number] 00 Musculoskel transfer Musculoske Resolve 2018-042019-01-30 Emi etal assistance letal d 0-22 12:15:00 Radhika required 09:10: [id number] 00 Musculoskel requires Musculoske Resolve 2018-042019-01-30 Emi etal human letal d 0-22 12:15:00 Radhika assist to 09:10: [id number] leave home 00 Elimination diarrhea Eliminatio Resolve [...] 04-09 13:27:00 Ward ansfer device ransfer 14:25: [id number] present 00 Bed transfer PT/OT: Bed Resolve 2018-042019-02-21 Yesenia Mobility/Tr deficit: Mobility/T d 04-09 13:27:00 Ward ansfer toilet/comm ransfer 14:25: [id number] ode 00 Bed transfer PT/OT: Bed Resolve 2018-042019-02-21 Yesenia Mobility/Tr deficit: Mobility/T d 04-09 13:27:00 Ward ansfer shower/tub ransfer 14:25: [id number] 00 Bed knowledge/s PT/OT: Bed Resolve 2018-042019-02-21 Yesenia Mobility/Tr kill Mobility/T d 04-09 13:27:00 Ward ansfer deficit: pt ransfer 14:25: [id number] 00 Bed bed PT/OT: Bed Resolve 2018-042019-02-21 Yesenia Mobility/Tr mobility Mobility/T d 04-09 13:27:00 Ward ansfer deficit ransfer 14:25: [id number] 00 Balance/End balance/service coordinator elderly facility PT/OT: Resolve 2018-042019-02-28 Yesenia agatha rdination Balance/En d 04-09 12:50:00 Ward deficit durance 14:25: [id number] 00 Balance/End endurance PT/OT: Resolve 2018-042019-02-28 Yesenia seemaance deficit Balance/En d 04-09 12:50:00 Ward durance 14:25: [id number] 00 Balance/End knowledge/s PT/OT: Resolve 2018-042019-02-28 Yesenia agatha kill Balance/En d 04-09 12:50:00 Ward deficit: pt durance 14:25: [id number] 00 Gait/Locomo gait PT/OT: Resolve 2018-042019-02-21 Yesenia tion assistive Gait/Locom d 04-09 13:27:00 Ward problems device otion 14:25: [id number] present 00 Gait/Locomo gait PT/OT: Resolve 2018-042019-02-21 Yesenia tion deficit Gait/Locom d 04-09 13:27:00 Ward problems otion 14:25: [id number] 00 Gait/Locomo knowledge/s PT/OT: Resolve 2018-042019-02-21 Yesenia tion kill Gait/Locom d 04-09 13:27:00 Ward problems deficit: pt otion 14:25: [id number] 00 Allergies, Adverse Reactions, Alerts Allergy Allergy Type Status Severity Reaction(s) Onset Inactive Treating Comments Name Date Date Clinician tramadol Base Active Moderate Nausea and Marie Ingredient vomiting, 04-20 Zuñiga Nausea, [id number] vomiting, diarrhea, rash, hives naproxen Base Active Unknown Reaction Marie Ingredient Unknown 04-20 Zuñiga [id number] latex Base Active Unknown Reaction 2017-04 Lilian [...]
--- OUTSIDE RECORDS SUMMARY | 2019-03-22 11:33 | XMS REPORT ---
:1930 Author Organization [facility] Care Team Providers Name Role Phone Unavailable Unavailable Unavailable Problems Condition Condition Condition Status Onset Resolution Last Treating Comments Name Details Category Date Date Treatment Clinician Date Pain frequent Pain Mgmt Resolve 2018-042019-01-30 Emi pain d 0-22 12:15:00 [place] 09:10: [id number] 00 Respiratory dyspnea Respirator Resolve 2018-042019-01-30 Emi present y d 0-22 12:15:00 [place] 09:10: [id number] 00 Sensory impaired Sensory Resolve 2018-042019-01-30 Emi hearing d 0-22 12:15:00 [place] 09:10: [id number] 00 Integument skin Integument Resolve 2018-042019-01-30 Emi integrity d 0-22 12:15:00 [place] risk 09:10: [id number] 00 Nutrition nutritional Nutrition Resolve 2018-042019-01-30 Emi restriction d 0-22 12:15:00 Radhika s 09:10: [id number] 00 Elimination urinary Eliminatio Resolve 2018-042019-01-30 Emi incontinenc n d 0-22 12:15:00 Radhika e 09:10: [id number] 00 Elimination urinary Eliminatio Resolve 2018-042019-01-30 Emi frequency n d 0-22 12:15:00 [place] 09:10: [id number] 00 Elimination recurring Eliminatio Resolve 2018-042019-01-30 Emi UTI n d 0-22 12:15:00 [place] 09:10: [id number] 00 Neuro confusion Neuro/Emot Resolve 2018-042019-01-30 Emi present ion d 0-22 12:15:00 [place] 09:10: [id number] 00 Neuro impaired Neuro/Emot Resolve 2018-042019-01-30 Emi decision-ma ion d 0-22 12:15:00 [place] gama 09:10: [id number] 00 Neuro memory Neuro/Emot Resolve 2018-042019-01-30 Emi deficit ion d 0-22 12:15:00 [place] needing 09:10: [id number] supervision 00 Activity ADL Activity Resolve 2018-042019-01-30 Emi assistance d 0-22 12:15:00 [place] required 09:10: [id number] 00 Activity self-care Activity Resolve 2018-042019-01-30 Emi deficit d 0-22 12:15:00 [place] 09:10: [id number] 00 Safety fall risk Safety Resolve 2018-042019-01-30 Emi factor d 0-22 12:15:00 [place] present 09:10: [id number] 00 Safety risk for Safety Resolve 2018-042019-01-30 Emi hospitaliza d 0-22 12:15:00 [place] tion 09:10: [id number] 00 Safety can be left Safety Resolve 2018-042019-01-30 Emi alone for d 0-22 12:15:00 [facility] short 09:10: [id number] periods 00 Medication oral med Meds Resolve 2018-042019-01-30 Emi assistance d 0-22 12:15:00 [place] required 09:10: [id number] 00 Medication injectable Meds Resolve 2018-042019-01-30 Emi med d 0-22 12:15:00 [place] assistance 09:10: [id number] required 00 Medication knowledge/s Meds Resolve 2018-042019-01-30 Emi kill d 0-22 12:15:00 [place] deficit: pt 09:10: [id number] 00 Musculoskel transfer Musculoske Resolve 2018-042019-01-30 Emi etal assistance letal d 0-22 12:15:00 [place] required 09:10: [id number] 00 Musculoskel requires Musculoske Resolve 2018-042019-01-30 Emi etal human letal d 0-22 12:15:00 Radhika assist to 09:10: [id number] leave home 00 Elimination diarrhea Eliminatio Resolve [...] 04-09 13:27:00 [place] ansfer device ransfer 14:25: [id number] present 00 Bed transfer PT/OT: Bed Resolve 2018-042019-02-21 Yesenia Mobility/Tr deficit: Mobility/T d 04-09 13:27:00 [place] ansfer toilet/comm ransfer 14:25: [id number] ode 00 Bed transfer PT/OT: Bed Resolve 2018-042019-02-21 Yesenia Mobility/Tr deficit: Mobility/T d 04-09 13:27:00 [place] ansfer shower/tub ransfer 14:25: [id number] 00 Bed knowledge/s PT/OT: Bed Resolve 2018-042019-02-21 Yesenia Mobility/Tr kill Mobility/T d 04-09 13:27:00 [place] ansfer deficit: pt ransfer 14:25: [id number] 00 Bed bed PT/OT: Bed Resolve 2018-042019-02-21 Yesenia Mobility/Tr mobility Mobility/T d 04-09 13:27:00 [place] ansfer deficit ransfer 14:25: [id number] 00 Balance/End balance/digital account coordinator PT/OT: Resolve 2018-042019-02-28 Yesenia agatha rdination Balance/En d 04-09 12:50:00 [place] deficit durance 14:25: [id number] 00 Balance/End endurance PT/OT: Resolve 2018-042019-02-28 Yesenia seemaance deficit Balance/En d 04-09 12:50:00 [place] durance 14:25: [id number] 00 Balance/End knowledge/s PT/OT: Resolve 2018-042019-02-28 Yesenia agatha kill Balance/En d 04-09 12:50:00 [place] deficit: pt durance 14:25: [id number] 00 Gait/Locomo gait PT/OT: Resolve 2018-042019-02-21 Yesenia tion assistive Gait/Locom d 04-09 13:27:00 [place] problems device otion 14:25: [id number] present 00 Gait/Locomo gait PT/OT: Resolve 2018-042019-02-21 Yesenia tion deficit Gait/Locom d 04-09 13:27:00 [place] problems otion 14:25: [id number] 00 Gait/Locomo knowledge/s PT/OT: Resolve 2018-042019-02-21 Yesenia tion kill Gait/Locom d 04-09 13:27:00 [place] problems deficit: pt otion 14:25: [id number] 00 Allergies, Adverse Reactions, Alerts Allergy Allergy Type Status Severity Reaction(s) Onset Inactive Treating Comments Name Date Date Clinician tramadol Base Active Moderate Nausea and Marie Ingredient vomiting, 04-20 Zuñiga Nausea, [id number] vomiting, diarrhea, rash, hives naproxen Base Active Unknown Reaction Marie Ingredient Unknown 04-20 Zuñiga [id number] latex Base Active Unknown Reaction 2017-04 Lilian [...]
--- OUTSIDE RECORDS SUMMARY | 2019-03-22 11:34 | XMS REPORT ---
:1930 Author Organization [facility] Care Team Providers Name Role Phone Unavailable Unavailable Unavailable Problems Condition Condition Condition Status Onset Resolution Last Treating Comments Name Details Category Date Date Treatment Clinician Date Pain frequent Pain Mgmt Resolve 2018-042019-01-30 Emi pain d 0-22 12:15:00 [place] 09:10: [id number] 00 Respiratory dyspnea Respirator Resolve 2018-042019-01-30 Emi present y d 0-22 12:15:00 [place] 09:10: [id number] 00 Sensory impaired Sensory Resolve 2018-042019-01-30 Emi hearing d 0-22 12:15:00 [place] 09:10: [id number] 00 Integument skin Integument Resolve 2018-042019-01-30 Emi integrity d 0-22 12:15:00 [place] risk 09:10: [id number] 00 Nutrition nutritional Nutrition Resolve 2018-042019-01-30 Emi restriction d 0-22 12:15:00 Radhika s 09:10: [id number] 00 Elimination urinary Eliminatio Resolve 2018-042019-01-30 Emi incontinenc n d 0-22 12:15:00 Radhika e 09:10: [id number] 00 Elimination urinary Eliminatio Resolve 2018-042019-01-30 Emi frequency n d 0-22 12:15:00 [place] 09:10: [id number] 00 Elimination recurring Eliminatio Resolve 2018-042019-01-30 Emi UTI n d 0-22 12:15:00 [place] 09:10: [id number] 00 Neuro confusion Neuro/Emot Resolve 2018-042019-01-30 Emi present ion d 0-22 12:15:00 [place] 09:10: [id number] 00 Neuro impaired Neuro/Emot Resolve 2018-042019-01-30 Emi decision-ma ion d 0-22 12:15:00 [place] gama 09:10: [id number] 00 Neuro memory Neuro/Emot Resolve 2018-042019-01-30 Emi deficit ion d 0-22 12:15:00 [place] needing 09:10: [id number] supervision 00 Activity ADL Activity Resolve 2018-042019-01-30 Emi assistance d 0-22 12:15:00 [place] required 09:10: [id number] 00 Activity self-care Activity Resolve 2018-042019-01-30 Emi deficit d 0-22 12:15:00 [place] 09:10: [id number] 00 Safety fall risk Safety Resolve 2018-042019-01-30 Emi factor d 0-22 12:15:00 [place] present 09:10: [id number] 00 Safety risk for Safety Resolve 2018-042019-01-30 Emi hospitaliza d 0-22 12:15:00 [place] tion 09:10: [id number] 00 Safety can be left Safety Resolve 2018-042019-01-30 Emi alone for d 0-22 12:15:00 [place] only short 09:10: [id number] periods 00 Medication oral med Meds Resolve 2018-042019-01-30 Emi assistance d 0-22 12:15:00 [place] required 09:10: [id number] 00 Medication injectable Meds Resolve 2018-042019-01-30 Emi med d 0-22 12:15:00 [place] assistance 09:10: [id number] required 00 Medication knowledge/s Meds Resolve 2018-042019-01-30 Emi kill d 0-22 12:15:00 [place] deficit: pt 09:10: [id number] 00 Musculoskel transfer Musculoske Resolve 2018-042019-01-30 Emi etal assistance letal d 0-22 12:15:00 [place] required 09:10: [id number] 00 Musculoskel requires Musculoske Resolve 2018-042019-01-30 Emi etal human letal d 0-22 12:15:00 Radhika assist to 09:10: [id number] leave home 00 Elimination diarrhea Eliminatio Resolve 2018-042019-01-30 Lise mauricio d 0-24 12:15:00 [place] 12:15: 00 Safety fall risk Safety Active 2018-04 Lilian Chávez factor 0-29 present 15:34: 06 Safety risk for Safety Active 2018-04 Lilian Chávez hospitaliza 0-29 tion 15:34: 06 Bed mobility/tr PT/OT: Bed Active 2018-04 Yes[place] Mobility/Tr ansfer Mobility/T 04-09 Ward ansfer device ransfer 14:25: [id number] present 00 Bed transfer PT/OT: Bed Active 2018-04 [place] Mobility/Tr deficit: Mobility/T 04-09 Ward ansfer toilet/comm ransfer 14:25: [id number] ode 00 Bed transfer PT/OT: Bed Active 2018-04 [place] Mobility/Tr deficit: Mobility/T 04-09 Ward ansfer shower/tub ransfer 14:25: [id number] 00 Bed knowledge/s PT/OT: Bed Active 2018-04 Yes[place] Mobility/Tr kill Mobility/T 04-09 Awrd ansfer deficit: pt ransfer 14:25: [id number] 00 Bed bed PT/OT: Bed Active 2018-04 Yes[place] Mobility/Tr mobility Mobility/T 04-09 Ward ansfer deficit ransfer 14:25: [id number] 00 Balance/End balance/collection coordinator PT/OT: Active 2018-04 Yes[place] stephensonance rdination Balance/En 04-09 [place] deficit durance 14:25: [id number] 00 Balance/End endurance PT/OT: Active 2018-04 Yesenia urance deficit Balance/En 04-09 [place] durance 14:25: [id number] 00 Balance/End knowledge/s PT/OT: Active 2018-04 Yesenia urance kill Balance/En 04-09 [place] deficit: pt durance 14:25: [id number] 00 Gait/Locomo gait PT/OT: Active 2018-04 Yesenia tion assistive Gait/Locom 04-09 Ward problems device otion 14:25: [id number] present 00 Gait/Locomo gait PT/OT: Active 2018-04 Yesenia tion deficit Gait/Locom 04-09 Ward problems otion 14:25: [id number] 00 Gait/Locomo knowledge/s PT/OT: Active 2018-04 Yesenia tion kill Gait/Locom 04-09 Ward problems deficit: pt otion 14:25: [id number] 00 Allergies, Adverse Reactions, Alerts Allergy Allergy Type Status Severity Reaction(s) Onset Inactive Treating Comments Name Date Date Clinician tramadol Base Active Moderate Nausea and Marie Ingredient vomiting, 04-20 Zuñiga Nausea, [id number] vomiting, diarrhea, rash, hives naproxen Base Active Unknown Reaction Marie Ingredient Unknown 04-20 Zuñiga [id number] latex Base Active Unknown Reaction 2017-04 Lilian White Ingredient Unknown Medications Ordered Filled Start Stop Current Ordering Indication Dosage Frequency Signature Comments Components Medication Medication Date Date Medication? Clinician (SIG) Name Name pantoprazol pantoprazol No tab Unknown e 40 mg e 40 mg Rosalba GRANADOS tablet,pamela tablet,pamela yed release yed release multivitami multivitami No tab Unknown n with n with Rosalba GRANADOS minerals minerals tablet tablet cholecalcif cholecalcif No tab Unknown malinda malinda Rosalba GRANADOS (vitamin (vitamin D3) 1,000 D3) 1,000 unit (25 unit (25 mcg) tablet mcg) tablet atenolol 50 atenolol 50 No 1 tab Unknown mg-chlortha mg-chlortha Rosalba GRANADOS lidone 25 lidone 25 mg tablet mg tablet HYDROcodone HYDROcodone No -2 Unknown 5 5 Rosalba GRANADOSs mg-acetamin mg-acetamin ophen 325 ophen 325 mg tablet mg tablet magnesium magnesium No Unknown Unknown 500 mg 500 mg Rosalba GRANADOS tablet tablet atenolol 50 atenolol 50 No Unknown Unknown mg tablet mg tablet Rosalba GRANADOS acetaminoph acetaminoph No Unknown Unknown en 325 mg en 325 mg Rosalba GRANADOS capsule capsule HYDROcodone HYDROcodone No son Unknown Unknown 7.5 7.5 Rosalba GRANADOS mg-acetamin mg-acetamin ophen 325 ophen 325 mg tablet mg tablet simvastatin simvastatin No Unknown Unknown 10 mg 10 mg Rosalba GRANADOS tablet tablet acetaminoph acetaminoph 2018-04 Yes [place] Unknown Unknown en 500 mg en 500 mg 0-22 Matt GRANADOS tablet tablet ra Vitamin D3 Vitamin D3 2018-04 Yes [place] Unknown Unknown 1,000 unit 1,000 unit 0-22 Matt GRANADOS capsule capsule ra atenolol 50 atenolol 50 2018-04 Yes [place] Unknown Unknown mg tablet mg tablet 0-22 MD,Mirnaluisana ra Natural Natural 2018-04 Yes [place] Unknown Unknown Balance Balance 0-22 Matt GRANADOS Tears 0.1 Tears 0.1 ra %-0.3 % eye %-0.3 % eye drops drops HYDROcodone HYDROcodone 2018-04 Yes [place] Unknown Unknown 7.5 7.5 0-22 Matt GRANADOS mg-acetamin mg-acetamin ra ophen 325 ophen 325 mg tablet mg tablet simvastatin simvastatin 2018-04 Yes [place] Unknown Unknown 10 mg 10 mg 0-22 Matt GRANADOS tablet tablet ra melatonin 2 [...]
--- OUTSIDE RECORDS SUMMARY | 2019-03-22 11:34 | XMS REPORT ---
:1930 Author Organization [facility] Care Team Providers Name Role Phone Unavailable Unavailable Unavailable Problems Condition Condition Condition Status Onset Resolution Last Treating Comments Name Details Category Date Date Treatment Clinician Date Pain frequent Pain Mgmt Resolve 2018-042019-01-30 Emi pain d 0-22 12:15:00 [place] 09:10: [id number] 00 Respiratory dyspnea Respirator Resolve 2018-042019-01-30 Emi present y d 0-22 12:15:00 [place] 09:10: [id number] 00 Sensory impaired Sensory Resolve 2018-042019-01-30 Emi hearing d 0-22 12:15:00 [place] 09:10: [id number] 00 Integument skin Integument Resolve 2018-042019-01-30 Emi integrity d 0-22 12:15:00 [place] risk 09:10: [id number] 00 Nutrition nutritional Nutrition Resolve 2018-042019-01-30 Emi restriction d 0-22 12:15:00 Radhika s 09:10: [id number] 00 Elimination urinary Eliminatio Resolve 2018-042019-01-30 Emi incontinenc n d 0-22 12:15:00 Radhika e 09:10: [id number] 00 Elimination urinary Eliminatio Resolve 2018-042019-01-30 Emi frequency n d 0-22 12:15:00 [place] 09:10: [id number] 00 Elimination recurring Eliminatio Resolve 2018-042019-01-30 Emi UTI n d 0-22 12:15:00 [place] 09:10: [id number] 00 Neuro confusion Neuro/Emot Resolve 2018-042019-01-30 Emi present ion d 0-22 12:15:00 [place] 09:10: [id number] 00 Neuro impaired Neuro/Emot Resolve 2018-042019-01-30 Emi decision-ma ion d 0-22 12:15:00 [place] gama 09:10: [id number] 00 Neuro memory Neuro/Emot Resolve 2018-042019-01-30 Emi deficit ion d 0-22 12:15:00 [place] needing 09:10: [id number] supervision 00 Activity ADL Activity Resolve 2018-042019-01-30 Emi assistance d 0-22 12:15:00 [place] required 09:10: [id number] 00 Activity self-care Activity Resolve 2018-042019-01-30 Emi deficit d 0-22 12:15:00 [place] 09:10: [id number] 00 Safety fall risk Safety Resolve 2018-042019-01-30 Emi factor d 0-22 12:15:00 [place] present 09:10: [id number] 00 Safety risk for Safety Resolve 2018-042019-01-30 Emi hospitaliza d 0-22 12:15:00 [place] tion 09:10: [id number] 00 Safety can be left Safety Resolve 2018-042019-01-30 Emi alone for d 0-22 12:15:00 [place] only short 09:10: [id number] periods 00 Medication oral med Meds Resolve 2018-042019-01-30 Emi assistance d 0-22 12:15:00 [place] required 09:10: [id number] 00 Medication injectable Meds Resolve 2018-042019-01-30 Emi med d 0-22 12:15:00 [place] assistance 09:10: [id number] required 00 Medication knowledge/s Meds Resolve 2018-042019-01-30 Emi kill d 0-22 12:15:00 [place] deficit: pt 09:10: [id number] 00 Musculoskel transfer Musculoske Resolve 2018-042019-01-30 Emi etal assistance letal d 0-22 12:15:00 [place] required 09:10: [id number] 00 Musculoskel requires Musculoske Resolve 2018-042019-01-30 Emi etal human letal d 0-22 12:15:00 Radhika assist to 09:10: [id number] leave home 00 Elimination diarrhea Eliminatio Resolve 2018-042019-01-30 Lise mauricio d 0-24 12:15:00 [place] 12:15: 00 Safety fall risk Safety Active 2018-04 Lilian Chávez factor 0-29 present 15:34: 06 Safety risk for Safety Active 2018-04 Lilian Chávez hospitaliza 0-29 tion 15:34: 06 Bed mobility/tr PT/OT: Bed Active 2018-04 Yes[place] Mobility/Tr ansfer Mobility/T 04-09 Ward ansfer device ransfer 14:25: [id number] present 00 Bed transfer PT/OT: Bed Active 2018-04 [place] Mobility/Tr deficit: Mobility/T 04-09 Ward ansfer toilet/comm ransfer 14:25: [id number] ode 00 Bed transfer PT/OT: Bed Active 2018-04 Yes[place] Mobility/Tr deficit: Mobility/T 04-09 Ward ansfer shower/tub ransfer 14:25: [id number] 00 Bed knowledge/s PT/OT: Bed Active 2018-04 Yes[place] Mobility/Tr kill Mobility/T 04-09 Ward ansfer deficit: pt ransfer 14:25: [id number] 00 Bed bed PT/OT: Bed Active 2018-04 Yesenia Mobility/Tr mobility Mobility/T 04-09 Ward ansfer deficit ransfer 14:25: [id number] 00 Balance/End balance/cooker soda PT/OT: Active 2018-04 Yesenia stephensonance rdination Balance/En 04-09 Ward deficit durance 14:25: [id number] 00 Balance/End endurance PT/OT: Active 2018-04 Yesenia urance deficit Balance/En 04-09 Ward durance 14:25: [id number] 00 Balance/End knowledge/s PT/OT: Active 2018-04 Yesenia urance kill Balance/En 04-09 Ward deficit: pt durance 14:25: [id number] 00 Gait/Locomo gait PT/OT: Active 2018-04 Yesenia tion assistive Gait/Locom 04-09 Ward problems device otion 14:25: [id number] present 00 Gait/Locomo gait PT/OT: Active 2018-04 Yesenia tion deficit Gait/Locom 04-09 Ward problems otion 14:25: [id number] 00 Gait/Locomo knowledge/s PT/OT: Active 2018-04 Yesenia tion kill Gait/Locom 04-09 Ward problems deficit: pt otion 14:25: [id number] 00 Allergies, Adverse Reactions, Alerts Allergy Allergy Type Status Severity Reaction(s) Onset Inactive Treating Comments Name Date Date Clinician tramadol Base Active Moderate Nausea and Marie Ingredient vomiting, 04-20 Zuñiga Nausea, [id number] vomiting, diarrhea, rash, hives naproxen Base Active Unknown Reaction Marie Ingredient Unknown 04-20 Zuñiga [id number] latex Base Active Unknown Reaction 2017-04 Lilian [...] mg tablet mg tablet 0-22 MD,Matt ra Natural Natural 2018-04 Yes [place] Unknown [...] Unknown Unknown mg tablet mg tablet 0-22 MDMatt ra Vital Signs Vital Name Observation Time Observation Value Comments SYSTOLIC mm[Hg] 2019-02-19 18:08:50 140 mm[Hg] mm[Hg] Method: Sit SYSTOLIC mm[Hg] 2019-01-28 18:08:28 146 mm[Hg] mm[Hg] Method: Stand DIASTOLIC mm[Hg] 2019-02-19 18:08:50 70 mm[Hg] mm[Hg] Method: Sit DIASTOLIC mm[Hg] 2019-01-28 18:08:28 70 mm[Hg] mm[Hg] Method: Stand PULSE 2019-02-19 18:08:50 52 /min /min RESP RATE 2019-01-30 18:08:30 18 /min /min TEMP 2019-02-19 18:08:50 98.0 [degF] Procedures This patient has no known procedures. Results This patient has no known results.
--- OUTSIDE RECORDS SUMMARY | 2019-03-22 11:34 | XMS REPORT | Continuity of Care Document ---
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 Inactive Problems Benign essential hypertension Onset: 12/06/2018 Inactive: 12/06/2018 Anemia Onset: 12/06/2018 Inactive: 12/06/2018 Urinary tract infectious disease Onset: 11/06/2018 Inactive: 11/06/2018 Urinary incontinence Onset: 11/06/2018 Inactive: 11/06/2018 Malaise and fatigue Onset: 11/06/2018 Inactive: 11/06/2018 Increased frequency of urination Onset: 10/11/2018 Inactive: 10/11/2018 Dyssomnia Onset: 09/17/2018 Inactive: 09/17/2018 Social History Type Date Description Comments Sex Unknown Allergies, Adverse Reactions, Alerts Active Allergies Reaction Severity Comments Date Naprosyn No Reaction Indicated 12/13/2018 Tramadol Hydrochloride urticaria 12/13/2018 Medications Active Medications SIG Qnty Indications Ordering Date Provider Nitrofurantoin take 1 tab PO bid 100caps R39.15 NGOZI Mcintosh 02/13/2019 Monohydrate/Macrocrys for 5 days tals 100mg Capsules Simvastatin one tab once daily 90tabs Sara 01/20/2019 10mg Karnow, DO Tablets Hydrocodone 1 every 8 hours 90tabs Sara 12/10/2018 Bitartrate/Acetaminop oral as needed Karnow, DO hen 7.5-325mg Tablets Atenolol 1 daily Oral 90tabs Unknown 09/17/2018 50mg Tablets Shingrix 1 now 1units Unknown 09/17/2018 50mcg/0.5ML Intramuscular; Suspension Rec Repeat in 2 weeks Acetaminophen ER 1-2 every 6 hours 240tabs Unknown 06/22/2017 650mg prn Oral Tablets ER Depend Underwear For N/A; as directed 68units Unknown 02/14/2015 Wom Men X-Large Give 4 Bags XL Moderate Absorbency Misc Reclast 100 ML Annually 100units Unknown 10/10/2014 5mg/100ML Intravenous Solution Vitamin D 1 tab by mouth Unknown (Cholecalciferol) every day 1000Unit Capsules Vitamin B-12 1 ml subq once Unknown monthly 1000mcg/15ML Liquid History Medications Macrobid 1 twice daily Oral 20caps Unknown 11/10/2018 - 11/20/2018 100mg Capsules Sulfamethoxazole/Trimetho 1 twice each day 10tabs Unknown 10/14/2018 - 10/19/2018 prim DS Oral 800-160mg Tablets Shingrix 1 now Unknown 09/17/2018 - 09/17/2018 50mcg/0.5ML Suspension Intramuscular; Rec Repeat in 2 weeks Hydrocodone 1 every 8 hours prn 90tabs Unknown 09/13/2018 - 12/10/2018 Bitartrate/Acetaminophen Oral 7.5-325mg Tablets Immunizations CPT Code Status Date Vaccine Lot # [id number] Given 12/27/2018 Flu High Dose [id number] 25102 Given 12/11/2017 Influenza Virus Vaccine, Quadrivalent, Split, Im Use 0.25ML 48103 Given 12/11/2017 Influenza Virus Vaccine, Quadrivalent, Split, Im Use 0.25ML 71441 Given 12/11/2017 Influenza Virus Vaccine, Quadrivalent, Split, Im Use 0.25ML 53872 Given 12/11/2017 Flu < 65 years 18497 Given 12/11/2017 Influenza Virus Vaccine, Quadrivalent, Split, Preservative Free 35114 Given 12/11/2017 Flumist 42853 Given 12/11/2017 Flu High Dose 75127 Given 12/11/2017 Influenza Virus Vaccine, Split, Preserv Free, Intradermal Use 68058 Given 11/15/2016 Influenza Virus Vaccine, Split, Preserv Free, Intradermal Use 55285 Given 11/15/2016 Flu High Dose 18019 Given 11/15/2016 Flumist 11970 Given 11/15/2016 Influenza Virus Vaccine, Quadrivalent, Split, Preservative Free 52033 Given 11/15/2016 Flu < 65 years 16324 Given 11/15/2016 Influenza Virus Vaccine, Quadrivalent, Split, Im Use 0.25ML 94764 Given 11/15/2016 Influenza Virus Vaccine, Quadrivalent, Split, Im Use 0.25ML 45908 Given 11/15/2016 Influenza Virus Vaccine, Quadrivalent, Split, Im Use 0.25ML 40051 Given 12/09/2015 Influenza Virus Vaccine, Split, Preserv Free, Intradermal Use 25689 Given 12/09/2015 Flu High Dose 52035 Given 12/09/2015 Flumist 69990 Given 12/09/2015 Influenza Virus Vaccine, Quadrivalent, Split, Preservative Free 55688 Given 12/09/2015 Flu < 65 years 95626 Given 12/09/2015 Influenza Virus Vaccine, Quadrivalent, Split, Im Use 0.25ML 09901 Given 12/09/2015 Influenza Virus Vaccine, Quadrivalent, Split, Im Use 0.25ML 87948 Given 12/09/2015 Influenza Virus Vaccine, Quadrivalent, Split, Im Use 0.25ML 83325 Given 12/22/2014 Influenza Virus Vaccine, Quadrivalent, Split, Im Use 0.25ML 56646 Given 12/22/2014 Influenza Virus Vaccine, Quadrivalent, Split, Im Use 0.25ML 23680 Given 12/22/2014 Influenza Virus Vaccine, Quadrivalent, Split, Im Use 0.25ML 32930 Given 12/22/2014 Flu < 65 years 61455 Given 12/22/2014 Influenza Virus Vaccine, Quadrivalent, Split, Preservative Free 30422 Given 12/22/2014 Flumist 48697 Given 12/22/2014 Flu High Dose 18781 Given 12/03/2014 Flu High Dose 56394 Given 12/03/2014 Prevnar 13 29902 Given 12/03/2014 Flumist 53148 Given 12/03/2014 Influenza Virus Vaccine, Quadrivalent, Split, Preservative Free 97010 Given 12/03/2014 Flu < 65 years 86333 Given 12/03/2014 Influenza Virus Vaccine, Quadrivalent, Split, Im Use 0.25ML 12236 Given 12/03/2014 Influenza Virus Vaccine, Quadrivalent, Split, Im Use 0.25ML 29308 Given 12/03/2014 Influenza Virus Vaccine, Quadrivalent, Split, Im Use 0.25ML 56894 Given 11/27/2013 Influenza Virus Vaccine, Quadrivalent, Split, Im Use 0.25ML 50194 Given 11/27/2013 Influenza Virus Vaccine, Quadrivalent, Split, Im Use 0.25ML 07335 Given 11/27/2013 Influenza Virus Vaccine, Quadrivalent, Split, Im Use 0.25ML 63285 Given 11/27/2013 Flu < 65 years 15171 Given 11/27/2013 Influenza Virus Vaccine, Quadrivalent, Split, Preservative Free 12300 Given 11/27/2013 Flumist 97405 Given 11/27/2013 Flu High Dose 78192 Given 12/19/2012 Flu High Dose 58613 Given 12/19/2012 Flumist 34998 Given 12/19/2012 Influenza Virus Vaccine, Quadrivalent, Split, Preservative Free 19087 Given 12/19/2012 Flu < 65 years 98324 Given 12/19/2012 Influenza Virus Vaccine, Quadrivalent, Split, Im Use 0.25ML 84214 Given 12/19/2012 Influenza Virus Vaccine, Quadrivalent, Split, Im Use 0.25ML 04004 Given 12/19/2012 Influenza Virus Vaccine, Quadrivalent, Split, Im Use 0.25ML 05627 Given 12/20/2011 Influenza Virus Vaccine, Quadrivalent, Split, Im Use 0.25ML 22317 Given 12/20/2011 Influenza Virus Vaccine, Quadrivalent, Split, Im Use 0.25ML 99304 Given 12/20/2011 Influenza Virus Vaccine, Quadrivalent, Split, Im Use 0.25ML 98489 Given 12/20/2011 Flu < 65 years 41685 Given 12/20/2011 Influenza Virus Vaccine, Quadrivalent, Split, Preservative Free 14957 Given 12/20/2011 Flumist 88356 Given 12/20/2011 Flu High Dose 93912 Given 12/23/2010 Influenza Virus Vaccine, Quadrivalent, Split, Im Use 0.25ML 97353 Given 12/23/2010 Influenza Virus Vaccine, Quadrivalent, Split, Im Use 0.25ML 50045 Given 12/23/2010 Influenza Virus Vaccine, Quadrivalent, Split, Im Use 0.25ML 67177 Given 12/23/2010 Flu High Dose 56183 Given 10/12/2009 Pneumovax - for >=2years - [id number] Vital Signs Date Vital Result Comment 02/13/2019 11:06am BP Systolic 142 mmHg BP Diastolic 86 mmHg Heart Rate 80 /min Body Temperature 98.6 F O2 % BldC Oximetry 98 % 01/20/2019 1:14pm BP Systolic 138 mmHg BP Diastolic 58 mmHg Weight 206.00 lb Heart Rate 65 /min Body Temperature 98.7 F O2 % BldC Oximetry 97 % Results Test Acquired Date Facility Test Result H/L Range Note Urine Culture And 02/13/2019 [facility] Urine Culture SEE RESULT [address] [place] [address] [phone] CFM Urinalysis 02/13/2019 [facility] Urine 1.015 ( )- - Specific [place] Ua PH Test Strip 7.5 Ua WBC Small Ua Protein Neg Urine Glucose QL Neg Urine Ketones QL Test Strip Neg Urine Bilirubin TTL QL T-Strip Neg Urine Urobilinogen QN TS 0.2 E.U./dL Urine Nitrite QL TS Neg Ua Occult Blood Neg CBC Auto 12/29/2018 [facility] White Blood 15.9 10^3/uL High 3.5-10.[address] [place] [address] [phone] Red Blood Count 3.96 10^6/uL Normal 3.70-4.87 Hemoglobin 11.7 g/dL Low 12.0-16.0 Hematocrit 35 % Normal 35-47 Mean Corpuscular Volume 89 fL Normal 80-97 Mean Corpuscular Hemoglobin 30 pg Normal 27-31 Mean Corpuscular HGB Conc 33 g/dL Normal 31-36 Red Cell Distribution Width 14 % Normal 10-15 Platelet Count 275 10^3/uL Normal 150-450 Mean Platelet Volume 7.9 fL Normal 7.4-10.4 Abs Neutrophils 14.0 10^3/uL High 1.5-7.7 Abs Lymphocytes 0.8 10^3/uL Low 1.0-4.8 Abs Monocytes 1.1 10^3/uL High 0-0.8 Abs Eosinophils 0.0 10^3/uL Normal 0-0.6 Abs Basophils 0.0 10^3/uL Normal 0-0.2 Abs Nucleated RBC 0.0 10^3/uL Granulocyte % 88.0 % Lymphocyte % 4.9 % Monocyte % 7.0 % Eosinophil % 0.0 % Basophil % 0.1 % Nucleated Red Blood Cells % 0.0 Comp Metabolic 12/29/2018 [facility] Sodium 140 mmol/L Normal 135-145 Panel [address] [place] [address] [phone] Potassium 3.8 mmol/L Normal 3.5-5.0 Chloride 105 mmol/L Normal 101-111 Co2 Carbon Dioxide 25 mmol/L Normal 22-32 Anion Gap 10 mmol/L Normal 2-11 Glucose 135 mg/dL High 70-100 Blood Urea Nitrogen 19 mg/dL Normal 6-24 Creatinine 0.91 mg/dL Normal 0.51-0.95 BUN/Creatinine Ratio 20.9 High 8-20 Calcium 9.4 mg/dL Normal 8.6-10.3 Total Protein 7.0 g/dL Normal 6.4-8.9 Albumin 3.9 g/dL Normal 3.2-5.2 Globulin 3.1 g/dL Normal 2-4 Albumin/Globulin Ratio 1.3 Normal 1-3 Total Bilirubin 0.50 mg/dL Normal 0.2-1.0 Alkaline Phosphatase 56 U/L Normal 34-104 Alt 11 U/L Normal 7-52 Ast 26 U/L Normal 13-39 Egfr Non- 58.5 >60 Egfr 70.8 >60 2 Laboratory test 12/29/2018 [facility] Magnesium 1.3 mg/dL Low 1.9-2.7 finding [address] [place] [address] [phone] Urinalysis 12/29/2018 [facility] Urine Color Yellow Profile [address] [place] [address] [phone] Urine Appearance Cloudy Urine Specific [place] 1.020 Normal 1.010-1.030 Urine pH 5.0 Normal 5-9 Urine Urobilinogen Negative Negative Urine Ketones 1+ Abnormal Negative Urine Protein 2+(100 mg/dL) Abnormal Negative Urine Leukocytes Trace Abnormal Negative Urine Blood 3+ Abnormal Negative Urine Nitrite Positive Abnormal Negative Urine Bilirubin Negative Negative Urine Glucose Negative Negative Urine White Blood Cell 2+(11-20/hpf) Abnormal Absent Urine Red Blood Cell 2+(6-10/hpf) Abnormal Absent Urine Bacteria 1+ Abnormal Absent Urine Squamous Epithelial Cell Present Abnormal Absent Laboratory test 12/29/2018 [facility] Creatine 771 U/L High 10 -[address] [place] [address] [phone] Urine Culture 12/29/2018 [facility] Urine Culture SEE RESULT [address] [place] [address] [phone] Order 12/27/2018 [facility] <pending> Therapy Evaluate And Treat Occult Blood 12/16/2018 [facility] Z#Other Negative Stool Fit Screen ( )- - Observations Occult Blood 12/16/2018 [facility] Z#Other negative Stool Fit Screen ( )- - Observations Laboratory test 12/16/2018 [facility] CF Fit Cards negative finding ( )- - Bilirubin Total 12/03/2018 N2N/CCD Import Bilirubin 0.40 mg/dL 0.2-1.0 Total mg/dL Bilirubin-Ua 12/03/2018 N2N/CCD Import Bilirubin-Ua Negative Negative Blood-Ua 12/03/2018 N2N/CCD Import Blood-Ua Negative Negative BUN 12/03/2018 N2N/CCD Import BUN 19 mg/dL 6-24 mg/dL BUN/Creat Ratio 12/03/2018 N2N/CCD Import BUN/Creat 20.7 _ High 8-20 Ratio Calcium 12/03/2018 N2N/CCD Import Calcium 8.8 mg/dL 8.6-10.3 mg/dL Chloride 12/03/2018 N2N/CCD Import Chloride 108 mmol/L 101-111 mmol/L Co2 12/03/2018 N2N/CCD Import Co2 27 mmol/L 22-32 mmol/L Color-Ua 12/03/2018 N2N/CCD Import Color-Ua Yellow Creatinine 12/03/2018 N2N/CCD Import Creatinine 0.92 mg/dL 0.51-0.95 mg/dL CRP 12/03/2018 N2N/CCD Import CRP 11.98 mg/L High <8.01 mg/L GFR Afr Amer 12/03/2018 N2N/CCD Import GFR Afr Amer 69.9 _ >60 GFR Non Afr Amer 12/03/2018 N2N/CCD Import GFR Non Afr 57.7 _ >60 Amer Globulin 12/03/2018 N2N/CCD Import Globulin 2.5 g/dL 2-4 g/dL Glucose 12/03/2018 N2N/CCD Import Glucose 87 mg/dL 70-100 mg/dL Glucose-Ua 12/03/2018 N2N/CCD Import Glucose-Ua Negative Negative Ketones-Ua 12/03/2018 N2N/CCD Import Ketones-Ua Negative Negative Lactic Acid 12/03/2018 N2N/CCD Import Lactic Acid 0.9 mmol/L 0.5-2.0 mmol/L Leuk Est-Ua 12/03/2018 N2N/CCD Import Leuk Est-Ua Negative Negative Lipase 12/03/2018 N2N/CCD Import Lipase 15 U/L 11.0-82.0 U/L Nitrite-Ua 12/03/2018 N2N/CCD Import Nitrite-Ua Negative Negative PH-Ua 12/03/2018 N2N/CCD Import PH-Ua 8.0 _ 5-9 Potassium 12/03/2018 N2N/CCD Import Potassium 4.6 mmol/L 3.5-5.0 mmol/L Protein, Total 12/03/2018 N2N/CCD Import Protein, Total 6.1 g/dL Low 6.4- 8.9 g/dL Protein-Ua 12/03/2018 N2N/CCD Import Protein-Ua Negative Negative Sodium 12/03/2018 N2N/CCD Import Sodium 140 mmol/L 135-145 mmol/L SP Grav-Ua 12/03/2018 N2N/CCD Import SP Grav-Ua 1.013 _ 1.010-1.03 0 Urobilinogen-Ua 12/03/2018 N2N/CCD Import Urobilinogen-U Negative Negative a Baso# 12/03/2018 N2N/CCD Import Baso# 0.0 0-0.2 10 10_3/ul 3/ul Baso% 12/03/2018 N2N/CCD Import Baso% 0.5 % 0 - 2 % Eosin# 12/03/2018 N2N/CCD Import Eosin# 0.2 0-0.6 10 10_3/ul 3/ul Eosin% 12/03/2018 N2N/CCD Import Eosin% 1.9 % 0 - 5 % Hematocrit 12/03/2018 N2N/CCD Import Hematocrit 31 % Low 35-47 % Hemoglobin 12/03/2018 N2N/CCD Import Hemoglobin 10.4 g/dL Low 12.0-16.0 g/dL Lymph# 12/03/2018 N2N/CCD Import Lymph# 2.0 1.0-4.8 10 10_3/ul 3/ul Lymph% 12/03/2018 N2N/CCD Import Lymph% 23.7 % 20 - 45 % MCH 12/03/2018 N2N/CCD Import MCH 30 pg 27-31 pg MCHC 12/03/2018 N2N/CCD Import MCHC 34 g/dL 31-36 g/dL MCV 12/03/2018 N2N/CCD Import MCV 90 fL 80-97 fL Preble# 12/03/2018 N2N/CCD Import Preble# 0.8 0-0.8 10 10_3/ul 3/ul Preble% 12/03/2018 N2N/CCD Import Preble% 10.2 % High 0 - 10 % MPV 12/03/2018 N2N/CCD Import MPV 7.6 fL 7.4-10.4 fL Ast 12/03/2018 N2N/CCD Import Ast 15 U/L 13-39 U/L Appear-Ua 12/03/2018 N2N/CCD Import Appear-Ua Clear Anion Gap 12/03/2018 N2N/CCD Import Anion Gap 5 mmol/L 2-11 mmol/L Alt 12/03/2018 N2N/CCD Import Alt 7 U/L 7-52 U/L Alk Phos 12/03/2018 N2N/CCD Import Alk Phos 63 U/L 34-104 U/L Albumin 12/03/2018 N2N/CCD Import Albumin 3.6 g/dL 3.2-5.2 g/dL A/G Ratio 12/03/2018 N2N/CCD Import A/G Ratio 1.4 _ 1-3 Neut# 12/03/2018 N2N/CCD Import Neut# 5.3 1.5-7.7 10 10_3/ul 3/ul Neut% 12/03/2018 N2N/CCD Import Neut% 63.7 % 45 - 70 % NRBC# 12/03/2018 N2N/CCD Import NRBC# 0.0 10_3/ul NRBC% 12/03/2018 N2N/CCD Import NRBC% 0.1 _ WBC 12/03/2018 N2N/CCD Import WBC 8.3 3.5-10.8 10_3/uL 10 3/uL RDW 12/03/2018 N2N/CCD Import RDW 14 % 10-15 % Platelets 12/03/2018 N2N/CCD Import Platelets 223 150-450 10 10_3/uL 3/uL RBC 12/03/2018 N2N/CCD Import RBC 3.41 Low 3.70-4.87 10_6_/uL 10 6 /uL Lymph# 11/12/2018 N2N/CCD Import Lymph# 1.9 1.0-4.8 10 10_3/ul 3/ul Lymph% 11/12/2018 N2N/CCD Import Lymph% 26.5 % 20 - 45 % MCH 11/12/2018 N2N/CCD Import MCH 31 pg 27-31 pg MCHC 11/12/2018 N2N/CCD Import MCHC 35 g/dL 31-36 g/dL MCV 11/12/2018 N2N/CCD Import MCV 88 fL 80-97 fL Preble# 11/12/2018 N2N/CCD Import Preble# 0.7 0-0.8 10 10_3/ul 3/ul Preble% 11/12/2018 N2N/CCD Import Preble% 8.9 % 0 - 10 % MPV 11/12/2018 N2N/CCD Import MPV 8.3 fL 7.4-10.4 fL Neut# 11/12/2018 N2N/CCD Import Neut# 4.5 1.5-7.7 10 10_3/ul 3/ul Neut% 11/12/2018 N2N/CCD Import Neut% 61.4 % 45 - 70 % NRBC# 11/12/2018 N2N/CCD Import NRBC# 0.0 10_3/ul NRBC% 11/12/2018 N2N/CCD Import NRBC% 0.0 _ Platelets 11/12/2018 N2N/CCD Import Platelets 245 150-450 10 10_3/uL 3/uL Potassium 11/12/2018 N2N/CCD Import Potassium 4.5 mmol/L 3.5-5.0 mmol/L Protein, Total 11/12/2018 N2N/CCD Import Protein, Total 6.2 g/dL Low 6.4- 8.9 g/dL RBC 11/12/2018 N2N/CCD Import RBC 3.53 Low 3.70-4.87 10_6_/uL 10 6 /uL RDW 11/12/2018 N2N/CCD Import RDW 14 % 10-15 % Sodium 11/12/2018 N2N/CCD Import Sodium 139 mmol/L 135-145 mmol/L TSH 11/12/2018 N2N/CCD Import TSH 1.93 0.34-5.60 mcIU/mL mcIU/mL Vitamin B12 11/12/2018 N2N/CCD Import Vitamin B12 693 pg/mL 180-914 pg/mL WBC 11/12/2018 N2N/CCD Import WBC 7.3 3.5-10.8 10_3/uL 10 3/uL A/G Ratio 11/12/2018 N2N/CCD Import A/G Ratio 1.4 _ 1-3 Albumin 11/12/2018 N2N/CCD Import Albumin 3.6 g/dL 3.2-5.2 g/dL Alk Phos 11/12/2018 N2N/CCD Import Alk Phos 55 U/L 34-104 U/L Alt 11/12/2018 N2N/CCD Import Alt 6 U/L Low 7-52 U/L Anion Gap 11/12/2018 N2N/CCD Import Anion Gap 6 mmol/L 2-11 mmol/L Ast 11/12/2018 N2N/CCD Import Ast 14 U/L 13-39 U/L Baso# 11/12/2018 N2N/CCD Import Baso# 0.0 0-0.2 10 10_3/ul 3/ul Baso% 11/12/2018 N2N/CCD Import Baso% 0.5 % 0 - 2 % Bilirubin Total 11/12/2018 N2N/CCD Import Bilirubin 0.30 mg/dL 0.2-1.0 Total mg/dL BUN 11/12/2018 N2N/CCD Import BUN 20 mg/dL 6-24 mg/dL BUN/Creat Ratio 11/12/2018 N2N/CCD Import BUN/Creat 20.2 _ High 8-20 Ratio Hemoglobin 11/12/2018 N2N/CCD Import Hemoglobin 10.8 g/dL Low 12.0-16.0 g/dL Hematocrit 11/12/2018 N2N/CCD Import Hematocrit 31 % Low 35-47 % Glucose 11/12/2018 N2N/CCD Import Glucose 90 mg/dL 70-100 mg/dL Globulin 11/12/2018 N2N/CCD Import Globulin 2.6 g/dL 2-4 g/dL GFR Non Afr Amer 11/12/2018 N2N/CCD Import GFR Non Afr 53.1 _ >60 Amer GFR Afr Amer 11/12/2018 N2N/CCD Import GFR Afr Amer 64.2 _ >60 Calcium 11/12/2018 N2N/CCD Import Calcium 8.8 mg/dL 8.6-10.3 mg/dL Chloride 11/12/2018 N2N/CCD Import Chloride 109 mmol/L 101-111 mmol/L Co2 11/12/2018 N2N/CCD Import Co2 24 mmol/L 22-32 mmol/L Eosin% 11/12/2018 N2N/CCD Import Eosin% 2.7 % 0 - 5 % Eosin# 11/12/2018 N2N/CCD Import Eosin# 0.2 0-0.6 10 10_3/ul 3/ul Creatinine 11/12/2018 N2N/CCD Import Creatinine 0.99 mg/dL High 0.51- 0.95 mg/dL Glucose-Ua 11/06/2018 N2N/CCD Import Glucose-Ua Negative Negative - Negative Qual Protein-Ua 11/06/2018 N2N/CCD Import Protein-Ua Negative Urobilinogen-Ua 11/06/2018 N2N/CCD Import Urobilinogen-U neg Negative - a Negative PH-Ua 11/06/2018 N2N/CCD Import PH-Ua 5.5 _ 5 - 7 SP Grav-Ua 11/06/2018 N2N/CCD Import SP Grav-Ua 1.020 _ 1.003 - 1.030 Ketones-Ua 11/06/2018 N2N/CCD Import Ketones-Ua Negative Negative - Negative Qual Leuk Est-Ua 11/06/2018 N2N/CCD Import Leuk Est-Ua TR High Negative - Negative Qual Bilirubin-Ua 11/06/2018 N2N/CCD Import Bilirubin-Ua Negative Negative - Negative Qual Blood-Ua 11/06/2018 N2N/CCD Import Blood-Ua TR High Negative - Negative Qual Nitrite-Ua 11/06/2018 N2N/CCD Import Nitrite-Ua Negative Negative - Negative Qual Leuk Est-Ua 10/11/2018 N2N/CCD Import Leuk Est-Ua TR High Negative - Negative Qual Nitrite-Ua 10/11/2018 N2N/CCD Import Nitrite-Ua Negative Negative - Negative Qual PH-Ua 10/11/2018 N2N/CCD Import PH-Ua 7.0 _ 5 - 7 Protein-Ua 10/11/2018 N2N/CCD Import Protein-Ua Negative SP Grav-Ua 10/11/2018 N2N/CCD Import SP Grav-Ua 1.015 _ 1.003 - 1.030 Urobilinogen-Ua 10/11/2018 N2N/CCD Import Urobilinogen-U neg Negative - a Negative Bilirubin-Ua 10/11/2018 N2N/CCD Import Bilirubin-Ua Negative Negative - Negative Qual Blood-Ua 10/11/2018 N2N/CCD Import Blood-Ua Negative Negative - Negative Qual Glucose-Ua 10/11/2018 N2N/CCD Import Glucose-Ua Negative Negative - Negative Qual Ketones-Ua 10/11/2018 N2N/CCD Import Ketones-Ua Negative Negative - Negative Qual 1 SEE RESULT BELOW Name: JOSEF JOSEPH : [address]: Chula Galvez NP Acct: [id number] Unit: [id number] AGE: 88 Location: [facility] Re02/13/19 SEX: F Status: REG REF SPEC: [id number] DESIREE: 02/13/19-[address]: Chula Galvez NP REQ: [id number] RECD: 02/13/199490 STATUS:COMP _ SOURCE: URINE [facility]: ORDERED: Urine Culture COMMENTS: [id number] Urine Source: Random Procedure Result Reported Site Urine Culture Final 02/15/19- 0842 ML Organism 1 ESBL ESCHERICHIA COLI [place] Count >100,000 (Many) CFU/ML Consistent with previous results. This isolate is an Extended Spectrum Beta-Lactamase Gravure Press Operator (ESBL) strain, and as such is considered resistant for all penicillins, cephalosporins and aztreonam. 1. ESBL ESCHERICHIA COLI M.I.C. RX --------- ------ Ampicillin >=32 R Cefazolin >=64 R Cefepime R Ceftriaxone >=64 R Ciprofloxacin >=4 R Gentamicin <=1 S Levofloxacin >=8 R Meropenem <=0.25 S Nitrofurantoin <=16 S Tetracycline >=16 R Pipercillin/Tazobactam <=4 S Trimethoprim/Sulfamethoxazole >=320 R Amoxicillin/Clavulanic Acid 4 S Aztreonam R CONTINUED ON NEXT PAGE DEPARTMENT OF PATHOLOGY, [address] [place] [address] Dominik Herrera M.D. Director [facility] # [id number] Patient: JOSEF JOSEPH [id number] (Continued) Specimen: [id number] Collected: 02/13/19 Received: 02/13/19 (Continued) Procedure Result Reported Site Urine Culture Final (continued) Contact the Microbiology Department for any additional antibiotic reporting. * ML - Main Lab . END OF REPORT DEPARTMENT OF PATHOLOGY, [address] [place] [address] Dominik Herrera M.D. Director [facility] # [id number] 2 Because ethnic data is not always readily [...] 15-29 5 Kidney failure <15 (or dialysis) 3 SEE RESULT BELOW Name: JOSEF JOSEPH Silvia : [address]: Jenni Trammell MD Acct: [id number] Unit: [id number] AGE: 88 Location: [place] [address] Re12/29/18 SEX: F Status: ADM IN SPEC: [id number] DESIREE: 12/29/18-[address] [facility] [address]: Mehran Dexter MD REQ: [id number] RECD: 12/29/18-1411 STATUS: JUVE BARRON DR: Sara Sadler DO _ SOURCE: URINE SPDESC: ORDERED: Urine Culture Procedure Result Reported Site Urine Culture Final 12/31/18- 1047 ML Organism 1 ESCHERICHIA COLI [place] Count >100,000 (Many) CFU/ML Organism 2 AEROCOCCUS URINAE [place] Count 75-100,000 (Many) CFU/ML Aerococcus isolates are too fastidious for routine susceptibility studies. Aerococcus are usually susceptible to penicillin, amoxicillin, piperacillin, cefipime, rifampin and vancomycin. Moderate to good activity occurs with the quinolones, tetracyclines and erythromycin. ([employer] [place] and Textbook of Diagnostic Microbiology 6th Ed. 2006, p. 705-6.) 1. ESCHERICHIA COLI M.I.C. RX --------- ------ Ampicillin >=32 R Cefazolin >=64 R Cefepime <=1 S Ceftriaxone <=1 S Ciprofloxacin >=4 R Gentamicin <=1 S Levofloxacin >=8 R Meropenem <=0.25 S Nitrofurantoin <=16 S Tetracycline <=1 S Pipercillin/Tazobactam 8 S Trimethoprim/Sulfamethoxazole <=20 S Amoxicillin/Clavulanic Acid >=32 R Aztreonam <=1 S Contact the Microbiology Department for any additional antibiotic reporting. * - Main Lab . END OF REPORT DEPARTMENT OF PATHOLOGY, [address] [place] [address] Dominik Herrera M.D. Director [facility] # [id number] Procedures Date Code Description Status 12/06/2018 66174 Brief Emotional/Behav Assessment W/ Scoring Doc Per Completed Standard Inst Medical Devices Description No Information Available Encounters Type Date Location Provider Dx Diagnosis Office Visit 02/13/2019 11:15a [facility] Main Chula Galvez [facility] R39.15 Urgency of urination N39.0 Urinary tract infection, site not specified A08.39 Other viral enteritis Office Visit 01/20/2019 1:15p [facility] Main Sara Carrionlizettmoustapha, Z87.440 Personal history of DO urinary (tract) infections R29.6 Repeated falls I10 Essential (primary) hypertension Office Visit 12/27/2018 10:45a [facility] Main Sara Neilw, I10 Essential ( primary) DO hypertension R29.6 Repeated falls D64.9 Anemia, unspecified Z23 Encounter for immunization Assessments Date Code Description Provider 02/13/2019 R39.15 Urgency of urination NGOZI Mcintosh 02/13/2019 N39.0 Urinary tract infection, site not specified Chula Galvez [facility] 02/13/2019 A08.39 Other viral enteritis Chula Galvez [facility] 01/20/2019 Z87.440 Personal history of urinary (tract) Sara Muralilizettw, DO infections 01/20/2019 R29.6 Repeated falls Sara Karnow, DO 01/20/2019 I10 Essential (primary) hypertension Sara Karnow, DO 12/27/2018 I10 Essential (primary) hypertension Sara Karnow, DO 12/27/2018 R29.6 Repeated falls Sara Karnow, DO 12/27/2018 D64.9 Anemia, unspecified Sara Karnow, DO 12/27/2018 Z23 Encounter for immunization Sara Muralinow, DO 12/16/2018 Z12.11 Encounter for screening for malignant Sara Rashaadw, DO neoplasm of colon Plan of Treatment Future Appointment(s):03/28/2019 11:15 am - Sara Sadler, DO at [facility] Main10/2018 - Chula Galvez, FNPR39.15 Urgency of urinationNew Medication: Nitrofurantoin Monohydrate/Macrocrystals 100 mg - take 1 tab PO bid for 5 daysComments:discussed dx of UTIwill start bactrim today and send urine to be cultured consider UTI prophylaxis in futurecontinue to stay well hydrated and restcontinue acetminophen for pain fever return if symptoms [id number] Urinary tract infection, site not [id number] Other viral enteritisComments: dicsussed viral illness cough nasal congestion and mild diarrhea supportive care return if no improvement Functional Status Description No Information Available Mental Status Description No Information Available Referrals Description No Information Available
--- OUTSIDE RECORDS SUMMARY | 2019-03-22 11:34 | XMS REPORT ---
:1930 Author Organization [facility] Care Team Providers Name Role Phone Unavailable Unavailable Unavailable Problems Condition Condition Condition Status Onset Resolution Last Treating Comments Name Details Category Date Date Treatment Clinician Date Pain frequent Pain Mgmt Resolve 2018-042019-01-30 Emi pain d 0-22 12:15:00 [place] 09:10: [id number] 00 Respiratory dyspnea Respirator Resolve 2018-042019-01-30 Emi present y d 0-22 12:15:00 Radhika 09:10: [id number] 00 Sensory impaired Sensory Resolve 2018-042019-01-30 Emi hearing d 0-22 12:15:00 [place] 09:10: [id number] 00 Integument skin Integument Resolve 2018-042019-01-30 Emi integrity d 0-22 12:15:00 [place] risk 09:10: [id number] 00 Nutrition nutritional Nutrition Resolve 2018-042019-01-30 Emi restriction d 0-22 12:15:00 Radhika s 09:10: [id number] 00 Elimination urinary Eliminatio Resolve 2018-042019-01-30 Emi incontinenc n d 0-22 12:15:00 Radhika e 09:10: [id number] 00 Elimination urinary Eliminatio Resolve 2018-042019-01-30 Emi frequency n d 0-22 12:15:00 Radhika 09:10: [id number] 00 Elimination recurring Eliminatio Resolve 2018-042019-01-30 Emi UTI n d 0-22 12:15:00 [place] 09:10: [id number] 00 Neuro confusion Neuro/Emot Resolve 2018-042019-01-30 Emi present ion d 0-22 12:15:00 [place] 09:10: [id number] 00 Neuro impaired Neuro/Emot Resolve 2018-042019-01-30 Eim decision-ma ion d 0-22 12:15:00 Timbo gama 09:10: [id number] 00 Neuro memory Neuro/Emot Resolve 2018-042019-01-30 Emi deficit ion d 0-22 12:15:00 [place] needing 09:10: [id number] supervision 00 Activity ADL Activity Resolve 2018-042019-01-30 Emi assistance d 0-22 12:15:00 [place] required 09:10: [id number] 00 Activity self-care Activity Resolve 2018-042019-01-30 Emi deficit d 0-22 12:15:00 [place] 09:10: [id number] 00 Safety fall risk Safety Resolve 2018-042019-01-30 Emi factor d 0-22 12:15:00 [place] present 09:10: [id number] 00 Safety risk for Safety Resolve 2018-042019-01-30 Emi hospitaliza d 0-22 12:15:00 [place] tion 09:10: [id number] 00 Safety can be left Safety Resolve 2018-042019-01-30 Emi alone for d 0-22 12:15:00 [place] only short 09:10: [id number] periods 00 Medication oral med Meds Resolve 2018-042019-01-30 Emi assistance d 0-22 12:15:00 [place] required 09:10: [id number] 00 Medication injectable Meds Resolve 2018-042019-01-30 Emi med d 0-22 12:15:00 [place] assistance 09:10: [id number] required 00 Medication knowledge/s Meds Resolve 2018-042019-01-30 Emi kill d 0-22 12:15:00 [place] deficit: pt 09:10: [id number] 00 Musculoskel transfer Musculoske Resolve 2018-042019-01-30 Emi etal assistance letal d 0-22 12:15:00 Radhika required 09:10: [id number] 00 Musculoskel requires Musculoske Resolve 2018-042019-01-30 Emi etal human letal d 0-22 12:15:00 Radhika assist to 09:10: [id number] leave home 00 Elimination diarrhea Eliminatio Resolve 2018-042019-01-30 Lise mauricio d 0-24 12:15:00 [place] 12:15: 00 Safety fall risk Safety Active 2018-04 Lilian Chávez factor 0-29 present 15:34: 06 Safety risk for Safety Active 2018-04 Lilian Chávez hospitaliza 0-29 tion 15:34: 06 Bed mobility/tr PT/OT: Bed Active 2018-04 Yesenia Mobility/Tr ansfer Mobility/T 04-09 Ward ansfer device ransfer 14:25: [id number] present 00 Bed transfer PT/OT: Bed Active 2018-04 Yesenia Mobility/Tr deficit: Mobility/T 04-09 Ward ansfer toilet/comm ransfer 14:25: [id number] ode 00 Bed transfer PT/OT: Bed Active 2018-04 Yesenia Mobility/Tr deficit: Mobility/T 04-09 Ward ansfer shower/tub ransfer 14:25: [id number] 00 Bed knowledge/s PT/OT: Bed Active 2018-04 Yesenia Mobility/Tr kill Mobility/T 04-09 Ward ansfer deficit: pt ransfer 14:25: [id number] 00 Bed bed PT/OT: Bed Active 2018-04 Yesenia Mobility/Tr mobility Mobility/T 04-09 Ward ansfer deficit ransfer 14:25: [id number] 00 Balance/End balance/cooker tender PT/OT: Active 2018-04 Yesenia stephensonance rdination Balance/En 04-09 Ward deficit durance 14:25: [id number] 00 Balance/End endurance PT/OT: Active 2018-04 Yesenia urance deficit Balance/En 04-09 Ward durance 14:25: [id number] 00 Balance/End knowledge/s PT/OT: Active 2018-04 Yesenia urance kill Balance/En 04-09 Ward deficit: pt durance 14:25: [id number] 00 Gait/Locomo gait PT/OT: Active 2018-04 Yesenia tion assistive Gait/Locom 04-09 Ward problems device otion 14:25: [id number] present 00 Gait/Locomo gait PT/OT: Active 2018-04 Yesenia tion deficit Gait/Locom 04-09 Ward problems otion 14:25: [id number] 00 Gait/Locomo knowledge/s PT/OT: Active 2018-04 Yesenia tion kill Gait/Locom 04-09 Ward problems deficit: pt otion 14:25: [id number] 00 Allergies, Adverse Reactions, Alerts Allergy Allergy Type Status Severity Reaction(s) Onset Inactive Treating Comments Name Date Date Clinician tramadol Base Active Moderate Nausea and Marie Ingredient vomiting, 04-20 Zuñiga Nausea, [id number] vomiting, diarrhea, rash, hives naproxen Base Active Unknown Reaction Marie Ingredient Unknown 04-20 Zuñiga [id number] latex Base Active Unknown Reaction 2017-04 Lilian [...]
--- OUTSIDE RECORDS SUMMARY | 2019-03-22 11:34 | XMS REPORT ---
:1930 Author Organization [facility] Care Team Providers Name Role Phone Unavailable Unavailable Unavailable Problems Condition Condition Condition Status Onset Resolution Last Treating Comments Name Details Category Date Date Treatment Clinician Date Pain frequent Pain Mgmt Resolve 2018-042019-01-30 Emi pain d 0-22 12:15:00 [place] 09:10: [id number] 00 Respiratory dyspnea Respirator Resolve 2018-042019-01-30 Emi present y d 0-22 12:15:00 Radhika 09:10: [id number] 00 Sensory impaired Sensory Resolve 2018-042019-01-30 Emi hearing d 0-22 12:15:00 [place] 09:10: [id number] 00 Integument skin Integument Resolve 2018-042019-01-30 Emi integrity d 0-22 12:15:00 [place] risk 09:10: [id number] 00 Nutrition nutritional Nutrition Resolve 2018-042019-01-30 Emi restriction d 0-22 12:15:00 Radhika s 09:10: [id number] 00 Elimination urinary Eliminatio Resolve 2018-042019-01-30 Emi incontinenc n d 0-22 12:15:00 Rdahika e 09:10: [id number] 00 Elimination urinary Eliminatio Resolve 2018-042019-01-30 Emi frequency n d 0-22 12:15:00 Radhika 09:10: [id number] 00 Elimination recurring Eliminatio Resolve 2018-042019-01-30 Emi UTI n d 0-22 12:15:00 [place] 09:10: [id number] 00 Neuro confusion Neuro/Emot Resolve 2018-042019-01-30 Emi present ion d 0-22 12:15:00 [place] 09:10: [id number] 00 Neuro impaired Neuro/Emot Resolve 2018-042019-01-30 Emi decision-ma ion d 0-22 12:15:00 [place] gama 09:10: [id number] 00 Neuro memory Neuro/Emot Resolve 2018-042019-01-30 Emi deficit ion d 0-22 12:15:00 [place] needing 09:10: [id number] supervision 00 Activity ADL Activity Resolve 2018-042019-01-30 Emi assistance d 0-22 12:15:00 [place] required 09:10: [id number] 00 Activity self-care Activity Resolve 2018-042019-01-30 Emi deficit d 0-22 12:15:00 [place] 09:10: [id number] 00 Safety fall risk Safety Resolve 2018-042019-01-30 Emi factor d 0-22 12:15:00 [place] present 09:10: [id number] 00 Safety risk for Safety Resolve 2018-042019-01-30 Emi hospitaliza d 0-22 12:15:00 [place] tion 09:10: [id number] 00 Safety can be left Safety Resolve 2018-042019-01-30 Emi alone for d 0-22 12:15:00 [place] only short 09:10: [id number] periods 00 Medication oral med Meds Resolve 2018-042019-01-30 Emi assistance d 0-22 12:15:00 [place] required 09:10: [id number] 00 Medication injectable Meds Resolve 2018-042019-01-30 Emi med d 0-22 12:15:00 [place] assistance 09:10: [id number] required 00 Medication knowledge/s Meds Resolve 2018-042019-01-30 Emi kill d 0-22 12:15:00 [place] deficit: pt 09:10: [id number] 00 Musculoskel transfer Musculoske Resolve 2018-042019-01-30 Emi etal assistance letal d 0-22 12:15:00 Radhika required 09:10: [id number] 00 Musculoskel requires Musculoske Resolve 2018-042019-01-30 Emi etal human letal d 0-22 12:15:00 Radhika assist to 09:10: [id number] leave home 00 Elimination diarrhea Eliminatio Resolve 2018-042019-01-30 Lise mauricio d 0-24 12:15:00 [place] 12:15: 00 Safety fall risk Safety Active 2018-04 Lilian Chávez factor 0-29 present 15:34: 06 Safety risk for Safety Active 2018-04 Lilian Chávez hospitaliza 0-29 tion 15:34: 06 Bed mobility/tr PT/OT: Bed Active 2018-04 Yesenia Mobility/Tr ansfer Mobility/T 04-09 Ward ansfer device ransfer 14:25: [id number] present 00 Bed transfer PT/OT: Bed Active 2018-04 Yesenia Mobility/Tr deficit: Mobility/T 04-09 Ward ansfer toilet/comm ransfer 14:25: [id number] ode 00 Bed transfer PT/OT: Bed Active 2018-04 Yesenia Mobility/Tr deficit: Mobility/T 04-09 Ward ansfer shower/tub ransfer 14:25: [id number] 00 Bed knowledge/s PT/OT: Bed Active 2018-04 Yesenia Mobility/Tr kill Mobility/T 04-09 Ward ansfer deficit: pt ransfer 14:25: [id number] 00 Bed bed PT/OT: Bed Active 2018-04 Yesenia Mobility/Tr mobility Mobility/T 04-09 Ward ansfer deficit ransfer 14:25: [id number] 00 Balance/End balance/community relations coordinator PT/OT: Active 2018-04 Yesenia stephensonance rdination Balance/En 04-09 Ward deficit durance 14:25: [id number] 00 Balance/End endurance PT/OT: Active 2018-04 Yesenia urance deficit Balance/En 04-09 Ward durance 14:25: [id number] 00 Balance/End knowledge/s PT/OT: Active 2018-04 Yesenia urance kill Balance/En 04-09 Ward deficit: pt durance 14:25: [id number] 00 Gait/Locomo gait PT/OT: Active 2018-04 Yesenia tion assistive Gait/Locom 04-09 Ward problems device otion 14:25: [id number] present 00 Gait/Locomo gait PT/OT: Active 2018-04 Yesenia tion deficit Gait/Locom 04-09 Ward problems otion 14:25: [id number] 00 Gait/Locomo knowledge/s PT/OT: Active 2018-04 Yesenia tion kill Gait/Locom 04-09 Ward problems deficit: pt otion 14:25: [id number] 00 Allergies, Adverse Reactions, Alerts Allergy Allergy Type Status Severity Reaction(s) Onset Inactive Treating Comments Name Date Date Clinician tramadol Base Active Moderate Nausea and Marie Ingredient vomiting, 04-20 Zuñiga Nausea, [id number] vomiting, diarrhea, rash, hives naproxen Base Active Unknown Reaction Marie Ingredient Unknown 04-20 Zuñiga [id number] latex Base Active Unknown Reaction 2017-04 Lilian [...] Observation Time Observation Value Comments SYSTOLIC mm[Hg] 2019-02-21 18:08:52 165 mm[Hg] mm[Hg] Method: Sit SYSTOLIC mm[Hg] 2019-01-28 18:08:28 146 mm[Hg] mm[Hg] Method: Stand DIASTOLIC mm[Hg] 2019-02-21 18:08:52 70 mm[Hg] mm[Hg] Method: Sit DIASTOLIC mm[Hg] 2019-01-28 18:08:28 70 mm[Hg] mm[Hg] Method: Stand PULSE 2019-02-21 18:08:52 60 /min /min RESP RATE 2019-01-30 18:08:30 18 /min /min TEMP 2019-02-21 18:08:52 97.9 [degF] Procedures This patient has no known procedures. Results This patient has no known results.
--- OUTSIDE RECORDS SUMMARY | 2019-03-22 11:34 | XMS REPORT ---
:1930 Author Organization [facility] Care Team Providers Name Role Phone Unavailable Unavailable Unavailable Problems Condition Condition Condition Status Onset Resolution Last Treating Comments Name Details Category Date Date Treatment Clinician Date Pain frequent Pain Mgmt Resolve 2018-042019-01-30 Emi pain d 0-22 12:15:00 [place] 09:10: [id number] 00 Respiratory dyspnea Respirator Resolve 2018-042019-01-30 Emi present y d 0-22 12:15:00 Radhika 09:10: [id number] 00 Sensory impaired Sensory Resolve 2018-042019-01-30 Emi hearing d 0-22 12:15:00 [place] 09:10: [id number] 00 Integument skin Integument Resolve 2018-042019-01-30 Emi integrity d 0-22 12:15:00 [place] [facility] risk 09:10: [id number] 00 Nutrition nutritional Nutrition Resolve 2018-042019-01-30 Emi restriction d 0-22 12:15:00 Radhika s 09:10: [id number] 00 Elimination urinary Eliminatio Resolve 2018-042019-01-30 Emi incontinenc n d 0-22 12:15:00 Radhika e 09:10: [id number] 00 Elimination urinary Eliminatio Resolve 2018-042019-01-30 Emi frequency n d 0-22 12:15:00 Radhika 09:10: [id number] 00 Elimination recurring Eliminatio Resolve 2018-042019-01-30 Emi UTI n d 0-22 12:15:00 [place] [facility] 09:10: [id number] 00 Neuro confusion Neuro/Emot Resolve 2018-042019-01-30 Emi present ion d 0-22 12:15:00 [facility] 09:10: [id number] 00 Neuro impaired Neuro/Emot Resolve 2018-042019-01-30 Emi decision-ma ion d 0-22 12:15:00 [facility] gama 09:10: [id number] 00 Neuro memory Neuro/Emot Resolve 2018-042019-01-30 Emi deficit ion d 0-22 12:15:00 [facility] needing 09:10: [id number] supervision 00 Activity ADL Activity Resolve 2018-042019-01-30 Emi assistance d 0-22 12:15:00 [facility] required 09:10: [id number] 00 Activity self-care Activity Resolve 2018-042019-01-30 Emi deficit d 0-22 12:15:00 [facility] 09:10: [id number] 00 Safety fall risk Safety Resolve 2018-042019-01-30 Emi factor d 0-22 12:15:00 [facility] present 09:10: [id number] 00 Safety risk for Safety Resolve 2018-042019-01-30 Emi hospitaliza d 0-22 12:15:00 [facility] tion 09:10: [id number] 00 Safety can be left Safety Resolve 2018-042019-01-30 Emi alone for d 0-22 12:15:00 [place] [facility] only short 09:10: [id number] periods 00 Medication oral med Meds Resolve 2018-042019-01-30 Emi assistance d 0-22 12:15:00 [facility] required 09:10: [id number] 00 Medication injectable Meds Resolve 2018-042019-01-30 Emi med d 0-22 12:15:00 [facility] assistance 09:10: [id number] required 00 Medication knowledge/s Meds Resolve 2018-042019-01-30 Emi kill d 0-22 12:15:00 [facility] deficit: pt 09:10: [id number] 00 Musculoskel transfer Musculoske Resolve 2018-042019-01-30 Emi etal assistance letal d 0-22 12:15:00 Radhika required 09:10: [id number] 00 Musculoskel requires Musculoske Resolve 2018-042019-01-30 Emi etal human letal d 0-22 12:15:00 Radhika assist to 09:10: [id number] leave home 00 Elimination diarrhea Eliminatio Resolve 2018-042019-01-30 Lise mauricio d 0-24 12:15:00 [place] 12:15: 00 Safety fall risk Safety Active 2018-04 Lilian Chávez factor 0-29 present 15:34: 06 Safety risk for Safety Active 2018-04 Lilian Chávez hospitaliza 0-29 tion 15:34: 06 Bed mobility/tr PT/OT: Bed Active 2018-04 Yesenia Mobility/Tr ansfer Mobility/T 04-09 Ward ansfer device ransfer 14:25: [id number] present 00 Bed transfer PT/OT: Bed Active 2018-04 Yesenia Mobility/Tr deficit: Mobility/T 04-09 Ward ansfer toilet/comm ransfer 14:25: [id number] ode 00 Bed transfer PT/OT: Bed Active 2018-04 Yesenia Mobility/Tr deficit: Mobility/T 04-09 Ward ansfer shower/tub ransfer 14:25: [id number] 00 Bed knowledge/s PT/OT: Bed Active 2018-04 Yesenia Mobility/Tr kill Mobility/T 04-09 Ward ansfer deficit: pt ransfer 14:25: [id number] 00 Bed bed PT/OT: Bed Active 2018-04 Yesenia Mobility/Tr mobility Mobility/T 04-09 Ward ansfer deficit ransfer 14:25: [id number] 00 Balance/End balance/massage coordinator PT/OT: Active 2018-04 Yesenia stephensonance rdination Balance/En 04-09 Ward deficit durance 14:25: [id number] 00 Balance/End endurance PT/OT: Active 2018-04 Yesenia urance deficit Balance/En 04-09 Ward durance 14:25: [id number] 00 Balance/End knowledge/s PT/OT: Active 2018-04 Yesenia urance kill Balance/En 04-09 Ward deficit: pt durance 14:25: [id number] 00 Gait/Locomo gait PT/OT: Active 2018-04 Yesenia tion assistive Gait/Locom 04-09 Ward problems device otion 14:25: [id number] present 00 Gait/Locomo gait PT/OT: Active 2018-04 Yesenia tion deficit Gait/Locom 04-09 Ward problems otion 14:25: [id number] 00 Gait/Locomo knowledge/s PT/OT: Active 2018-04 Yesenia tion kill Gait/Locom 04-09 Ward problems deficit: pt otion 14:25: [id number] 00 Allergies, Adverse Reactions, Alerts Allergy Allergy Type Status Severity Reaction(s) Onset Inactive Treating Comments Name Date Date Clinician tramadol Base Active Moderate Nausea and Marie Ingredient vomiting, 04-20 Zuñiga Nausea, [id number] vomiting, diarrhea, rash, hives naproxen Base Active Unknown Reaction Marie Ingredient Unknown 04-20 Zuñiga [id number] latex Base Active Unknown Reaction 2017-04 Lilian [...]
--- OUTSIDE RECORDS SUMMARY | 2019-03-22 11:34 | XMS REPORT ---
:1930 Author Organization [facility] Care Team Providers Name Role Phone Unavailable Unavailable Unavailable Problems Condition Condition Condition Status Onset Resolution Last Treating Comments Name Details Category Date Date Treatment Clinician Date Pain frequent Pain Mgmt Resolve 2018-042019-01-30 Emi pain d 0-22 12:15:00 [place] 09:10: [id number] 00 Respiratory dyspnea Respirator Resolve 2018-042019-01-30 Emi present y d 0-22 12:15:00 Radhika 09:10: [id number] 00 Sensory impaired Sensory Resolve 2018-042019-01-30 Emi hearing d 0-22 12:15:00 [place] 09:10: [id number] 00 Integument skin Integument Resolve 2018-042019-01-30 Emi integrity d 0-22 12:15:00 [place] risk 09:10: [id number] 00 Nutrition nutritional Nutrition Resolve 2018-042019-01-30 Emi restriction d 0-22 12:15:00 Radhika s 09:10: [id number] 00 Elimination urinary Eliminatio Resolve 2018-042019-01-30 Emi incontinenc n d 0-22 12:15:00 Radhika e 09:10: [id number] 00 Elimination urinary Eliminatio Resolve 2018-042019-01-30 Emi frequency n d 0-22 12:15:00 Radhika 09:10: [id number] 00 Elimination recurring Eliminatio Resolve 2018-042019-01-30 Emi UTI n d 0-22 12:15:00 [place] 09:10: [id number] 00 Neuro confusion Neuro/Emot Resolve 2018-042019-01-30 Emi present ion d 0-22 12:15:00 [place] 09:10: [id number] 00 Neuro impaired Neuro/Emot Resolve 2018-042019-01-30 Emi decision-ma ion d 0-22 12:15:00 [place] gama 09:10: [id number] 00 Neuro memory Neuro/Emot Resolve 2018-042019-01-30 Emi deficit ion d 0-22 12:15:00 [place] needing 09:10: [id number] supervision 00 Activity ADL Activity Resolve 2018-042019-01-30 Emi assistance d 0-22 12:15:00 [place] required 09:10: [id number] 00 Activity self-care Activity Resolve 2018-042019-01-30 Emi deficit d 0-22 12:15:00 [place] 09:10: [id number] 00 Safety fall risk Safety Resolve 2018-042019-01-30 Emi factor d 0-22 12:15:00 [place] present 09:10: [id number] 00 Safety risk for Safety Resolve 2018-042019-01-30 Emi hospitaliza d 0-22 12:15:00 [place] tion 09:10: [id number] 00 Safety can be left Safety Resolve 2018-042019-01-30 Emi alone for d 0-22 12:15:00 [place] only short 09:10: [id number] periods 00 Medication oral med Meds Resolve 2018-042019-01-30 Emi assistance d 0-22 12:15:00 [place] required 09:10: [id number] 00 Medication injectable Meds Resolve 2018-042019-01-30 Emi med d 0-22 12:15:00 [place] assistance 09:10: [id number] required 00 Medication knowledge/s Meds Resolve 2018-042019-01-30 Emi kill d 0-22 12:15:00 [place] deficit: pt 09:10: [id number] 00 Musculoskel transfer Musculoske Resolve 2018-042019-01-30 Emi etal assistance letal d 0-22 12:15:00 Radhika required 09:10: [id number] 00 Musculoskel requires Musculoske Resolve 2018-042019-01-30 Emi etal human letal d 0-22 12:15:00 Radhika assist to 09:10: [id number] leave home 00 Elimination diarrhea Eliminatio Resolve 2018-042019-01-30 Lise mauricio d 0-24 12:15:00 [place] 12:15: 00 Safety fall risk Safety Active 2018-04 Lilian Chávez factor 0-29 present 15:34: 06 Safety risk for Safety Active 2018-04 Lilian Chávez hospitaliza 0-29 tion 15:34: 06 Bed mobility/tr PT/OT: Bed Active 2018-04 Yesenia Mobility/Tr ansfer Mobility/T 04-09 Ward ansfer device ransfer 14:25: [id number] present 00 Bed transfer PT/OT: Bed Active 2018-04 Yesenia Mobility/Tr deficit: Mobility/T 04-09 Ward ansfer toilet/comm ransfer 14:25: [id number] ode 00 Bed transfer PT/OT: Bed Active 2018-04 Yesenia Mobility/Tr deficit: Mobility/T 04-09 Ward ansfer shower/tub ransfer 14:25: [id number] 00 Bed knowledge/s PT/OT: Bed Active 2018-04 Yesenia Mobility/Tr kill Mobility/T 04-09 Ward ansfer deficit: pt ransfer 14:25: [id number] 00 Bed bed PT/OT: Bed Active 2018-04 Yesenia Mobility/Tr mobility Mobility/T 04-09 Ward ansfer deficit ransfer 14:25: [id number] 00 Balance/End balance/community center coordinator PT/OT: Active 2018-04 Yesenia stephensonance rdination Balance/En 04-09 Ward deficit durance 14:25: [id number] 00 Balance/End endurance PT/OT: Active 2018-04 Yesenia urance deficit Balance/En 04-09 Ward durance 14:25: [id number] 00 Balance/End knowledge/s PT/OT: Active 2018-04 Yesenia urance kill Balance/En 04-09 Ward deficit: pt durance 14:25: [id number] 00 Gait/Locomo gait PT/OT: Active 2018-04 Yesenia tion assistive Gait/Locom 04-09 Ward problems device otion 14:25: [id number] present 00 Gait/Locomo gait PT/OT: Active 2018-04 Yesenia tion deficit Gait/Locom 04-09 Ward problems otion 14:25: [id number] 00 Gait/Locomo knowledge/s PT/OT: Active 2018-04 Yesenia tion kill Gait/Locom 04-09 Ward problems deficit: pt otion 14:25: [id number] 00 Allergies, Adverse Reactions, Alerts Allergy Allergy Type Status Severity Reaction(s) Onset Inactive Treating Comments Name Date Date Clinician tramadol Base Active Moderate Nausea and Marie Ingredient vomiting, 04-20 Zuñiga Nausea, [id number] vomiting, diarrhea, rash, hives naproxen Base Active Unknown Reaction Marie Ingredient Unknown 04-20 Zuñiga [id number] latex Base Active Unknown Reaction 2017-04 Lilian White Ingredient Unknown Medications Ordered Filled Start Stop Current Ordering Indication Dosage Frequency Signature Comments Components Medication Medication Date Date Medication? Clinician (SIG) Name Name pantoprazol pantoprazol No tab Unknown e 40 mg e 40 mg oRsalba GRANADOS tablet,pamela tablet,pamela yed release yed release multivitami multivitami No tab Unknown n with n with Rosalba GRANADOS minerals minerals tablet tablet cholecalcif cholecalcif No tab Unknown malinda malinda Rosalba GRANADOS (vitamin (vitamin D3) 1,000 D3) 1,000 unit (25 unit (25 mcg) tablet mcg) tablet atenolol 50 atenolol 50 No 1 tab Unknown mg-chlortha mg-chlortha Rosalab GRANADOS lidone 25 lidone 25 mg tablet [...] No son Unknown Unknown 7.5 7.5 Rosalba RGANADOS mg-acetamin mg-acetamin ophen 325 ophen 325 mg [...]
--- OUTSIDE RECORDS SUMMARY | 2019-03-22 11:34 | XMS REPORT | Continuity of Care Document ---
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 Inactive Problems Anemia Onset: 12/06/2018 Inactive: 12/06/2018 Benign essential hypertension Onset: 12/06/2018 Inactive: 12/06/2018 Malaise and fatigue Onset: 11/06/2018 Inactive: 11/06/2018 Urinary incontinence Onset: 11/06/2018 Inactive: 11/06/2018 Urinary tract infectious disease Onset: 11/06/2018 Inactive: 11/06/2018 Increased frequency of urination Onset: 10/11/2018 Inactive: 10/11/2018 Dyssomnia Onset: 09/17/2018 Inactive: 09/17/2018 Social History Type Date Description Comments Sex Unknown Allergies, Adverse Reactions, Alerts Active Allergies Reaction Severity Comments Date Naprosyn No Reaction Indicated 12/13/2018 Tramadol Hydrochloride urticaria 12/13/2018 Medications Active Medications SIG Qnty Indications Ordering Date Provider Simvastatin one tab once daily 90tabs Sara 01/20/2019 10mg Karnow, DO Tablets Hydrocodone 1 every 8 hours 90tabs Sara 12/10/2018 Bitartrate/Acetamino oral as needed Karnow, DO phen 7.5-325mg Tablets Atenolol 1 daily Oral 90tabs Unknown 09/17/2018 50mg Tablets Shingrix 1 now 1units Unknown 09/17/2018 50mcg/0.5ML Intramuscular; Suspension Rec Repeat in 2 weeks Acetaminophen ER 1-2 every 6 hours 240tabs Unknown 06/22/2017 prn Oral 650mg Tablets ER Depend Underwear For N/A; as [...] CPT Code Status Date Vaccine Lot # [id number] Given 12/27/2018 Flu High Dose [id number] 48122 Given 12/11/2017 Influenza Virus Vaccine, Quadrivalent, Split, Im Use 0.25ML 20534 Given 12/11/2017 Influenza Virus Vaccine, Quadrivalent, Split, Im Use 0.25ML 93630 Given 12/11/2017 Influenza Virus Vaccine, Quadrivalent, Split, Im Use 0.25ML 64922 Given 12/11/2017 Flu < 65 years 43289 Given 12/11/2017 Influenza Virus Vaccine, Quadrivalent, Split, Preservative Free 88804 Given 12/11/2017 Flumist 89435 Given 12/11/2017 Flu High Dose 03772 Given 12/11/2017 Influenza Virus Vaccine, Split, Preserv Free, Intradermal Use 96944 Given 11/15/2016 Influenza Virus Vaccine, Split, Preserv Free, Intradermal Use 81465 Given 11/15/2016 Flu High Dose 78780 Given 11/15/2016 Flumist 13739 Given 11/15/2016 Influenza Virus Vaccine, Quadrivalent, Split, Preservative Free 59701 Given 11/15/2016 Flu < 65 years 10816 Given 11/15/2016 Influenza Virus Vaccine, Quadrivalent, Split, Im Use 0.25ML 98034 Given 11/15/2016 Influenza Virus Vaccine, Quadrivalent, Split, Im Use 0.25ML 98373 Given 11/15/2016 Influenza Virus Vaccine, Quadrivalent, Split, Im Use 0.25ML 07883 Given 12/09/2015 Influenza Virus Vaccine, Split, Preserv Free, Intradermal Use 61886 Given 12/09/2015 Flu High Dose 90002 Given 12/09/2015 Flumist 15802 Given 12/09/2015 Influenza Virus Vaccine, Quadrivalent, Split, Preservative Free 79086 Given 12/09/2015 Flu < 65 years 59154 Given 12/09/2015 Influenza Virus Vaccine, Quadrivalent, Split, Im Use 0.25ML 52038 Given 12/09/2015 Influenza Virus Vaccine, Quadrivalent, Split, Im Use 0.25ML 43244 Given 12/09/2015 Influenza Virus Vaccine, Quadrivalent, Split, Im Use 0.25ML 76603 Given 12/22/2014 Influenza Virus Vaccine, Quadrivalent, Split, Im Use 0.25ML 70096 Given 12/22/2014 Influenza Virus Vaccine, Quadrivalent, Split, Im Use 0.25ML 47825 Given 12/22/2014 Influenza Virus Vaccine, Quadrivalent, Split, Im Use 0.25ML 86434 Given 12/22/2014 Flu < 65 years 64375 Given 12/22/2014 Influenza Virus Vaccine, Quadrivalent, Split, Preservative Free 70825 Given 12/22/2014 Flumist 24918 Given 12/22/2014 Flu High Dose 39657 Given 12/03/2014 Flu High Dose 55513 Given 12/03/2014 Prevnar 13 54983 Given 12/03/2014 Flumist 15137 Given 12/03/2014 Influenza Virus Vaccine, Quadrivalent, Split, Preservative Free 05902 Given 12/03/2014 Flu < 65 years 62174 Given 12/03/2014 Influenza Virus Vaccine, Quadrivalent, Split, Im Use 0.25ML 18746 Given 12/03/2014 Influenza Virus Vaccine, Quadrivalent, Split, Im Use 0.25ML 99498 Given 12/03/2014 Influenza Virus Vaccine, Quadrivalent, Split, Im Use 0.25ML 01402 Given 11/27/2013 Influenza Virus Vaccine, Quadrivalent, Split, Im Use 0.25ML 12646 Given 11/27/2013 Influenza Virus Vaccine, Quadrivalent, Split, Im Use 0.25ML 25313 Given 11/27/2013 Influenza Virus Vaccine, Quadrivalent, Split, Im Use 0.25ML 33955 Given 11/27/2013 Flu < 65 years 25999 Given 11/27/2013 Influenza Virus Vaccine, Quadrivalent, Split, Preservative Free 59337 Given 11/27/2013 Flumist 20478 Given 11/27/2013 Flu High Dose 18915 Given 12/19/2012 Flu High Dose 08866 Given 12/19/2012 Flumist 64272 Given 12/19/2012 Influenza Virus Vaccine, Quadrivalent, Split, Preservative Free 07673 Given 12/19/2012 Flu < 65 years 55548 Given 12/19/2012 Influenza Virus Vaccine, Quadrivalent, Split, Im Use 0.25ML 17513 Given 12/19/2012 Influenza Virus Vaccine, Quadrivalent, Split, Im Use 0.25ML 47928 Given 12/19/2012 Influenza Virus Vaccine, Quadrivalent, Split, Im Use 0.25ML 08377 Given 12/20/2011 Influenza Virus Vaccine, Quadrivalent, Split, Im Use 0.25ML 66336 Given 12/20/2011 Influenza Virus Vaccine, Quadrivalent, Split, Im Use 0.25ML 03848 Given 12/20/2011 Influenza Virus Vaccine, Quadrivalent, Split, Im Use 0.25ML 94265 Given 12/20/2011 Flu < 65 years 81356 Given 12/20/2011 Influenza Virus Vaccine, Quadrivalent, Split, Preservative Free 00039 Given 12/20/2011 Flumist 88522 Given 12/20/2011 Flu High Dose 72569 Given 12/23/2010 Influenza Virus Vaccine, Quadrivalent, Split, Im Use 0.25ML 68642 Given 12/23/2010 Influenza Virus Vaccine, Quadrivalent, Split, Im Use 0.25ML 56856 Given 12/23/2010 Influenza Virus Vaccine, Quadrivalent, Split, Im Use 0.25ML 18147 Given 12/23/2010 Flu High Dose 30768 Given 10/12/2009 Pneumovax - for >=2years - [...] Date Facility Test Result H/L Range Note CFM Urinalysis 02/13/2019 [facility] Urine Specific 1.015 ( )- - [place] Ua PH Test Strip 7.5 Ua WBC Small Ua Protein Neg Urine Glucose QL Neg Urine Ketones QL Test Strip Neg Urine Bilirubin TTL QL T-Strip Neg Urine Urobilinogen QN TS 0.2 E.U./dL Urine Nitrite QL TS Neg Ua Occult Blood Neg CBC Auto 12/29/2018 [facility] White Blood 15.9 10^3/uL High 3.5-10.[address] [place] [address] [phone] Red Blood Count 3.96 10^6/uL Normal 3.70-4.87 [...] Blood Cells % 0.0 Comp Metabolic 12/29/2018 [facility] Sodium 140 mmol/L Normal 135-145 Panel [address] [place] [address] [phone] Potassium 3.8 mmol/L Normal 3.5-5.0 Chloride 105 [...] Egfr Non- 58.5 >60 Egfr 70.8 >60 1 Laboratory test 12/29/2018 [facility] Magnesium 1.3 mg/dL Low 1.9-2.7 finding [address] [place] [address] [phone] Urinalysis 12/29/2018 [facility] Urine Color Yellow Profile [address] [place] [address] [phone] Urine Appearance Cloudy Urine Specific [place] 1.020 Normal 1.010-1.030 Urine pH 5.0 Normal [...] Cell Present Abnormal Absent Laboratory test 12/29/2018 [facility] Creatine 771 U/L High 10 -[address] [address] [phone] Urine Culture 12/29/2018 [facility] Urine Culture SEE RESULT [address] [place] [address] [phone] Order 12/27/2018 [facility] <pending> Therapy Evaluate And Treat Occult Blood 12/16/2018 [facility] Z#Other Negative Stool Fit Screen ( )- - Observations Occult Blood 12/16/2018 [facility] Z#Other negative Stool Fit Screen ( )- - Observations Laboratory test 12/16/2018 [facility] CFM Fit Cards negative finding ( )- - [...] N2N/CCD Import MCV 90 fL 80-97 fL Castro# 12/03/2018 N2N/CCD Import Castro# 0.8 0-0.8 10 10_3/ul 3/ul Castro% 12/03/2018 N2N/CCD Import Castro% 10.2 % High 0 - 10 % [...] N2N/CCD Import MCV 88 fL 80-97 fL Castro# 11/12/2018 N2N/CCD Import Castro# 0.7 0-0.8 10 10_3/ul 3/ul Castro% 11/12/2018 N2N/CCD Import Castro% 8.9 % 0 - 10 % MPV [...] Ketones-Ua Negative Negative - Negative Qual 1 Because ethnic data is not always readily [...] 15-29 5 Kidney failure <15 (or dialysis) 2 SEE RESULT BELOW Name: JOSEF JOSEPH : [address]: Jenni Trammell MD Acct: [id number] Unit: [id number] AGE: 88 Location: [place] [address] Re12/29/18 SEX: F Status: ADM IN SPEC: [id number] DESIREE: 12/29/18-[address] [facility] [address]: Mehran Dexter MD REQ: [id number] RECD: 12/29/18 STATUS: JUVE BARRON DR: Sara Sadler DO _ SOURCE: URINE [facility]: ORDERED: Urine Culture Procedure Result Reported Site Urine Culture Final 12/31/18- 1047 ML Organism 1 ESCHERICHIA COLI [place] Count >100,000 (Many) CFU/ML Organism 2 AEROCOCCUS URINAE [place] Count 75-100,000 (Many) CFU/ML Aerococcus isolates are too fastidious for routine susceptibility studies. Aerococcus are usually susceptible to penicillin, amoxicillin, piperacillin, cefipime, rifampin and vancomycin. Moderate to good activity occurs with the quinolones, tetracyclines and erythromycin. (Deonte's Color [place] and Textbook of Diagnostic Microbiology 6th Ed. [...] . END OF REPORT DEPARTMENT OF PATHOLOGY, [address] [place] [address] Dominik Herrera M.D. Director [facility] # [id number] Procedures Date Code Description Status 12/06/2018 77682 Brief Emotional/Behav Assessment W/ Scoring Doc Per Completed Standard Inst Medical Devices Description No Information Available Encounters Type Date Location Provider Dx Diagnosis Office Visit 01/20/2019 [facility] Sara Sadler, DO Z87.440 Personal history of 1:15p urinary (tract) infections R29.6 Repeated falls I10 Essential (primary) hypertension Office Visit 12/27/2018 10:45a [facility] Main Sara Sadler, I10 Essential ( primary) DO hypertension R29.6 Repeated falls D64.9 Anemia, unspecified Z23 Encounter for immunization Assessments Date Code Description Provider 02/13/2019 R41.82 Altered mental status, unspecified Chula Galvez, [facility] 02/13/2019 R29.6 Repeated falls Chula Galvez, [facility] 02/13/2019 R39.15 Urgency of urination Chula Galvez, [facility] 01/20/2019 Z87.440 Personal history of urinary (tract) Sara Sadler, DO infections 01/20/2019 R29.6 Repeated falls Sara Rashaadw, DO 01/20/2019 I10 Essential (primary) hypertension Sara Rashaadw, DO 12/27/2018 I10 Essential (primary) hypertension Sara Neilw, DO 12/27/2018 R29.6 Repeated falls Sara Neilw, DO 12/27/2018 D64.9 Anemia, unspecified Sara Neilw, DO 12/27/2018 Z23 Encounter for immunization Sara Neilw, DO 12/16/2018 Z12.11 Encounter for screening for malignant Sara Sadler DO neoplasm of colon Plan of Treatment Future Appointment(s):03/28/2019 11:15 am - Sara Sadler DO at [facility] Main10/2018 - Chula Galvez, FNPR41.82 Altered mental status, xaxiktvroidX75.6 Repeated qcouiC54.15 Urgency of urination Functional Status Description No Information Available Mental Status Description No Information Available Referrals Description No Information Available
--- OUTSIDE RECORDS SUMMARY | 2019-03-22 11:34 | XMS REPORT | Continuity of Care Document ---
:1930 External Reference #:[id number] Author Name NGOZI Mcintosh Address [address] [place] [address] Problems Active Problems Provider Date Osteoarthritis Onset: [...] CPT Code Status Date Vaccine Lot # 14950 Given 12/27/2018 Flu High Dose [id number] 12185 Given 12/11/2017 Influenza Virus Vaccine, Quadrivalent, Split, Im Use 0.25ML 68018 Given 12/11/2017 Influenza Virus Vaccine, Quadrivalent, Split, Im Use 0.25ML 37368 Given 12/11/2017 Influenza Virus Vaccine, Quadrivalent, Split, Im Use 0.25ML 02846 Given 12/11/2017 Flu < 65 years 95029 Given 12/11/2017 Influenza Virus Vaccine, Quadrivalent, Split, Preservative Free 64504 Given 12/11/2017 Flumist 39976 Given 12/11/2017 Flu High Dose 51387 Given 12/11/2017 Influenza Virus Vaccine, Split, Preserv Free, Intradermal Use 34831 Given 11/15/2016 Influenza Virus Vaccine, Split, Preserv Free, Intradermal Use 84474 Given 11/15/2016 Flu High Dose 94561 Given 11/15/2016 Flumist 96686 Given 11/15/2016 Influenza Virus Vaccine, Quadrivalent, Split, Preservative Free 95065 Given 11/15/2016 Flu < 65 years 60125 Given 11/15/2016 Influenza Virus Vaccine, Quadrivalent, Split, Im Use 0.25ML 64886 Given 11/15/2016 Influenza Virus Vaccine, Quadrivalent, Split, Im Use 0.25ML 05518 Given 11/15/2016 Influenza Virus Vaccine, Quadrivalent, Split, Im Use 0.25ML 04545 Given 12/09/2015 Influenza Virus Vaccine, Split, Preserv Free, Intradermal Use 46082 Given 12/09/2015 Flu High Dose 10760 Given 12/09/2015 Flumist 36619 Given 12/09/2015 Influenza Virus Vaccine, Quadrivalent, Split, Preservative Free 58184 Given 12/09/2015 Flu < 65 years 22967 Given 12/09/2015 Influenza Virus Vaccine, Quadrivalent, Split, Im Use 0.25ML 29744 Given 12/09/2015 Influenza Virus Vaccine, Quadrivalent, Split, Im Use 0.25ML 65314 Given 12/09/2015 Influenza Virus Vaccine, Quadrivalent, Split, Im Use 0.25ML 01683 Given 12/22/2014 Influenza Virus Vaccine, Quadrivalent, Split, Im Use 0.25ML 73984 Given 12/22/2014 Influenza Virus Vaccine, Quadrivalent, Split, Im Use 0.25ML 31528 Given 12/22/2014 Influenza Virus Vaccine, Quadrivalent, Split, Im Use 0.25ML 91387 Given 12/22/2014 Flu < 65 years 26071 Given 12/22/2014 Influenza Virus Vaccine, Quadrivalent, Split, Preservative Free 98926 Given 12/22/2014 Flumist 77890 Given 12/22/2014 Flu High Dose 81925 Given 12/03/2014 Flu High Dose 01555 Given 12/03/2014 Prevnar 13 40431 Given 12/03/2014 [place] 73398 Given 12/03/2014 Influenza Virus Vaccine, Quadrivalent, Split, Preservative Free 12106 Given 12/03/2014 Flu < 65 years 00781 Given 12/03/2014 Influenza Virus Vaccine, Quadrivalent, Split, Im Use 0.25ML 47575 Given 12/03/2014 Influenza Virus Vaccine, Quadrivalent, Split, Im Use 0.25ML 07084 Given 12/03/2014 Influenza Virus Vaccine, Quadrivalent, Split, Im Use 0.25ML 86246 Given 11/27/2013 Influenza Virus Vaccine, Quadrivalent, Split, Im Use 0.25ML 14673 Given 11/27/2013 Influenza Virus Vaccine, Quadrivalent, Split, Im Use 0.25ML 09310 Given 11/27/2013 Influenza Virus Vaccine, Quadrivalent, Split, Im Use 0.25ML 42158 Given 11/27/2013 Flu < 65 years 60961 Given 11/27/2013 Influenza Virus Vaccine, Quadrivalent, Split, Preservative Free 09594 Given 11/27/2013 Flumist 93638 Given 11/27/2013 Flu High Dose 31839 Given 12/19/2012 Flu High Dose 38545 Given 12/19/2012 Fl[facility] 71256 Given 12/19/2012 Influenza Virus Vaccine, Quadrivalent, Split, Preservative Free 71813 Given 12/19/2012 Flu < 65 years 94345 Given 12/19/2012 Influenza Virus Vaccine, Quadrivalent, Split, Im Use 0.25ML 31032 Given 12/19/2012 Influenza Virus Vaccine, Quadrivalent, Split, Im Use 0.25ML 43915 Given 12/19/2012 Influenza Virus Vaccine, Quadrivalent, Split, Im Use 0.25ML 52576 Given 12/20/2011 Influenza Virus Vaccine, Quadrivalent, Split, Im Use 0.25ML 13938 Given 12/20/2011 Influenza Virus Vaccine, Quadrivalent, Split, Im Use 0.25ML 21808 Given 12/20/2011 Influenza Virus Vaccine, Quadrivalent, Split, Im Use 0.25ML 85024 Given 12/20/2011 Flu < 65 years 64690 Given 12/20/2011 Influenza Virus Vaccine, Quadrivalent, Split, Preservative Free 13006 Given 12/20/2011 Flumist 46601 Given 12/20/2011 Flu High Dose 80342 Given 12/23/2010 Influenza Virus Vaccine, Quadrivalent, Split, Im Use 0.25ML 50527 Given 12/23/2010 Influenza Virus Vaccine, Quadrivalent, Split, Im Use 0.25ML 73112 Given 12/23/2010 Influenza Virus Vaccine, Quadrivalent, Split, Im Use 0.25ML 72986 Given 12/23/2010 Flu High Dose 84980 Given 10/12/2009 Pneumovax - for >=2years - [...] H/L Range Note Urine Culture And 02/13/2019 [facility] Urine Culture SEE RESULT [address] [place] [address] [phone] CFM Urinalysis 02/13/2019 [facility] Urine 1.015 ( )- - Specific [place] Ua PH Test Strip 7.5 Ua WBC Small Ua Protein Neg Urine Glucose QL Neg Urine Ketones QL Test Strip Neg Urine Bilirubin TTL QL T-Strip Neg Urine Urobilinogen QN TS 0.2 E.U./dL Urine Nitrite QL TS Neg Ua Occult Blood Neg CBC Auto 12/29/2018 [facility] White Blood 15.9 10^3/uL High 3.5-10.[address] [place] [address] [phone] Red Blood Count 3.96 10^6/uL Normal 3.70-4.87 [...] Blood Cells % 0.0 Comp Metabolic 12/29/2018 [facility] Sodium 140 mmol/L Normal 135-145 Panel [address] [place] [address] [phone] Potassium 3.8 mmol/L Normal 3.5-5.0 Chloride 105 [...] Egfr 70.8 >60 2 Laboratory test 12/29/2018 [facility] Magnesium 1.3 mg/dL Low 1.9-2.7 finding [address] [place] [address] [phone] Urinalysis 12/29/2018 [facility] Urine Color Yellow Profile [address] [place] [address] [phone] Urine Appearance Cloudy Urine Specific [place] 1.020 Normal 1.010-1.030 Urine pH 5.0 Normal [...] Cell Present Abnormal Absent Laboratory test 12/29/2018 [facility] Creatine 771 U/L High 10 -[address] [place] [address] [phone] Urine Culture 12/29/2018 [facility] Urine Culture SEE RESULT [address] [place] [address] [phone] Order 12/27/2018 [facility] <pending> Therapy Evaluate And Treat Occult Blood 12/16/2018 [facility] Z#Other Negative Stool Fit Screen ( )- - Observations Occult Blood 12/16/2018 [facility] Z#Other negative Stool Fit Screen ( )- - Observations Laboratory test 12/16/2018 [facility] CF Fit Cards negative finding ( [...] N2N/CCD Import MCV 90 fL 80-97 fL [place]# 12/03/2018 N2N/CCD Import [place]# 0.8 0-0.8 10 10_3/ul 3/ul [place]% 12/03/2018 N2N/CCD Import [place]% 10.2 % High 0 - 10 % [...] N2N/CCD Import MCV 88 fL 80-97 fL [place]# 11/12/2018 N2N/CCD Import [place]# 0.7 0-0.8 10 10_3/ul 3/ul [place]% 11/12/2018 N2N/CCD Import [place]% 8.9 % 0 - 10 % MPV [...] [address]: Chula Galvez NP Acct: [id number] Unit: [id number] AGE: 88 Location: [facility] Re02/13/19 SEX: F Status: REG REF SPEC: [id number] DESIREE: 02/13/19-[address]: Chula Galvez NP REQ: [id number] RECD: 02/13/199987 STATUS:RES _ SOURCE: URINE [facility]: ORDERED: Urine Culture COMMENTS: [id number] Urine Source: Random Procedure Result Reported Site Urine Culture Preliminary 02/14/19- 1441 ML Organism 1 ESCHERICHIA COLI [place] Count >100,000 (Many) CFU/ML * ML - Main Lab . END OF REPORT DEPARTMENT OF PATHOLOGY, [address] [place] [address] Dominik Herrera M.D. Director [facility] # [id number] 2 Because ethnic data is not always [...] 3 SEE RESULT BELOW Name: JOSEF JOSEPH : [address]: Jenni Trammell MD Acct: [id number] Unit: [id number] AGE: 88 Location: [place] [address] Re12/29/18 SEX: F Status: ADM IN SPEC: [id number] DESIREE: 12/29/18-140 [facility] DR: Mehran Dexter MD REQ: [id number] RECD: 12/29/18 STATUS: JUVE BARRON DR: Sara Sadler DO _ SOURCE: URINE [facility]: ORDERED: Urine Culture Procedure Result Reported Site Urine Culture Final 12/31/18- 1047 ML Organism 1 ESCHERICHIA COLI [place] Count >100,000 (Many) CFU/ML Organism 2 AEROCOCCUS URINAE [place] Count 75-100,000 (Many) CFU/ML Aerococcus isolates are too fastidious for routine susceptibility studies. Aerococcus are usually susceptible to penicillin, amoxicillin, piperacillin, cefipime, rifampin and vancomycin. Moderate to good activity occurs with the quinolones, tetracyclines and erythromycin. (Deonte's Color [place] and Textbook of Diagnostic Microbiology 6th Ed. [...] . END OF REPORT DEPARTMENT OF PATHOLOGY, [address] [place] [address] Dominik Herrera M.D. Director [facility] # [id number] Procedures Date Code Description Status 12/06/2018 93696 Brief Emotional/Behav Assessment W/ Scoring Doc Per Completed Standard Inst Medical Devices Description No Information Available Encounters Type Date Location Provider Dx Diagnosis Office Visit 02/13/2019 11:15a [facility] Main NGOZI Mcintosh R39.15 Urgency of urination N39.0 Urinary tract infection, site not specified A08.39 Other viral enteritis Office Visit 01/20/2019 1:15p [facility] Main Sara Sadler, Z87.440 Personal history of DO urinary (tract) infections R29.6 Repeated falls I10 Essential (primary) hypertension Office Visit 12/27/2018 10:45a [facility] Main Sara Sadler, I10 Essential ( primary) DO hypertension R29.6 Repeated falls D64.9 Anemia, unspecified Z23 Encounter for immunization Assessments Date Code Description Provider 02/13/2019 R39.15 Urgency of urination NAEL McintoshP 02/13/2019 N39.0 Urinary tract infection, site not specified NGOZI Mcintosh 02/13/2019 A08.39 Other viral enteritis NAEL McintoshP 01/20/2019 Z87.440 Personal history of urinary (tract) Sara Sadler, DO infections 01/20/2019 R29.6 Repeated falls Sara Sadler, DO 01/20/2019 I10 Essential (primary) hypertension Sara Sadler, DO 12/27/2018 I10 Essential (primary) hypertension Sara Sadler, DO 12/27/2018 R29.6 Repeated falls Sara Sadler, DO 12/27/2018 D64.9 Anemia, unspecified Sara Sadler, DO 12/27/2018 Z23 Encounter for immunization Sara Sadler, DO 12/16/2018 Z12.11 Encounter for screening for malignant Sara Sadler, neoplasm of colon Plan of Treatment Future Appointment(s):03/28/2019 11:15 am - Sara Carrionjulio césar DO at [facility]10/2018 - NAEL McintoshPR39.15 Urgency of urinationNew Medication: Nitrofurantoin Monohydrate/Macrocrystals 100 mg - take 1 tab PO bid for 5 daysComments:discussed dx of UTIwill start bactrim today and send urine to be cultured consider UTI prophylaxis in futurecontinue to stay well hydrated and restcontinue acetminophen for pain fever return if symptoms ijuypaD31.0 Urinary tract infection, site not tkehzmfezG43.39 Other viral enteritisComments: dicsussed viral illness cough nasal congestion and mild diarrhea supportive care return if no improvement Functional Status Description No Information Available Mental Status Description No Information Available Referrals Description No Information Available
--- OUTSIDE RECORDS SUMMARY | 2019-03-22 11:34 | XMS REPORT | Continuity of Care Document ---
:1930 External Reference #:[id number] Author Name NGOZI Mcintosh Address [address] [place] [address] Problems Active Problems Provider Date Osteoarthritis Onset: [...] CPT Code Status Date Vaccine Lot # 50746 Given 12/27/2018 Flu High Dose [id number] 49987 Given 12/11/2017 Influenza Virus Vaccine, Quadrivalent, Split, Im Use 0.25ML 11728 Given 12/11/2017 Influenza Virus Vaccine, Quadrivalent, Split, Im Use 0.25ML 53594 Given 12/11/2017 Influenza Virus Vaccine, Quadrivalent, Split, Im Use 0.25ML 20551 Given 12/11/2017 Flu < 65 years 21305 Given 12/11/2017 Influenza Virus Vaccine, Quadrivalent, Split, Preservative Free 23642 Given 12/11/2017 Flumist 25359 Given 12/11/2017 Flu High Dose 01699 Given 12/11/2017 Influenza Virus Vaccine, Split, Preserv Free, Intradermal Use 81775 Given 11/15/2016 Influenza Virus Vaccine, Split, Preserv Free, Intradermal Use 45070 Given 11/15/2016 Flu High Dose 54958 Given 11/15/2016 Flumist 71568 Given 11/15/2016 Influenza Virus Vaccine, Quadrivalent, Split, Preservative Free 01620 Given 11/15/2016 Flu < 65 years 37444 Given 11/15/2016 Influenza Virus Vaccine, Quadrivalent, Split, Im Use 0.25ML 40488 Given 11/15/2016 Influenza Virus Vaccine, Quadrivalent, Split, Im Use 0.25ML 14317 Given 11/15/2016 Influenza Virus Vaccine, Quadrivalent, Split, Im Use 0.25ML 56155 Given 12/09/2015 Influenza Virus Vaccine, Split, Preserv Free, Intradermal Use 24071 Given 12/09/2015 Flu High Dose 51972 Given 12/09/2015 Flumist 15518 Given 12/09/2015 Influenza Virus Vaccine, Quadrivalent, Split, Preservative Free 46803 Given 12/09/2015 Flu < 65 years 22124 Given 12/09/2015 Influenza Virus Vaccine, Quadrivalent, Split, Im Use 0.25ML 34388 Given 12/09/2015 Influenza Virus Vaccine, Quadrivalent, Split, Im Use 0.25ML 17686 Given 12/09/2015 Influenza Virus Vaccine, Quadrivalent, Split, Im Use 0.25ML 86833 Given 12/22/2014 Influenza Virus Vaccine, Quadrivalent, Split, Im Use 0.25ML 05801 Given 12/22/2014 Influenza Virus Vaccine, Quadrivalent, Split, Im Use 0.25ML 83963 Given 12/22/2014 Influenza Virus Vaccine, Quadrivalent, Split, Im Use 0.25ML 30651 Given 12/22/2014 Flu < 65 years 71295 Given 12/22/2014 Influenza Virus Vaccine, Quadrivalent, Split, Preservative Free 31802 Given 12/22/2014 Flumist 45807 Given 12/22/2014 Flu High Dose 98041 Given 12/03/2014 Flu High Dose 37359 Given 12/03/2014 Prevnar 13 03299 Given 12/03/2014 Flumist 87239 Given 12/03/2014 Influenza Virus Vaccine, Quadrivalent, Split, Preservative Free 31103 Given 12/03/2014 Flu < 65 years 27541 Given 12/03/2014 Influenza Virus Vaccine, Quadrivalent, Split, Im Use 0.25ML 48908 Given 12/03/2014 Influenza Virus Vaccine, Quadrivalent, Split, Im Use 0.25ML 00839 Given 12/03/2014 Influenza Virus Vaccine, Quadrivalent, Split, Im Use 0.25ML 49496 Given 11/27/2013 Influenza Virus Vaccine, Quadrivalent, Split, Im Use 0.25ML 98966 Given 11/27/2013 Influenza Virus Vaccine, Quadrivalent, Split, Im Use 0.25ML 81163 Given 11/27/2013 Influenza Virus Vaccine, Quadrivalent, Split, Im Use 0.25ML 90690 Given 11/27/2013 Flu < 65 years 80560 Given 11/27/2013 Influenza Virus Vaccine, Quadrivalent, Split, Preservative Free 11008 Given 11/27/2013 Flumist 74860 Given 11/27/2013 Flu High Dose 08025 Given 12/19/2012 Flu High Dose 33216 Given 12/19/2012 Flumist 44148 Given 12/19/2012 Influenza Virus Vaccine, Quadrivalent, Split, Preservative Free 22298 Given 12/19/2012 Flu < 65 years 35785 Given 12/19/2012 Influenza Virus Vaccine, Quadrivalent, Split, Im Use 0.25ML 97247 Given 12/19/2012 Influenza Virus Vaccine, Quadrivalent, Split, Im Use 0.25ML 74874 Given 12/19/2012 Influenza Virus Vaccine, Quadrivalent, Split, Im Use 0.25ML 77099 Given 12/20/2011 Influenza Virus Vaccine, Quadrivalent, Split, Im Use 0.25ML 21734 Given 12/20/2011 Influenza Virus Vaccine, Quadrivalent, Split, Im Use 0.25ML 69351 Given 12/20/2011 Influenza Virus Vaccine, Quadrivalent, Split, Im Use 0.25ML 52837 Given 12/20/2011 Flu < 65 years 19136 Given 12/20/2011 Influenza Virus Vaccine, Quadrivalent, Split, Preservative Free 80175 Given 12/20/2011 Flumist 58328 Given 12/20/2011 Flu High Dose 26356 Given 12/23/2010 Influenza Virus Vaccine, Quadrivalent, Split, Im Use 0.25ML 96303 Given 12/23/2010 Influenza Virus Vaccine, Quadrivalent, Split, Im Use 0.25ML 08808 Given 12/23/2010 Influenza Virus Vaccine, Quadrivalent, Split, Im Use 0.25ML 27815 Given 12/23/2010 Flu High Dose 95595 Given 10/12/2009 Pneumovax - for >=2years - [...] Result H/L Range Note CFM Urinalysis 02/13/2019 [facility] Urine Specific 1.015 ( )- - [place] Ua PH Test Strip 7.5 Ua WBC Small Ua Protein Neg Urine Glucose QL Neg Urine Ketones QL Test Strip Neg Urine Bilirubin TTL QL T-Strip Neg Urine Urobilinogen QN TS 0.2 E.U./dL Urine Nitrite QL TS Neg Ua Occult Blood Neg CBC Auto 12/29/2018 [facility] White Blood 15.9 10^3/uL High 3.5-10.[address] Count [place], [place] [id number] [phone] Red Blood Count 3.96 10^6/uL Normal 3.70-4.87 [...] Blood Cells % 0.0 Comp Metabolic 12/29/2018 [facility] Sodium 140 mmol/L Normal 135-145 Panel [address] [place] [address] [phone] Potassium 3.8 mmol/L Normal 3.5-5.0 Chloride 105 [...] Egfr 70.8 >60 1 Laboratory test 12/29/2018 [facility] Magnesium 1.3 mg/dL Low 1.9-2.7 finding [address] [place] [address] [phone] Urinalysis 12/29/2018 [facility] Urine Color Yellow Profile [address] [place] [address] [phone] Urine Appearance Cloudy Urine Specific [place] 1.020 Normal 1.010-1.030 Urine pH 5.0 Normal [...] Cell Present Abnormal Absent Laboratory test 12/29/2018 [facility] Creatine 771 U/L High 10 -[address] [place] [address] [phone] Urine Culture 12/29/2018 [facility] Urine Culture SEE RESULT [address] BELOW [place] [address] [phone] Order 12/27/2018 [facility] <pending> Therapy Evaluate And Treat Occult Blood 12/16/2018 [facility] Z#Other Negative Stool Fit Screen ( )- - Observations Occult Blood 12/16/2018 [facility] Z#Other negative Stool Fit Screen ( )- - Observations Laboratory test 12/16/2018 [facility] CFM Fit Cards negative finding ( )- [...] N2N/CCD Import MCV 90 fL 80-97 fL [place]# 12/03/2018 N2N/CCD Import [place]# 0.8 0-0.8 10 10_3/ul 3/ul [place]% 12/03/2018 N2N/CCD Import [place]% 10.2 % High 0 - 10 % [...] N2N/CCD Import MCV 88 fL 80-97 fL [place]# 11/12/2018 N2N/CCD Import [place]# 0.7 0-0.8 10 10_3/ul 3/ul [place]% 11/12/2018 N2N/CCD Import [place]% 8.9 % 0 - 10 % MPV [...] (or dialysis) 2 SEE RESULT BELOW Name: CATHERINEJOSEF : [address]: Jenni Trammell MD Acct: [id number] Unit: [id number] AGE: 88 Location: [place] [address] Re12/29/18 SEX: F Status: ADM IN SPEC: [id number] DESIREE: 12/29/18-1405 [facility] DR: Mehran Dexter MD REQ: [id number] RECD: 12/29/18 STATUS: JUVE BARRON DR: Sara Sadler DO _ SOURCE: URINE [facility]: ORDERED: Urine Culture Procedure Result Reported Site Urine Culture Final 12/31/18- 1047 ML Organism 1 ESCHERICHIA COLI [place] Count >100,000 (Many) CFU/ML Organism 2 AEROCOCCUS URINAE [place] Count 75-100,000 (Many) CFU/ML Aerococcus isolates are too fastidious for routine susceptibility studies. Aerococcus are usually susceptible to penicillin, amoxicillin, piperacillin, cefipime, rifampin and vancomycin. Moderate to good activity occurs with the quinolones, tetracyclines and erythromycin. ([employer] and Textbook of Diagnostic Microbiology 6th Ed. [...] END OF REPORT DEPARTMENT OF PATHOLOGY, [address] [place] [address] Dominik Herrera M.D. Director [facility] # [id number] Procedures Date Code Description Status 12/06/2018 71655 Brief Emotional/Behav Assessment W/ Scoring Doc Per Completed Standard Inst Medical Devices Description No Information Available Encounters Type Date Location Provider Dx Diagnosis Office Visit 02/13/2019 11:15a [facility] Chula Galvez [facility] R39.15 Urgency of urination N39.0 Urinary tract infection, site not specified A08.39 Other viral enteritis Office Visit 01/20/2019 1:15p [facility] Sara Viktoriya, Z87.440 Personal history of DO urinary (tract) infections R29.6 Repeated falls I10 Essential (primary) hypertension Office Visit 12/27/2018 10:45a [facility] Sara Carrionjulio césar, I10 Essential ( primary) DO hypertension R29.6 Repeated falls D64.9 Anemia, unspecified Z23 Encounter for immunization Assessments Date Code Description Provider 02/13/2019 R39.15 Urgency of urination NGOZI Mcintosh 02/13/2019 N39.0 Urinary tract infection, site not specified NGOZI Mcintosh 02/13/2019 A08.39 Other viral enteritis NGOZI Mcintosh 01/20/2019 Z87.440 Personal history of urinary (tract) Sara Sadler, DO infections 01/20/2019 R29.6 Repeated falls Sara Sadler, DO 01/20/2019 I10 Essential (primary) hypertension Sara Sadler, DO 12/27/2018 I10 Essential (primary) hypertension Sara Sadler, DO 12/27/2018 R29.6 Repeated falls Sara Sadler, DO 12/27/2018 D64.9 Anemia, unspecified Sara Sadler, DO 12/27/2018 Z23 Encounter for immunization Sara Sadler, DO 12/16/2018 Z12.11 Encounter for screening for malignant Saradean Sadler, neoplasm of colon Plan of Treatment Future Appointment(s):03/28/2019 11:15 am - Sara Sadler, DO at [facility] Main10/2018 - Chula Galvez, FNPR39.15 Urgency of urinationNew Medication: Nitrofurantoin Monohydrate/Macrocrystals 100 mg - take 1 tab PO bid for 5 daysComments:discussed dx of UTIwill start bactrim today and send urine to be cultured consider UTI prophylaxis in futurecontinue to stay well hydrated and restcontinue acetminophen for pain fever return if symptoms kcadxjT59.0 Urinary tract infection, site not hjxntqcagP71.39 Other viral enteritisComments: dicsussed viral illness cough nasal congestion and mild diarrhea supportive care return if no improvement Functional Status Description No Information Available Mental Status Description No Information Available Referrals Description No Information Available
--- OUTSIDE RECORDS SUMMARY | 2019-03-22 11:34 | XMS REPORT ---
:1930 Author Organization [facility] Care Team Providers Name Role Phone Unavailable Unavailable Unavailable Problems Condition Condition Condition Status Onset Resolution Last Treating Comments Name Details Category Date Date Treatment Clinician Date Pain frequent Pain Mgmt Resolve 2018-042019-01-30 Emi pain d 0-22 12:15:00 Clyman 09:10: [id number] 00 Respiratory dyspnea Respirator Resolve 2018-042019-01-30 Emi present y d 0-22 12:15:00 Radhika 09:10: [id number] 00 Sensory impaired Sensory Resolve 2018-042019-01-30 Emi hearing d 0-22 12:15:00 Clyman 09:10: [id number] 00 Integument skin Integument Resolve 2018-042019-01-30 Emi integrity d 0-22 12:15:00 Clyman risk 09:10: [id number] 00 Nutrition nutritional Nutrition Resolve 2018-042019-01-30 Emi restriction d 0-22 12:15:00 Radhika s 09:10: [id number] 00 Elimination urinary Eliminatio Resolve 2018-042019-01-30 Emi incontinenc n d 0-22 12:15:00 Radhika e 09:10: [id number] 00 Elimination urinary Eliminatio Resolve 2018-042019-01-30 Emi frequency n d 0-22 12:15:00 Radhika 09:10: [id number] 00 Elimination recurring Eliminatio Resolve 2018-042019-01-30 Emi UTI n d 0-22 12:15:00 Clyman 09:10: [id number] 00 Neuro confusion Neuro/Emot Resolve 2018-042019-01-30 Emi present ion d 0-22 12:15:00 Clyman 09:10: [id number] 00 Neuro impaired Neuro/Emot Resolve 2018-042019-01-30 Emi decision-ma ion d 0-22 12:15:00 Clyman gama 09:10: [id number] 00 Neuro memory Neuro/Emot Resolve 2018-042019-01-30 Emi deficit ion d 0-22 12:15:00 Clyman needing 09:10: [id number] supervision 00 Activity ADL Activity Resolve 2018-042019-01-30 Emi assistance d 0-22 12:15:00 Clyman required 09:10: [id number] 00 Activity self-care Activity Resolve 2018-042019-01-30 Emi deficit d 0-22 12:15:00 Clyman 09:10: [id number] 00 Safety fall risk Safety Resolve 2018-042019-01-30 Emi factor d 0-22 12:15:00 Clyman present 09:10: [id number] 00 Safety risk for Safety Resolve 2018-042019-01-30 Emi hospitaliza d 0-22 12:15:00 Clyman tion 09:10: [id number] 00 Safety can be left Safety Resolve 2018-042019-01-30 Emi alone for d 0-22 12:15:00 Clyman only short 09:10: [id number] periods 00 Medication oral med Meds Resolve 2018-042019-01-30 Emi assistance d 0-22 12:15:00 Clyman required 09:10: [id number] 00 Medication injectable Meds Resolve 2018-042019-01-30 Emi med d 0-22 12:15:00 Clyman assistance 09:10: [id number] required 00 Medication knowledge/s Meds Resolve 2018-042019-01-30 Emi kill d 0-22 12:15:00 Clyman deficit: pt 09:10: [id number] 00 Musculoskel transfer Musculoske Resolve 2018-042019-01-30 Emi etal assistance letal d 0-22 12:15:00 Radhika required 09:10: [id number] 00 Musculoskel requires Musculoske Resolve 2018-042019-01-30 Emi etal human letal d 0-22 12:15:00 Radhika assist to 09:10: [id number] leave home 00 Elimination diarrhea Eliminatio Resolve 2018-042019-01-30 Lise mauricio d 0-24 12:15:00 Roberts 12:15: 00 Safety fall risk Safety Active 2018-04 Lilian Chávez factor 0-29 present 15:34: 06 Safety risk for Safety Active 2018-04 Lilian Chávez hospitaliza 0-29 tion 15:34: 06 Bed mobility/tr PT/OT: Bed Active 2018-04 Yesenia Mobility/Tr ansfer Mobility/T 04-09 Ward ansfer device ransfer 14:25: [id number] present 00 Bed transfer PT/OT: Bed Active 2018-04 Yesenia Mobility/Tr deficit: Mobility/T 04-09 Ward ansfer toilet/comm ransfer 14:25: [id number] ode 00 Bed transfer PT/OT: Bed Active 2018-04 Yesenia Mobility/Tr deficit: Mobility/T 04-09 Ward ansfer shower/tub ransfer 14:25: [id number] 00 Bed knowledge/s PT/OT: Bed Active 2018-04 Yesenia Mobility/Tr kill Mobility/T 04-09 Ward ansfer deficit: pt ransfer 14:25: [id number] 00 Bed bed PT/OT: Bed Active 2018-04 Yesenia Mobility/Tr mobility Mobility/T 04-09 Ward ansfer deficit ransfer 14:25: [id number] 00 Balance/End balance/import coordinator PT/OT: Active 2018-04 Yesenia stephensonance rdination Balance/En 04-09 Ward deficit durance 14:25: [id number] 00 Balance/End endurance PT/OT: Active 2018-04 Yesenia urance deficit Balance/En 04-09 Ward durance 14:25: [id number] 00 Balance/End knowledge/s PT/OT: Active 2018-04 Yesenia urance kill Balance/En 04-09 Ward deficit: pt durance 14:25: [id number] 00 Gait/Locomo gait PT/OT: Active 2018-04 Yesenia tion assistive Gait/Locom 04-09 Ward problems device otion 14:25: [id number] present 00 Gait/Locomo gait PT/OT: Active 2018-04 Yesenia tion deficit Gait/Locom 04-09 Ward problems otion 14:25: [id number] 00 Gait/Locomo knowledge/s PT/OT: Active 2018-04 Yesenia tion kill Gait/Locom 04-09 Ward problems deficit: pt otion 14:25: [id number] 00 Allergies, Adverse Reactions, Alerts Allergy Allergy Type Status Severity Reaction(s) Onset Inactive Treating Comments Name Date Date Clinician tramadol Base Active Moderate Nausea and Marie Ingredient vomiting, 04-20 Zuñiga Nausea, [id number] vomiting, diarrhea, rash, hives naproxen Base Active Unknown Reaction Marie Ingredient Unknown 04-20 Zuñiga [id number] latex Base Active Unknown Reaction 2017-04 Lilian [...]
--- OUTSIDE RECORDS SUMMARY | 2019-03-22 11:34 | XMS REPORT ---
:1930 Author Organization [facility] Care Team Providers Name Role Phone Unavailable Unavailable Unavailable Problems Condition Condition Condition Status Onset Resolution Last Treating Comments Name Details Category Date Date Treatment Clinician Date Pain frequent Pain Mgmt Resolve 2018-042019-01-30 Emi pain d 0-22 12:15:00 [place] 09:10: [id number] 00 Respiratory dyspnea Respirator Resolve 2018-042019-01-30 Emi present y d 0-22 12:15:00 Radhika 09:10: [id number] 00 Sensory impaired Sensory Resolve 2018-042019-01-30 Emi hearing d 0-22 12:15:00 [place] 09:10: [id number] 00 Integument skin Integument Resolve 2018-042019-01-30 Emi integrity d 0-22 12:15:00 [place] risk 09:10: [id number] 00 Nutrition nutritional Nutrition Resolve 2018-042019-01-30 Emi restriction d 0-22 12:15:00 Radhika s 09:10: [id number] 00 Elimination urinary Eliminatio Resolve 2018-042019-01-30 Emi incontinenc n d 0-22 12:15:00 Radhika e 09:10: [id number] 00 Elimination urinary Eliminatio Resolve 2018-042019-01-30 Emi frequency n d 0-22 12:15:00 Radhika 09:10: [id number] 00 Elimination recurring Eliminatio Resolve 2018-042019-01-30 Emi UTI n d 0-22 12:15:00 [place] 09:10: [id number] 00 Neuro confusion Neuro/Emot Resolve 2018-042019-01-30 Emi present ion d 0-22 12:15:00 [place] 09:10: [id number] 00 Neuro impaired Neuro/Emot Resolve 2018-042019-01-30 Emi decision-ma ion d 0-22 12:15:00 [place] gama 09:10: [id number] 00 Neuro memory Neuro/Emot Resolve 2018-042019-01-30 Emi deficit ion d 0-22 12:15:00 [place] needing 09:10: [id number] supervision 00 Activity ADL Activity Resolve 2018-042019-01-30 Emi assistance d 0-22 12:15:00 [place] required 09:10: [id number] 00 Activity self-care Activity Resolve 2018-042019-01-30 Emi deficit d 0-22 12:15:00 [place] 09:10: [id number] 00 Safety fall risk Safety Resolve 2018-042019-01-30 Emi factor d 0-22 12:15:00 [place] present 09:10: [id number] 00 Safety risk for Safety Resolve 2018-042019-01-30 Emi hospitaliza d 0-22 12:15:00 [place] tion 09:10: [id number] 00 Safety can be left Safety Resolve 2018-042019-01-30 Emi alone for d 0-22 12:15:00 [place] only short 09:10: [id number] periods 00 Medication oral med Meds Resolve 2018-042019-01-30 Emi assistance d 0-22 12:15:00 [place] required 09:10: [id number] 00 Medication injectable Meds Resolve 2018-042019-01-30 Emi med d 0-22 12:15:00 [place] assistance 09:10: [id number] required 00 Medication knowledge/s Meds Resolve 2018-042019-01-30 Emi kill d 0-22 12:15:00 [place] deficit: pt 09:10: [id number] 00 Musculoskel transfer Musculoske Resolve 2018-042019-01-30 Emi etal assistance letal d 0-22 12:15:00 Radhika required 09:10: [id number] 00 Musculoskel requires Musculoske Resolve 2018-042019-01-30 Emi etal human letal d 0-22 12:15:00 Radhika assist to 09:10: [id number] leave home 00 Elimination diarrhea Eliminatio Resolve 2018-042019-01-30 Lise mauricio d 0-24 12:15:00 [place] 12:15: 00 Safety fall risk Safety Active 2018-04 Lilian Chávez factor 0-29 present 15:34: 06 Safety risk for Safety Active 2018-04 Lilian Chávez hospitaliza 0-29 tion 15:34: 06 Bed mobility/tr PT/OT: Bed Active 2018-04 Yesenia Mobility/Tr ansfer Mobility/T 04-09 Ward ansfer device ransfer 14:25: [id number] present 00 Bed transfer PT/OT: Bed Active 2018-04 Yesenia Mobility/Tr deficit: Mobility/T 04-09 Ward ansfer toilet/comm ransfer 14:25: [id number] ode 00 Bed transfer PT/OT: Bed Active 2018-04 Yesenia Mobility/Tr deficit: Mobility/T 04-09 Ward ansfer shower/tub ransfer 14:25: [id number] 00 Bed knowledge/s PT/OT: Bed Active 2018-04 Yesenia Mobility/Tr kill Mobility/T 04-09 Ward ansfer deficit: pt ransfer 14:25: [id number] 00 Bed bed PT/OT: Bed Active 2018-04 Yesenia Mobility/Tr mobility Mobility/T 04-09 Ward ansfer deficit ransfer 14:25: [id number] 00 Balance/End balance/cook starch PT/OT: Active 2018-04 Yesenia stephensonance rdination Balance/En 04-09 Ward deficit durance 14:25: [id number] 00 Balance/End endurance PT/OT: Active 2018-04 Yesenia urance deficit Balance/En 04-09 Ward durance 14:25: [id number] 00 Balance/End knowledge/s PT/OT: Active 2018-04 Yesenia urance kill Balance/En 04-09 Ward deficit: pt durance 14:25: [id number] 00 Gait/Locomo gait PT/OT: Active 2018-04 Yesenia tion assistive Gait/Locom 04-09 Ward problems device otion 14:25: [id number] present 00 Gait/Locomo gait PT/OT: Active 2018-04 Yesenia tion deficit Gait/Locom 04-09 Ward problems otion 14:25: [id number] 00 Gait/Locomo knowledge/s PT/OT: Active 2018-04 Yesenia tion kill Gait/Locom 04-09 Ward problems deficit: pt otion 14:25: [id number] 00 Allergies, Adverse Reactions, Alerts Allergy Allergy Type Status Severity Reaction(s) Onset Inactive Treating Comments Name Date Date Clinician tramadol Base Active Moderate Nausea and Marie Ingredient vomiting, 04-20 Zuñiga Nausea, [id number] vomiting, diarrhea, rash, hives naproxen Base Active Unknown Reaction Marie Ingredient Unknown 04-20 Zuñiga [id number] latex Base Active Unknown Reaction 2017-04 Lilian [...]
[2019-03-22 11:54] LABS: Influenza A Molecular NEGATIVE (Negative); Influenza B Molecular NEGATIVE (Negative)
[2019-03-22 11:56] LABS: Urine Appearance Clear; Urine Bilirubin Negative (Negative); Urine Blood Negative (Negative); Urine Color Straw; Urine Glucose Negative (Negative); Urine Ketones Negative (Negative); Urine Nitrite Negative (Negative); Urine Protein Negative (Negative); Urine Specific Gravity 1.011 (1.010-1.030); Urine Urobilinogen Negative (Negative)
[2019-03-22] MEDS ORDERED: Albuterol/Ipratropium NEB.SOL* Albuterol 2.5 MG/Ipratropium 0.5 MG 3 ML INH ONE (12:24)
[2019-03-22] MEDS ORDERED: methylPREDNISolone 125 MG* 2 ML VIAL IV ONE (12:24)
[2019-03-22] MEDS ORDERED: Albuterol HFA INHALER* 8 gm MDI INH ONE (13:53)
[2019-03-22 14:08] VITALS: BP 151/106
== END 2019-03-22 14:08 | disposition home or self-care (01) ==
LOC: ED 10:19
DX: J40 Bronchitis, not specified as acute or chronic (principal); E78.00 Pure hypercholesterolemia, unspecified; I10 Essential (primary) hypertension; I44.0 Atrioventricular block, first degree; Z90.13 Acquired absence of bilateral breasts and nipples; Z90.710 Acquired absence of both cervix and uterus; Z96.641 Presence of right artificial hip joint; Z79.899 Other long term (current) drug therapy; Z88.5 Allergy status to narcotic agent; Z88.8 Allergy status to other drugs, medicaments and biological substances; Z91.040 Latex allergy status
CPT/HCPCS: 36415; 71046; 80053; 81003; 82550; 83605; 83880; 84484; 85025; 86140; 87040; 93005; 96374; 99284; A9270-GY; J2930

== ENCOUNTER 2020-12-22 10:06 | Observation (INO) ==
[2020-12-22] MEDS ORDERED: NS 0.9% 1000 ml BAG 1,000 ML IV ONE (10:19)
[2020-12-22 11:38] LABS: Activated Partial Thrombo Time 30.9 seconds (26.0-38.0); INR 1.1 (0.86-1.15)
[2020-12-22 11:44] LABS: ABS Eosinophils 0.1 10^3/ul (0-0.6); ABS Lymphocytes 2.1 10^3/ul (1.0-4.8); ABS Monocytes 1.1 10^3/ul (0-0.8); ABS Neutrophils 8.9 10^3/ul (1.5-7.7); Eosinophil % 1.1 %; Hematocrit 37 % (35-47); Hemoglobin 12.3 g/dL (12.0-16.0); Lymphocyte % 17.1 %; Mean Corpuscular HGB Conc 33 g/dL (31-36); Mean Corpuscular Hemoglobin 30 pg (27-31); Mean Corpuscular Volume 91 fL (80-97); Mean Platelet Volume 8.4 fL (7.4-10.4); Platelet Count 253 10^3/uL (150-450); Red Blood Count 4.08 10^6 /uL (3.70-4.87); Red Cell Distribution Width 15 % (10-15); White Blood Count 12.4 10^3/uL (3.5-10.8)
[2020-12-22] MEDS ORDERED: HYDROcodone/ACETAMIN 5/325 mg TAB PO ONE (11:44)
[2020-12-22 11:51] LABS: Troponin I 0.01 ng/mL (<0.03)
[2020-12-22 12:19] LABS: ALT 8 U/L (7-52); AST 16 U/L (13-39); Albumin 3.9 g/dL (3.2-5.2); Albumin/Globulin Ratio 1.1 (1-3); Alkaline Phosphatase 67 U/L (35-149); Anion Gap 10 mmol/L (2-11); Blood Urea Nitrogen 17 mg/dL (6-24); CO2 Carbon Dioxide 24 mmol/L (22-32); Calcium 9.2 mg/dL (8.6-10.3); Chloride 106 mmol/L (101-111); Cholesterol 152 mg/dL; EGFR African American 67.8 (>60); EGFR Non-African American 56.1 (>60); Globulin 3.4 g/dL (2-4); Glucose 107 mg/dL (70-100); HDL Cholesterol 56.6 mg/dL; LDL Cholesterol 74 mg/dL; Potassium 3.8 mmol/L (3.5-5.0); Sodium 140 mmol/L (135-145); Total Protein 7.3 g/dL (6.4-8.9); Triglycerides 108 mg/dL
[2020-12-22 12:45] LABS: TSH Ultra Thyroid Stim Horm 0.95 mcIU/mL (0.34-5.60)
[2020-12-22 12:54] LABS: Vitamin B12 > 1450 pg/mL (180-914)
[2020-12-22 13:38] LABS: Urine Appearance Cloudy; Urine Bacteria 2+ (Absent); Urine Bilirubin Negative (Negative); Urine Blood 2+ (Negative); Urine Color Yellow; Urine Glucose Negative (Negative); Urine Ketones Negative (Negative); Urine Nitrite Positive (Negative); Urine Protein 1+(30 mg/dL) (Negative); Urine Red Blood Cell 3+(>10/hpf) (Absent); Urine Specific Gravity 1.005 (1.002-1.030); Urine Squamous Epithelial Cell Present (Absent); Urine Urobilinogen Negative (Negative); Urine White Blood Cell 3+(>20/hpf) (Absent)
[2020-12-22 15:35] LABS: Rapid COVID-19 Molecular Undetected (Undetected)
[2020-12-22] MEDS: cefTRIAXone 1 gm/50 mL NS BAG 1 GM/50 ML BAG IVPB SCH (16:25)
[2020-12-22] MEDS: Cholecalciferol (VIT D3) 1,000 unit TAB PO SCH (21:00)
[2020-12-23] MEDS: Cholecalciferol (VIT D3) 1,000 unit TAB PO SCH (09:10)
[2020-12-23] MEDS: Nystatin TOP POWDER 15 GM BTL TOPICAL SCH ×2 (10:30)
[2020-12-23] MEDS: cefTRIAXone 1 gm/50 mL NS BAG 1 GM/50 ML BAG IVPB SCH (16:06)
[2020-12-23 16:32] VITALS: BP 150/54
== END 2020-12-23 17:15 | disposition home or self-care (01) ==
LOC: MEDTELE 10:06 → ED 10:06 → MEDTELE 14:50
PROVIDERS: ADMIT Internal Medicine; ATTEND Internal Medicine